=== PATIENT | female | born 1935 | race Caucasian/White ===

== ENCOUNTER 2018-06-23 16:14 | Emergency (ER) | payer OTHER ==
[~2018-06-23] VITALS: Ht 170.2 cm; Wt 74.6 kg
[~2018-06-23 16:14] MED LIST: ACET300T3 PO; ASCA500 PO; CALC500C3 PO; CHOL100010 PO; CLR10 PO; FELO10TA2 PO; FLVHFA220 INH; HYDR100T12 PO; KLN/5 PO; LOVA10TA3 PO; LSX20 PO; MULT-190 PO; SOTA80TA PO; WARF5TAB90 PO
[2018-06-23 16:27] VITALS: TEMP 36.3; Ht 170.2 cm; Wt 74.6 kg
--- NOTE | 2018-06-23 17:32 | EMERGENCY ROOM VISIT NOTE ---
History Report prepared by Frank: Chacorta Delgado Under the Supervision of: Dr. Terry Zurita D.O. First contact with patient: 17:11 Chief Complaint: NOSE BLEED (MINOR) Stated Complaint: BLOODY NOSE, CONSTANT History of Present Illness The patient is a 83 year old female who presents to the Emergency Room with complaints of constant nose bleeding beginning this morning. The patient states that she had eye surgery last week at [facility] for "crooked tear ducts" in an attempt to open them. She reports that she had very little bleeding until this morning. She notes that she thinks it started when she coughed hard to get rid of mucous in the throat. She states that some blood has been running into her throat. She notes that her eyes are watery. Source of History: patient Onset: this morning Position: nose Quality: other (nosebleed) Timing: constant Note: watery eyes Review of Systems See HPI for pertinent positives & negatives. A total of 10 systems reviewed and were otherwise negative. Past Medical & Surgical Medical Problems: (1) Benign hypertension (2) Chronic kidney disease stage 3 (3) Hyperlipidemia (4) Postoperative hypothyroidism Family History Cancer Heart disease Hypertension Social History Smoking Status: Never Smoker Drug Use: none Occupation Status: retired Current/Historical Medications Scheduled Ascorbic Acid (Vitamin C *), 500 MG PO DAILY Calcium Carbonate (Tums), 1,500 MG PO BID Cholecalciferol (Vitamin D), 2,000 INTER.UNIT PO DAILY Clonazepam (Klonopin), 0.5 MG PO HS Felodipine (Plendil), 10 MG PO QPM Fluticasone Propionate (Flovent Hfa 220MCG Inhaler *), 2 PUFF INH DAILY Furosemide (Lasix *), 20 MG PO QAM Hydralazine Hcl (Apresoline), 75 MG PO TID Loratadine (Claritin), 10 MG PO DAILY Lovastatin (Mevacor), 10 MG PO DAILY Ocuvite Preservision (Ocuvite Preservision), 1 TAB PO QAM Sotalol Hcl (Sotalol Hcl), 40 MG PO Q12 Warfarin Sodium (Coumadin), 5 MG PO DIRECTED Scheduled PRN Acetaminophen/Codeine (Tylenol W/Codeine #3), 1 TAB PO Q4H PRN Allergies Coded Allergies: Sulfamethoxazole w/Trimethoprim (Verified Adverse Reaction, Severe, RENAL PROBLEMS, 05/24/12) Vancomycin (Verified Adverse Reaction, Severe, RENAL PROBLEMS, 05/24/12) Physical Exam Vital Signs Date Time Temp Pulse Resp B/P (MAP) Pulse Ox O2 Delivery O2 Flow Rate FiO2 06/23/18 16:27 36.3 118 20 147/78 97 Room Air Physical Exam CONSTITUTIONAL/VITAL SIGNS: Reviewed / noted above. GENERAL: Non-toxic in appearance. INTEGUMENTARY: Warm, dry, and [place]. HEAD: Normocephalic. EYES: without scleral icterus or trauma. ENT/OROPHARYNX: clear and moist. LYMPHADENOPATHY/NECK: Is supple without lymphadenopathy or meningismus. RESPIRATORY: Lungs clear and equal. CARDIOVASCULAR: Regular rate and rhythm. GI/ABDOMEN: Soft and nontender. No organomegaly or pulsatile mass. No rebound or guarding. Normal bowel sounds. EXTREMITIES: Warm and well perfused. BACK: No CVA tenderness. NEUROLOGICAL: Intact without focal deficits. PSYCHIATRIC: normal affect. MUSCULOSKELETAL: Normally developed with good muscle tone. Medical Decision & Procedures ED Course 1714: Previous medical records were reviewed. The patient was evaluated in room D7. A complete history and physical examination was performed. I discussed the findings with the patient. She verbalized agreement of the treatment plan. The patient was discharged home. Medical Decision Differential diagnosis: Etiologies such as anterior epistaxis, coagulopathy, traumatic injury, fracture , septal hematoma, posterior epistaxis as well as other pathologies were entertained.. This is an 83-year-old female who presents to the ED with a chief complaint of a nosebleed. The patient states that she had her lacrimal ducts stented a few days ago. The patient states that this morning she was coughing hard and started having a left-sided nosebleed. She states that it is bleeding intermittently through the day today. She has not taken any of the Afrin that she was prescribed as she did not read her discharge instructions. The patient' s exam reveals no bleeding in the posterior oropharynx. She has minimal dried blood in the left anterior nares. There is no active bleeding. There is no bleeding or evidence of bleeding on the right. There is no evidence of bleeding from the anterior septum. After evaluating the patient, she was advised to use the Afrin that she was prescribed twice a day for the next 2-3 days as needed for bleeding. She is felt to be stable for discharge. She was advised to contact her wound specialist if she has any additional questions for Medication Reconcilliation Current Medication List: was personally reviewed by me Blood Pressure Screening Patient's blood pressure: Elevated blood pressure Blood pressure disposition: Elevated BP felt to be situational Impression Primary Impression: Epistaxis Scribe Attestation The scribe's documentation has been prepared under my direction and personally reviewed by me in its entirety. I confirm that the note above accurately reflects all work, treatment, procedures, and medical decision making performed by me. Departure Information Dispostion Home / Self-Care Referrals Gurpreet Horn MD (PCP) Forms HOME CARE DOCUMENTATION FORM, IMPORTANT VISIT INFORMATION, WORK / SCHOOL INSTRUCTIONS Patient Instructions My [facility]
[2018-06-23 18:02] VITALS: BP 149/93; PULSE 98; O2SAT 97
== END 2018-06-23 18:02 | disposition home or self-care (01) ==
LOC: C.EDB 16:15 → C.EDD 18:02
DX: R04.0 Epistaxis (principal); I12.9 Hypertensive chronic kidney disease with stage 1 through stage 4 chronic kidney disease, or unspecified chronic kidney disease; N18.3 Chronic kidney disease, stage 3 (moderate); E78.5 Hyperlipidemia, unspecified; Z98.890 Other specified postprocedural states; Z79.01 Long term (current) use of anticoagulants; Z79.899 Other long term (current) drug therapy; Z88.2 Allergy status to sulfonamides; Z88.1 Allergy status to other antibiotic agents

== ENCOUNTER 2019-02-04 18:50 | Inpatient (IN) ==
[2019-02-04] MEDS ORDERED: PIPERACILL/TAZOBAC CONSULT ACTIVE PRN (19:19)
[2019-02-04] MEDS ORDERED: PIPERACILLIN/TAZOBACTAM 4.5 GM/120 ML BAG IV ONE (19:19)
[2019-02-04] MEDS ORDERED: SODIUM CHLORIDE 0.9% 500 ML IV SCH (19:30)
[2019-02-04 19:40] LABS: Eosinophils # (auto) 0.03 K/uL (0-0.5); Eosinophils % (auto) 0.6 %; Hemoglobin 8.9 g/dL (12.0-16.0); Immature Granulocytes # (auto) 0.01 K/uL (0.00-0.02); Immature Granulocytes % (auto) 0.2 %; Lymphocytes # (auto) 0.52 K/uL (1.2-3.4); Lymphocytes % (auto) 10.7 %; Mean Corpuscular Hgb Conc 31.8 g/dL (32-36); Mean Platelet Volume 11.6 fL (7.4-10.4); Monocytes # (auto) 0.22 K/uL (0.11-0.59); Monocytes % (auto) 4.5 %; Neutrophils # (auto) 4.09 K/uL (1.4-6.5); Platelet Count 153 K/uL (130-400); RDW Coefficient of Variation 17.4 % (11.5-14.5); RDW Standard Deviation 62.7 fL (36.4-46.3); White Blood Count 4.87 K/uL (4.8-10.8)
[2019-02-04 19:56] LABS: Albumin Level 2.7 gm/dl (3.4-5.0); BUN Creatinine Ratio 27.6 (10-20); Blood Urea Nitrogen 41 mg/dl (7-18); Calcium 9.5 mg/dl (8.5-10.1); Carbon Dioxide 28 mmol/L (21-32); Chloride 113 mmol/L (98-107); Est GFR (African American) 36.8; Est GFR (Non-African American) 31.7; Glucose 110 mg/dl (70-99); Potassium 4.6 mmol/L (3.5-5.1); Sodium 144 mmol/L (136-145)
[2019-02-04 20:01] LABS: Alanine Aminotransferase 22 U/L (12-78); Albumin Globulin Ratio 0.7 (0.9-2); Alkaline Phosphatase 106 U/L (45-117); Aspartate Aminotransferase 25 U/L (15-37); Bilirubin,Total 0.4 mg/dl (0.2-1); Globulin 3.8 gm/dl (2.5-4.0); Total Protein 6.5 gm/dl (6.4-8.2); Troponin I < 0.015 ng/ml (0-0.045)
[2019-02-04 20:03] LABS: Hypochromasia Present; Ovalocytes 1+; Tear Drop Cells 1+
--- NOTE | 2019-02-04 20:05 | XRay Report ---
XR chest 1V portable HISTORY: 84 years-old Female sepsis acute sepsis COMPARISON: Chest radiograph 01/17/2019, chest CT 01/19/2019 (both studies are without accompanying rep ort) TECHNIQUE: Portable AP view of the chest FINDINGS: Cardiac silhouette is enlarged, unchanged. Calcification of the thoracic aortic arch. There is pulmon lalo vascular congestion. Patchy bilateral alveolar opacities, most pronounced within the left lung ba se are redemonstrated which have mildly progressed from 01/19/2019. Degenerative changes of the should ers and spine. IMPRESSION: Patchy bilateral alveolar opacities, most pronounced in the left lung base have progressively worsene d from 01/19/2019 suggestive of multifocal pneumonia. Follow-up recommended. The above report was generated using voice recognition software. It may contain grammatical, syntax o r spelling errors. Electronically signed by: Eleazar Christensen M.D. 02/04/2019 8:04 PM
[2019-02-04] MEDS ORDERED: SODIUM CHLORIDE 0.9% 1000ML 500 ML IV ONE ×2 (20:13→21:08)
[2019-02-04] MEDS ORDERED: LEVOFLOXACIN/D5W 750 MG/150 ML BAG IV SCH (20:15)
[2019-02-04] MEDS ORDERED: VANCOMYCIN HCL 1,500 MG in SODIUM CHLORIDE 0.9% 500 ML IV STA (20:16)
--- NOTE | 2019-02-04 21:49 | History & Physical Report ---
Date of Service February 04, 2019 Assessment & Plan (1) Sepsis: (2) Pneumonia: (3) Hypotension: (4) Hypothermia: Pt presented with c/o weakness and reported hypotension at home in 80's/50's. Hx dysphagia and cough and poor oral intake and suspected recurrent aspiration pneumonia. Pt finished Augmentin 5 days ago for aspiration pneumonia. In ER T: 33.1C rectal, P: 46-54, R: 16, BP: 99/57, 76/45, 87/48, 92% on RA. WBC: 4.8, Hgb: 8.9, negative troponin, negative flu, POC lactic acid: 0.5. CXR: Patchy bilateral alveolar opacities, most pronounced in the left lung base have progressively worsened from 01/19/2019 suggestive of multifocal pneumonia. Follow-up recommended. In ER was given total 1500ml NSS, Levaquin, Zosyn, vancomycin IV -ER placing central line -ICU for further observation and treatment -pending procalcitonin -pending blood culture -pending UA and urine culture -NSS -close monitoring, may need to initiate pressors -zosyn, vancomycin -speech eval -bear hugger -monitor CBC, BMP -Principal Accounts Clerk consult (5) Atrial fibrillation: Chronic a-fib. On coumadin -hold metoprolol with pulse in 40s-50's -pending INR -continue coumadin with holding parameters (6) Chronic diastolic (congestive) heart failure: 2013 echo: EF: 55%, grade II diastolic dysfunction Currently dehydrated -hold lasix (7) HTN (hypertension): Currently hypotensive -hold hydralazine (8) Anemia: Chronic anemia. Hgb: 8.9. baseline ~10 (9) Dysphagia: Chronic. Poor oral intake. reported 40lb weight loss over past several months -speech consult (10) Hypothyroidism: TSH in am -continue levothyroxine (11) CKD (chronic kidney disease), stage III: Cr: 1.48. baseline ~1.7 -monitor renal functions -avoid nephrotoxic agents when possible DVT Prophylaxis -SCDs, coumadin Full Code as per discussion with pt Follows with Dr Horn for routine care Pt was seen with Dr Manzanares. See addendum History of Present Illness Chief Complaint: weakness Primary Care Provider: Gurpreet Horn MD Pt is 84 y/o F with PMHAtrial fibrillation on Coumadin, HTN, chronic anemia, CKD 3, chronic diastolic heart failure presented to ER with complaint of weakness. History obtained from patient and patient's niece. Patient's niece reports patient was drowsy yesterday. Increased weakness and lethargy today. Patient normally able to perform ADLs however today was unable to stand. Niece reports was taking her blood pressure with wrist BP monitor and BPs were 80s/50s and heart rate in the 50s. Niece reports all day patient refused to go to ER until this evening. He states patient had one episode of loose stool today. She reports patient with history of suspected aspiration pneumonia and finished Augmentin 5 days ago. Reports had hydralazine decreased to 25mg TID couple of days ago and was held today. Pt states hasn't been feeling well "for a long time". States chronic cough. Patient with history of dysphasia and a cough and has had a reported 40 pound weight loss over the past several months. Reported chronic poor oral intake. Reports had morning meds today. Patient niece has been staying with pt for the past 2 months. Reported that patient was to have bronchoscopy on 02/22/19. She was to have Coumadin held starting on 02/16/19 with no bridge. Denies known fever/chills, diaphoresis, N/V, CROSS, syncope, vision changes, neck pain, CP, SOB, orthopnea, palpitations, sore throat, choking, otalgia, rhinorrhea, abdominal pain, extremity edema, rashes, urinary symptoms. Allergies Allergy/AdvReac Type Severity Reaction Status Date / Time Bactrim AdvReac Severe RENAL Verified 05/24/12 09:38 PROBLEMS sulfamethoxazole AdvReac Severe RENAL Verified 11/14/18 06:19 PROBLEMS trimethoprim AdvReac Severe RENAL Verified 11/14/18 06:19 PROBLEMS vancomycin AdvReac Severe RENAL Verified 11/14/18 06:19 PROBLEMS Home Medications Home Medications Medication Instructions Recorded Confirmed Type PreserVision AREDS-2 1 tab PO BID 11/08/18 02/04/19 History cholecalciferol (vitamin D3) 2,000 units PO DAILY 11/08/18 02/04/19 History [Vitamin D3] clonazepam 0.25 mg PO HS PRN 11/08/18 02/04/19 History ferrous gluconate 240 mg PO BID 11/08/18 02/04/19 History furosemide [Lasix] 20 mg PO DAILY 11/08/18 02/04/19 History hydralazine 25 mg PO .HOLD 11/08/18 02/04/19 History levothyroxine [Synthroid] 75 mg PO QAM 11/08/18 02/04/19 History metoprolol succinate [Toprol XL] 12.5 mg PO QPM 11/08/18 02/04/19 History metoprolol succinate [Toprol XL] 25 mg PO QAM 11/08/18 02/04/19 History potassium chloride [Klor-Con M20] 20 meq PO BIDM 11/08/18 02/04/19 History sennosides-docusate sodium [Senna 1 tab PO DAILY PRN 02/04/19 02/04/19 History with Docusate Sodium] warfarin 1 mg PO DAILY 02/04/19 02/04/19 History Past Med/Surg History Medical History CKD (chronic kidney disease), stage III (Chronic) Dysphagia (Chronic) HTN (hypertension) (Chronic) History of cataract (Chronic) Chronic diastolic (congestive) heart failure (Chronic) Recurrent epistaxis (Resolved) Anemia (Chronic) Hypothyroidism (Chronic) Atrial fibrillation (Chronic 08/01/14) 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) Surgical History History of cataract surgery (Chronic) Status post tonsillectomy (Chronic) Social History Preferred Language: Congolese Visual Impairment: No Limitations Beliefs That Will Affect Care: None marital status: / Current Living Situation: Alone Feels Safe at Home: Yes Smoking Status: Former smoker Hx Alcohol Use: No Hx Substance Use: No Review of Systems All systems reviewed & are unremarkable except as noted in HPI & below Physical Exam Vital Signs (Past 24 Hours): Last Vital Signs Temp 32.5 C L 02/04/19 20:57 Pulse 53 L 02/04/19 21:32 Resp 16 02/04/19 21:32 BP 88/50 L 02/04/19 21:32 Pulse Ox 100 02/04/19 21:32 Physical Exam: General: thin elderly female Head: normocephalic, atraumatic Eyes: PERRL, EOM's intact, conjunctiva non-injected, anicteric ENT: normal inspection external ears, nose, mucous membranes dry Neck: supple, trachea midline Lungs: clear, no respiratory distress CV: irregular rhythm, rate 50, no pretibial edema Abd: normal BS, soft, non-tender Ext: no cyanosis, no calf tenderness Neuro: A&O to person, place, no focal deficits noted, normal affect Skin: warm, dry Results & Data Laboratory Results Short CBC 02/04/19 Range/Units 19:10 WBC 4.87 (4.8-10.8) K/uL Hgb 8.9 L (12.0-16.0) g/dL Hct 28.0 L (37-47) % Plt Count 153 (130-400) K/uL BMP 02/04/19 19:10 Sodium 144 Potassium 4.6 Chloride 113 H Carbon Dioxide 28 BUN 41 H Creatinine 1.48 H Glucose 110 H Calcium 9.5 Cardiac Enzymes 02/04/19 Range/Units 19:10 Troponin I < 0.015 (0-0.045) ng/ml Liver Function 02/04/19 Range/Units 19:10 Total Bilirubin 0.4 (0.2-1) mg/dl AST 25 (15-37) U/L ALT 22 (12-78) U/L Alkaline Phosphatase 106 (45-117) U/L Albumin 2.7 L (3.4-5.0) gm/dl Diagnostic Findings CXR: IMPRESSION: Patchy bilateral alveolar opacities, most pronounced in the left lung base have progressively worsened from 01/19/2019 suggestive of multifocal pneumonia. Follow-up recommended. ECG Rate (beats per minute): 54 Rhythm: atrial fibrillation Additional Comments: poor tracing Critical Care Time 90 minutes of critical care time Critical Care Time: Yes Total Critical Care Time: 90 (Minutes) Supervising Physician Co-Signing Physician Notes I saw this patient with the physician payroll and benefits assistant, I participated in the history, physical, review of systems, and physical exam. I reviewed the medications with the patient and the physician payroll and benefits assistant and helped reconcile the medications. I helped take a detailed family and social history as well. I formulated the assessment and plan personally with the physician payroll and benefits assistant and went over it with the patient. ROS-positive headache, No Visual Changes, No Nausea, No Vomiting, No Fever, positive chills, No Neck Pain or Stiffness, No Chest Pain, No Palpitations, positive SOB, positive SANZ, positive cough, No Sputum, positive wheezing, No Abdominal Pain, No Diarrhea, No Hematemesis, No Hemoptysis, positive unexpected Weight Loss, No Flank pain, No Melena, No Hematochezia, No Frequency, No Urgency, No Burning, No Hematuria, No Rashes, No Diaphoresis. Appetite is very poor l Physical Exam Gen-somnolent, moderate distress, weak, hypothermic Head-NCAT, EOMI, PERRLA, Anicteric Sclera, No Posterior Pharyngeal Erythema, mucous membranes dry Neck-Supple, No JVD, No Thyromegaly, No Masses, No LAD, No Bruits Lungs-rhonchi bilaterally, bilateral Rales, scattered wheezing, No Crepitus Chest-No S4, +S1, +S2, No S3, No Murmurs, No Rubs, No Gallops, No Ectopy Abdomen-Soft, Bowel Sounds Present, Non Tender, Non Distended, No Hepatomegaly, No Splenomegaly, No Palpable Masses, No Rebound, No Rigidity, No Guarding Musculoskeletal-Full Range of Motion Bilaterally, No CVAT Extremities-No Cyanosis, No Clubbing, No Edema Nuero-Cranial Nerves II-XII grossly intact, Motor WNL, DTRs WNL, Strength WNL, Non Focal Psych-week (1) Anemia Anemia type: unspecified type Qualified Code(s): D64.9 - Anemia, unspecified (2) Atrial fibrillation Atrial fibrillation type: chronic Qualified Code(s): I48.2 - Chronic atrial fibrillation
[2019-02-04 22:15] LABS: INR 3.5 (0.9-1.1); Partial Thromboplastin Ratio 1.6; Partial Thromboplastin Time 43.6 Seconds (21.0-31.0); Prothrombin Time 33.1 Seconds (9.0-12.0)
[2019-02-04 22:41] LABS: Appearance Urine Clear (Clear); Bilirubin Urine Negative (Negative); Blood Urine Negative (Negative); Color Urine Yellow; Glucose Urine UA Negative (Negative); Ketones Urine Negative (Negative); Leukocyte Esterase Urine Negative (Negative); Nitrite Urine Negative (Negative); Protein Urine Negative (Negative); Specific Gravity Urine 1.018 (1.000-1.030); Urobilinogen Urine Negative (Negative)
[2019-02-04] MEDS ORDERED: ICU PROTOCOL FOR HYPERGLYCEMIA PRN (22:53)
[2019-02-04] MEDS ORDERED: NOREPINEPHRINE BIT INJ 8 MG in DEXTROSE 5% 500 ML IV SCH (23:45)
[2019-02-04] MEDS: SODIUM CHLORIDE 0.9% 1000ML 1,000 ML IV SCH (23:50)
[2019-02-05] MEDS ORDERED: PIPERACILL/TAZOBAC CONSULT ACTIVE PRN (00:01)
[2019-02-05] MEDS ORDERED: VANCOMYCIN CONSULT ACTIVE PRN (00:01)
--- NOTE | 2019-02-05 02:41 | Emergency Department Note ---
Entered by Julio Whipple acting as a scribe for History of Present Illness General Chief complaint: Weakness Stated complaint: WEAKNESS, HYPOTENSION Time Seen by Provider: 02/04/19 19:05 Source: patient and family (niece) History of Present Illness Provider complaint: Weakness Onset (ago): hour(s) Location: left and right Associated symptoms: + denies other symptoms (abd pain), + weakness and + other (of difficulty swallowing, pain in her legs, and feeling really cold); no shortness of breath Treatments prior to arrival: other (IV) The patient is a 84 year old female who presents to the Emergency Room with complaints of weakness beginning prior to arrival. For this reason, the HPI was limited from the patient, but the niece provided some information. Per the patient's niece, who was bedside, the patient has been lethargic with low BP. Her HR was in the 50s while at home and dropped down to the 30-40s while with EMS en route to the ED. The niece adds that the patient recently been taken off of antibiotics for aspiration PNA and she was last at her doctor 4 days ago. At that time, her BP was 90/60. The doctor instructed the niece to cut the patient's hydralazine in half. The niece notes that the patient was wake enough to taker her pills this morning. The patient also complains of difficulty swallowing, pain in her legs, and feeling really cold. Per nursing staff, the patient's most recent temperature was 33.1. The patient denies SOB, and abd pain. Home Medications Home Medications Medication Instructions Recorded Confirmed Type PreserVision AREDS-2 1 tab PO BID 11/08/18 02/04/19 History cholecalciferol (vitamin D3) 2,000 units PO DAILY 11/08/18 02/04/19 History [Vitamin D3] clonazepam 0.25 mg PO HS PRN 11/08/18 02/04/19 History ferrous gluconate 240 mg PO BID 11/08/18 02/04/19 History furosemide [Lasix] 20 mg PO DAILY 11/08/18 02/04/19 History hydralazine 25 mg PO .HOLD 11/08/18 02/04/19 History levothyroxine [Synthroid] 75 mg PO QAM 11/08/18 02/04/19 History metoprolol succinate [Toprol XL] 12.5 mg PO QPM 11/08/18 02/04/19 History metoprolol succinate [Toprol XL] 25 mg PO QAM 11/08/18 02/04/19 History potassium chloride [Klor-Con M20] 20 meq PO BIDM 11/08/18 02/04/19 History sennosides-docusate sodium [Senna 1 tab PO DAILY PRN 02/04/19 02/04/19 History with Docusate Sodium] warfarin 1 mg PO DAILY 02/04/19 02/04/19 History Allergies Allergy/AdvReac Type Severity Reaction Status Date / Time Bactrim AdvReac Severe RENAL Verified 05/24/12 09:38 PROBLEMS sulfamethoxazole AdvReac Severe RENAL Verified 11/14/18 06:19 PROBLEMS trimethoprim AdvReac Severe RENAL Verified 11/14/18 06:19 PROBLEMS vancomycin AdvReac Severe RENAL Verified 11/14/18 06:19 PROBLEMS Past Med/Surg History Medical History CKD (chronic kidney disease), stage III (Chronic) Dysphagia (Chronic) HTN (hypertension) (Chronic) History of cataract (Chronic) Chronic diastolic (congestive) heart failure (Chronic) Recurrent epistaxis (Resolved) Anemia (Chronic) Hypothyroidism (Chronic) Atrial fibrillation (Chronic 08/01/14) 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) Surgical History History of cataract surgery (Chronic) Status post tonsillectomy (Chronic) Family History Other Cancer Diabetes Family history non-contributory Stroke Social History Communication Ability: Effective Beliefs That Will Affect Care: None marital status: / Current Living Situation: Alone Current Living Situation Comment: Niece has been staying with patient the last few weeks Other Information That Helps Us Care for You: No Feels Safe at Home: Yes Safety Concerns: Feels Safe At This Time Smoking Status: Former smoker Hx Alcohol Use: No Hx Substance Use: No Review of Systems See HPI for pertinent positives & negatives. and A total of 10 systems reviewed and were otherwise negative Physical Exam Vital Signs Vital Signs - 24 hr 02/06/19 23:15 02/07/19 03:10 02/07/19 08:00 Temperature 36.4 C L Temperature Source Oral Pulse Rate 92 H Pulse Rate [Left Apical] 88 81 99 H Pulse Rate [Right Finger] Pulse Rhythm [Left Apical] Irregular Pulse Rhythm [Right Finger] Pulse Strength [Left Apical] Normal Pulse Strength [Right Finger] Respiratory Rate 17 17 Respiratory Effort / Characteristics Non-Labored SOB on Exertion Respiratory Depth Normal Respiratory Pattern Regular Blood Pressure [Left Arm] 109/63 143/85 H Blood Pressure [Right Arm] Blood Pressure Mean [Left Arm] 78 104 Blood Pressure Mean [Right Arm] Blood Pressure Position [Left Arm] Lying Lying Blood Pressure Position [Right Arm] Pulse Oximetry 95 97 Oxygen Delivery Method Room Air Room Air Room Air 02/07/19 15:19 Temperature 36.3 C L Temperature Source Oral Pulse Rate Pulse Rate [Left Apical] Pulse Rate [Right Finger] 77 Pulse Rhythm [Left Apical] Pulse Rhythm [Right Finger] Regular Pulse Strength [Left Apical] Pulse Strength [Right Finger] Normal Respiratory Rate 17 Respiratory Effort / Characteristics Non-Labored Respiratory Depth Normal Respiratory Pattern Blood Pressure [Left Arm] Blood Pressure [Right Arm] 103/60 Blood Pressure Mean [Left Arm] Blood Pressure Mean [Right Arm] 74 Blood Pressure Position [Left Arm] Blood Pressure Position [Right Arm] Lying Pulse Oximetry 92 Oxygen Delivery Method Room Air Vital signs reviewed.: hypotensive and hypothermic General: Chronically ill-appearing, elderly female in no significant distress. Noted to be bradycardic and hypotensive HEENT: No scleral icterus, PERRLA, neck supple. Atraumatic. Cardiovascular: Regular rate and rhythm, no extra sounds. Pulmonary: Clear to auscultation bilaterally, normal work of breathing. Abdomen: Soft, nontender, nondistended, positive bowel sounds. Musculoskeletal: Atraumatic, no peripheral edema. Neurologic: Patient somnolent and lethargic, arouses to verbal stimuli with slurred speech. Falls asleep quickly Skin: Cold, dry, no rash Procedures Central Line Placement Right Femoral: Time Out Performed: Yes Patient Placed on Monitor/Pulse Ox: Yes MD Prep: mask, gown and gloves Central Line Prep: Chlorhexidine scrub Local Anesthetic: lidocaine 1% Ultrasound Used for Placement: Yes Central Line Lumen Inserted: triple Post Procedure: sutured in place, good blood return and all ports a spirated, flushed, capped Patient Tolerated Procedure: well Complications: none Additional Comments: Attempt at right IJ was performed in similar fashion but arterial blood was attained, pressure dressing was applied and right femoral was placed successfully as above. Course 1910: Past medical records reviewed. The patient was evaluated in room A09B, and a complete history and physical examination were performed. 2034: [facility] the [facility] He requested a central line placement. He will evaluate the patient for further managment. Administered Medications Dextrose (Dextrose 50%) 50 ml IV ONCE PRN PRN Reason: Hypoglycemia Treatment Stop: 03/07/19 07:20 Last Admin: 02/05/19 07:21 Dose: 25 ml Documented by: [id number] Pantoprazole Sodium 40 mg/ (Syringe) 10 mls @ 5 mls/min IV DAILY@1100 [facility] Stop: 03/07/19 10:59 Last Admin: 02/07/19 10:55 Dose: Not Given Documented by: [id number] Admin: 02/06/19 11:42 Dose: 5 mls/min Documented by: [id number] Admin: 02/05/19 11:47 Dose: 5 mls/min Documented by: [id number] Potassium Chloride/Dextrose/Sod Cl (D5w And 1/2nss + 20meq Kcl) 20 meq in 1,000 mls @ 50 mls/hr IV .Q20H [facility] Stop: 03/07/19 15:44 Last Admin: 02/07/19 10:54 Dose: Not Given Documented by: [id number] Infusion: 02/07/19 09:02 Dose: 0 mls/hr Documented by: [id number] Infusion: 02/06/19 19:00 Dose: 0 mls/hr Documented by: [id number] Admin: 02/06/19 11:43 Dose: 50 mls/hr Documented by: [id number] Infusion: 02/06/19 11:43 Dose: 50 mls/hr Documented by: [id number] Admin: 02/05/19 17:01 Dose: 50 mls/hr Documented by: [id number] Levothyroxine Sodium 37.5 mcg/ (Syringe) 1.875 mls @ 0.938 mls/min IV DAILY@0900 [facility] Stop: 03/08/19 08:59 Last Admin: 02/07/19 10:54 Dose: Not Given Documented by: [id number] Admin: 02/06/19 08:55 Dose: 0.938 mls/min Documented by: [id number] Thiamine HCl 100 mg/ Syringe 10 mls @ 2 mls/min IV DAILY@0900 [facility] Stop: 03/09/19 08:59 Last Admin: 02/07/19 10:54 Dose: Not Given Documented by: [id number] Hydrocortisone Sodium (Succinate 100 mg/ Syringe) 2 mls @ 4 mls/min IV Q8H [facility] Stop: 03/08/19 12:59 Last Admin: 02/07/19 13:50 Dose: Not Given Documented by: [id number] Admin: 02/07/19 05:23 Dose: 4 mls/min Documented by: [id number] Admin: 02/07/19 01:37 Dose: 4 mls/min Documented by: [id number] Admin: 02/06/19 13:51 Dose: 4 mls/min Documented by: [id number] Discontinued Medications Dextrose (Dextrose 50%) Confirm Administered Dose 50 ml IV .STK-MED ONE Stop: 02/05/19 07:20 Last Admin: 02/05/19 08:07 Dose: Not Given Documented by: [id number] Ferrous Gluconate (Ferrous Gluconate) 324 mg PO BID [facility] Stop: 03/07/19 08:59 Last Admin: 02/05/19 10:08 Dose: Not Given Documented by: [id number] Sodium Chloride (Nss) 500 mls @ 999 mls/hr IV .Q31M [facility] Stop: 02/04/19 20:00 Last Infusion: 02/04/19 20:59 Dose: 0 mls/hr Documented by: [id number] Admin: 02/04/19 19:58 Dose: 999 mls/hr Documented by: [id number] Piperacillin Sod/Tazobactam Sod (Zosyn) 4.5 gm in 120 mls @ 240 mls/hr IV NOW ONE Stop: 02/04/19 19:48 Last Infusion: 02/04/19 20:58 Dose: 0 mls/hr Documented by: [id number] Admin: 02/04/19 19:57 Dose: 240 mls/hr Documented by: [id number] Sodium Chloride (Nss 1000ml) 500 mls @ 999 mls/hr IV .Q31M [facility] Stop: 02/04/19 20:43 Last Infusion: 02/04/19 21:30 Dose: 0 mls/hr Documented by: [id number] Admin: 02/04/19 20:59 Dose: 999 mls/hr Documented by: [id number] Levofloxacin/Dextrose (Levaquin/D5w) 750 mg in 150 mls @ 100 mls/hr IV Q24H [facility] Stop: 02/06/19 20:14 Last Infusion: 02/04/19 22:55 Dose: 0 mls/hr Documented by: [id number] Admin: 02/04/19 20:56 Dose: 100 mls/hr Documented by: [id number] Vancomycin HCl 1,500 mg/ (Sodium Chloride) 530 mls @ 200 mls/hr IV NOW STA Stop: 02/04/19 22:54 Last Infusion: 02/04/19 22:55 Dose: 0 mls/hr Documented by: [id number] Admin: 02/04/19 20:56 Dose: 200 mls/hr Documented by: [id number] Sodium Chloride (Nss 1000ml) 500 mls @ 999 mls/hr IV .Q31M [facility] Stop: 02/04/19 21:38 Last Infusion: 02/04/19 22:55 Dose: 0 mls/hr Documented by: [id number] Admin: 02/04/19 21:42 Dose: 999 mls/hr Documented by: [id number] Sodium Chloride (Nss 1000ml) 1,000 mls @ 100 mls/hr IV .Q10H [facility] Stop: 03/06/19 22:52 Last Infusion: 02/05/19 18:49 Dose: 0 mls/hr Documented by: [id number] Admin: 02/05/19 10:07 Dose: 100 mls/hr Documented by: [id number] Infusion: 02/05/19 10:07 Dose: 100 mls/hr Documented by: [id number] Admin: 02/04/19 23:50 Dose: 100 mls/hr Documented by: [id number] Norepinephrine Bitartrate 8 mg (/ Dextrose) 508 mls @ 2.6 mls/hr IV .Q24H [facility]; Protocol Stop: 03/06/19 23:44 Last Titration: 02/05/19 14:15 Dose: 0 mcg/kg/min, 0 mls/hr Documented by: [id number] Admin: 02/05/19 00:36 Dose: 0.01 mcg/kg/min, 2.6 mls/hr Documented by: [id number] Cosigned by: [id number] Piperacillin Sod/Tazobactam (Sod 3.375 gm/ Dextrose) 115 mls @ 28.75 mls/hr IV Q8H [facility]; Protocol Stop: 02/07/19 05:59 Last Infusion: 02/05/19 18:49 Dose: 0 mls/hr Documented by: [id number] Admin: 02/05/19 14:07 Dose: 28.8 mls/hr Documented by: [id number] Infusion: 02/05/19 10:45 Dose: 0 mls/hr Documented by: [id number] Admin: 02/05/19 06:42 Dose: 28.8 mls/hr Documented by: [id number] Thiamine HCl 100 mg/ Syringe 10 mls @ 2 mls/min IV 1145 [facility] Stop: 02/06/19 11:49 Last Admin: 02/06/19 12:39 Dose: 2 mls/min Documented by: [id number] Lorazepam (Ativan) 0.5 mg in 1 mls @ 2 mls/min IV NOW STA Stop: 02/06/19 13:39 Last Admin: 02/06/19 13:51 Dose: 2 mls/min Documented by: [id number] Levothyroxine Sodium (Synthroid) 75 mcg PO DAILYBB [facility] Stop: 03/07/19 06:29 Last Admin: 02/05/19 05:44 Dose: Not Given Documented by: [id number] Phytonadione (Mephyton) 2.5 mg PO TODAY@1700 [facility] Stop: 02/07/19 17:01 Last Admin: 02/07/19 17:22 Dose: 2.5 mg Documented by: [id number] Medical Decision Making Differential Diagnosis Differential diagnosis: Etiologies such as metabolic, infection, hypo/hyperglycemia, electrolyte abnormalities, cardiac sources, intracerebral event, toxicologic, neurologic, as well as others were entertained. Medical Records Attestation: I reviewed the patient's medical records. Home Medications Current Medication List: was personally reviewed by me Laboratory Data Attestation: I reviewed the patient's lab results. Result diagrams: 02/07/19 15:22 02/07/19 15:22 Lab Results 02/04/19 02/04/19 02/04/19 Range/Units 19:10 19:10 19:10 WBC 4.87 (4.8-10.8) K/uL RBC 2.80 L (4.2-5.4) M/uL Hgb 8.9 L (12.0-16.0) g/dL Hct 28.0 L (37-47) % MCV 100.0 (80-100) fL MCH 31.8 (25-34) pg MCHC 31.8 L (32-36) g/dL RDW Std Deviation 62.7 H (36.4-46.3) fL RDW Coeff of Patrick 17.4 H (11.5-14.5) % Plt Count 153 (130-400) K/uL MPV 11.6 H (7.4-10.4) fL Immature Gran % (Auto) 0.2 % Neut % (Auto) 84.0 % Lymph % (Auto) 10.7 % [place] % (Auto) 4.5 % Eos % (Auto) 0.6 % Baso % (Auto) 0.0 % Immature Gran # (Auto) 0.01 (0.00-0.02) K/uL Neut # (Auto) 4.09 (1.4-6.5) K/uL Lymph # (Auto) 0.52 L (1.2-3.4) K/uL [place] # (Auto) 0.22 (0.11-0.59) K/uL Eos # (Auto) 0.03 (0-0.5) K/uL Baso # (Auto) 0.00 (0-0.2) K/uL Platelet Estimate (Normal) Giant Platelets Hypochromasia Present Anisocytosis Tear Drop Cells 1+ Ovalocytes 1+ Echinocytes ESR (0-21) mm/hr PT 33.1 H (9.0-12.0) Seconds INR 3.5 H (0.9-1.1) APTT 43.6 H (21.0-31.0) Seconds PTT Ratio 1.6 Sodium 144 (136-145) mmol/L Potassium 4.6 (3.5-5.1) mmol/L Chloride 113 H (98-107) mmol/L Carbon Dioxide 28 (21-32) mmol/L Anion Gap 3.0 (3-11) BUN 41 H (7-18) mg/dl Creatinine 1.48 H (0.6-1.2) mg/dl Est Cr Clr Drug Dosing Not Reportable Est GFR ( Amer) 36.8 Est GFR (Non-Af Amer) 31.7 BUN/Creatinine Ratio 27.6 H (10-20) Glucose 110 H (70-99) mg/dl POC Glucose (70-99) POC Lactic Acid Michael (0.90-1.70) mmol/L Calcium 9.5 (8.5-10.1) mg/dl Phosphorus (2.5-4.9) mg/dl Magnesium (1.8-2.4) mg/dl Total Bilirubin 0.4 (0.2-1) mg/dl AST 25 (15-37) U/L ALT 22 (12-78) U/L Alkaline Phosphatase 106 (45-117) U/L Total Creatine Kinase (26-192) U/L Troponin I < 0.015 (0-0.045) ng/ml Total Protein 6.5 (6.4-8.2) gm/dl Albumin 2.7 L (3.4-5.0) gm/dl Globulin 3.8 (2.5-4.0) gm/dl Albumin/Globulin Ratio 0.7 L (0.9-2) Procalcitonin (0-0.5) ng/ml TSH (0.300-4.500) uIu/ml Random Cortisol mcg/dl Urine Color Urine Appearance (Clear) Urine pH (4.5-7.5) Ur Specific [place] (1.000-1.030) Urine Protein (Negative) Urine Glucose (UA) (Negative) Urine Ketones (Negative) Urine Blood (Negative) Urine Nitrite (Negative) Urine Bilirubin (Negative) Urine Urobilinogen (Negative) Ur Leukocyte Esterase (Negative) Nasal Screen MRSA (PCR) (Negative) Influenza Type A Ag (Neg) Influenza Type B Ag (Neg) 02/04/19 02/04/19 02/04/19 Range/Units 19:11 19:30 19:30 WBC (4.8-10.8) K/uL RBC (4.2-5.4) M/uL Hgb (12.0-16.0) g/dL Hct (37-47) % MCV (80-100) fL MCH (25-34) pg MCHC (32-36) g/dL RDW Std Deviation (36.4-46.3) fL RDW Coeff of Patrick (11.5-14.5) % Plt Count (130-400) K/uL MPV (7.4-10.4) fL Immature Gran % (Auto) % Neut % (Auto) % Lymph % (Auto) % [place] % (Auto) % Eos % (Auto) % Baso % (Auto) % Immature Gran # (Auto) (0.00-0.02) K/uL Neut # (Auto) (1.4-6.5) K/uL Lymph # (Auto) (1.2-3.4) K/uL [place] # (Auto) (0.11-0.59) K/uL Eos # (Auto) (0-0.5) K/uL Baso # (Auto) (0-0.2) K/uL Platelet Estimate (Normal) Giant Platelets Hypochromasia Anisocytosis Tear Drop Cells Ovalocytes Echinocytes ESR (0-21) mm/hr PT (9.0-12.0) Seconds INR (0.9-1.1) APTT (21.0-31.0) Seconds PTT Ratio Sodium (136-145) mmol/L Potassium (3.5-5.1) mmol/L Chloride (98-107) mmol/L Carbon Dioxide (21-32) mmol/L Anion Gap (3-11) BUN (7-18) mg/dl Creatinine (0.6-1.2) mg/dl Est Cr Clr Drug Dosing Est GFR ( Amer) Est GFR (Non-Af Amer) BUN/Creatinine Ratio (10-20) Glucose (70-99) mg/dl POC Glucose 107 H (70-99) POC Lactic Acid Michael 0.55 L (0.90-1.70) mmol/L Calcium (8.5-10.1) mg/dl Phosphorus (2.5-4.9) mg/dl Magnesium (1.8-2.4) mg/dl Total Bilirubin (0.2-1) mg/dl AST (15-37) U/L ALT (12-78) U/L Alkaline Phosphatase (45-117) U/L Total Creatine Kinase (26-192) U/L Troponin I (0-0.045) ng/ml Total Protein (6.4-8.2) gm/dl Albumin (3.4-5.0) gm/dl Globulin (2.5-4.0) gm/dl Albumin/Globulin Ratio (0.9-2) Procalcitonin (0-0.5) ng/ml TSH (0.300-4.500) uIu/ml Random Cortisol mcg/dl Urine Color Urine Appearance (Clear) Urine pH (4.5-7.5) Ur Specific [place] (1.000-1.030) Urine Protein (Negative) Urine Glucose (UA) (Negative) Urine Ketones (Negative) Urine Blood (Negative) Urine Nitrite (Negative) Urine Bilirubin (Negative) Urine Urobilinogen (Negative) Ur Leukocyte Esterase (Negative) Nasal Screen MRSA (PCR) (Negative) Influenza Type A Ag Neg for Influ A (Neg) Influenza Type B Ag Neg for Influ B (Neg) 02/04/19 02/04/19 02/05/19 Range/Units 21:00 22:10 04:37 WBC 4.09 L (4.8-10.8) K/uL RBC 2.43 L (4.2-5.4) M/uL Hgb 7.7 L (12.0-16.0) g/dL Hct 24.1 L (37-47) % MCV 99.2 (80-100) fL MCH 31.7 (25-34) pg MCHC 32.0 (32-36) g/dL RDW Std Deviation 63.3 H (36.4-46.3) fL RDW Coeff of Patrick 17.6 H (11.5-14.5) % Plt Count 137 (130-400) K/uL MPV 11.7 H (7.4-10.4) fL Immature Gran % (Auto) 0.2 % Neut % (Auto) 86.1 % Lymph % (Auto) 6.8 % [place] % (Auto) 5.9 % Eos % (Auto) 1.0 % Baso % (Auto) 0.0 % Immature Gran # (Auto) 0.01 (0.00-0.02) K/uL Neut # (Auto) 3.52 (1.4-6.5) K/uL Lymph # (Auto) 0.28 L (1.2-3.4) K/uL [place] # (Auto) 0.24 (0.11-0.59) K/uL Eos # (Auto) 0.04 (0-0.5) K/uL Baso # (Auto) 0.00 (0-0.2) K/uL Platelet Estimate (Normal) Giant Platelets 1+ Hypochromasia Anisocytosis Tear Drop Cells Ovalocytes Echinocytes ESR (0-21) mm/hr PT (9.0-12.0) Seconds INR (0.9-1.1) APTT (21.0-31.0) Seconds PTT Ratio Sodium (136-145) mmol/L Potassium (3.5-5.1) mmol/L Chloride (98-107) mmol/L Carbon Dioxide (21-32) mmol/L Anion Gap (3-11) BUN (7-18) mg/dl Creatinine (0.6-1.2) mg/dl Est Cr Clr Drug Dosing Est GFR ( Amer) Est GFR (Non-Af Amer) BUN/Creatinine Ratio (10-20) Glucose (70-99) mg/dl POC Glucose (70-99) POC Lactic Acid Michael (0.90-1.70) mmol/L Calcium (8.5-10.1) mg/dl Phosphorus (2.5-4.9) mg/dl Magnesium (1.8-2.4) mg/dl Total Bilirubin (0.2-1) mg/dl AST (15-37) U/L ALT (12-78) U/L Alkaline Phosphatase (45-117) U/L Total Creatine Kinase (26-192) U/L Troponin I (0-0.045) ng/ml Total Protein (6.4-8.2) gm/dl Albumin (3.4-5.0) gm/dl Globulin (2.5-4.0) gm/dl Albumin/Globulin Ratio (0.9-2) Procalcitonin (0-0.5) ng/ml TSH (0.300-4.500) uIu/ml Random Cortisol mcg/dl Urine Color Yellow Urine Appearance Clear (Clear) Urine pH 5.0 (4.5-7.5) Ur Specific [place] 1.018 (1.000-1.030) Urine Protein Negative (Negative) Urine Glucose (UA) Negative (Negative) Urine Ketones Negative (Negative) Urine Blood Negative (Negative) Urine Nitrite Negative (Negative) Urine Bilirubin Negative (Negative) Urine Urobilinogen Negative (Negative) Ur Leukocyte Esterase Negative (Negative) Nasal Screen MRSA (PCR) Negative (Negative) Influenza Type A Ag (Neg) Influenza Type B Ag (Neg) 02/05/19 02/05/19 02/05/19 Range/Units 04:37 04:37 07:14 WBC (4.8-10.8) K/uL RBC (4.2-5.4) M/uL Hgb (12.0-16.0) g/dL Hct (37-47) % MCV (80-100) fL MCH (25-34) pg MCHC (32-36) g/dL RDW Std Deviation (36.4-46.3) fL RDW Coeff of Patrick (11.5-14.5) % Plt Count (130-400) K/uL MPV (7.4-10.4) fL Immature Gran % (Auto) % Neut % (Auto) % Lymph % (Auto) % [place] % (Auto) % Eos % (Auto) % Baso % (Auto) % Immature Gran # (Auto) (0.00-0.02) K/uL Neut # (Auto) (1.4-6.5) K/uL Lymph # (Auto) (1.2-3.4) K/uL [place] # (Auto) (0.11-0.59) K/uL Eos # (Auto) (0-0.5) K/uL Baso # (Auto) (0-0.2) K/uL Platelet Estimate (Normal) Giant Platelets Hypochromasia Anisocytosis Tear Drop Cells Ovalocytes Echinocytes ESR (0-21) mm/hr PT 38.0 H (9.0-12.0) Seconds INR 4.1 H (0.9-1.1) APTT (21.0-31.0) Seconds PTT Ratio Sodium 146 H (136-145) mmol/L Potassium 4.5 (3.5-5.1) mmol/L Chloride 118 H (98-107) mmol/L Carbon Dioxide 24 (21-32) mmol/L Anion Gap 4.0 (3-11) BUN 34 H (7-18) mg/dl Creatinine 1.39 H (0.6-1.2) mg/dl Est Cr Clr Drug Dosing 28.3 Est GFR ( Amer) 39.7 Est GFR (Non-Af Amer) 34.2 BUN/Creatinine Ratio 24.5 H (10-20) Glucose 56 L (70-99) mg/dl POC Glucose 64 L* (70-99) POC Lactic Acid Michael (0.90-1.70) mmol/L Calcium 8.4 L (8.5-10.1) mg/dl Phosphorus 2.5 (2.5-4.9) mg/dl Magnesium 1.7 L (1.8-2.4) mg/dl Total Bilirubin (0.2-1) mg/dl AST (15-37) U/L ALT (12-78) U/L Alkaline Phosphatase (45-117) U/L Total Creatine Kinase (26-192) U/L Troponin I (0-0.045) ng/ml Total Protein (6.4-8.2) gm/dl Albumin (3.4-5.0) gm/dl Globulin (2.5-4.0) gm/dl Albumin/Globulin Ratio (0.9-2) Procalcitonin (0-0.5) ng/ml TSH 1.050 (0.300-4.500) uIu/ml Random Cortisol mcg/dl Urine Color Urine Appearance (Clear) Urine pH (4.5-7.5) Ur Specific [place] (1.000-1.030) Urine Protein (Negative) Urine Glucose (UA) (Negative) Urine Ketones (Negative) Urine Blood (Negative) Urine Nitrite (Negative) Urine Bilirubin (Negative) Urine Urobilinogen (Negative) Ur Leukocyte Esterase (Negative) Nasal Screen MRSA (PCR) (Negative) Influenza Type A Ag (Neg) Influenza Type B Ag (Neg) 02/05/19 02/05/19 02/05/19 Range/Units 08:02 08:36 11:31 WBC (4.8-10.8) K/uL RBC (4.2-5.4) M/uL Hgb (12.0-16.0) g/dL Hct (37-47) % MCV (80-100) fL MCH (25-34) pg MCHC (32-36) g/dL RDW Std Deviation (36.4-46.3) fL RDW Coeff of Patrick (11.5-14.5) % Plt Count (130-400) K/uL MPV (7.4-10.4) fL Immature Gran % (Auto) % Neut % (Auto) % Lymph % (Auto) % [place] % (Auto) % Eos % (Auto) % Baso % (Auto) % Immature Gran # (Auto) (0.00-0.02) K/uL Neut # (Auto) (1.4-6.5) K/uL Lymph # (Auto) (1.2-3.4) K/uL [place] # (Auto) (0.11-0.59) K/uL Eos # (Auto) (0-0.5) K/uL Baso # (Auto) (0-0.2) K/uL Platelet Estimate (Normal) Giant Platelets Hypochromasia Anisocytosis Tear Drop Cells Ovalocytes Echinocytes ESR (0-21) mm/hr PT (9.0-12.0) Seconds INR (0.9-1.1) APTT (21.0-31.0) Seconds PTT Ratio Sodium (136-145) mmol/L Potassium (3.5-5.1) mmol/L Chloride (98-107) mmol/L Carbon Dioxide (21-32) mmol/L Anion Gap (3-11) BUN (7-18) mg/dl Creatinine (0.6-1.2) mg/dl Est Cr Clr Drug Dosing Est GFR ( Amer) Est GFR (Non-Af Amer) BUN/Creatinine Ratio (10-20) Glucose (70-99) mg/dl POC Glucose 122 H 85 (70-99) POC Lactic Acid Michael (0.90-1.70) mmol/L Calcium (8.5-10.1) mg/dl Phosphorus (2.5-4.9) mg/dl Magnesium (1.8-2.4) mg/dl Total Bilirubin (0.2-1) mg/dl AST (15-37) U/L ALT (12-78) U/L Alkaline Phosphatase (45-117) U/L Total Creatine Kinase (26-192) U/L Troponin I (0-0.045) ng/ml Total Protein (6.4-8.2) gm/dl Albumin (3.4-5.0) gm/dl Globulin (2.5-4.0) gm/dl Albumin/Globulin Ratio (0.9-2) Procalcitonin < 0.05 (0-0.5) ng/ml TSH (0.300-4.500) uIu/ml Random Cortisol mcg/dl Urine Color Urine Appearance (Clear) Urine pH (4.5-7.5) Ur Specific [place] (1.000-1.030) Urine Protein (Negative) Urine Glucose (UA) (Negative) Urine Ketones (Negative) Urine Blood (Negative) Urine Nitrite (Negative) Urine Bilirubin (Negative) Urine Urobilinogen (Negative) Ur Leukocyte Esterase (Negative) Nasal Screen MRSA (PCR) (Negative) Influenza Type A Ag (Neg) Influenza Type B Ag (Neg) 02/05/19 02/05/19 02/06/19 Range/Units 15:45 18:36 06:18 WBC 5.14 (4.8-10.8) K/uL RBC 2.59 L (4.2-5.4) M/uL Hgb 8.2 L (12.0-16.0) g/dL Hct 25.8 L (37-47) % MCV 99.6 (80-100) fL MCH 31.7 (25-34) pg MCHC 31.8 L (32-36) g/dL RDW Std Deviation 64.6 H (36.4-46.3) fL RDW Coeff of Patrick 18.3 H (11.5-14.5) % Plt Count 127 L (130-400) K/uL MPV 12.2 H (7.4-10.4) fL Immature Gran % (Auto) 0.2 % Neut % (Auto) 81.7 % Lymph % (Auto) 10.5 % [place] % (Auto) 6.6 % Eos % (Auto) 0.8 % Baso % (Auto) 0.2 % Immature Gran # (Auto) 0.01 (0.00-0.02) K/uL Neut # (Auto) 4.20 (1.4-6.5) K/uL Lymph # (Auto) 0.54 L (1.2-3.4) K/uL M[place] # (Auto) 0.34 (0.11-0.59) K/uL Eos # (Auto) 0.04 (0-0.5) K/uL Baso # (Auto) 0.01 (0-0.2) K/uL Platelet Estimate Decreased (Normal) Giant Platelets Hypochromasia Anisocytosis Tear Drop Cells Ovalocytes Echinocytes 1+ ESR (0-21) mm/hr PT (9.0-12.0) Seconds INR (0.9-1.1) APTT (21.0-31.0) Seconds PTT Ratio Sodium (136-145) mmol/L Potassium (3.5-5.1) mmol/L Chloride (98-107) mmol/L Carbon Dioxide (21-32) mmol/L Anion Gap (3-11) BUN (7-18) mg/dl Creatinine (0.6-1.2) mg/dl Est Cr Clr Drug Dosing Est GFR ( Amer) Est GFR (Non-Af Amer) BUN/Creatinine Ratio (10-20) Glucose (70-99) mg/dl POC Glucose 96 (70-99) POC Lactic Acid Michael (0.90-1.70) mmol/L Calcium (8.5-10.1) mg/dl Phosphorus (2.5-4.9) mg/dl Magnesium (1.8-2.4) mg/dl Total Bilirubin (0.2-1) mg/dl AST (15-37) U/L ALT (12-78) U/L Alkaline Phosphatase (45-117) U/L Total Creatine Kinase (26-192) U/L Troponin I (0-0.045) ng/ml Total Protein (6.4-8.2) gm/dl Albumin (3.4-5.0) gm/dl Globulin (2.5-4.0) gm/dl Albumin/Globulin Ratio (0.9-2) Procalcitonin (0-0.5) ng/ml TSH (0.300-4.500) uIu/ml Random Cortisol 15.67 mcg/dl Urine Color Urine Appearance (Clear) Urine pH (4.5-7.5) Ur Specific [place] (1.000-1.030) Urine Protein (Negative) Urine Glucose (UA) (Negative) Urine Ketones (Negative) Urine Blood (Negative) Urine Nitrite (Negative) Urine Bilirubin (Negative) Urine Urobilinogen (Negative) Ur Leukocyte Esterase (Negative) Nasal Screen MRSA (PCR) (Negative) Influenza Type A Ag (Neg) Influenza Type B Ag (Neg) 02/06/19 02/06/19 02/06/19 Range/Units 06:18 06:18 06:18 WBC (4.8-10.8) K/uL RBC (4.2-5.4) M/uL Hgb (12.0-16.0) g/dL Hct (37-47) % MCV (80-100) fL MCH (25-34) pg MCHC (32-36) g/dL RDW Std Deviation (36.4-46.3) fL RDW Coeff of Patrick (11.5-14.5) % Plt Count (130-400) K/uL MPV (7.4-10.4) fL Immature Gran % (Auto) % Neut % (Auto) % Lymph % (Auto) % [place] % (Auto) % Eos % (Auto) % Baso % (Auto) % Immature Gran # (Auto) (0.00-0.02) K/uL Neut # (Auto) (1.4-6.5) K/uL Lymph # (Auto) (1.2-3.4) K/uL M[place] # (Auto) (0.11-0.59) K/uL Eos # (Auto) (0-0.5) K/uL Baso # (Auto) (0-0.2) K/uL Platelet Estimate (Normal) Giant Platelets Hypochromasia Anisocytosis Tear Drop Cells Ovalocytes Echinocytes ESR (0-21) mm/hr PT 44.0 H (9.0-12.0) Seconds INR 4.8 H (0.9-1.1) APTT (21.0-31.0) Seconds PTT Ratio Sodium 147 H (136-145) mmol/L Potassium 3.7 D (3.5-5.1) mmol/L Chloride 118 H (98-107) mmol/L Carbon Dioxide 24 (21-32) mmol/L Anion Gap 5.0 (3-11) BUN 24 H (7-18) mg/dl Creatinine 1.48 H (0.6-1.2) mg/dl Est Cr Clr Drug Dosing 26.5 Est GFR ( Amer) 36.8 Est GFR (Non-Af Amer) 31.7 BUN/Creatinine Ratio 16.0 (10-20) Glucose 99 (70-99) mg/dl POC Glucose (70-99) POC Lactic Acid Michael (0.90-1.70) mmol/L Calcium 9.2 (8.5-10.1) mg/dl Phosphorus 2.5 (2.5-4.9) mg/dl Magnesium 1.9 (1.8-2.4) mg/dl Total Bilirubin (0.2-1) mg/dl AST (15-37) U/L ALT (12-78) U/L Alkaline Phosphatase (45-117) U/L Total Creatine Kinase 34 (26-192) U/L Troponin I (0-0.045) ng/ml Total Protein (6.4-8.2) gm/dl Albumin (3.4-5.0) gm/dl Globulin (2.5-4.0) gm/dl Albumin/Globulin Ratio (0.9-2) Procalcitonin (0-0.5) ng/ml TSH (0.300-4.500) uIu/ml Random Cortisol mcg/dl Urine Color Urine Appearance (Clear) Urine pH (4.5-7.5) Ur Specific [place] (1.000-1.030) Urine Protein (Negative) Urine Glucose (UA) (Negative) Urine Ketones (Negative) Urine Blood (Negative) Urine Nitrite (Negative) Urine Bilirubin (Negative) Urine Urobilinogen (Negative) Ur Leukocyte Esterase (Negative) Nasal Screen MRSA (PCR) (Negative) Influenza Type A Ag (Neg) Influenza Type B Ag (Neg) 02/06/19 02/07/19 02/07/19 Range/Units 11:51 15:22 15:22 WBC 4.09 L (4.8-10.8) K/uL RBC 2.67 L (4.2-5.4) M/uL Hgb 8.4 L (12.0-16.0) g/dL Hct 26.3 L (37-47) % MCV 98.5 (80-100) fL MCH 31.5 (25-34) pg MCHC 31.9 L (32-36) g/dL RDW Std Deviation 63.2 H (36.4-46.3) fL RDW Coeff of Patrick 18.3 H (11.5-14.5) % Plt Count 146 (130-400) K/uL MPV 12.2 H (7.4-10.4) fL Immature Gran % (Auto) 0.2 % Neut % (Auto) 84.9 % Lymph % (Auto) 10.0 % [place] % (Auto) 4.9 % Eos % (Auto) 0.0 % Baso % (Auto) 0.0 % Immature Gran # (Auto) 0.01 (0.00-0.02) K/uL Neut # (Auto) 3.47 (1.4-6.5) K/uL Lymph # (Auto) 0.41 L (1.2-3.4) K/uL [place] # (Auto) 0.20 (0.11-0.59) K/uL Eos # (Auto) 0.00 (0-0.5) K/uL Baso # (Auto) 0.00 (0-0.2) K/uL Platelet Estimate (Normal) Giant Platelets Hypochromasia Present Anisocytosis Present Tear Drop Cells Ovalocytes Echinocytes ESR 71 H (0-21) mm/hr PT (9.0-12.0) Seconds INR (0.9-1.1) APTT (21.0-31.0) Seconds PTT Ratio Sodium (136-145) mmol/L Potassium (3.5-5.1) mmol/L Chloride (98-107) mmol/L Carbon Dioxide (21-32) mmol/L Anion Gap (3-11) BUN (7-18) mg/dl Creatinine (0.6-1.2) mg/dl Est Cr Clr Drug Dosing Est GFR ( Amer) Est GFR (Non-Af Amer) BUN/Creatinine Ratio (10-20) Glucose (70-99) mg/dl POC Glucose (70-99) POC Lactic Acid Michael (0.90-1.70) mmol/L Calcium (8.5-10.1) mg/dl Phosphorus (2.5-4.9) mg/dl Magnesium (1.8-2.4) mg/dl Total Bilirubin (0.2-1) mg/dl AST (15-37) U/L ALT (12-78) U/L Alkaline Phosphatase (45-117) U/L Total Creatine Kinase 36 (26-192) U/L Troponin I (0-0.045) ng/ml Total Protein (6.4-8.2) gm/dl Albumin (3.4-5.0) gm/dl Globulin (2.5-4.0) gm/dl Albumin/Globulin Ratio (0.9-2) Procalcitonin (0-0.5) ng/ml TSH (0.300-4.500) uIu/ml Random Cortisol mcg/dl Urine Color Urine Appearance (Clear) Urine pH (4.5-7.5) Ur Specific [place] (1.000-1.030) Urine Protein (Negative) Urine Glucose (UA) (Negative) Urine Ketones (Negative) Urine Blood (Negative) Urine Nitrite (Negative) Urine Bilirubin (Negative) Urine Urobilinogen (Negative) Ur Leukocyte Esterase (Negative) Nasal Screen MRSA (PCR) (Negative) Influenza Type A Ag (Neg) Influenza Type B Ag (Neg) 02/07/19 02/07/19 Range/Units 15:22 15:22 WBC (4.8-10.8) K/uL RBC (4.2-5.4) M/uL Hgb (12.0-16.0) g/dL Hct (37-47) % MCV (80-100) fL MCH (25-34) pg MCHC (32-36) g/dL RDW Std Deviation (36.4-46.3) fL RDW Coeff of Patrick (11.5-14.5) % Plt Count (130-400) K/uL MPV (7.4-10.4) fL Immature Gran % (Auto) % Neut % (Auto) % Lymph % (Auto) % [place] % (Auto) % Eos % (Auto) % Baso % (Auto) % Immature Gran # (Auto) (0.00-0.02) K/uL Neut # (Auto) (1.4-6.5) K/uL Lymph # (Auto) (1.2-3.4) K/uL [place] # (Auto) (0.11-0.59) K/uL Eos # (Auto) (0-0.5) K/uL Baso # (Auto) (0-0.2) K/uL Platelet Estimate (Normal) Giant Platelets Hypochromasia Anisocytosis Tear Drop Cells Ovalocytes Echinocytes ESR (0-21) mm/hr PT 43.3 H (9.0-12.0) Seconds INR 4.7 H (0.9-1.1) APTT (21.0-31.0) Seconds PTT Ratio Sodium 150 H (136-145) mmol/L Potassium 3.9 (3.5-5.1) mmol/L Chloride 119 H (98-107) mmol/L Carbon Dioxide 22 (21-32) mmol/L Anion Gap 9.0 (3-11) BUN 25 H (7-18) mg/dl Creatinine 1.44 H (0.6-1.2) mg/dl Est Cr Clr Drug Dosing 27.3 Est GFR ( Amer) 38.0 Est GFR (Non-Af Amer) 32.8 BUN/Creatinine Ratio 17.4 (10-20) Glucose 122 H (70-99) mg/dl POC Glucose (70-99) POC Lactic Acid Michael (0.90-1.70) mmol/L Calcium 9.7 (8.5-10.1) mg/dl Phosphorus 3.1 (2.5-4.9) mg/dl Magnesium 1.9 (1.8-2.4) mg/dl Total Bilirubin 0.5 (0.2-1) mg/dl AST 16 (15-37) U/L ALT 17 (12-78) U/L Alkaline Phosphatase 101 (45-117) U/L Total Creatine Kinase (26-192) U/L Troponin I (0-0.045) ng/ml Total Protein 5.9 L (6.4-8.2) gm/dl Albumin 2.2 L (3.4-5.0) gm/dl Globulin 3.7 (2.5-4.0) gm/dl Albumin/Globulin Ratio 0.6 L (0.9-2) Procalcitonin (0-0.5) ng/ml TSH (0.300-4.500) uIu/ml Random Cortisol mcg/dl Urine Color Urine Appearance (Clear) Urine pH (4.5-7.5) Ur Specific [place] (1.000-1.030) Urine Protein (Negative) Urine Glucose (UA) (Negative) Urine Ketones (Negative) Urine Blood (Negative) Urine Nitrite (Negative) Urine Bilirubin (Negative) Urine Urobilinogen (Negative) Ur Leukocyte Esterase (Negative) Nasal Screen MRSA (PCR) (Negative) Influenza Type A Ag (Neg) Influenza Type B Ag (Neg) Imaging Data Radiologist's Impression: Radiology results as stated below per my review and the radiologist's interpretation: XR chest 1V portable HISTORY: 84 years-old Female sepsis acute sepsis COMPARISON: Chest radiograph 01/17/2019, chest CT 01/19/2019 (both studies are without accompanying report) TECHNIQUE: Portable AP view of the chest FINDINGS: Cardiac silhouette is enlarged, unchanged. Calcification of the thoracic aortic arch. There is pulmonary vascular congestion. Patchy bilateral alveolar opacities, most pronounced within the left lung base are redemonstrated which have mildly progressed from 01/19/2019. Degenerative changes of the shoulders and spine. IMPRESSION: Patchy bilateral alveolar opacities, most pronounced in the left lung base have progressively worsened from 01/19/2019 suggestive of multifocal pneumonia. Follow-up recommended. The above report was generated using voice recognition software. It may contain grammatical, syntax or spelling errors. Electronically signed by: Eleazar Christensen M.D. 02/04/2019 8:04 PM Blood Pressure Blood Pressure Findings: Low blood pressure Blood Pressure Disposition: further management by hospitalist MDM Narrative This pt was evaluated and appeared to be in no distress. IV access was obtained and lab work was drawn. PT is noted to be hypotensive and hypothermic, warmed IVF were initiated. Pt was started on IV zosyn and vancomycin was added to the regimen. Lab work reveals a mild leukopenia. UA is negative. CXR reveals a multifocal process. Pt has h/o aspiration. Central line was placed in the right groin after a failed attempt at the right IJ. Pt was d/w the hospitalist service for further management. Pt niece is aware of the findings. Impression & Plan Sepsis, Pneumonia, Hypothermia Critical Care Time I have personally spent greater than 60 minutes of critical care time in the direct management of this patient. This includes bedside care, interpretation of diagnostic studies, and testing, discussion with consultants, patient, and family members, and other required patient management activities. This 60 minutes is in excess of all separately billable procedures. Critical Care Time: Yes Total Critical Care Time: 60 Discharge Plan Visit Data *Final* Discharge Date/Time: 02/04/19 22:23 Chief Complaint: Weakness Stated Complaint: WEAKNESS, HYPOTENSION ED Provider: Marialuisa Ba Discharge Problem: Sepsis, Pneumonia, Hypothermia Patient Disposition: Admitted As Inpatient Discharge Instructions Interventions: ED Discharge Assessment Last Done: 02/04/19 22:23 The scribe's documentation has been prepared under my direction and personally reviewed by me in its entirety. I confirm that the note above accurately reflects all work, treatment, procedures, and medical decision making performed by me.
[2019-02-05 05:00] LABS: Eosinophils # (auto) 0.04 K/uL (0-0.5); Hematocrit (blood only) 24.1 % (37-47); Hemoglobin 7.7 g/dL (12.0-16.0); Immature Granulocytes # (auto) 0.01 K/uL (0.00-0.02); Immature Granulocytes % (auto) 0.2 %; Lymphocytes # (auto) 0.28 K/uL (1.2-3.4); Lymphocytes % (auto) 6.8 %; Mean Corpuscular Volume 99.2 fL (80-100); Mean Platelet Volume 11.7 fL (7.4-10.4); Monocytes # (auto) 0.24 K/uL (0.11-0.59); Monocytes % (auto) 5.9 %; Neutrophils # (auto) 3.52 K/uL (1.4-6.5); Neutrophils % (auto) 86.1 %; Platelet Count 137 K/uL (130-400); RDW Coefficient of Variation 17.6 % (11.5-14.5); RDW Standard Deviation 63.3 fL (36.4-46.3); Red Blood Count 2.43 M/uL (4.2-5.4); White Blood Count 4.09 K/uL (4.8-10.8)
[2019-02-05 05:21] LABS: BUN Creatinine Ratio 24.5 (10-20); Calcium 8.4 mg/dl (8.5-10.1); Creatinine Clr Calc Pharmacy 28.3 ml/min; Est GFR (African American) 39.7; Est GFR (Non-African American) 34.2; Magnesium 1.7 mg/dl (1.8-2.4); Potassium 4.5 mmol/L (3.5-5.1)
[2019-02-05 05:31] LABS: Giant Platelets 1+
[2019-02-05 05:32] LABS: Phosphorus 2.5 mg/dl (2.5-4.9)
[2019-02-05 05:33] LABS: INR 4.1 (0.9-1.1)
[2019-02-05] MEDS ORDERED: LEVOTHYROXINE SODIUM 75 MCG TABLET PO SCH (06:30)
[2019-02-05] MEDS: PIPERACILLIN/TAZOBACTAM 3.375 GM in DEXTROSE 5% 100 ML IV SCH ×2 (06:42→14:07)
[2019-02-05] MEDS ORDERED: DEXTROSE 50% 50 ML SYRINGE IV ONE (07:19)
[2019-02-05] MEDS ORDERED: DEXTROSE 50% 50 ML SYRINGE IV PRN (07:21)
--- NOTE | 2019-02-05 07:25 | Critical Care Consultation ---
Date of Consultation February 05, 2019 Assessment & Plan (1) Admitted to intensive care unit: Reason Critically Ill: Hypotension upon presentation PLAN: Neuro: Failure to thrive -Meets general criteria since October 2018 patient has lost 10 kg which is greater than 5% body weight -Report of significant inactivity and poor appetite Patient appears to have poor insight into disease process. Reports that she lives alone and is able to make her own meals she does have a niece that lives with her several days of the week. This niece is also making meals. I question the patient's ability to live independently, will place physical therapy and occupational therapy consults as well as speech therapy. Weakness -Ordered CT head -May benefit from MRI rule out CVA -No focal deficits, alert and oriented x3 however he just exhibits poor insight into disease process Resp: Dyspnea -Saturating well on nasal cannula CV: Atrial fibrillation Long-term use of anticoagulants -Adequate mean arterial blood pressure, adequate rate control Fluids/Renal: Chronic kidney disease stage III: Improved [id number] lactate unremarkable -Mild hyperchloremia likely secondary to normal saline boluses Decrease IV fluids to 50 mL's per hour -Convert to D5 half NS with 20 meq K -Avoid volume overload ID: Pro-calcitonin negative -This does not appear to be infectious in origin, urinalysis unremarkable chest x-ray largely unremarkable, blood cultures pending, influenza negative -With negative pro calcitonin and unremarkable labs I am discontinuing all anti-infectives at this time GI/Nutrition: Sarcopena -13% weight loss since October 2018 (3 months ago) Hypoalbuminemia Heme: Mild leukopenia -No left shift Anemia of chronic disease Supratherapeutic INR DVT prophylaxis: SCDs: Chemical prophylaxis contraindicated in the setting of supratherapeutic INR Endocrine: ICU hyperglycemia protocol Mild hypoglycemia: Resolved Vascular access: Central venous access Code Status: Full code per patient's report. She reports she has completed a medical power of document review attorney she is unsure who that person is exactly designated. She previously reports that she was a DO NOT RESUSCITATE in event cardiac arrest however upon the recent parole of her grandson she feels that she wants to live for his benefit. Patient stable for downgrade out of ICU History of Present Illness Attending Physician: Nguyen Knowles DO Patient is a 84-year-old female who was transferred to the ICU for sepsis (severe sepsis hypotension secondary to pneumonia) Allergies Allergy/AdvReac Type Severity Reaction Status Date / Time Bactrim AdvReac Severe RENAL Verified 05/24/12 09:38 PROBLEMS sulfamethoxazole AdvReac Severe RENAL Verified 11/14/18 06:19 PROBLEMS trimethoprim AdvReac Severe RENAL Verified 11/14/18 06:19 PROBLEMS vancomycin AdvReac Severe RENAL Verified 11/14/18 06:19 PROBLEMS Home Medications Home Medications Medication Instructions Recorded Confirmed Type PreserVision AREDS-2 1 tab PO BID 11/08/18 02/04/19 History cholecalciferol (vitamin D3) 2,000 units PO DAILY 11/08/18 02/04/19 History [Vitamin D3] clonazepam 0.25 mg PO HS PRN 11/08/18 02/04/19 History ferrous gluconate 240 mg PO BID 11/08/18 02/04/19 History furosemide [Lasix] 20 mg PO DAILY 11/08/18 02/04/19 History hydralazine 25 mg PO .HOLD 11/08/18 02/04/19 History levothyroxine [Synthroid] 75 mg PO QAM 11/08/18 02/04/19 History metoprolol succinate [Toprol XL] 12.5 mg PO QPM 11/08/18 02/04/19 History metoprolol succinate [Toprol XL] 25 mg PO QAM 11/08/18 02/04/19 History potassium chloride [Klor-Con M20] 20 meq PO BIDM 11/08/18 02/04/19 History sennosides-docusate sodium [Senna 1 tab PO DAILY PRN 02/04/19 02/04/19 History with Docusate Sodium] warfarin 1 mg PO DAILY 02/04/19 02/04/19 History Patient History Medical History CKD (chronic kidney disease), stage III (Chronic) Dysphagia (Chronic) HTN (hypertension) (Chronic) History of cataract (Chronic) Chronic diastolic (congestive) heart failure (Chronic) Recurrent epistaxis (Resolved) Anemia (Chronic) Hypothyroidism (Chronic) Atrial fibrillation (Chronic 08/01/14) 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) Surgical History History of cataract surgery (Chronic) Status post tonsillectomy (Chronic) Family History Other Cancer Diabetes Family history non-contributory Stroke Social History Communication Ability: Effective Beliefs That Will Affect Care: None marital status: / Current Living Situation: Alone Current Living Situation Comment: Niece has been staying with patient the last few weeks Other Information That Helps Us Care for You: No Feels Safe at Home: Yes Safety Concerns: Feels Safe At This Time Smoking Status: Former smoker Hx Alcohol Use: No Hx Substance Use: No Physical Exam Vital Signs (Past 24 Hours): Last Vital Signs Temp 33.9 C L 02/04/19 22:53 Pulse 99 H 02/05/19 06:30 Resp 29 H 02/05/19 06:30 BP 109/58 L 02/05/19 06:30 Pulse Ox 96 02/05/19 06:30 Results & Data Laboratory Results 02/05/19 02/05/19 02/05/19 Range/Units 11:31 08:36 08:02 WBC (4.8-10.8) K/uL RBC (4.2-5.4) M/uL Hgb (12.0-16.0) g/dL Hct (37-47) % MCV (80-100) fL MCH (25-34) pg MCHC (32-36) g/dL RDW Std Deviation (36.4-46.3) fL RDW Coeff of Patrick (11.5-14.5) % Plt Count (130-400) K/uL MPV (7.4-10.4) fL Immature Gran % (Auto) % Neut % (Auto) % Lymph % (Auto) % [place] % (Auto) % Eos % (Auto) % Baso % (Auto) % Immature Gran # (Auto) (0.00-0.02) K/uL Neut # (Auto) (1.4-6.5) K/uL Lymph # (Auto) (1.2-3.4) K/uL [place] # (Auto) (0.11-0.59) K/uL Eos # (Auto) (0-0.5) K/uL Baso # (Auto) (0-0.2) K/uL Giant Platelets Hypochromasia Tear Drop Cells Ovalocytes PT (9.0-12.0) Seconds INR (0.9-1.1) APTT (21.0-31.0) Seconds PTT Ratio Sodium (136-145) mmol/L Potassium (3.5-5.1) mmol/L Chloride (98-107) mmol/L Carbon Dioxide (21-32) mmol/L Anion Gap (3-11) BUN (7-18) mg/dl Creatinine (0.6-1.2) mg/dl Est Cr Clr Drug Dosing Est GFR ( Amer) Est GFR (Non-Af Amer) BUN/Creatinine Ratio (10-20) Glucose (70-99) mg/dl POC Glucose 85 122 H (70-99) POC Lactic Acid [place] (0.90-1.70) mmol/L Calcium (8.5-10.1) mg/dl Phosphorus (2.5-4.9) mg/dl Magnesium (1.8-2.4) mg/dl Total Bilirubin (0.2-1) mg/dl AST (15-37) U/L ALT (12-78) U/L Alkaline Phosphatase (45-117) U/L Troponin I (0-0.045) ng/ml Total Protein (6.4-8.2) gm/dl Albumin (3.4-5.0) gm/dl Globulin (2.5-4.0) gm/dl Albumin/Globulin Ratio (0.9-2) Procalcitonin < 0.05 (0-0.5) ng/ml TSH (0.300-4.500) uIu/ml Urine Color Urine Appearance (Clear) Urine pH (4.5-7.5) Ur Specific [place] (1.000-1.030) Urine Protein (Negative) Urine Glucose (UA) (Negative) Urine Ketones (Negative) Urine Blood (Negative) Urine Nitrite (Negative) Urine Bilirubin (Negative) Urine Urobilinogen (Negative) Ur Leukocyte Esterase (Negative) Nasal Screen MRSA (PCR) (Negative) Influenza Type A Ag (Neg) Influenza Type B Ag (Neg) 02/05/19 02/05/19 02/05/19 Range/Units 07:14 04:37 04:37 WBC (4.8-10.8) K/uL RBC (4.2-5.4) M/uL Hgb (12.0-16.0) g/dL Hct (37-47) % MCV (80-100) fL MCH (25-34) pg MCHC (32-36) g/dL RDW Std Deviation (36.4-46.3) fL RDW Coeff of Patrick (11.5-14.5) % Plt Count (130-400) K/uL MPV (7.4-10.4) fL Immature Gran % (Auto) % Neut % (Auto) % Lymph % (Auto) % [place] % (Auto) % Eos % (Auto) % Baso % (Auto) % Immature Gran # (Auto) (0.00-0.02) K/uL Neut # (Auto) (1.4-6.5) K/uL Lymph # (Auto) (1.2-3.4) K/uL [place] # (Auto) (0.11-0.59) K/uL Eos # (Auto) (0-0.5) K/uL Baso # (Auto) (0-0.2) K/uL Giant Platelets Hypochromasia Tear Drop Cells Ovalocytes PT 38.0 H (9.0-12.0) Seconds INR 4.1 H (0.9-1.1) APTT (21.0-31.0) Seconds PTT Ratio Sodium 146 H (136-145) mmol/L Potassium 4.5 (3.5-5.1) mmol/L Chloride 118 H (98-107) mmol/L Carbon Dioxide 24 (21-32) mmol/L Anion Gap 4.0 (3-11) BUN 34 H (7-18) mg/dl Creatinine 1.39 H (0.6-1.2) mg/dl Est Cr Clr Drug Dosing 28.3 Est GFR ( Amer) 39.7 Est GFR (Non-Af Amer) 34.2 BUN/Creatinine Ratio 24.5 H (10-20) Glucose 56 L (70-99) mg/dl POC Glucose 64 L* (70-99) POC Lactic Acid Michael (0.90-1.70) mmol/L Calcium 8.4 L (8.5-10.1) mg/dl Phosphorus 2.5 (2.5-4.9) mg/dl Magnesium 1.7 L (1.8-2.4) mg/dl Total Bilirubin (0.2-1) mg/dl AST (15-37) U/L ALT (12-78) U/L Alkaline Phosphatase (45-117) U/L Troponin I (0-0.045) ng/ml Total Protein (6.4-8.2) gm/dl Albumin (3.4-5.0) gm/dl Globulin (2.5-4.0) gm/dl Albumin/Globulin Ratio (0.9-2) Procalcitonin (0-0.5) ng/ml TSH 1.050 (0.300-4.500) uIu/ml Urine Color Urine Appearance (Clear) Urine pH (4.5-7.5) Ur Specific [place] (1.000-1.030) Urine Protein (Negative) Urine Glucose (UA) (Negative) Urine Ketones (Negative) Urine Blood (Negative) Urine Nitrite (Negative) Urine Bilirubin (Negative) Urine Urobilinogen (Negative) Ur Leukocyte Esterase (Negative) Nasal Screen MRSA (PCR) (Negative) Influenza Type A Ag (Neg) Influenza Type B Ag (Neg) 02/05/19 02/04/19 02/04/19 Range/Units 04:37 22:10 21:00 WBC 4.09 L (4.8-10.8) K/uL RBC 2.43 L (4.2-5.4) M/uL Hgb 7.7 L (12.0-16.0) g/dL Hct 24.1 L (37-47) % MCV 99.2 (80-100) fL MCH 31.7 (25-34) pg MCHC 32.0 (32-36) g/dL RDW Std Deviation 63.3 H (36.4-46.3) fL RDW Coeff of Patrick 17.6 H (11.5-14.5) % Plt Count 137 (130-400) K/uL MPV 11.7 H (7.4-10.4) fL Immature Gran % (Auto) 0.2 % Neut % (Auto) 86.1 % Lymph % (Auto) 6.8 % [place] % (Auto) 5.9 % Eos % (Auto) 1.0 % Baso % (Auto) 0.0 % Immature Gran # (Auto) 0.01 (0.00-0.02) K/uL Neut # (Auto) 3.52 (1.4-6.5) K/uL Lymph # (Auto) 0.28 L (1.2-3.4) K/uL [place] # (Auto) 0.24 (0.11-0.59) K/uL Eos # (Auto) 0.04 (0-0.5) K/uL Baso # (Auto) 0.00 (0-0.2) K/uL Giant Platelets 1+ Hypochromasia Tear Drop Cells Ovalocytes PT (9.0-12.0) Seconds INR (0.9-1.1) APTT (21.0-31.0) Seconds PTT Ratio Sodium (136-145) mmol/L Potassium (3.5-5.1) mmol/L Chloride (98-107) mmol/L Carbon Dioxide (21-32) mmol/L Anion Gap (3-11) BUN (7-18) mg/dl Creatinine (0.6-1.2) mg/dl Est Cr Clr Drug Dosing Est GFR ( Amer) Est GFR (Non-Af Amer) BUN/Creatinine Ratio (10-20) Glucose (70-99) mg/dl POC Glucose (70-99) POC Lactic Acid Michael (0.90-1.70) mmol/L Calcium (8.5-10.1) mg/dl Phosphorus (2.5-4.9) mg/dl Magnesium (1.8-2.4) mg/dl Total Bilirubin (0.2-1) mg/dl AST (15-37) U/L ALT (12-78) U/L Alkaline Phosphatase (45-117) U/L Troponin I (0-0.045) ng/ml Total Protein (6.4-8.2) gm/dl Albumin (3.4-5.0) gm/dl Globulin (2.5-4.0) gm/dl Albumin/Globulin Ratio (0.9-2) Procalcitonin (0-0.5) ng/ml TSH (0.300-4.500) uIu/ml Urine Color Yellow Urine Appearance Clear (Clear) Urine pH 5.0 (4.5-7.5) Ur Specific [place] 1.018 (1.000-1.030) Urine Protein Negative (Negative) Urine Glucose (UA) Negative (Negative) Urine Ketones Negative (Negative) Urine Blood Negative (Negative) Urine Nitrite Negative (Negative) Urine Bilirubin Negative (Negative) Urine Urobilinogen Negative (Negative) Ur Leukocyte Esterase Negative (Negative) Nasal Screen MRSA (PCR) Negative (Negative) Influenza Type A Ag (Neg) Influenza Type B Ag (Neg) 02/04/19 02/04/19 02/04/19 Range/Units 19:30 19:30 19:11 WBC (4.8-10.8) K/uL RBC (4.2-5.4) M/uL Hgb (12.0-16.0) g/dL Hct (37-47) % MCV (80-100) fL MCH (25-34) pg MCHC (32-36) g/dL RDW Std Deviation (36.4-46.3) fL RDW Coeff of Patrick (11.5-14.5) % Plt Count (130-400) K/uL MPV (7.4-10.4) fL Immature Gran % (Auto) % Neut % (Auto) % Lymph % (Auto) % [place] % (Auto) % Eos % (Auto) % Baso % (Auto) % Immature Gran # (Auto) (0.00-0.02) K/uL Neut # (Auto) (1.4-6.5) K/uL Lymph # (Auto) (1.2-3.4) K/uL [place] # (Auto) (0.11-0.59) K/uL Eos # (Auto) (0-0.5) K/uL Baso # (Auto) (0-0.2) K/uL Giant Platelets Hypochromasia Tear Drop Cells Ovalocytes PT (9.0-12.0) Seconds INR (0.9-1.1) APTT (21.0-31.0) Seconds PTT Ratio Sodium (136-145) mmol/L Potassium (3.5-5.1) mmol/L Chloride (98-107) mmol/L Carbon Dioxide (21-32) mmol/L Anion Gap (3-11) BUN (7-18) mg/dl Creatinine (0.6-1.2) mg/dl Est Cr Clr Drug Dosing Est GFR ( Amer) Est GFR (Non-Af Amer) BUN/Creatinine Ratio (10-20) Glucose (70-99) mg/dl POC Glucose 107 H (70-99) POC Lactic Acid Michael 0.55 L (0.90-1.70) mmol/L Calcium (8.5-10.1) mg/dl Phosphorus (2.5-4.9) mg/dl Magnesium (1.8-2.4) mg/dl Total Bilirubin (0.2-1) mg/dl AST (15-37) U/L ALT (12-78) U/L Alkaline Phosphatase (45-117) U/L Troponin I (0-0.045) ng/ml Total Protein (6.4-8.2) gm/dl Albumin (3.4-5.0) gm/dl Globulin (2.5-4.0) gm/dl Albumin/Globulin Ratio (0.9-2) Procalcitonin (0-0.5) ng/ml TSH (0.300-4.500) uIu/ml Urine Color Urine Appearance (Clear) Urine pH (4.5-7.5) Ur Specific [place] (1.000-1.030) Urine Protein (Negative) Urine Glucose (UA) (Negative) Urine Ketones (Negative) Urine Blood (Negative) Urine Nitrite (Negative) Urine Bilirubin (Negative) Urine Urobilinogen (Negative) Ur Leukocyte Esterase (Negative) Nasal Screen MRSA (PCR) (Negative) Influenza Type A Ag Neg for Influ A (Neg) Influenza Type B Ag Neg for Influ B (Neg) 02/04/19 02/04/19 02/04/19 Range/Units 19:10 19:10 19:10 WBC 4.87 (4.8-10.8) K/uL RBC 2.80 L (4.2-5.4) M/uL Hgb 8.9 L (12.0-16.0) g/dL Hct 28.0 L (37-47) % MCV 100.0 (80-100) fL MCH 31.8 (25-34) pg MCHC 31.8 L (32-36) g/dL RDW Std Deviation 62.7 H (36.4-46.3) fL RDW Coeff of Patrick 17.4 H (11.5-14.5) % Plt Count 153 (130-400) K/uL MPV 11.6 H (7.4-10.4) fL Immature Gran % (Auto) 0.2 % Neut % (Auto) 84.0 % Lymph % (Auto) 10.7 % [place] % (Auto) 4.5 % Eos % (Auto) 0.6 % Baso % (Auto) 0.0 % Immature Gran # (Auto) 0.01 (0.00-0.02) K/uL Neut # (Auto) 4.09 (1.4-6.5) K/uL Lymph # (Auto) 0.52 L (1.2-3.4) K/uL [place] # (Auto) 0.22 (0.11-0.59) K/uL Eos # (Auto) 0.03 (0-0.5) K/uL Baso # (Auto) 0.00 (0-0.2) K/uL Giant Platelets Hypochromasia Present Tear Drop Cells 1+ Ovalocytes 1+ PT 33.1 H (9.0-12.0) Seconds INR 3.5 H (0.9-1.1) APTT 43.6 H (21.0-31.0) Seconds PTT Ratio 1.6 Sodium 144 (136-145) mmol/L Potassium 4.6 (3.5-5.1) mmol/L Chloride 113 H (98-107) mmol/L Carbon Dioxide 28 (21-32) mmol/L Anion Gap 3.0 (3-11) BUN 41 H (7-18) mg/dl Creatinine 1.48 H (0.6-1.2) mg/dl Est Cr Clr Drug Dosing Not Reportable Est GFR ( Amer) 36.8 Est GFR (Non-Af Amer) 31.7 BUN/Creatinine Ratio 27.6 H (10-20) Glucose 110 H (70-99) mg/dl POC Glucose (70-99) POC Lactic Acid Michael (0.90-1.70) mmol/L Calcium 9.5 (8.5-10.1) mg/dl Phosphorus (2.5-4.9) mg/dl Magnesium (1.8-2.4) mg/dl Total Bilirubin 0.4 (0.2-1) mg/dl AST 25 (15-37) U/L ALT 22 (12-78) U/L Alkaline Phosphatase 106 (45-117) U/L Troponin I < 0.015 (0-0.045) ng/ml Total Protein 6.5 (6.4-8.2) gm/dl Albumin 2.7 L (3.4-5.0) gm/dl Globulin 3.8 (2.5-4.0) gm/dl Albumin/Globulin Ratio 0.7 L (0.9-2) Procalcitonin (0-0.5) ng/ml TSH (0.300-4.500) uIu/ml Urine Color Urine Appearance (Clear) Urine pH (4.5-7.5) Ur Specific [place] (1.000-1.030) Urine Protein (Negative) Urine Glucose (UA) (Negative) Urine Ketones (Negative) Urine Blood (Negative) Urine Nitrite (Negative) Urine Bilirubin (Negative) Urine Urobilinogen (Negative) Ur Leukocyte Esterase (Negative) Nasal Screen MRSA (PCR) (Negative) Influenza Type A Ag (Neg) Influenza Type B Ag (Neg)
--- NOTE | 2019-02-05 08:37 | Pharmacy Report ---
Pharmacy Abx Dose Short Note - Date of Service February 05, 2019 - Assessment & Plan Assessment 84 year old F receiving vancomycin/zosyn empirically for treatment of sepsis. MRSA nasal swab negative, pct pending. Antibiotics to after 48 hours. If order to continue, will order trough level tomorrow. Plan Vancomycin * Loading dose 1500mg X 1 given last evening ~2100 * Dose of 1000 mg IV every 24 hours initiated by overnight pharmacist. Will continue this dosing for now * Goal trough level will be ordered tomorrow if dose to continue Zosyn: * 4.5 g x 1 in ED last evening * 3.375 g q 8 * Pharmacy will continue to follow and will adjust dose/frequency as necessary. Thank you.
[2019-02-05] MEDS ORDERED: FERROUS GLUCONATE 324 MG TAB PO SCH (09:00)
[2019-02-05] MEDS: SODIUM CHLORIDE 0.9% 1000ML 1,000 ML IV SCH (10:07)
[2019-02-05] MEDS: PANTOprazole 40 MG in SYRINGE 0 ML IV SCH (11:47)
--- NOTE | 2019-02-05 15:36 | CT Scan Report ---
CT head/brain wo con CLINICAL HISTORY: 84 years-old Female with ALOC. Acutely altered mental status with loss of consciou sness TECHNIQUE: Multiple axial CT images of the head were obtained without contrast. A dose lowering tech nique was utilized adhering to the principles of ALARA. CT DOSE: 537.48 mGy.cm COMPARISON: None. FINDINGS: No acute intracranial hemorrhage, midline shift, intracranial mass, hydrocephalus, territorial ischem ia or abnormal extra-axial collection. Age-related involutional changes. Mild degree of ill-defined h ypodensities about the white matter suggest chronic microvascular ischemic changes. Coarse prominent calcifications about the falx cerebri. Cerebral vascular calcifications also noted. The calvarium is intact. The paranasal sinuses, mastoid air cells, and middle ear cavities are clear . IMPRESSION: No acute intracranial abnormality. The above report was generated using voice recognition software. It may contain grammatical, syntax o r spelling errors. Electronically signed by: Eleazar Christensen M.D. 02/05/2019 3:35 PM
[2019-02-05] MEDS: D5W AND 1/2NSS + 20MEQ KCL 20 MEQ/1,000 ML BAG IV SCH (17:01)
--- NOTE | 2019-02-05 18:07 | Hospitalist Progress Note ---
Date of Service February 05, 2019 Assessment & Plan (1) Weakness: Significant weakness on exam. Patient ambulates with walker at baseline. PT/OT as tolerated. Of note prior outpatient notes from nephrology reported some weakness when going from sitting to standing. This appears to be an ongo ing issue for a couple of months at least. (2) Pulmonary infiltrate: Pulmonary infiltrates seen on imaging, however, this may be residual from recent aspiration pneumonia. Patient recently finished a course of Augmentin as outpatient. Procalcitonin is negative and patient is not considered to be infected. Considering failure to thrive as a cause for current weakness.. Antibiotics were stopped and patient was transferred out of the ICU. (3) Hypotension: Recent reduction of hydralazine as outpatient. This was discontinued on admission. She was temporarily on norepinephrine, but is the opinion of the administrative support assoc that she is not infected or septic at this time. Cont to monitor off antihypertensives. (4) Hypothermia: Improved after warming with bear hugger. (5) Atrial fibrillation: chronic atrial fibrillation on Coumadin 1 mg p.o. daily. She is typically on metoprolol XL 25 mg daily for rate control, however this was held in the setting of initial bradycardia, which occurred when she was hypothermic. Brannon nue to monitor heart rate on telemetry. (6) Supratherapeutic INR: Likely related to recent Augmentin use. Hold Coumadin. Will consider vitamin K if INR increases beyond 4.5, however oral preparation is recommended in this setting and she is n.p.o. Continue to trend INR. (7) Dysphagia: 40 pound weight loss over the past several months. Poor oral intake with significant dysphasia and evidence of silent aspiration on video swallow study in December 2018. Currently n.p.o. pending speech pathology evaluation and recommendations. (8) Chronic diastolic (congestive) heart failure: Compensated, Lasix on hold in setting of possible dehydration. Also patient is n.p.o. and on maintenance fluids for this. (9) Anemia: chronic, stable, no active bleeding. Likely multifactorial in setting of chronic renal disease and other comorbidities. (10) Hypothyroidism: Continue levothyroxine at home dosing. Notably converted to half dose with IV while patient is n.p.o. (11) CKD (chronic kidney disease), stage IV: Currently at baseline. Avoid nephrotoxic substances when able and renally dose meds when appropriate. (12) DVT prophylaxis: INR currently supratherapeutic. Continue to hold Coumadin Full code Disposition-pending PT/OT evaluations and improvement clinically. Will likely be here for few more days. Nguyen Knowles DO [facility] Hospitalist Subjective 84-year-old female presented to the ER with weakness beginning prior to arrival. The patient had been lethargic with low blood pressure readings at home and heart rate that had dropped into the 30s or 40s with EMS en route to the ED. She recently saw [facility] and her hydralazine was decreased. This was stopped on arrival to the hospital and she was placed in the ICU requiring norepinephrine for pressure support. She had recently been treated for aspiration pneumonia after a persistent cough with weight loss prompted a CT chest revealing multilobar abnormalities. She is scheduled for a bronchoscopy in mid-February. She also had c-diff two months ago, and recently completed a course of Augmentin (renally-dosed) for her aspiration pneumonia. She took probiotics with this. Denies diarrhea at this time. INR is currently supratherapeutic likely as a result of the interaction between the Augmentin and coumadin. She is on coumadin for atrial fibrillation and her baseline dose is 1mg PO daily. No current bleeding. She is very down with a flat affect and states that she would rather be home. Friends/family convinced her to come to the hospital but she feels that she might . She is significantly weak on exam and was notably weak at home over the last several days. She walks with a walker at baseline. 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 She regularly sees Nephrology and has CKD, Stage IV with a creatinine ranging 1.5-2 without prooteinuria. Her CKD is attributed to HTN, advanced age and h/o acute renal failure from vancomycin remotely. REgarding her dysphagia, she had a video swallow study on 12/14/2018 that revealed moderate oropharyngeal dysphasia with silent aspiration of thin liquids. Aspiration precautions were recommended moving forward and she was using a thickening agent for water at home. She was reevaluated by speech therapy today who recommended persistent n.p.o. status for now. Physical Exam Vital Signs (Past 24 Hours): Last Vital Signs Temp 33.9 C L 02/04/19 22:53 Pulse 86 02/05/19 12:30 Resp 17 02/05/19 12:30 BP 104/53 L 02/05/19 12:30 Pulse Ox 95 02/05/19 12:30 CONSTITUTIONAL: WNWD, vitals as above, generally weak EYES:, normal conjuctivae, no scleral icterus ENT: MMM RESPIRATORY: clear to auscultation bilaterally, no crackles, rales or wheezes, normal respiratory effort CARDIOVASCULAR: regular rate and rhythm, S1 and 2 heard without murmurs, gallops or rubs, no JVD, no peripheral edema GASTROINTESTINAL: normal bowel sounds, soft, nontender, nondistended MUSCULOSKELETAL: generalized weakness, cannot sit up independently SKIN: warm and dry NEUROLOGIC: No gross focal deficits. PSYCHIATRIC: alert cooperative and oriented to person, place and time. Results & Data Laboratory Results Short CBC 02/04/19 02/05/19 Range/Units 19:10 04:37 WBC 4.87 4.09 L (4.8-10.8) K/uL Hgb 8.9 L 7.7 L (12.0-16.0) g/dL Hct 28.0 L 24.1 L (37-47) % Plt Count 153 137 (130-400) K/uL BMP 02/04/19 02/05/19 19:10 04:37 Sodium 144 146 H Potassium 4.6 4.5 Chloride 113 H 118 H Carbon Dioxide 28 24 BUN 41 H 34 H Creatinine 1.48 H 1.39 H Glucose 110 H 56 L Calcium 9.5 8.4 L Cardiac Enzymes 02/04/19 Range/Units 19:10 Troponin I < 0.015 (0-0.045) ng/ml Liver Function 02/04/19 Range/Units 19:10 Total Bilirubin 0.4 (0.2-1) mg/dl AST 25 (15-37) U/L ALT 22 (12-78) U/L Alkaline Phosphatase 106 (45-117) U/L Albumin 2.7 L (3.4-5.0) gm/dl Urine 02/04/19 Range/Units 22:10 Urine Color Yellow Urine Appearance Clear (Clear) Urine pH 5.0 (4.5-7.5) Ur Specific Magnolia 1.018 (1.000-1.030) Urine Protein Negative (Negative) Urine Glucose (UA) Negative (Negative) Medications Administered Current Inpatient Medications Dextrose (Dextrose 50%) 50 ml IV ONCE PRN PRN Reason: Hypoglycemia Treatment Stop: 03/07/19 07:20 Last Admin: 02/05/19 07:21 Dose: 25 ml Documented by: Ferrous Gluconate (Ferrous Gluconate) 324 mg PO BID [facility] Stop: 03/07/19 08:59 Last Admin: 02/05/19 10:08 Dose: Not Given Documented by: Pantoprazole Sodium 40 mg/ (Syringe) 10 mls @ 5 mls/min IV DAILY@1100 [facility] Stop: 03/07/19 10:59 Last Admin: 02/05/19 11:47 Dose: 5 mls/min Documented by: Norepinephrine Bitartrate 8 mg (/ Dextrose) 508 mls @ 2.6 mls/hr IV .Q24H [facility]; Protocol Stop: 03/06/19 23:44 Last Admin: 02/05/19 00:36 Dose: 0.01 mcg/kg/min, 2.6 mls/hr Documented by: Potassium Chloride/Dextrose/Sod Cl (D5w And 1/2nss + 20meq Kcl) 20 meq in 1,000 mls @ 50 mls/hr IV .Q20H [facility] Stop: 03/07/19 15:44 Last Admin: 02/05/19 17:01 Dose: 50 mls/hr Documented by: Levothyroxine Sodium (Synthroid) 75 mcg PO DAILYBB [facility] Stop: 03/07/19 06:29 Last Admin: 02/05/19 05:44 Dose: Not Given Documented by: Miscellaneous (Icu Protocol For Hyperglycemia) 1 ea N/A PRN PRN; Protocol PRN Reason: Hyperglycemia Protocol Stop: 02/06/19 22:52 (1) Anemia Anemia type: unspecified type Qualified Code(s): D64.9 - Anemia, unspecified (2) Atrial fibrillation Atrial fibrillation type: chronic Qualified Code(s): I48.2 - Chronic atrial fibrillation
[2019-02-05] MEDS ORDERED: VANCOMYCIN HCL 1,000 MG in SODIUM CHLORIDE 0.9% 250 ML IV SCH (20:00)
[2019-02-06 07:40] LABS: Calcium 9.2 mg/dl (8.5-10.1); Creatinine Clr Calc Pharmacy 26.5 ml/min; Est GFR (African American) 36.8; Est GFR (Non-African American) 31.7; Magnesium 1.9 mg/dl (1.8-2.4); Phosphorus 2.5 mg/dl (2.5-4.9); Potassium 3.7 mmol/L (3.5-5.1)
[2019-02-06 07:42] LABS: INR 4.8 (0.9-1.1)
[2019-02-06 07:44] LABS: Hematocrit (blood only) 25.8 % (37-47); Hemoglobin 8.2 g/dL (12.0-16.0); Mean Corpuscular Hgb Conc 31.8 g/dL (32-36); Mean Corpuscular Volume 99.6 fL (80-100); Mean Platelet Volume 12.2 fL (7.4-10.4); Platelet Count 127 K/uL (130-400); RDW Coefficient of Variation 18.3 % (11.5-14.5); RDW Standard Deviation 64.6 fL (36.4-46.3); Red Blood Count 2.59 M/uL (4.2-5.4); White Blood Count 5.14 K/uL (4.8-10.8)
[2019-02-06 07:45] LABS: Basophils # (auto) 0.01 K/uL (0-0.2); Basophils % (auto) 0.2 %; Echinocytes 1+; Eosinophils # (auto) 0.04 K/uL (0-0.5); Eosinophils % (auto) 0.8 %; Immature Granulocytes # (auto) 0.01 K/uL (0.00-0.02); Immature Granulocytes % (auto) 0.2 %; Lymphocytes # (auto) 0.54 K/uL (1.2-3.4); Lymphocytes % (auto) 10.5 %; Monocytes # (auto) 0.34 K/uL (0.11-0.59); Monocytes % (auto) 6.6 %; Neutrophils % (auto) 81.7 %; Platelet Estimate Decreased (Normal)
[2019-02-06] MEDS: LEVOTHYROXINE SODIUM 37.5 MCG in SYRINGE 0 ML IV SCH (08:55)
--- NOTE | 2019-02-06 10:04 | Hospitalist Progress Note ---
Date of Service February 06, 2019 Assessment & Plan (1) Weakness: Etiologies include but not limited to failure to thrive 2/2 depression, new onset neuromuscular disease, natural progression of aging, somatic manifestations of stress, weakness 2/2 chronic aspiration, occult malignancy that has not yet been identified. 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 Will discuss with Oncology regardng recs for further workup. (2) Chronic pulmonary aspiration: resulting in pulmonary infiltrates. consult Pulm, Speech Path for VFSS on Thursday. (3) Hypothermia: Occurred twice this hospitalization and responded to rewarming with the tsephen hugger. Stress dose steroids now. MRI brain to rule out stroke or other acute intracranial pathology. (4) Atrial fibrillation: coumadin and Toprol XL held. (5) Anemia: chronic, stable, no active bleeding. Likely multifactorial in setting of chronic renal disease and other comorbidities. (6) Dysphagia: 40 pound weight loss over the past several months. Poor oral intake with significant dysphasia and evidence of silent aspiration on video swallow study in December 2018. Currently on modified diet after VFSS on Thursday. (7) Hypothyroidism: Continue levothyroxine at home dosing. Notably converted to half dose with IV while patient is n.p.o. (8) Supratherapeutic INR: Likely related to recent Augmentin use. Hold Coumadin. Will consider vitamin K if INR increases beyond 4.5, however oral preparation is recommended in this setting and she is n.p.o. Continue to trend INR. (9) CKD (chronic kidney disease), stage IV: Currently at baseline. Avoid nephrotoxic substances when able and renally dose meds when appropriate. (10) DVT prophylaxis: INR currently supratherapeutic. Continue to hold Coumadin Full code Disposition-pending PT/OT evaluations and improvement clinically. Will likely be here for few more days. Nguyen Knowles DO [facility] Hospitalist Subjective weakness and dysphagia persists. Asymptomatic Physical Exam Vital Signs (Past 24 Hours): Last Vital Signs Temp 34.0 C L 02/06/19 03:01 Pulse 59 L 02/06/19 08:00 Resp 18 02/06/19 07:10 BP 141/80 H 02/06/19 07:10 Pulse Ox 95 02/06/19 07:10 CONSTITUTIONAL: WNWD, vitals as above, generally well-appearing, flat affect EYES: normal conjuctivae, no scleral icterus ENT: MMM RESPIRATORY: clear to auscultation bilaterally, no crackles, rales or wheezes, normal respiratory effort CARDIOVASCULAR: regular rate and rhythm, S1 and 2 heard without murmurs, gallops or rubs, no JVD, no peripheral edema GASTROINTESTINAL: normal bowel sounds, soft, nontender, nondistended MUSCULOSKELETAL: generally weak, head is normocephalic and atraumatic SKIN: warm and dry NEUROLOGIC: no facial palsy, no dysarthria. CN 2-12 grossly intact, no sensory deficit, normal cognition, normal speech, no tremor, generally weak, 2+ BR and patellar reflexes PSYCHIATRIC: alert cooperative and oriented to person, place and time. Flat affect. Responds appropriately to questions. Results & Data Laboratory Results Short CBC 02/06/19 Range/Units 06:18 WBC 5.14 (4.8-10.8) K/uL Hgb 8.2 L (12.0-16.0) g/dL Hct 25.8 L (37-47) % Plt Count 127 L (130-400) K/uL BMP 02/06/19 06:18 Sodium 147 H Potassium 3.7 D Chloride 118 H Carbon Dioxide 24 BUN 24 H Creatinine 1.48 H Glucose 99 Calcium 9.2 Medications Administered Current Inpatient Medications Dextrose (Dextrose 50%) 50 ml IV ONCE PRN PRN Reason: Hypoglycemia Treatment Stop: 03/07/19 07:20 Last Admin: 02/05/19 07:21 Dose: 25 ml Documented by: Heparin Sodium (Beef Lung) (Heparin Sod 10 Unit/Ml Flush) 5 ml FLUSH PRN PRN PRN Reason: Flush Stop: 03/08/19 00:21 Pantoprazole Sodium 40 mg/ (Syringe) 10 mls @ 5 mls/min IV DAILY@1100 [facility] Stop: 03/07/19 10:59 Last Admin: 02/05/19 11:47 Dose: 5 mls/min Documented by: Potassium Chloride/Dextrose/Sod Cl (D5w And 1/2nss + 20meq Kcl) 20 meq in 1,000 mls @ 50 mls/hr IV .Q20H [facility] Stop: 03/07/19 15:44 Last Admin: 02/05/19 17:01 Dose: 50 mls/hr Documented by: Levothyroxine Sodium 37.5 mcg/ (Syringe) 1.875 mls @ 0.938 mls/min IV DAILY@0900 [facility] Stop: 03/08/19 08:59 Last Admin: 02/06/19 08:55 Dose: 0.938 mls/min Documented by: Miscellaneous (Icu Protocol For Hyperglycemia) 1 ea N/A PRN PRN; Protocol PRN Reason: Hyperglycemia Protocol Stop: 02/06/19 22:52 (1) Anemia Anemia type: unspecified type Qualified Code(s): D64.9 - Anemia, unspecified (2) Atrial fibrillation Atrial fibrillation type: chronic Qualified Code(s): I48.2 - Chronic atrial fibrillation
[2019-02-06] MEDS: PANTOprazole 40 MG in SYRINGE 0 ML IV SCH (11:42)
[2019-02-06] MEDS: D5W AND 1/2NSS + 20MEQ KCL 20 MEQ/1,000 ML BAG IV SCH (11:43)
[2019-02-06] MEDS ORDERED: THIAMINE HCL 100 MG in SYRINGE 9 ML IV ONE (11:45)
[2019-02-06] MEDS ORDERED: LORazepam 0.5 MG/1 ML VIAL IV STA (13:38)
[2019-02-06] MEDS: HYDROCORTISONE SOD 100 MG in SYRINGE 0 ML IV SCH (13:51)
[2019-02-06] MEDS ORDERED: HEPARIN SOD 5,000 UNIT/0.5 ML VIAL SQ SCH (14:00)
--- NOTE | 2019-02-06 15:13 | Magnetic Resonance Report ---
ADDENDUM Addendum: The first sentence within the findings should read: No foci of restricted diffusion to sugg est acute infarct. Electronically signed by: Mike Louise M.D. 02/06/2019 6:09 PM ORIGINAL REPORT MRI OF THE BRAIN WITHOUT CONTRAST CLINICAL HISTORY: hypothermia, profound weakness COMPARISON STUDY: Head CT February 05, 2019. TECHNIQUE: Utilizing a 1.5 Saundra magnet and dedicated coil, multiplanar, multiecho imaging of the bra in was performed without IV contrast. FINDINGS: The foci of restricted diffusion to suggest acute infarct. No acute intracranial hemorrhage , midline shift or mass effect is present. Ventricular system is normal. The basilar cisterns are pat ent. There are no extra-axial collections. No intracranial masses identified on this unenhanced exami nation. Flow-voids for the major intracranial vessels are present. White matter T2 hyperintense foci suggest small vessel disease. Ossification of the falx is noted. Note is made of a 3.4 cm T1 hypointe nse focus within the right frontal bone on axial image 16 of 22. No additional calvarial lesions are identified. IMPRESSION: 1. No acute intracranial findings. 2. 3.4 cm focus of marrow replacement within the right frontal bone. Differential considerations incl ude benign and malignant etiologies and correlation with history of known malignancy is recommended. Whole-body bone scan may be of benefit in further evaluation. Electronically signed by: Mike Louise M.D. 02/06/2019 3:12 PM
--- NOTE | 2019-02-06 22:27 | Consultation Report ---
DATE OF CONSULTATION: 02/06/2019 TIME: 12:25 p.m. REPORT OF CONSULTATION: The patient was seen in room 238. She is an 84-year-old female who is being seen because of bilateral pulmonary infiltrates. She is a very poor historian. She has been seeing her primary physician regarding lung infiltrates. She had had a video swallow done back on 12/14/2018 that reported a trace silent aspiration. The history we have is that recently she was given Augmentin for a few days for aspiration. Another history reported is that she had C. diff in the relatively recent past. I do not have access to those outpatient records through her primary provider. She was seen by Hero Sheppard PA-C in the pulmonary office in the past week or so. He was trying to make arrangements for a bronchoscopy to be done. Apparently, this was scheduled for some time in February as an outpatient. However, the patient was brought to the ER on 02/04/2019 with severe hypotension at home. Reportedly, systolics were in the 80s and diastolics were in the 50s. She has had some degree of dysphagia. She has had some cough. Her appetite has been poor. Reportedly, she has lost as much as 40 pounds, although I cannot confirm that. The patient just relates that her appetite is decreased. Then she told me that she changed to the way she eats after some problem as walking pneumonia 5 years ago. Thus, the history did not really make sense. The patient is very slow of speech and reportedly this is somewhat of a change from prior. It is believed that she has had some degree of confusion. The patient did not recall being in the pulmonary offices. She has a niece who helps take care of her. There was an outpatient CAT scan of the chest on 01/19/2019. This showed diffuse alveolar opacities in essentially every lobe. It was most prominent in the right middle lobe and left lower lobe. Some of these areas looked somewhat more nodular. There were reported as large as 2.3 cm. To the best of her knowledge, the patient has not had chills, fevers or sweats. She does not have a prior history of lung problems except for the above-mentioned walking pneumonia. She does not have a history of malignancy as far as we know. In the ER, the patient was given fluid resuscitation. She was given Levaquin, Zosyn and vancomycin. She was somewhat hypothermic. The Nadia Hugger was used. She has remained hypothermic. A speech therapist who knows the patient indicated that yesterday, she had brought up some brown sputum. I do not believe anything has been cultured; however. The speech therapist indicated she literally had to pull the mucus out of the patient's mouth because she was unable to expectorate. The patient lives alone. Amazingly, she has been taking care of herself. She has a niece who comes to see her periodically, but she comes from quite a distance. The patient tells me she has a 4-bedroom home that is too big for her. There was a report of 1 loose stool since she came in. PAST MEDICAL HISTORY: 1. Atrial fibrillation. 2. Diastolic CHF. 3. Hypertension. 4. Anemia. 5. Hypothyroidism. 6. Chronic kidney disease. 7. Epistaxis for which she had a surgical procedure in November. 8. C. diff infection. PAST SURGICAL HISTORY: 1. Cataract surgeries. 2. Tonsillectomy. 3. Nasal surgery as noted. SOCIAL HISTORY: Tobacco: The patient was likely not reliable. She said she smoked for quite a while, but then she stated that she quit smoking in 1954. She would only be 20 years old at that time. Thus the amount of smoking is not known, but she has not smoked for 60 years or more. Alcohol use is described as occasional. FAMILY HISTORY: Unknown. 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 She subsequently worked in the [facility] [facility] [employer] [facility] [employer] area. 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 ALLERGIES: BACTRIM AND VANCOMYCIN. REVIEW OF SYSTEMS: Very difficult to obtain, but otherwise negative except as is noted in the history of present illness. Ten systems reviewed with the patient, but with less than significant answers at times. PHYSICAL EXAMINATION: GENERAL: The patient is an 84-year-old female who was cooperative. Her speech was very slow. She was seemingly oriented. She was overall extremely weak. VITAL SIGNS: Most recent temperature is 33.4. HEENT: Pupils were reactive. Nares clear. Mouth exam negative. No lymph nodes palpable. HEART: Cardiac rhythm was irregular. Rate was 57. Blood pressure 145/76. LUNGS: Auscultation of the lung alvarez revealed decreased breath sounds. It was hard to get the patient to take deep breaths. Mild rales were heard at the left base posteriorly. Saturation on room air was 94%. ABDOMEN: Soft. The skin appears like someone who may have lost weight. Bowel sounds were present. There was no tenderness to palpation or definite mass. EXTREMITIES: Showed skin color changes in the lower extremities. No edema was noted. No cyanosis or clubbing noted. EKG showed atrial fibrillation. There was a lot of somatic tremor. T waves were inverted in the anterior leads. LABORATORY DATA: White count today is 5.14. Yesterday it was 4.09. Hemoglobin today 8.2 and yesterday was 7.7. Platelets 127,000. INR today is 4.8. Yesterday was 4.1. Two days ago, it was 3.5. PTT was 43.6 on 02/04/2019. Electrolytes show sodium 147, potassium 3.7, chloride 118, bicarbonate 24. BUN 24 with a creatinine of 1.48. Yesterday, the creatinine was 1.39. Admission creatinine was 1.48. TSH was normal at 1.050. Procalcitonin was normal at less than 0.05. Random cortisol was normal at 15.67. Liver function tests were normal. Flu test was negative. CAT scan of the head was done yesterday and showed no acute abnormality. Chest x-ray on admission suggested patchy bilateral airspace opacities, most pronounced at the left lung base with some increase compared with 01/19/2019. Candidly the infiltrates are very difficult to assess on chest x-rays. They were much better seen with the CAT scan. Blood cultures are negative thus far. IMPRESSIONS: 1. Bilateral lung infiltrates of uncertain origin. 2. Hypothermia. 3. Atrial fibrillation. 4. Chronic kidney disease. 5. Anemia. COMMENTS AND RECOMMENDATIONS: The etiology of the infiltrates is not known. Aspiration would be a strong possibility. She has some degree of dysphagia. She has not been overall terribly sick. Aspiration pneumonia would not, however explain the hypothermia. It seems less likely that this is a routine community acquired pneumonia in light of her lack of fevers, chills, sweats and apparent on response to outpatient antibiotics. Procalcitonin was negative but that certainly does not exclude still a bacterial pneumonia. She seems to be overall not doing great. I am seeing her for just the first time. It would seem reasonable at some point to do a bronchoscopy with lavage if things have not improved. As noted, it is difficult to compare the findings from the plain x-rays. Consideration could be given to repeating a CAT scan without contrast. She is excessively anticoagulated. Thus, the scope could not be done in the next day or two either way. Dr. Tate will be seeing the patient as of tomorrow. He will make further suggestions. I am going to order a sed rate. We will also consider legionella antigen in the urine.
[2019-02-07] MEDS: HYDROCORTISONE SOD 100 MG in SYRINGE 0 ML IV SCH ×4 (01:37→21:17)
[2019-02-07] MEDS: D5W AND 1/2NSS + 20MEQ KCL 20 MEQ/1,000 ML BAG IV SCH (10:54)
[2019-02-07] MEDS: LEVOTHYROXINE SODIUM 37.5 MCG in SYRINGE 0 ML IV SCH (10:54)
[2019-02-07] MEDS: THIAMINE HCL 100 MG in SYRINGE 9 ML IV SCH (10:54)
[2019-02-07] MEDS: PANTOprazole 40 MG in SYRINGE 0 ML IV SCH (10:55)
--- NOTE | 2019-02-07 13:52 | Neurology Consultation ---
Date of Consultation February 07, 2019 Assessment & Plan (1) Weakness: 1. MRI no acute findings 2. patient no cooperative with exam 3. hypotension- needs evaluated at presentation 4. weight loss - may be failure to thrive 5. pulmonary issues- addressed by Dr Workman 6. once issue have resolved can evaluate for any weakness that may persist but patient is not will to have evaluation at this time. 7. will follow in peripherally and evaluate once patient is more cooperative. Supervising Physician Co-Signing Physician Notes I have seen and discussed above patient with Dr Evens Canada, neurology I saw Mrs. Young again briefly today in accompaniment of her daughter, reviewed the above note, reviewed her issues with ulnar infiltrates and generalized decline in overall status with generalized weakness increased dependency on a walker and frequent aspiration. Unfortunately she is less than ideally cooperative with examination today. I did a little better than [place] and she was slightly more cooperative but all I note is the presence of a bradykinetic appearing facies, normal supranuclear gaze, minimal dysarthria, no clear upper motor or lower motor neuron facial paresis, normal protrusion of the tongue without fasciculations or atrophy and global weakness worse in the legs than the arms and unfortunately colored by lack of maximum effort. She has no reflexes at the ankles or knees left Homans sign appears to be extensor in the right is neutral and she has significant loss of appreciation of vibratory sense and light touch below the knees in the upper extremities and there may be some proximal weakness but again she does not exert really any significant effort but distal strength at least to senior systems architect on the right seems to be intact Imaging studies have shown no significant intraparenchymal lesions other than those expected on the basis of age but does show a suspicious area in the skull that might indicate a secondary deposit. CK is normal and anti-acetylcholine receptor antibody titer is pending. At this point we have a woman with increasing generalized debility, aspiration pneumonia, polyneuropathy, and some changes on MRI that showed nothing acute or inappropriate for age. While this woman may have an underlying neuromuscular disorder is because it is really not evident at this point we are simply going to come by again tomorrow to see if we can get a little more exam or history and wait for the results of the acetylcholine receptor antibody titer though frankly I really doubt that this is myasthenia gravis and frankly doubt that this is motor neuron disease but only an outpatient EMG would be adequate to eliminate that possibility Of more importance is that pulmonary is going to evaluate her and try to establish a diagnosis of the pulmonary infiltrates. We will be back tomorrow, try to examine the patient and obtain more history for now neurology has no more suggestions Evens Canada MD History of Present Illness Requesting Physician: Nguyen Knowles DO Attending Physician: Nguyen Knowles DO History of Present Illness Charley is a 84 year old female with PMH AF on Coumadin, HTN, chronic anemia, CKD 3, chronic diastolic heart failure presented to ER with complaint of weakness. She was drowsy and then had increased weakness and lethargy. At baseline she is able to perform ADLs but was unable to stand. Her blood pressure with wrist BP monitor and BPs were 80s/50s and heart rate in the 50s. She was refusing to come to the ED and then did have one episode of loose stool. She was suspected to have aspiration pneumonia and finished Augmentin course. Her hydralazine decr eased to 25mg TID. Pt states hasn't been feeling well "for a long time". States chronic cough. She also had a 40 pound weight loss over the past several months due to poor intake. She is scheduled to have a bronch on 02/22/19. She currently is refusing to have an exam. Allergies Allergy/AdvReac Type Severity Reaction Status Date / Time Bactrim AdvReac Severe RENAL Verified 05/24/12 09:38 PROBLEMS sulfamethoxazole AdvReac Severe RENAL Verified 11/14/18 06:19 PROBLEMS trimethoprim AdvReac Severe RENAL Verified 11/14/18 06:19 PROBLEMS vancomycin AdvReac Severe RENAL Verified 11/14/18 06:19 PROBLEMS Home Medications Home Medications Medication Instructions Recorded Confirmed Type PreserVision AREDS-2 1 tab PO BID 11/08/18 02/04/19 History cholecalciferol (vitamin D3) 2,000 units PO DAILY 11/08/18 02/04/19 History [Vitamin D3] clonazepam 0.25 mg PO HS PRN 11/08/18 02/04/19 History ferrous gluconate 240 mg PO BID 11/08/18 02/04/19 History furosemide [Lasix] 20 mg PO DAILY 11/08/18 02/04/19 History hydralazine 25 mg PO .HOLD 11/08/18 02/04/19 History levothyroxine [Synthroid] 75 mg PO QAM 11/08/18 02/04/19 History metoprolol succinate [Toprol XL] 12.5 mg PO QPM 11/08/18 02/04/19 History metoprolol succinate [Toprol XL] 25 mg PO QAM 11/08/18 02/04/19 History potassium chloride [Klor-Con M20] 20 meq PO BIDM 11/08/18 02/04/19 History sennosides-docusate sodium [Senna 1 tab PO DAILY PRN 02/04/19 02/04/19 History with Docusate Sodium] warfarin 1 mg PO DAILY 02/04/19 02/04/19 History Patient History Medical History CKD (chronic kidney disease), stage III (Chronic) Dysphagia (Chronic) HTN (hypertension) (Chronic) History of cataract (Chronic) Chronic diastolic (congestive) heart failure (Chronic) Recurrent epistaxis (Resolved) Anemia (Chronic) Hypothyroidism (Chronic) Atrial fibrillation (Chronic 08/01/14) 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) Surgical History History of cataract surgery (Chronic) Status post tonsillectomy (Chronic) Family History Other Cancer Diabetes Family history non-contributory Stroke Social History Communication Ability: Effective Beliefs That Will Affect Care: None marital status: / Current Living Situation: Alone Current Living Situation Comment: Niece has been staying with patient the last few weeks Other Information That Helps Us Care for You: No Feels Safe at Home: Yes Safety Concerns: Feels Safe At This Time Smoking Status: Former smoker Hx Alcohol Use: No Hx Substance Use: No Physical Exam Vital Signs (Past 24 Hours): Last Vital Signs Temp 36.4 C L 02/07/19 03:10 Pulse 99 H 02/07/19 08:00 Resp 17 02/07/19 03:10 BP 143/85 H 02/07/19 03:10 Pulse Ox 97 02/07/19 03:10 no exam during this visit Results & Data Laboratory Results Lab Results 02/04/19 02/04/19 02/04/19 Range/Units 19:10 19:10 19:10 WBC 4.87 (4.8-10.8) K/uL RBC 2.80 L (4.2-5.4) M/uL Hgb 8.9 L (12.0-16.0) g/dL Hct 28.0 L (37-47) % MCV 100.0 (80-100) fL MCH 31.8 (25-34) pg MCHC 31.8 L (32-36) g/dL RDW Std Deviation 62.7 H (36.4-46.3) fL RDW Coeff of Patrick 17.4 H (11.5-14.5) % Plt Count 153 (130-400) K/uL MPV 11.6 H (7.4-10.4) fL Immature Gran % (Auto) 0.2 % Neut % (Auto) 84.0 % Lymph % (Auto) 10.7 % Reynolds % (Auto) 4.5 % Eos % (Auto) 0.6 % Baso % (Auto) 0.0 % Immature Gran # (Auto) 0.01 (0.00-0.02) K/uL Neut # (Auto) 4.09 (1.4-6.5) K/uL Lymph # (Auto) 0.52 L (1.2-3.4) K/uL Reynolds # (Auto) 0.22 (0.11-0.59) K/uL Eos # (Auto) 0.03 (0-0.5) K/uL Baso # (Auto) 0.00 (0-0.2) K/uL Platelet Estimate (Normal) Giant Platelets Hypochromasia Present Tear Drop Cells 1+ Ovalocytes 1+ Echinocytes PT 33.1 H (9.0-12.0) Seconds INR 3.5 H (0.9-1.1) APTT 43.6 H (21.0-31.0) Seconds PTT Ratio 1.6 Sodium 144 (136-145) mmol/L Potassium 4.6 (3.5-5.1) mmol/L Chloride 113 H (98-107) mmol/L Carbon Dioxide 28 (21-32) mmol/L Anion Gap 3.0 (3-11) BUN 41 H (7-18) mg/dl Creatinine 1.48 H (0.6-1.2) mg/dl Est Cr Clr Drug Dosing Not Reportable Est GFR ( Amer) 36.8 Est GFR (Non-Af Amer) 31.7 BUN/Creatinine Ratio 27.6 H (10-20) Glucose 110 H (70-99) mg/dl POC Glucose (70-99) POC Lactic Acid Michael (0.90-1.70) mmol/L Calcium 9.5 (8.5-10.1) mg/dl Phosphorus (2.5-4.9) mg/dl Magnesium (1.8-2.4) mg/dl Total Bilirubin 0.4 (0.2-1) mg/dl AST 25 (15-37) U/L ALT 22 (12-78) U/L Alkaline Phosphatase 106 (45-117) U/L Total Creatine Kinase (26-192) U/L Troponin I < 0.015 (0-0.045) ng/ml Total Protein 6.5 (6.4-8.2) gm/dl Albumin 2.7 L (3.4-5.0) gm/dl Globulin 3.8 (2.5-4.0) gm/dl Albumin/Globulin Ratio 0.7 L (0.9-2) Procalcitonin (0-0.5) ng/ml TSH (0.300-4.500) uIu/ml Random Cortisol mcg/dl Urine Color Urine Appearance (Clear) Urine pH (4.5-7.5) Ur Specific [place] (1.000-1.030) Urine Protein (Negative) Urine Glucose (UA) (Negative) Urine Ketones (Negative) Urine Blood (Negative) Urine Nitrite (Negative) Urine Bilirubin (Negative) Urine Urobilinogen (Negative) Ur Leukocyte Esterase (Negative) Nasal Screen MRSA (PCR) (Negative) Influenza Type A Ag (Neg) Influenza Type B Ag (Neg) 02/04/19 02/04/19 02/04/19 Range/Units 19:11 19:30 19:30 WBC (4.8-10.8) K/uL RBC (4.2-5.4) M/uL Hgb (12.0-16.0) g/dL Hct (37-47) % MCV (80-100) fL MCH (25-34) pg MCHC (32-36) g/dL RDW Std Deviation (36.4-46.3) fL RDW Coeff of Patrick (11.5-14.5) % Plt Count (130-400) K/uL MPV (7.4-10.4) fL Immature Gran % (Auto) % Neut % (Auto) % Lymph % (Auto) % Reynolds % (Auto) % Eos % (Auto) % Baso % (Auto) % Immature Gran # (Auto) (0.00-0.02) K/uL Neut # (Auto) (1.4-6.5) K/uL Lymph # (Auto) (1.2-3.4) K/uL Reynolds # (Auto) (0.11-0.59) K/uL Eos # (Auto) (0-0.5) K/uL Baso # (Auto) (0-0.2) K/uL Platelet Estimate (Normal) Giant Platelets Hypochromasia Tear Drop Cells Ovalocytes Echinocytes PT (9.0-12.0) Seconds INR (0.9-1.1) APTT (21.0-31.0) Seconds PTT Ratio Sodium (136-145) mmol/L Potassium (3.5-5.1) mmol/L Chloride (98-107) mmol/L Carbon Dioxide (21-32) mmol/L Anion Gap (3-11) BUN (7-18) mg/dl Creatinine (0.6-1.2) mg/dl Est Cr Clr Drug Dosing Est GFR ( Amer) Est GFR (Non-Af Amer) BUN/Creatinine Ratio (10-20) Glucose (70-99) mg/dl POC Glucose 107 H (70-99) POC Lactic Acid Michael 0.55 L (0.90-1.70) mmol/L Calcium (8.5-10.1) mg/dl Phosphorus (2.5-4.9) mg/dl Magnesium (1.8-2.4) mg/dl Total Bilirubin (0.2-1) mg/dl AST (15-37) U/L ALT (12-78) U/L Alkaline Phosphatase (45-117) U/L Total Creatine Kinase (26-192) U/L Troponin I (0-0.045) ng/ml Total Protein (6.4-8.2) gm/dl Albumin (3.4-5.0) gm/dl Globulin (2.5-4.0) gm/dl Albumin/Globulin Ratio (0.9-2) Procalcitonin (0-0.5) ng/ml TSH (0.300-4.500) uIu/ml Random Cortisol mcg/dl Urine Color Urine Appearance (Clear) Urine pH (4.5-7.5) Ur Specific [place] (1.000-1.030) Urine Protein (Negative) Urine Glucose (UA) (Negative) Urine Ketones (Negative) Urine Blood (Negative) Urine Nitrite (Negative) Urine Bilirubin (Negative) Urine Urobilinogen (Negative) Ur Leukocyte Esterase (Negative) Nasal Screen MRSA (PCR) (Negative) Influenza Type A Ag Neg for Influ A (Neg) Influenza Type B Ag Neg for Influ B (Neg) 02/04/19 02/04/19 02/05/19 Range/Units 21:00 22:10 04:37 WBC 4.09 L (4.8-10.8) K/uL RBC 2.43 L (4.2-5.4) M/uL Hgb 7.7 L (12.0-16.0) g/dL Hct 24.1 L (37-47) % MCV 99.2 (80-100) fL MCH 31.7 (25-34) pg MCHC 32.0 (32-36) g/dL RDW Std Deviation 63.3 H (36.4-46.3) fL RDW Coeff of Patrick 17.6 H (11.5-14.5) % Plt Count 137 (130-400) K/uL MPV 11.7 H (7.4-10.4) fL Immature Gran % (Auto) 0.2 % Neut % (Auto) 86.1 % Lymph % (Auto) 6.8 % Reynolds % (Auto) 5.9 % Eos % (Auto) 1.0 % Baso % (Auto) 0.0 % Immature Gran # (Auto) 0.01 (0.00-0.02) K/uL Neut # (Auto) 3.52 (1.4-6.5) K/uL Lymph # (Auto) 0.28 L (1.2-3.4) K/uL Reynolds # (Auto) 0.24 (0.11-0.59) K/uL Eos # (Auto) 0.04 (0-0.5) K/uL Baso # (Auto) 0.00 (0-0.2) K/uL Platelet Estimate (Normal) Giant Platelets 1+ Hypochromasia Tear Drop Cells Ovalocytes Echinocytes PT (9.0-12.0) Seconds INR (0.9-1.1) APTT (21.0-31.0) Seconds PTT Ratio Sodium (136-145) mmol/L Potassium (3.5-5.1) mmol/L Chloride (98-107) mmol/L Carbon Dioxide (21-32) mmol/L Anion Gap (3-11) BUN (7-18) mg/dl Creatinine (0.6-1.2) mg/dl Est Cr Clr Drug Dosing Est GFR ( Amer) Est GFR (Non-Af Amer) BUN/Creatinine Ratio (10-20) Glucose (70-99) mg/dl POC Glucose (70-99) POC Lactic Acid Michael (0.90-1.70) mmol/L Calcium (8.5-10.1) mg/dl Phosphorus (2.5-4.9) mg/dl Magnesium (1.8-2.4) mg/dl Total Bilirubin (0.2-1) mg/dl AST (15-37) U/L ALT (12-78) U/L Alkaline Phosphatase (45-117) U/L Total Creatine Kinase (26-192) U/L Troponin I (0-0.045) ng/ml Total Protein (6.4-8.2) gm/dl Albumin (3.4-5.0) gm/dl Globulin (2.5-4.0) gm/dl Albumin/Globulin Ratio (0.9-2) Procalcitonin (0-0.5) ng/ml TSH (0.300-4.500) uIu/ml Random Cortisol mcg/dl Urine Color Yellow Urine Appearance Clear (Clear) Urine pH 5.0 (4.5-7.5) Ur Specific [place] 1.018 (1.000-1.030) Urine Protein Negative (Negative) Urine Glucose (UA) Negative (Negative) Urine Ketones Negative (Negative) Urine Blood Negative (Negative) Urine Nitrite Negative (Negative) Urine Bilirubin Negative (Negative) Urine Urobilinogen Negative (Negative) Ur Leukocyte Esterase Negative (Negative) Nasal Screen MRSA (PCR) Negative (Negative) Influenza Type A Ag (Neg) Influenza Type B Ag (Neg) 02/05/19 02/05/19 02/05/19 Range/Units 04:37 04:37 07:14 WBC (4.8-10.8) K/uL RBC (4.2-5.4) M/uL Hgb (12.0-16.0) g/dL Hct (37-47) % MCV (80-100) fL MCH (25-34) pg MCHC (32-36) g/dL RDW Std Deviation (36.4-46.3) fL RDW Coeff of Patrick (11.5-14.5) % Plt Count (130-400) K/uL MPV (7.4-10.4) fL Immature Gran % (Auto) % Neut % (Auto) % Lymph % (Auto) % Reynolds % (Auto) % Eos % (Auto) % Baso % (Auto) % Immature Gran # (Auto) (0.00-0.02) K/uL Neut # (Auto) (1.4-6.5) K/uL Lymph # (Auto) (1.2-3.4) K/uL Reynolds # (Auto) (0.11-0.59) K/uL Eos # (Auto) (0-0.5) K/uL Baso # (Auto) (0-0.2) K/uL Platelet Estimate (Normal) Giant Platelets Hypochromasia Tear Drop Cells Ovalocytes Echinocytes PT 38.0 H (9.0-12.0) Seconds INR 4.1 H (0.9-1.1) APTT (21.0-31.0) Seconds PTT Ratio Sodium 146 H (136-145) mmol/L Potassium 4.5 (3.5-5.1) mmol/L Chloride 118 H (98-107) mmol/L Carbon Dioxide 24 (21-32) mmol/L Anion Gap 4.0 (3-11) BUN 34 H (7-18) mg/dl Creatinine 1.39 H (0.6-1.2) mg/dl Est Cr Clr Drug Dosing 28.3 Est GFR ( Amer) 39.7 Est GFR (Non-Af Amer) 34.2 BUN/Creatinine Ratio 24.5 H (10-20) Glucose 56 L (70-99) mg/dl POC Glucose 64 L* (70-99) POC Lactic Acid Michael (0.90-1.70) mmol/L Calcium 8.4 L (8.5-10.1) mg/dl Phosphorus 2.5 (2.5-4.9) mg/dl Magnesium 1.7 L (1.8-2.4) mg/dl Total Bilirubin (0.2-1) mg/dl AST (15-37) U/L ALT (12-78) U/L Alkaline Phosphatase (45-117) U/L Total Creatine Kinase (26-192) U/L Troponin I (0-0.045) ng/ml Total Protein (6.4-8.2) gm/dl Albumin (3.4-5.0) gm/dl Globulin (2.5-4.0) gm/dl Albumin/Globulin Ratio (0.9-2) Procalcitonin (0-0.5) ng/ml TSH 1.050 (0.300-4.500) uIu/ml Random Cortisol mcg/dl Urine Color Urine Appearance (Clear) Urine pH (4.5-7.5) Ur Specific [place] (1.000-1.030) Urine Protein (Negative) Urine Glucose (UA) (Negative) Urine Ketones (Negative) Urine Blood (Negative) Urine Nitrite (Negative) Urine Bilirubin (Negative) Urine Urobilinogen (Negative) Ur Leukocyte Esterase (Negative) Nasal Screen MRSA (PCR) (Negative) Influenza Type A Ag (Neg) Influenza Type B Ag (Neg) 02/05/19 02/05/19 02/05/19 Range/Units 08:02 08:36 11:31 WBC (4.8-10.8) K/uL RBC (4.2-5.4) M/uL Hgb (12.0-16.0) g/dL Hct (37-47) % MCV (80-100) fL MCH (25-34) pg MCHC (32-36) g/dL RDW Std Deviation (36.4-46.3) fL RDW Coeff of Patrick (11.5-14.5) % Plt Count (130-400) K/uL MPV (7.4-10.4) fL Immature Gran % (Auto) % Neut % (Auto) % Lymph % (Auto) % Reynolds % (Auto) % Eos % (Auto) % Baso % (Auto) % Immature Gran # (Auto) (0.00-0.02) K/uL Neut # (Auto) (1.4-6.5) K/uL Lymph # (Auto) (1.2-3.4) K/uL Reynolds # (Auto) (0.11-0.59) K/uL Eos # (Auto) (0-0.5) K/uL Baso # (Auto) (0-0.2) K/uL Platelet Estimate (Normal) Giant Platelets Hypochromasia Tear Drop Cells Ovalocytes Echinocytes PT (9.0-12.0) Seconds INR (0.9-1.1) APTT (21.0-31.0) Seconds PTT Ratio Sodium (136-145) mmol/L Potassium (3.5-5.1) mmol/L Chloride (98-107) mmol/L Carbon Dioxide (21-32) mmol/L Anion Gap (3-11) BUN (7-18) mg/dl Creatinine (0.6-1.2) mg/dl Est Cr Clr Drug Dosing Est GFR ( Amer) Est GFR (Non-Af Amer) BUN/Creatinine Ratio (10-20) Glucose (70-99) mg/dl POC Glucose 122 H 85 (70-99) POC Lactic Acid Michael (0.90-1.70) mmol/L Calcium (8.5-10.1) mg/dl Phosphorus (2.5-4.9) mg/dl Magnesium (1.8-2.4) mg/dl Total Bilirubin (0.2-1) mg/dl AST (15-37) U/L ALT (12-78) U/L Alkaline Phosphatase (45-117) U/L Total Creatine Kinase (26-192) U/L Troponin I (0-0.045) ng/ml Total Protein (6.4-8.2) gm/dl Albumin (3.4-5.0) gm/dl Globulin (2.5-4.0) gm/dl Albumin/Globulin Ratio (0.9-2) Procalcitonin < 0.05 (0-0.5) ng/ml TSH (0.300-4.500) uIu/ml Random Cortisol mcg/dl Urine Color Urine Appearance (Clear) Urine pH (4.5-7.5) Ur Specific [place] (1.000-1.030) Urine Protein (Negative) Urine Glucose (UA) (Negative) Urine Ketones (Negative) Urine Blood (Negative) Urine Nitrite (Negative) Urine Bilirubin (Negative) Urine Urobilinogen (Negative) Ur Leukocyte Esterase (Negative) Nasal Screen MRSA (PCR) (Negative) Influenza Type A Ag (Neg) Influenza Type B Ag (Neg) 02/05/19 02/05/19 02/06/19 Range/Units 15:45 18:36 06:18 WBC 5.14 (4.8-10.8) K/uL RBC 2.59 L (4.2-5.4) M/uL Hgb 8.2 L (12.0-16.0) g/dL Hct 25.8 L (37-47) % MCV 99.6 (80-100) fL MCH 31.7 (25-34) pg MCHC 31.8 L (32-36) g/dL RDW Std Deviation 64.6 H (36.4-46.3) fL RDW Coeff of Patrick 18.3 H (11.5-14.5) % Plt Count 127 L (130-400) K/uL MPV 12.2 H (7.4-10.4) fL Immature Gran % (Auto) 0.2 % Neut % (Auto) 81.7 % Lymph % (Auto) 10.5 % Reynolds % (Auto) 6.6 % Eos % (Auto) 0.8 % Baso % (Auto) 0.2 % Immature Gran # (Auto) 0.01 (0.00-0.02) K/uL Neut # (Auto) 4.20 (1.4-6.5) K/uL Lymph # (Auto) 0.54 L (1.2-3.4) K/uL Reynolds # (Auto) 0.34 (0.11-0.59) K/uL Eos # (Auto) 0.04 (0-0.5) K/uL Baso # (Auto) 0.01 (0-0.2) K/uL Platelet Estimate Decreased (Normal) Giant Platelets Hypochromasia Tear Drop Cells Ovalocytes Echinocytes 1+ PT (9.0-12.0) Seconds INR (0.9-1.1) APTT (21.0-31.0) Seconds PTT Ratio Sodium (136-145) mmol/L Potassium (3.5-5.1) mmol/L Chloride (98-107) mmol/L Carbon Dioxide (21-32) mmol/L Anion Gap (3-11) BUN (7-18) mg/dl Creatinine (0.6-1.2) mg/dl Est Cr Clr Drug Dosing Est GFR ( Amer) Est GFR (Non-Af Amer) BUN/Creatinine Ratio (10-20) Glucose (70-99) mg/dl POC Glucose 96 (70-99) POC Lactic Acid Michael (0.90-1.70) mmol/L Calcium (8.5-10.1) mg/dl Phosphorus (2.5-4.9) mg/dl Magnesium (1.8-2.4) mg/dl Total Bilirubin (0.2-1) mg/dl AST (15-37) U/L ALT (12-78) U/L Alkaline Phosphatase (45-117) U/L Total Creatine Kinase (26-192) U/L Troponin I (0-0.045) ng/ml Total Protein (6.4-8.2) gm/dl Albumin (3.4-5.0) gm/dl Globulin (2.5-4.0) gm/dl Albumin/Globulin Ratio (0.9-2) Procalcitonin (0-0.5) ng/ml TSH (0.300-4.500) uIu/ml Random Cortisol 15.67 mcg/dl Urine Color Urine Appearance (Clear) Urine pH (4.5-7.5) Ur Specific [place] (1.000-1.030) Urine Protein (Negative) Urine Glucose (UA) (Negative) Urine Ketones (Negative) Urine Blood (Negative) Urine Nitrite (Negative) Urine Bilirubin (Negative) Urine Urobilinogen (Negative) Ur Leukocyte Esterase (Negative) Nasal Screen MRSA (PCR) (Negative) Influenza Type A Ag (Neg) Influenza Type B Ag (Neg) 03/31/19 03/31/19 03/31/19 Range/Units 06:18 06:18 06:18 WBC (4.8-10.8) K/uL RBC (4.2-5.4) M/uL Hgb (12.0-16.0) g/dL Hct (37-47) % MCV (80-100) fL MCH (25-34) pg MCHC (32-36) g/dL RDW Std Deviation (36.4-46.3) fL RDW Coeff of Patrick (11.5-14.5) % Plt Count (130-400) K/uL MPV (7.4-10.4) fL Immature Gran % (Auto) % Neut % (Auto) % Lymph % (Auto) % Reynolds % (Auto) % Eos % (Auto) % Baso % (Auto) % Immature Gran # (Auto) (0.00-0.02) K/uL Neut # (Auto) (1.4-6.5) K/uL Lymph # (Auto) (1.2-3.4) K/uL Reynolds # (Auto) (0.11-0.59) K/uL Eos # (Auto) (0-0.5) K/uL Baso # (Auto) (0-0.2) K/uL Platelet Estimate (Normal) Giant Platelets Hypochromasia Tear Drop Cells Ovalocytes Echinocytes PT 44.0 H (9.0-12.0) Seconds INR 4.8 H (0.9-1.1) APTT (21.0-31.0) Seconds PTT Ratio Sodium 147 H (136-145) mmol/L Potassium 3.7 D (3.5-5.1) mmol/L Chloride 118 H (98-107) mmol/L Carbon Dioxide 24 (21-32) mmol/L Anion Gap 5.0 (3-11) BUN 24 H (7-18) mg/dl Creatinine 1.48 H (0.6-1.2) mg/dl Est Cr Clr Drug Dosing 26.5 Est GFR ( Amer) 36.8 Est GFR (Non-Af Amer) 31.7 BUN/Creatinine Ratio 16.0 (10-20) Glucose 99 (70-99) mg/dl POC Glucose (70-99) POC Lactic Acid Michael (0.90-1.70) mmol/L Calcium 9.2 (8.5-10.1) mg/dl Phosphorus 2.5 (2.5-4.9) mg/dl Magnesium 1.9 (1.8-2.4) mg/dl Total Bilirubin (0.2-1) mg/dl AST (15-37) U/L ALT (12-78) U/L Alkaline Phosphatase (45-117) U/L Total Creatine Kinase 34 (26-192) U/L Troponin I (0-0.045) ng/ml Total Protein (6.4-8.2) gm/dl Albumin (3.4-5.0) gm/dl Globulin (2.5-4.0) gm/dl Albumin/Globulin Ratio (0.9-2) Procalcitonin (0-0.5) ng/ml TSH (0.300-4.500) uIu/ml Random Cortisol mcg/dl Urine Color Urine Appearance (Clear) Urine pH (4.5-7.5) Ur Specific [place] (1.000-1.030) Urine Protein (Negative) Urine Glucose (UA) (Negative) Urine Ketones (Negative) Urine Blood (Negative) Urine Nitrite (Negative) Urine Bilirubin (Negative) Urine Urobilinogen (Negative) Ur Leukocyte Esterase (Negative) Nasal Screen MRSA (PCR) (Negative) Influenza Type A Ag (Neg) Influenza Type B Ag (Neg) 02/06/19 Range/Units 11:51 WBC (4.8-10.8) K/uL RBC (4.2-5.4) M/uL Hgb (12.0-16.0) g/dL Hct (37-47) % MCV (80-100) fL MCH (25-34) pg MCHC (32-36) g/dL RDW Std Deviation (36.4-46.3) fL RDW Coeff of Patrick (11.5-14.5) % Plt Count (130-400) K/uL MPV (7.4-10.4) fL Immature Gran % (Auto) % Neut % (Auto) % Lymph % (Auto) % Reynolds % (Auto) % Eos % (Auto) % Baso % (Auto) % Immature Gran # (Auto) (0.00-0.02) K/uL Neut # (Auto) (1.4-6.5) K/uL Lymph # (Auto) (1.2-3.4) K/uL Reynolds # (Auto) (0.11-0.59) K/uL Eos # (Auto) (0-0.5) K/uL Baso # (Auto) (0-0.2) K/uL Platelet Estimate (Normal) Giant Platelets Hypochromasia Tear Drop Cells Ovalocytes Echinocytes PT (9.0-12.0) Seconds INR (0.9-1.1) APTT (21.0-31.0) Seconds PTT Ratio Sodium (136-145) mmol/L Potassium (3.5-5.1) mmol/L Chloride (98-107) mmol/L Carbon Dioxide (21-32) mmol/L Anion Gap (3-11) BUN (7-18) mg/dl Creatinine (0.6-1.2) mg/dl Est Cr Clr Drug Dosing Est GFR ( Amer) Est GFR (Non-Af Amer) BUN/Creatinine Ratio (10-20) Glucose (70-99) mg/dl POC Glucose (70-99) POC Lactic Acid Michael (0.90-1.70) mmol/L Calcium (8.5-10.1) mg/dl Phosphorus (2.5-4.9) mg/dl Magnesium (1.8-2.4) mg/dl Total Bilirubin (0.2-1) mg/dl AST (15-37) U/L ALT (12-78) U/L Alkaline Phosphatase (45-117) U/L Total Creatine Kinase 36 (26-192) U/L Troponin I (0-0.045) ng/ml Total Protein (6.4-8.2) gm/dl Albumin (3.4-5.0) gm/dl Globulin (2.5-4.0) gm/dl Albumin/Globulin Ratio (0.9-2) Procalcitonin (0-0.5) ng/ml TSH (0.300-4.500) uIu/ml Random Cortisol mcg/dl Urine Color Urine Appearance (Clear) Urine pH (4.5-7.5) Ur Specific [place] (1.000-1.030) Urine Protein (Negative) Urine Glucose (UA) (Negative) Urine Ketones (Negative) Urine Blood (Negative) Urine Nitrite (Negative) Urine Bilirubin (Negative) Urine Urobilinogen (Negative) Ur Leukocyte Esterase (Negative) Nasal Screen MRSA (PCR) (Negative) Influenza Type A Ag (Neg) Influenza Type B Ag (Neg) Diagnostic Findings CT head- No acute intracranial abnormality. MRI brain-No acute intracranial findings. 3.4 cm focus of marrow replacement within the right frontal bone. Differential considerations include benign and malignant etiologies and correlation with history of known malignancy is recommended. Whole-body bone scan may be of benefit in further evaluation.
--- NOTE | 2019-02-07 15:19 | Fluoroscopy Report ---
FL video swallow HISTORY: r/o aspiration, determine safest diet TECHNIQUE: Video fluoroscopic evaluation of swallowing was performed in the AP and lateral projection s by the speech pathology staff. The patient is fed nectar-thick and thin liquid barium, a barium coa dimple wafer, and barium pudding. FLUOROSCOPY TIME: 2.3 minutes. A cine loop submitted. COMPARISON STUDY: None. FINDINGS: There is normal hyoid excursion and epiglottic deflection. Aspiration with delayed cough wi th the thin liquid barium. Mild hypopharyngeal residue with the thicker barium consistencies. No ganesh tional episodes of aspiration identified. IMPRESSION: 1. Aspiration with the thin liquid barium. 2. Please see the speech pathologist report for detailed findings and recommendations. Electronically signed by: Juan C Tubbs M.D. 02/07/2019 3:17 PM
[2019-02-07 15:38] LABS: Hematocrit (blood only) 26.3 % (37-47); Hemoglobin 8.4 g/dL (12.0-16.0); Immature Granulocytes # (auto) 0.01 K/uL (0.00-0.02); Immature Granulocytes % (auto) 0.2 %; Lymphocytes # (auto) 0.41 K/uL (1.2-3.4); Mean Corpuscular Volume 98.5 fL (80-100); Mean Platelet Volume 12.2 fL (7.4-10.4); Monocytes % (auto) 4.9 %; Neutrophils # (auto) 3.47 K/uL (1.4-6.5); Neutrophils % (auto) 84.9 %; Platelet Count 146 K/uL (130-400); RDW Coefficient of Variation 18.3 % (11.5-14.5); RDW Standard Deviation 63.2 fL (36.4-46.3); Red Blood Count 2.67 M/uL (4.2-5.4); White Blood Count 4.09 K/uL (4.8-10.8)
[2019-02-07 15:44] LABS: Mean Corpuscular Hgb Conc 31.9 g/dL (32-36)
[2019-02-07 15:54] LABS: Albumin Level 2.2 gm/dl (3.4-5.0); BUN Creatinine Ratio 17.4 (10-20); Calcium 9.7 mg/dl (8.5-10.1); Creatinine Clr Calc Pharmacy 27.3 ml/min; Est GFR (Non-African American) 32.8; Magnesium 1.9 mg/dl (1.8-2.4); Potassium 3.9 mmol/L (3.5-5.1)
[2019-02-07 15:59] LABS: Albumin Globulin Ratio 0.6 (0.9-2); Bilirubin,Total 0.5 mg/dl (0.2-1); Globulin 3.7 gm/dl (2.5-4.0); Prothrombin Time 43.3 Seconds (9.0-12.0); Total Protein 5.9 gm/dl (6.4-8.2)
[2019-02-07 16:10] LABS: INR 4.7 (0.9-1.1)
[2019-02-07 16:11] LABS: Anisocytosis Present; Hypochromasia Present
[2019-02-07 16:12] LABS: Phosphorus 3.1 mg/dl (2.5-4.9)
[2019-02-07] MEDS ORDERED: PHYTONADIONE 5 MG TAB PO SCH (17:00)
--- NOTE | 2019-02-07 17:10 | Pulmonology Progress Note ---
Date of Service February 07, 2019 Assessment & Plan (1) Pulmonary infiltrate: bilateral infiltrates seen on prior CT scan not as apparent on more recent cxr suspect aspiration currently asymptomatic and sat well on RA. would repeat Ct chest without contrast this admission to reevaluate infiltrates from CT chest a few weeks ago Subjective denies sob or pain Physical Exam Vital Signs (Past 24 Hours): Last Vital Signs Temp 36.3 C L 02/07/19 15:19 Pulse 77 02/07/19 15:19 Resp 17 02/07/19 15:19 BP 103/60 02/07/19 15:19 Pulse Ox 92 02/07/19 15:19 Physical Exam: Constitutional: Comfortable NAD HEENT: normocephalic atraumatic. MMM. CV: RRR nl s1,s2 no murmurs rubs or gallops Lungs: decreased bilaterally. no accessory muscle use Abd: soft nontender nondistended. Ext: no edema. no cyanosis, no edema Skin: warm dry Neuro: alert . moving all extremities Psych: flat affect
--- NOTE | 2019-02-07 18:59 | Hospitalist Progress Note ---
Date of Service February 07, 2019 Assessment & Plan (1) Weakness: Etiologies include but not limited to failure to thrive 2/2 depression, new onset neuromuscular disease, natural progression of aging, somatic manifestations of stress, weakness 2/2 chronic aspiration, occult malignancy that has not yet been identified. Cont steroids and empiric thiamine. 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 (2) Chronic pulmonary aspiration: resulting in pulmonary infiltrates. per Pulm, no bronch or antibiotics indicated at this time. VFSS today. Modified diet per Speech Path started. (3) Hypothermia: Occurred twice this hospitalization and responded to rewarming with the stephen hugger. She is currently on stress dose hydrocortisone which should be weaned off over the next few days. With her history, would monitor her closely after coming off the steroids to ensure no persistent hypothermia. Of note, she became bradycardic 2/2 the hypothermia. Heart rate improved with rewarming. (4) Atrial fibrillation: chronic atrial fibrillation, coumadin and Toprol held. (5) Supratherapeutic INR: Likely related to recent Augmentin use. Hold Coumadin. Will consider vitamin K if INR increases beyond 4.5, however oral preparation is recommended in this setting and she is n.p.o. Continue to trend INR. (6) Anemia: chronic, stable, no active bleeding. Likely multifactorial in setting of chronic renal disease and other comorbidities. (7) Dysphagia: 40 pound weight loss over the past several months. Poor oral intake with significant dysphasia and evidence of silent aspiration on video swallow study in December 2018. VFSS revealed persistent silent aspiration. Placed on nectar thick liquids. (8) Hypernatremia: Labs were drawn late in the day and she has been strict NPO since admission with poor PO intake prior to admission. Start diet and recheck Na. (9) Hypothyroidism: Continue levothyroxine at home dosing. IV dosing while NPO (10) CKD (chronic kidney disease), stage IV: Currently at baseline. Avoid nephrotoxic substances when able and renally dose meds when appropriate. (11) DVT prophylaxis: INR currently supratherapeutic. Continue to hold Coumadin Full code Disposition-pending PT/OT evaluations and improvement clinically. Will likely be here for few more days. Nguyen Knowles DO [facility] Subjective Pt refusing treatment today including labs and medications. VFSS scheduled for today. Physical Exam Vital Signs (Past 24 Hours): Last Vital Signs Temp 36.3 C L 02/07/19 15:19 Pulse 77 02/07/19 15:19 Resp 17 02/07/19 15:19 BP 103/60 02/07/19 15:19 Pulse Ox 92 02/07/19 15:19 CONSTITUTIONAL: WNWD, vitals as above, generally well-appearing, flat affect, appears depressed EYES: normal conjuctivae, no scleral icterus, EOMI ENT: MMM RESPIRATORY: clear to auscultation bilaterally, no crackles, rales or wheezes, normal respiratory effort CARDIOVASCULAR: regular rate and rhythm, S1 and 2 heard without murmurs, gallops or rubs, no JVD, no peripheral edema GASTROINTESTINAL: normal bowel sounds, soft, nontender, nondistended MUSCULOSKELETAL: strength 4/5 throughout, pt cannot ambulate, requires significant assistance to sit up in bed, head is normocephalic and atraumatic SKIN: warm and dry NEUROLOGIC: no facial palsy, no dysarthria. CN 2-12 grossly intact, EOMI, PERRL, no sensory deficit, normal cognition, normal to slow speech, no tremor, generally weak, 2+ knee reflexes bilaterally, 2+brachioradialis reflexes bilaterally PSYCHIATRIC: alert cooperative and oriented to person, place and time. Flat affect. Responds appropriately to questions. Results & Data Laboratory Results Short CBC 02/07/19 Range/Units 15:22 WBC 4.09 L (4.8-10.8) K/uL Hgb 8.4 L (12.0-16.0) g/dL Hct 26.3 L (37-47) % Plt Count 146 (130-400) K/uL BMP 02/07/19 15:22 Sodium 150 H Potassium 3.9 Chloride 119 H Carbon Dioxide 22 BUN 25 H Creatinine 1.44 H Glucose 122 H Calcium 9.7 Liver Function 02/07/19 Range/Units 15:22 Total Bilirubin 0.5 (0.2-1) mg/dl AST 16 (15-37) U/L ALT 17 (12-78) U/L Alkaline Phosphatase 101 (45-117) U/L Albumin 2.2 L (3.4-5.0) gm/dl Diagnostic Findings FL video swallow HISTORY: r/o aspiration, determine safest diet TECHNIQUE: Video fluoroscopic evaluation of swallowing was performed in the AP and lateral projections by the speech pathology staff. The patient is fed nectar-thick and thin liquid barium, a barium coated wafer, and barium pudding. FLUOROSCOPY TIME: 2.3 minutes. A cine loop submitted. COMPARISON STUDY: None. FINDINGS: There is normal hyoid excursion and epiglottic deflection. Aspiration with delayed cough with the thin liquid barium. Mild hypopharyngeal residue with the thicker barium consistencies. No additional episodes of aspiration identified. IMPRESSION: 1. Aspiration with the thin liquid barium. 2. Please see the speech pathologist report for detailed findings and recommendations. Medications Administered Current Inpatient Medications Dextrose (Dextrose 50%) 50 ml IV ONCE PRN PRN Reason: Hypoglycemia Treatment Stop: 03/07/19 07:20 Last Admin: 02/05/19 07:21 Dose: 25 ml Documented by: Heparin Sodium (Beef Lung) (Heparin Sod 10 Unit/Ml Flush) 5 ml FLUSH PRN PRN PRN Reason: Flush Stop: 03/08/19 00:21 Pantoprazole Sodium 40 mg/ (Syringe) 10 mls @ 5 mls/min IV DAILY@1100 [facility] Stop: 03/07/19 10:59 Last Admin: 02/07/19 10:55 Dose: Not Given Documented by: Potassium Chloride/Dextrose/Sod Cl (D5w And 1/2nss + 20meq Kcl) 20 meq in 1,000 mls @ 50 mls/hr IV .Q20H [place] Stop: 03/07/19 15:44 Last Admin: 02/07/19 10:54 Dose: Not Given Documented by: Levothyroxine Sodium 37.5 mcg/ (Syringe) 1.875 mls @ 0.938 mls/min IV DAILY@0900 [facility] Stop: 03/08/19 08:59 Last Admin: 02/07/19 10:54 Dose: Not Given Documented by: Thiamine HCl 100 mg/ Syringe 10 mls @ 2 mls/min IV DAILY@0900 [place] Stop: 03/09/19 08:59 Last Admin: 02/07/19 10:54 Dose: Not Given Documented by: Hydrocortisone Sodium (Succinate 100 mg/ Syringe) 2 mls @ 4 mls/min IV Q8H [place] Stop: 03/08/19 12:59 Last Admin: 02/07/19 13:50 Dose: Not Given Documented by: (1) Anemia Anemia type: unspecified type Qualified Code(s): D64.9 - Anemia, unspecified (2) Atrial fibrillation Atrial fibrillation type: chronic Qualified Code(s): I48.2 - Chronic atrial fibrillation
[2019-02-08] MEDS: D5W AND 1/2NSS + 20MEQ KCL 20 MEQ/1,000 ML BAG IV SCH (05:46)
[2019-02-08] MEDS: HYDROCORTISONE SOD 100 MG in SYRINGE 0 ML IV SCH (05:49)
[2019-02-08 07:21] LABS: INR 2.5 (0.9-1.1); Prothrombin Time 24.1 Seconds (9.0-12.0)
[2019-02-08] MEDS: THIAMINE HCL 100 MG in SYRINGE 9 ML IV SCH (08:33)
--- NOTE | 2019-02-08 08:33 | CT Scan Report ---
CT OF THE CHEST WITHOUT IV CONTRAST CLINICAL HISTORY: Skull lesion. COMPARISON STUDY: Chest CT January 19, 2019. Chest radiograph February 04, 2019. CT DOSE: 915.94 mGy.cm TECHNIQUE: Axial images of the chest were obtained without IV contrast. Images were reviewed in the axial, sagittal, and coronal planes. IV contrast was not administered for this examination. Automat ed exposure control was utilized for the study. A dose lowering technique was utilized adhering to t he principles of ALARA. FINDINGS: The heart is moderately enlarged. There is extensive coronary artery calcification. There is no pericardial effusion. Attenuation of the blood pool is diminished. Small bilateral pleural effu sions, left larger than right, are noted. Extensive barium from recent modified barium swallow is not ed which fills the left mainstem bronchus and extends into the left upper and lower lobe bronchi. Ext ensive left lung airspace opacity has progressed since CT of January 19, 2019. Mild multifocal airspace opacities within the right lung have improved since prior CT. Interlobular septal thickening is note d. There is no pneumothorax. No central obstructing mass is identified. Lungs are suboptimally assess ed on this exam but there is no convincing evidence for malignancy. No suspicious osseous lesion with in the bony thorax is noted. Mildly enlarged mediastinal lymph nodes are noted. Abdomen and pelvis wi ll be reported separately. A 2 cm peripherally calcified splenic artery aneurysm is noted. Low-attenu ation left adrenal nodule is likely benign. This favors an adenoma. IMPRESSION: 1. Findings consistent with extensive aspiration with barium filling the left mainstem bronchus and e xtending into the segmental bronchi for the upper and lower lobes of the left lung. Progression of ex tensive left lung airspace opacities which suggest pneumonia/aspiration pneumonitis. Interval improve ment in right lung pneumonia since CT of January 19, 2019. 2. No evidence for malignancy within the chest although lungs suboptimally assessed on this exam give n extensive consolidation. 3. Moderate cardiomegaly. Extensive coronary artery calcification. 4. Small bilateral pleural effusions, left larger than right. 5. Mild interstitial pulmonary edema. Electronically signed by: Mike Louise M.D. 02/08/2019 8:32 AM
--- NOTE | 2019-02-08 08:43 | CT Scan Report ---
ABDOMEN AND PELVIS CT WITHOUT CONTRAST HISTORY: Acute weakness with weight loss. skull lesion TECHNIQUE: Multiaxial CT images of the abdomen and pelvis were performed without contrast. A dose lo wering technique was utilized adhering to the principles of ALARA. COMPARISON STUDY: Chest CT of same day. FINDINGS: Enlargement of the imaged inferior cardiac chambers. Decreased attenuation of the cardiac blood pool suggests anemia. Coronary arterial calcifications noted. Small bilateral pleural effusions with left greater than right dependent bibasilar consolidation. Bibasilar bronchial wall thickening with mild i ntralobular septal thickening. There is no pneumatosis or pneumoperitoneum. The study is mildly motio n degraded. Contracted gallbladder with mild wall thickening. Evaluation of the solid abdominal organs is limited without the use of IV contrast. Indeterminate 10 x 8 mm hypodense lesion of the inferior right hepat ic lobe, not completely characterized on this noncontrast enhanced study. There is no intrahepatic bi liary ductal dilation. Spleen and right adrenal gland are unremarkable. Indeterminate 2.1 x 1.4 cm so ft tissue attenuating left adrenal gland lesion. Peripherally calcified splenic artery aneurysm, 1.7 x 1.5 cm. Moderate atrophy with multifocal scarring about the left kidney. Right kidney is unremarkable. No ure teral calculi or obstructive uropathy identified. Pelvic structures are suboptimally visualized secon cristiane to streak artifact from retained enteric contrast in the bowel. Circumferential wall thickening of the bladder with partial distention. Watkins catheter is noted with considerable amount of air withi n the urinary bladder lumen. No adnexal mass lesions. Mild nonspecific free pelvic fluid. Extensive c alcification of the abdominal aorta. No aneurysm or adenopathy. Mild free fluid about the right pericolic gutter, freddy hepatis and periduodenal distribution. There is no small bowel obstruction. Colonic diverticulosis without acute diverticulitis. The appendix appe ars normal. There is moderate circumferential wall thickening noted about the terminal ileum, image 1 65 series 7. There is mild generalized body wall edema. Degenerative changes of the spine, pelvis and hips. No suspicious bone lesions. Probable bone islands of the proximal left femur. Appendix appears normal. IMPRESSION: 1. Limited exam secondary to motion and lack of contrast. 2. Mild amount of free fluid noted about the freddy hepatis, periduodenal distribution and right peric olic gutter. 3. No bowel obstruction. Normal appendix. 4. Moderate wall thickening about the terminal ileum suggests of a nonspecific enteritis. Underlying mucosal neoplasm is considered less likely. This could be correlated with colonoscopy if of further c linical concern. 5. Bilateral pleural effusions with left greater than right bibasilar consolidation. 6. Cardiomegaly. 7. Suggested anemia. 8. Partially calcified chronic splenic artery aneurysm, 1.5 x 1.7 cm. 9. Additional findings as above. Electronically signed by: Eleazar Christensen M.D. 02/08/2019 8:42 AM
[2019-02-08] MEDS: LEVOTHYROXINE SODIUM 37.5 MCG in SYRINGE 0 ML IV SCH (09:08)
[2019-02-08] MEDS: PANTOprazole 40 MG in SYRINGE 0 ML IV SCH (11:13)
--- NOTE | 2019-02-08 12:24 | Nuclear Medicine Report ---
NM bone scan whole body CLINICAL HISTORY: 3.4 bony lesion in skull COMPARISON STUDY: MRI of the brain February 06, 2019. TECHNIQUE: 26.9 mCi of technetium 99m MDP was injected IV at 8:30 AM on February 08, 2019. 3 hours follow ing injection, whole-body imaging in the anterior and posterior projections was performed. FINDINGS: Uptake within the sternoclavicular joints, shoulders and along the symphysis pubis is degen erative. Expected soft tissue and renal uptake is noted. There is mild S-shaped curvature of the thor acolumbar spine. Linear uptake projecting over the mid calvarium is due to ossification of the falx a s shown on CT of February 05, 2019. No abnormal radiotracer uptake is noted within the right frontal bon e to correspond to the focus shown on MRI of February 06, 2019. IMPRESSION: 1. No increased radiotracer uptake within the right frontal bone to correspond to the focus of marrow signal abnormality on MRI of February 06, 2019. This finding remains indeterminate however lack of upta ke significantly decreases the likelihood for skeletal metastatic disease. 2. No suspicious radiotracer uptake identified. Electronically signed by: Mike Louise M.D. 02/08/2019 12:23 PM
[2019-02-08] MEDS: HYDROCORTISONE SOD 50 MG in SYRINGE 0 ML IV SCH ×2 (13:58→20:50)
--- NOTE | 2019-02-08 14:05 | Hospitalist Progress Note ---
Date of Service February 08, 2019 Assessment & Plan (1) Weakness: (see subjective for hospital course and progress). Etiologies include but not limited to failure to thrive 2/2 depression, new onset neuromuscular disease, natural progression of aging, somatic manifestations of stress, weakness 2/2 chronic aspiration, occult malignancy that has not yet been identified. Starting Zoloft 25mg in am and would continue this for a minimun of 6 months with titration as needed as outpatient. (2) Chronic pulmonary aspiration: resulting in pulmonary infiltrates. per Pulm, no bronch or antibiotics indicated at this time. Cont modified diet per Speech Path. (3) Hypothermia: Occurred twice this hospitalization and responded to rewarming with the stephen hugger. She is currently on stress dose hydrocortisone which should be weaned off over the next few days. With her history, would monitor her closely after coming off the steroids to ensure no persistent hypothermia. Of note, she became bradycardic 2/2 the hypothermia. Heart rate improved with rewarming. (4) Atrial fibrillation: chronic atrial fibrillation on Coumadin 1 mg p.o. daily. She is typically on metoprolol XL 25 mg daily for rate control, however this was held in the setting of initial bradycardia, which occurred when she was hypothermic. INR was supratherapeutic likely as a results of drug interaction with recent outpatient antibiotics and poor nutritional state. Vit K 2.5mg PO was given and INR improved to goal range. Warfarin was restarted, but long-term warfarin use will need to be re-evaluated if severe weakness persists. (5) Supratherapeutic INR: resolved with vit K. (6) Anemia: chronic, stable, no active bleeding. Likely multifactorial in setting of chronic renal disease and other comorbidities. (7) Dysphagia: 40 pound weight loss over the past several months. Poor oral intake with significant dysphasia and evidence of silent aspiration on video swallow study in December 2018. Currently on modified diet after VFSS on Thursday. (8) Hypothyroidism: Continue levothyroxine at home dosing. (9) CKD (chronic kidney disease), stage IV: At baseline, avoid nephrotoxic substances when able and renally dose meds when approrpiate. (10) DVT prophylaxis: Coumadin Full code Disposition-pending PT/OT evaluations and improvement clinically. Will likely be here for few more days. Nguyen Knowles DO [facility] Hospitalist Subjective 84 yo F presented initially appearing like septic shock 2/2 pneumonia with pulmonary infiltrates seen on chest imaging. The following day she was hypothermic and temperature improved with a stephen hugger, however, procalcitonin was negative so sepsis was considered less likely. Antibiotics were stopped and she was transferred to the telemetry floor where she remains. Her weakness is extreme and drastically different from her independent state 2 weeks ago. She lives with her niece Shruthi who moved from [place] to be with her and keep her company. She states that Charley, who lives alone typically, could take care of herself. She has had dysphagia and this has progressed somewhat but she had a VFSS and is now on a modified diet. Notably, there was some barium contrast from the VFSS in the left mainstem bronchus on CT chest yesterday. After arriving to the floor, she again became hypothermic and her INR continued to rise on its own. She was previously treated as outpatient with Augmentin and has been eating significantly less, so a combination of drug interaction between antibiotic and coumadin plus nutritional deficiency was considered the cause for this, as her coumadin had been held. Rectal temp was 33C, and improved again with a stephen hugger. Although a random cortisol was negative, she was placed on hydrocortisone in the event of adrenal insuffiency. Other etiologies were considered including stroke so she underwent an MRI brain wo contrast in the setting of severe renal disease. MRI revealed no acute intracranial events, however, did show a 3.4cm bony lesion in the skull. She did not complain of headaches. 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 A bone scan also was performed and negative, indicating this lesion was less likely a skeletal metastasis. Quantitative Ig panel revealed a small IgM spike, which was expected. All results were shared with her Oncologist, Dr. Valencia. Pulmonary was consulted in the setting of persistent pulmonary infiltrates in a woman who was known to aspirate. He did not recommend a bronchoscopy or antibiotics as she was not symptomatic and was continuing to oxygenate well on room air. As she had progressed weakness a neuromuscular etiology was considered and Neurology was consulted. I was able to obtain reflexes and her weakness seemed to proressively improve, so I was less concerned about a GBS following recent infection. No clear etiology of weakness was identified. It is less likely this is a paraneoplastic syndrome in the absence of known malignancy. Acetyl choline R antibody is pending but MG is also less likely. In the setting of weight loss, and known family dynamics such as her grandson recently being released from assisted and her niece moving into her home, it is possible she is suffering from failure to thrive 2/2 depression. I discussed this with her and she agreed that she feels depressed. Per Shruthi (and it is rather obvious) she is used to being in control of her life and her body, and at this time, she is not in control. On HD3 she was refusing treatment completely, likely as a way to regain some control over what was happening with her. We discussed the risks and benefits of starting an antidepressant such as Effexor or Zoloft and decided on an intro dose of Zoloft. During my screening she expressed no suicidal ideations. Palliative care was also consulted as she is a full code and earlier in the hospitalization expressed wishes for a PEG tube, however, was not wanting to come into the hospital initially for treatment of her severe weakness. PC to help define goals of care and give reasonable expectations. She will need to transfer to SNF until her weakness improves as a transition to home. Niece Shruthi is aware of all of the above after we spoke by phone. She is in agreement with this plan, however, is not the mPOA. Defer to PC to help us identify that person and discuss things. Appreciate their involvement in her case. Physical Exam Vital Signs (Past 24 Hours): Last Vital Signs Temp 36.8 C 02/08/19 12:23 Pulse 81 02/08/19 12:23 Resp 20 02/08/19 12:23 BP 136/81 02/08/19 12:23 Pulse Ox 90 02/08/19 12:23 CONSTITUTIONAL: WNWD, vitals as above, generally well-appearing, flat affect, engaged EYES: normal conjuctivae, no scleral icterus ENT: MMM RESPIRATORY: clear to auscultation bilaterally, no crackles, rales or wheezes, normal respiratory effort CARDIOVASCULAR: regular rate and rhythm, S1 and 2 heard without murmurs, gallops or rubs, no JVD, no peripheral edema GASTROINTESTINAL: normal bowel sounds, soft, nontender, nondistended MUSCULOSKELETAL: strength 4/5 throughout, pt cannot ambulate, weak in her core--requires significant assistance to sit up in bed, head is normocephalic and atraumatic SKIN: warm and dry NEUROLOGIC: no facial palsy, no dysarthria. CN 2-12 grossly intact, no sensory deficit, normal cognition, normal speech, no tremor, generally weak PSYCHIATRIC: alert cooperative and oriented to person, place and time. Flat affect. Responds appropriately to questions. Results & Data Laboratory Results Short CBC 02/07/19 Range/Units 15:22 WBC 4.09 L (4.8-10.8) K/uL Hgb 8.4 L (12.0-16.0) g/dL Hct 26.3 L (37-47) % Plt Count 146 (130-400) K/uL BMP 02/07/19 15:22 Sodium 150 H Potassium 3.9 Chloride 119 H Carbon Dioxide 22 BUN 25 H Creatinine 1.44 H Glucose 122 H Calcium 9.7 Liver Function 02/07/19 Range/Units 15:22 Total Bilirubin 0.5 (0.2-1) mg/dl AST 16 (15-37) U/L ALT 17 (12-78) U/L Alkaline Phosphatase 101 (45-117) U/L Albumin 2.2 L (3.4-5.0) gm/dl Diagnostic Findings NM bone scan whole body CLINICAL HISTORY: 3.4 bony lesion in skull COMPARISON STUDY: MRI of the brain February 06, 2019. TECHNIQUE: 26.9 mCi of technetium 99m MDP was injected IV at 8:30 AM on February 08, 2019. 3 hours following injection, whole-body imaging in the anterior and posterior projections was performed. FINDINGS: Uptake within the sternoclavicular joints, shoulders and along the symphysis pubis is degenerative. Expected soft tissue and renal uptake is noted. There is mild S-shaped curvature of the thoracolumbar spine. Linear uptake projecting over the mid calvarium is due to ossification of the falx as shown on CT of February 05, 2019. No abnormal radiotracer uptake is noted within the right frontal bone to correspond to the focus shown on MRI of February 06, 2019. IMPRESSION: 1. No increased radiotracer uptake within the right frontal bone to correspond to the focus of marrow signal abnormality on MRI of February 06, 2019. This finding remains indeterminate however lack of uptake significantly decreases the likelihood for skeletal metastatic disease. 2. No suspicious radiotracer uptake identified. CT OF THE CHEST WITHOUT IV CONTRAST CLINICAL HISTORY: Skull lesion. COMPARISON STUDY: Chest CT January 19, 2019. Chest radiograph February 04, 2019. CT DOSE: 915.94 mGy.cm TECHNIQUE: Axial images of the chest were obtained without IV contrast. Images were reviewed in the axial, sagittal, and coronal planes. IV contrast was not administered for this examination. Automated exposure control was utilized for the study. A dose lowering technique was utilized adhering to the principles of ALARA. FINDINGS: The heart is moderately enlarged. There is extensive coronary artery calcification. There is no pericardial effusion. Attenuation of the blood pool is diminished. Small bilateral pleural effusions, left larger than right, are noted. Extensive barium from recent modified barium swallow is noted which fills the left mainstem bronchus and extends into the left upper and lower lobe bronchi. Extensive left lung airspace opacity has progressed since CT of January 19, 2019. Mild multifocal airspace opacities within the right lung have improved since prior CT. Interlobular septal thickening is noted. There is no pneumothorax. No central obstructing mass is identified. Lungs are suboptimally assessed on this exam but there is no convincing evidence for malignancy. No suspicious osseous lesion within the bony thorax is noted. Mildly enlarged mediastinal lymph nodes are noted. Abdomen and pelvis will be reported separately. A 2 cm peripherally calcified splenic artery aneurysm is noted. Low- attenuation left adrenal nodule is likely benign. This favors an adenoma. IMPRESSION: 1. Findings consistent with extensive aspiration with barium filling the left mainstem bronchus and extending into the segmental bronchi for the upper and lower lobes of the left lung. Progression of extensive left lung airspace opacities which suggest pneumonia/aspiration pneumonitis. Interval improvement in right lung pneumonia since CT of January 19, 2019. 2. No evidence for malignancy within the chest although lungs suboptimally assessed on this exam given extensive consolidation. 3. Moderate cardiomegaly. Extensive coronary artery calcification. 4. Small bilateral pleural effusions, left larger than right. 5. Mild interstitial pulmonary edema. ABDOMEN AND PELVIS CT WITHOUT CONTRAST HISTORY: Acute weakness with weight loss. skull lesion TECHNIQUE: Multiaxial CT images of the abdomen and pelvis were performed without contrast. A dose lowering technique was utilized adhering to the principles of ALARA. COMPARISON STUDY: Chest CT of same day. FINDINGS: Enlargement of the imaged inferior cardiac chambers. Decreased attenuation of the cardiac blood pool suggests anemia. Coronary arterial calcifications noted. Small bilateral pleural effusions with left greater than right dependent bibasilar consolidation. Bibasilar bronchial wall thickening with mild intralobular septal thickening. There is no pneumatosis or pneumoperitoneum. The study is mildly motion degraded. Contracted gallbladder with mild wall thickening. Evaluation of the solid abdominal organs is limited without the use of IV contrast. Indeterminate 10 x 8 mm hypodense lesion of the inferior right hepatic lobe, not completely radha racterized on this noncontrast enhanced study. There is no intrahepatic biliary ductal dilation. Spleen and right adrenal gland are unremarkable. Indeterminate 2.1 x 1.4 cm soft tissue attenuating left adrenal gland lesion. Peripherally calcified splenic artery aneurysm, 1.7 x 1.5 cm. Moderate atrophy with multifocal scarring about the left kidney. Right kidney is unremarkable. No ureteral calculi or obstructive uropathy identified. Pelvic structures are suboptimally visualized secondary to streak artifact from retained enteric contrast in the bowel. Circumferential wall thickening of the bladder with partial distention. Watkins catheter is noted with considerable amount of air within the urinary bladder lumen. No adnexal mass lesions. Mild nonspecific free pelvic fluid. Extensive calcification of the abdominal aorta. No aneurysm or adenopathy. Mild free fluid about the right pericolic gutter, freddy hepatis and periduodenal distribution. There is no small bowel obstruction. Colonic diverticulosis without acute diverticulitis. The appendix appears normal. There is moderate circumferential wall thickening noted about the terminal ileum, image 165 series 7. There is mild generalized body wall edema. Degenerative changes of the spine, pelvis and hips. No suspicious bone lesions. Probable bone islands of the proximal left femur. Appendix appears normal. IMPRESSION: 1. Limited exam secondary to motion and lack of contrast. 2. Mild amount of free fluid noted about the freddy hepatis, periduodenal distribution and right pericolic gutter. 3. No bowel obstruction. Normal appendix. 4. Moderate wall thickening about the terminal ileum suggests of a nonspecific enteritis. Underlying mucosal neoplasm is considered less likely. This could be correlated with colonoscopy if of further clinical concern. 5. Bilateral pleural effusions with left greater than right bibasilar consolidation. 6. Cardiomegaly. 7. Suggested anemia. 8. Partially calcified chronic splenic artery aneurysm, 1.5 x 1.7 cm. 9. Additional findings as above. Medications Administered Current Inpatient Medications Dextrose (Dextrose 50%) 50 ml IV ONCE PRN PRN Reason: Hypoglycemia Treatment Stop: 03/07/19 07:20 Last Admin: 02/05/19 07:21 Dose: 25 ml Documented by: Heparin Sodium (Beef Lung) (Heparin Sod 10 Unit/Ml Flush) 5 ml FLUSH PRN PRN PRN Reason: Flush Stop: 03/08/19 00:21 Pantoprazole Sodium 40 mg/ (Syringe) 10 mls @ 5 mls/min IV DAILY@1100 [facility] Stop: 03/07/19 10:59 Last Admin: 02/08/19 11:13 Dose: 5 mls/min Documented by: Levothyroxine Sodium 37.5 mcg/ (Syringe) 1.875 mls @ 0.938 mls/min IV DAILY@0900 [facility] Stop: 03/08/19 08:59 Last Admin: 02/08/19 09:08 Dose: 0.938 mls/min Documented by: Thiamine HCl 100 mg/ Syringe 10 mls @ 2 mls/min IV DAILY@0900 [facility] Stop: 03/09/19 08:59 Last Admin: 02/08/19 08:33 Dose: 2 mls/min Documented by: Hydrocortisone Sodium (Succinate 50 mg/ Syringe) 1 mls @ 4 mls/min IV Q8H [facility] Stop: 03/10/19 12:59 Last Admin: 02/08/19 13:58 Dose: 4 mls/min Documented by: (1) Anemia Anemia type: unspecified type Qualified Code(s): D64.9 - Anemia, unspecified (2) Atrial fibrillation Atrial fibrillation type: chronic Qualified Code(s): I48.2 - Chronic atrial fibrillation
--- NOTE | 2019-02-08 14:12 | Pulmonology Progress Note ---
Date of Service February 08, 2019 Assessment & Plan (1) Pulmonary infiltrate: bilateral infiltrates seen on prior CT scan repeat CT with clearing of prior infiltrates and evidence of aspiration to LLL currently asymptomatic and sat well on RA. pt remains at high risk for recurrent aspiration discussed with daughter Subjective denies sob or pain Physical Exam Vital Signs (Past 24 Hours): Last Vital Signs Temp 36.8 C 02/08/19 12:23 Pulse 81 02/08/19 12:23 Resp 20 02/08/19 12:23 BP 136/81 02/08/19 12:23 Pulse Ox 90 02/08/19 12:23 Physical Exam: Constitutional: Comfortable NAD stting in chair HEENT: normocephalic atraumatic. MMM. CV: RRR nl s1,s2 no murmurs rubs or gallops Lungs: decreased bilaterally. no accessory muscle use Abd: soft nontender nondistended. Ext: no edema. no cyanosis, no clubbing Neuro: alert awake Psych: normal mood and affect
--- NOTE | 2019-02-08 15:16 | Neurology Progress Note ---
Date of Service February 08, 2019 Assessment & Plan (1) Weakness: 1. MRI no acute findings 2. metastatic work up with bone scan and C/A/P no evidence of metastatic lesions 3. hypotension- needs evaluated at presentation 4. weight loss - may be failure to thrive 5. pulmonary issues- addressed by Dr Workman 6. acetylcholine Rb ab- pending 7. PT/OT for discharge needs 8. once discharged from hospital and recovered from present issues will see back in office for further evaluation if needed. sign off for now will be available for any further questions concerns. follow up in 4-6 weeks with Belle Hewitt PAC, schedule Supervising Physician Co-Signing Physician Notes I have seen and discussed above patient with Dr Evens [place], neurology I have seen Mrs. Hannah Braxton today in the company of her daughter and have d iscussed her case with Belle Hewitt PA-C she is much more cooperative today but still has a mildly bradykinetic facial expression, diminished eye blink, perhaps a subtle supra nuclear gaze disturbance with limited upward excursion her eyelids and some slow lateral saccades and has the polyneuropathy that we noted yesterday on exam with some mild proximal weakness of the upper extremities that is difficult to describe to any pathology other than perhaps normal aging and disuse While this woman may have an early neurologic disorder such as supranuclear palsy or a neuromuscular disorder such as myasthenia gravis evidence for both of these is pretty slim and will require review at least in terms of myasthenia, of the anti-acetylcholine receptor antibody and performance of an EMG/NCS study on an outpatient basis after discharge. We will make another visit or 2 to see if she is getting stronger which she appears to be on a day-to-day basis we will arrange for follow-up in our clinic pending on how things go over the next few days. Evens Whitehead is a 84 year old female with PMH AF on Coumadin, HTN, chronic anemia, CKD 3, chronic diastolic heart failure presented to ER with complaint of weakness. She was drowsy and then had increased weakness and lethargy. At baseline she is able to perform ADLs but was unable to stand. Her blood pressure with wrist BP monitor and BPs were 80s/50s and heart rate in the 50s. She was refusing to come to the ED and then did have one episode of loose stool. She was suspected to have aspiration pneumonia and finished Augmentin course. Her hydralazine decreased to 25mg TID. Pt states hasn't been feeling well "for a long time". States chronic cough. She also had a 40 pound weight loss over the past several months due to poor intake. She is scheduled to have a bronch on 02/22/19. Today she is much improved. She is sitting bedside and states she does not think she is weak. denies CP, SOB, abdominal pain, one sided weakness, numbness tingling, N, V. recent falls. 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 hip flex 4+/5 bilaterally some swelling in left UE stressing eye lids no fatigue oriented to self, hospital no pronator drift Results & Data Laboratory Results Abnormal lab results 02/07/19 02/07/19 02/07/19 Range/Units 15:22 15:22 15:22 WBC 4.09 L (4.8-10.8) K/uL RBC 2.67 L (4.2-5.4) M/uL Hgb 8.4 L (12.0-16.0) g/dL Hct 26.3 L (37-47) % MCHC 31.9 L (32-36) g/dL RDW Std Deviation 63.2 H (36.4-46.3) fL RDW Coeff of Patrick 18.3 H (11.5-14.5) % MPV 12.2 H (7.4-10.4) fL Lymph # (Auto) 0.41 L (1.2-3.4) K/uL ESR 71 H (0-21) mm/hr PT 43.3 H (9.0-12.0) Seconds INR 4.7 H (0.9-1.1) Sodium (136-145) mmol/L Chloride (98-107) mmol/L BUN (7-18) mg/dl Creatinine (0.6-1.2) mg/dl Glucose (70-99) mg/dl Total Protein (6.4-8.2) gm/dl Albumin (3.4-5.0) gm/dl Albumin/Globulin Ratio (0.9-2) IgM (40-230) mg/dl 02/07/19 02/08/19 02/08/19 Range/Units 15:22 06:45 06:45 WBC (4.8-10.8) K/uL RBC (4.2-5.4) M/uL Hgb (12.0-16.0) g/dL Hct (37-47) % MCHC (32-36) g/dL RDW Std Deviation (36.4-46.3) fL RDW Coeff of Patrick (11.5-14.5) % MPV (7.4-10.4) fL Lymph # (Auto) (1.2-3.4) K/uL ESR (0-21) mm/hr PT 24.1 H (9.0-12.0) Seconds INR 2.5 H (0.9-1.1) Sodium 150 H (136-145) mmol/L Chloride 119 H (98-107) mmol/L BUN 25 H (7-18) mg/dl Creatinine 1.44 H (0.6-1.2) mg/dl Glucose 122 H (70-99) mg/dl Total Protein 5.9 L (6.4-8.2) gm/dl Albumin 2.2 L (3.4-5.0) gm/dl Albumin/Globulin Ratio 0.6 L (0.9-2) IgM 247.0 H (40-230) mg/dl Diagnostic Findings bone scan- No increased radiotracer uptake within the right frontal bone to correspond to the focus of marrow signal abnormality on MRI of February 06, 2019. This finding remains indeterminate however lack of uptake significantly decreases the likelihood for skeletal metastatic disease. No suspicious radiotracer uptake identified. CT chest- Findings consistent with extensive aspiration with barium filling the left mainstem bronchus and extending into the segmental bronchi for the upper and lower lobes of the left lung. Progression of extensive left lung airspace opacities which suggest pneumonia/aspiration pneumonitis. Interval improvement in right lung pneumonia since CT of January 19, 2019. No evidence for malignancy within the chest although lungs suboptimally assessed on this exam given extensive consolidation. Moderate cardiomegaly. Extensive coronary artery calcification. Small bilateral pleural effusions, left larger than right. Mild interstitial pulmonary edema. CT abd/pelvis-1. Limited exam secondary to motion and lack of contrast. Mild amount of free fluid noted about the freddy hepatis, periduodenal distribution and right pericolic gutter. No bowel obstruction. Normal appendix. Moderate wall thickening about the terminal ileum suggests of a nonspecific enteritis. Underlying mucosal neoplasm is considered less likely. This could be correlated with colonoscopy if of further clinical concern. Bilateral pleural effusions with left greater than right bibasilar consolidation. Cardiomegaly. Suggested anemia. Partially calcified chronic splenic artery aneurysm, 1.5 x 1.7 cm.
--- NOTE | 2019-02-08 15:25 | Palliative Care Progress Note ---
Date of Service February 08, 2019 Subjective Spoke with attending physician, aware of consult. Patient will be seen tomorrow 02/09/19.
[2019-02-08] MEDS ORDERED: clonazePAM 0.5 MG TAB PO PRN (17:39)
[2019-02-08] MEDS: WARFARIN SOD 1 MG TAB PO SCH (19:12)
[2019-02-08] MEDS: METOPROLOL SUCC 25MG EXT REL TAB PO SCH (19:13)
[2019-02-08] MEDS ORDERED: METOPROLOL SUCC 25MG EXT REL TAB PO SCH (21:00)
[2019-02-08] MEDS ORDERED: LACTATED RINGER'S 1,000 ML IV SCH (22:45)
[2019-02-09] MEDS: HYDROCORTISONE SOD 50 MG in SYRINGE 0 ML IV SCH ×3 (05:11→21:05)
[2019-02-09] MEDS: LEVOTHYROXINE SODIUM 75 MCG TABLET PO SCH (05:12)
[2019-02-09] MEDS: DEXTROSE 5% 1,000 ML IV SCH ×3 (05:30→21:05)
[2019-02-09] MEDS ORDERED: CARBOHYDRATES FOR HYPOGLYCEMIA PO PRN (05:32)
[2019-02-09] MEDS ORDERED: GLUCOSE 10 TABS/TUBE PO PRN (05:32)
[2019-02-09] MEDS ORDERED: DEXTROSE 50% 50 ML SYRINGE IV PRN (05:32)
[2019-02-09] MEDS ORDERED: GLUCOSE 40% GEL 15 GM TUBE PO PRN (05:32)
[2019-02-09] MEDS ORDERED: GLUCAGON FOR INJ 1 MG VIAL SQ PRN (05:32)
[2019-02-09 06:53] LABS: Hematocrit (blood only) 25.4 % (37-47); Hemoglobin 8.2 g/dL (12.0-16.0); Mean Corpuscular Hgb Conc 32.3 g/dL (32-36); Mean Corpuscular Volume 97.7 fL (80-100); Mean Platelet Volume 11.9 fL (7.4-10.4); Platelet Count 168 K/uL (130-400); RDW Coefficient of Variation 18.5 % (11.5-14.5); White Blood Count 5.46 K/uL (4.8-10.8)
[2019-02-09 07:00] LABS: INR 1.3 (0.9-1.1); Prothrombin Time 12.9 Seconds (9.0-12.0)
[2019-02-09 07:21] LABS: BUN Creatinine Ratio 24.1 (10-20); Calcium 9.5 mg/dl (8.5-10.1); Creatinine Clr Calc Pharmacy 23.7 ml/min; Est GFR (Non-African American) 27.6; Potassium 3.7 mmol/L (3.5-5.1)
[2019-02-09] MEDS: INSULIN ASPART 100 UNITS/ML 3 ML PEN SC SCH ×4 (08:16→21:07)
[2019-02-09] MEDS ORDERED: FUROSEMIDE 20 MG TAB PO SCH (09:00)
[2019-02-09] MEDS: METOPROLOL SUCC 25MG EXT REL TAB PO SCH ×2 (09:01→18:18)
[2019-02-09] MEDS: CEROVITE ADV FORMULA TAB PO SCH ×2 (09:01→18:17)
[2019-02-09] MEDS: POTASSIUM CHLORIDE 20 MEQ TABCR PO SCH ×2 (09:02→18:14)
[2019-02-09] MEDS: SERTRALINE HCL 50 MG TABLET PO SCH (09:02)
[2019-02-09] MEDS: FERROUS GLUCONATE 324 MG TAB PO SCH ×2 (09:02→18:16)
[2019-02-09] MEDS: PANTOprazole 40 MG in SYRINGE 0 ML IV SCH (10:06)
--- NOTE | 2019-02-09 11:58 | Hospitalist Progress Note ---
Date of Service February 09, 2019 Assessment & Plan (1) Weakness: Etiologies include but not limited to failure to thrive 2/2 depression, new onset neuromuscular disease, natural progression of aging, somatic manifestations of stress, weakness 2/2 chronic aspiration, occult malignancy that has not yet been identified. 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 (2) Chronic pulmonary aspiration: resulting in pulmonary infiltrates. consult Pulm, Speech Path for VFSS on Thursday. CTC IMPRESSION: 1. Findings consistent with extensive aspiration with barium filling the left mainstem bronchus and extending into the segmental bronchi for the upper and lower lobes of the left lung. Progression of extensive left lung airspace opacities which suggest pneumonia/aspiration pneumonitis. Interval improvement in right lung pneumonia since CT of January 19, 2019. 2. No evidence for malignancy within the chest although lungs suboptimally assessed on this exam given extensive consolidation. 3. Moderate cardiomegaly. Extensive coronary artery calcification. 4. Small bilateral pleural effusions, left larger than right. 5. Mild interstitial pulmonary edema. (3) Hypothermia: Occurred twice this hospitalization and responded to rewarming with the bear hugger. Stress dose steroids now. MRI brain negative. (4) Atrial fibrillation: Coumadin and Toprol XL held. (5) Anemia: chronic, stable, no active bleeding. Likely multifactorial in setting of chronic renal disease and other comorbidities. (6) Dysphagia: 40 pound weight loss over the past several months. Poor oral intake with significant dysphasia and evidence of silent aspiration on video swallow study in December 2018. Currently on modified diet after VFSS on Thursday. (7) Hypothyroidism: Continue levothyroxine at home dosing. IV dosing while NPO (8) Supratherapeutic INR: resolved with vit K. (9) CKD (chronic kidney disease), stage IV: At baseline, avoid nephrotoxic substances when able and renally dose meds when approrpiate. (10) DVT prophylaxis: Daily Coumadin Full code Disposition-pending PT/OT evaluations and improvement clinically. Pall to see today. Subjective Doesn't offer much history, Niece says she was walkie/Talkie and used her computer before she got sick. Confused and owning ROS-No Headache, No Visual Changes, No Nausea, No Vomiting, No Fever, No Chills, No Neck Pain or Stiffness, No Chest Pain, No Palpitations, No SOB, No SANZ, No Cough, No Sputum, No Wheezing, No Abdominal Pain, No Diarrhea, No Hematemesis, No Hemoptysis, No Unexpected Weight Loss, No Flank pain, No Melena, No Hematochezia, No Frequency, No Urgency, No Burning, No Hematuria, No Rashes, No Diaphoresis. Appetite is Normal Physical Exam Gen-AAO x 2, NAD, Afebrile Head-NCAT, EOMI, PERRLA, Anicteric Sclera, No Posterior Pharyngeal Erythema Neck-Supple, No JVD, No Thyromegaly, No Masses, No LAD, No Bruits Lungs-+ Rales L, + Rhonchi L, No Wheezing, No Crepitus Chest-No S4, +S1, +S2, No S3, No Murmurs, No Rubs, No Gallops, No Ectopy Abdomen-Soft, Bowel Sounds Present, Non Tender, Non Distended, No Hepatomegaly, No Splenomegaly, No Palpable Masses, No Rebound, No Rigidity, No Guarding Musculoskeletal-Full Range of Motion Bilaterally, No CVAT Extremities-No Cyanosis, No Clubbing, No Edema Nuero-Cranial Nerves II-XII grossly intact, Motor WNL, DTRs WNL, Strength WNL, Non Focal Psych-Normal Mood Physical Exam Vital Signs (Past 24 Hours): Last Vital Signs Temp 36.4 C L 02/09/19 10:59 Pulse 76 02/09/19 10:59 Resp 18 02/09/19 10:59 BP 145/84 H 02/09/19 10:59 Pulse Ox 94 02/09/19 10:59 Results & Data Laboratory Results Current Diagnoses Sepsis, unspecified organism (02/04/19) Anemia, unspecified (02/04/19) Hypothyroidism, unspecified (02/04/19) Hyperosmolality and hypernatremia (02/04/19) Essential (primary) hypertension (02/04/19) Chronic atrial fibrillation (02/04/19) Chronic diastolic (congestive) heart failure (02/04/19) Hypotension, unspecified (02/04/19) Pneumonia, unspecified organism (02/04/19) Chronic kidney disease, stage 3 (moderate) (02/04/19) Chronic kidney disease, stage 4 (severe) (02/04/19) Dysphagia, unspecified (02/04/19) Weakness (02/04/19) Abnormal coagulation profile (02/04/19) Other nonspecific abnormal finding of lung field (02/04/19) Unspecified foreign body in respiratory tract, part unspecified causing other injury, initial encounter (02/04/19) Hypothermia, initial encounter (02/04/19) Other specified health status (02/04/19) Allergies Bactrim Adverse Reaction (Severe, Verified 05/24/12 09:38) RENAL PROBLEMS sulfamethoxazole Adverse Reaction (Severe, Verified 11/14/18 06:19) RENAL PROBLEMS trimethoprim Adverse Reaction (Severe, Verified 11/14/18 06:19) RENAL PROBLEMS vancomycin Adverse Reaction (Severe, Verified 11/14/18 06:19) RENAL PROBLEMS Height/Weight/Isolation Height 5 ft 7 in Weight 67.3 kg Chemistry 02/07/19 02/09/19 15:22 06:21 Sodium 150 H 150 H Potassium 3.9 3.7 Chloride 119 H 119 H Carbon Dioxide 22 23 Anion Gap 9.0 8.0 BUN 25 H 40 H D Creatinine 1.44 H 1.66 H Glucose 122 H 116 H (1) Atrial fibrillation Atrial fibrillation type: chronic Qualified Code(s): I48.2 - Chronic atrial fibrillation (2) Anemia Anemia type: unspecified type Qualified Code(s): D64.9 - Anemia, unspecified
--- NOTE | 2019-02-09 11:59 | Palliative Care Consultation ---
Date of Consultation February 09, 2019 Assessment & Plan (1) Goals of care, counseling/discussion: -84 year old female with PMH CKD stage III, dysphagia, htn, chronic diastolic dysfunction, anemia, hypothyroidism, afib, and others, presented to the hospital five days ago with hypotension, bradycardia and profound hypothermia. Patient is normally independent, but has been on a steady but slow decline over the last year. Her niece, Shruthi Trujillo, has been staying with her since November after a hospitalization. Her niece states that patient was not feeling or looking well on the day of admission, but she was refusing to go to hospital. Eventually, patient was looking cason, felt cold, and was less responsive, so her niece called the ambulance. Patient was initially admitted to the ICU with picture of septic shock, however her procalcitonin was negative and infection was thought to be less likely. She was transferred to the PCU and has had a complicated and extensive workup. Dr. Knowles's notes very nicely lay out the happenings during hospitalization, but essentially patient was found to have pulmonary infiltrates and has known chronic aspiration. Barium swallow was done which showed no obvious aspiration, so diet was ordered. Then CT abd/pelvis showed barium in left bronchus. There was some discussion of whether or not patient would want feeding tube, and patient is undecided but states she wanted to continue eating for comfort. Given patient's new and seemingly sudden onset weakness and altered mental status without obvious cause, she has been thoroughly imaged with brain MRI and whole body bone scan which has shown no obvious malignancy. 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 Pulmonary is following, but really has nothing further to add at this time. Same goes for neurology. Patient unfortunately is just not improving. She now looks like she is having failure to thrive vs. natural aging process vs. FTT 2/2 depression. She was started on Zoloft for depression. There has also been questions of who patient's decision maker/ medical POA is. Palliative care is consulted to establish goals of care and assist with establishing medical POA. -Met with patient this morning in room 238-2. Patient is awake, oriented to person and place. She was able to tell me today's date, but was reading it off the marker board in her room. Patient was able to articulate well, knew that she was in the hospital "for my lungs and other medical problems; they're looking for cancer." However, then she would turn to the IV pole and start talking to it as she thought it was a person. At this point, patient seems to continue to experience delirium that will hopefully clear, but it's uncertain. -We discussed goals of care. Patient stated, "When I first came in, I didn't want resuscitated, but now I do. I need to talk to Shruthi some more about this." We discussed what resuscitation entails. -Patient states she does not think she would want a feeding tube and is okay with continuing to eat despite risk of aspiration. -Asked patient who her medical decision maker would be in the case she is unable, she stated her niece Shruthi Trujillo. She gave me permission to call Shruthi. -Spoke with Shruthi (412over the phone. Shruthi states that she does NOT want to be the medical decision maker. Patient's civil rights attorney is Jose Loyola, in [place], who has a copy of patient's living will and POA. -I contacted Attsamson Loyola's office and obtained a copy of patient's living will and POA. POA is Jose Nunez, who is actually patient's stock manager. When I spoke to Shruthi, she said that Jose does not want to be patient's POA and he was totally unaware that she named him as such. The alternate POA is Jono and Emili Ross, who are local friends of the patient. I'm waiting to hear back from the civil rights attorney, as Jose was going to call and revoke his power and pass it on to the Masoodis. -At this time, patient is still suffering from altered mental status/delirium. While I do believe she is able to tell us her wishes, she should not make medical decisions by herself at this time. -Will continue to follow. Hopefully mental status will continue to clear and patient can have further discussion about code status, goals of care, etc. Medical treatment continues. Patient to remain full code at this time. (2) Altered mental status, unspecified: -Multifactorial. -? hospital delirium vs. metabolic process -Hospitalist managing care. (3) Chronic pulmonary aspiration: (4) Pulmonary infiltrate: (5) Chronic diastolic (congestive) heart failure: History of Present Illness Attending Physician: Ryder Manzanares DO History of Present Illness This 84 year old female with PMH CKD stage III, dysphagia, htn, chronic diastolic dysfunction, anemia, hypothyroidism, afib, and others, presented to the hospital five days ago with hypotension, bradycardia and profound hypothermia. Patient is normally independent, but has been on a steady but slow decline over the last year. Her niece, Shruthi Trujillo, has been staying with her since November after a hospitalization. Her niece states that patient was not feeling or looking well on the day of admission, but she was refusing to go to hospital. Eventually, patient was looking cason, felt cold, and was less responsive, so her niece called the ambulance. Patient was initially admitted to the ICU with picture of septic shock, however her procalcitonin was negative and infection was thought to be less likely. She was transferred to the PCU and has had a complicated and extensive workup. Dr. Knowles's notes very nicely lay out the happenings during hospitalization, but essentially patient was found to have pulmonary infiltrates and has known chronic aspiration. Barium swallow was done which showed no obvious aspiration, so diet was ordered. Then CT abd/pelvis showed barium in left bronchus. There was some discussion of whether or not sam cuevas would want feeding tube, and patient is undecided but states she wanted to continue eating for comfort. Given patient's new and seemingly sudden onset weakness and altered mental status without obvious cause, she has been thoroughly imaged with brain MRI and whole body bone scan which has shown no obvious malignancy. 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 Pulmonary is following, but really has nothing further to add at this time. Same goes for neurology. Patient unfortunately is just not improving. She now looks like she is having failure to thrive vs. natural aging process vs. FTT 2/2 depression. She was started on Zoloft for depression. There has also been questions of who patient's decision maker/medical POA is. Palliative care is consulted to establish goals of care and assist with establishing medical POA. Thank you kindly for this consult. I will follow. Allergies Allergy/AdvReac Type Severity Reaction Status Date / Time Bactrim AdvReac Severe RENAL Verified 05/24/12 09:38 PROBLEMS sulfamethoxazole AdvReac Severe RENAL Verified 11/14/18 06:19 PROBLEMS trimethoprim AdvReac Severe RENAL Verified 11/14/18 06:19 PROBLEMS vancomycin AdvReac Severe RENAL Verified 11/14/18 06:19 PROBLEMS Home Medications Home Medications Medication Instructions Recorded Confirmed Type PreserVision AREDS-2 1 tab PO BID 11/08/18 02/04/19 History cholecalciferol (vitamin D3) 2,000 units PO DAILY 11/08/18 02/04/19 History [Vitamin D3] clonazepam 0.25 mg PO HS PRN 11/08/18 02/04/19 History ferrous gluconate 240 mg PO BID 11/08/18 02/04/19 History furosemide [Lasix] 20 mg PO DAILY 11/08/18 02/04/19 History hydralazine 25 mg PO .HOLD 11/08/18 02/04/19 History levothyroxine [Synthroid] 75 mg PO QAM 11/08/18 02/04/19 History metoprolol succinate [Toprol XL] 12.5 mg PO QPM 11/08/18 02/04/19 History metoprolol succinate [Toprol XL] 25 mg PO QAM 11/08/18 02/04/19 History potassium chloride [Klor-Con M20] 20 meq PO BIDM 11/08/18 02/04/19 History sennosides-docusate sodium [Senna 1 tab PO DAILY PRN 02/04/19 02/04/19 History with Docusate Sodium] warfarin 1 mg PO DAILY 02/04/19 02/04/19 History Patient History Medical History CKD (chronic kidney disease), stage III (Chronic) Dysphagia (Chronic) HTN (hypertension) (Chronic) History of cataract (Chronic) Chronic diastolic (congestive) heart failure (Chronic) Recurrent epistaxis (Resolved) Anemia (Chronic) Hypothyroidism (Chronic) Atrial fibrillation (Chronic 08/01/14) 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) Surgical History History of cataract surgery (Chronic) Status post tonsillectomy (Chronic) Family History Other Cancer Diabetes Family history non-contributory Stroke Social History Communication Ability: Effective Beliefs That Will Affect Care: None marital status: / Current Living Situation: Alone Current Living Situation Comment: Niece has been staying with patient the last few weeks Other Information That Helps Us Care for You: No Feels Safe at Home: Yes Safety Concerns: Feels Safe At This Time Smoking Status: Former smoker Hx Alcohol Use: No Hx Substance Use: No Review of Systems Constitutional: + weakness; no fever and no chills Respiratory: no cough and no dyspnea Cardiovascular: no chest pain Gastrointestinal: no abdominal pain and no nausea Neurologic: + generalized weakness Psychiatric: no anxiety Physical Exam Vital Signs (Past 24 Hours): Last Vital Signs Temp 36.4 C L 02/09/19 10:59 Pulse 76 02/09/19 10:59 Resp 18 02/09/19 10:59 BP 145/84 H 02/09/19 10:59 Pulse Ox 94 02/09/19 10:59 Constitutional: + ill appearing (acutely and chronically), + cachectic and + frail appearing; no acute distress Eyes: PERRL ENMT: external ear and nose normal, oropharynx normal Ears: no hearing impairment Neck: normal visual inspection Respiratory: + abnormal respiratory effort (poor respiratory effort) and no labored breathing Auscultation: + diminished lung sounds Cardiovascular: Rate/Rhythm: regular rate and regular rhythm Extremities: + edema (generalized) Gastrointestinal (Abdomen): Inspection/Auscultation: abdomen normal to inspection and normal bowel sounds; abdomen not distended Percussion/Palpation: abdomen soft; abdomen nontender Skin: + abnormal turgor fragile, loose skin Neurologic: awake and + confused Psychiatric: Orientation: alert, oriented to person, oriented to place and cooperative; + not oriented to time Time Spent Midlevel 100 minutes with >50% of time spent at bedside with patient discussing condition and GOC, on phone with family and civil rights attorney, and collaborating with IDT to coordinate care.
--- NOTE | 2019-02-09 12:04 | Pulmonology Progress Note ---
Date of Service February 09, 2019 Assessment & Plan (1) Pulmonary infiltrate: bilateral infiltrates seen on prior CT scan repeat CT with clearing of prior infiltrates and evidence of aspiration to LLL currently asymptomatic and sat well on RA. no need for antibiotics at this time pt remains at high risk for recurrent aspiration will sign off please call with questions Subjective denies sob or pain Physical Exam Vital Signs (Past 24 Hours): Last Vital Signs Temp 36.4 C L 02/09/19 10:59 Pulse 76 02/09/19 10:59 Resp 18 02/09/19 10:59 BP 145/84 H 02/09/19 10:59 Pulse Ox 94 02/09/19 10:59 Physical Exam: Constitutional: Comfortable NAD stting in chair HEENT: normocephalic atraumatic. MMM. CV: RRR nl s1,s2 no murmurs rubs or gallops Lungs: decreased bilaterally. no accessory muscle use Abd: soft nontender nondistended. Ext: no edema. no cyanosis, no clubbing Neuro: alert awake
--- NOTE | 2019-02-09 15:07 | Neurology Progress Note ---
Date of Service February 09, 2019 Assessment & Plan (1) Weakness: 1. MRI no acute findings 2. metastatic work up with bone scan and C/A/P no evidence of metastatic lesions 3. hypotension- needs evaluated at presentation 4. weight loss - may be failure to thrive 5. pulmonary issues- addressed by Dr Workman 6. acetylcholine Rb ab- pending 7. PT/OT for discharge needs 8. once discharged from hospital and recovered from present issues will see back in office for further evaluation with EMG as an outpatient sign off for now will be available for any further questions concerns. follow up in 4-6 weeks with Belle Hewitt PAC, schedule Supervising Physician Co-Signing Physician Notes I have seen and discussed above patient with Dr Evens [place], neurology I have seen Mrs. Klein in today with Belle Hewitt PAHenry have discussed her case and note that today she is confused disoriented but her daughter is not in the room and I wonder in retrospect of her daughter has not been a oriented [facility] all along. She was a little tearful but otherwise examination is unchanged save for the confusion and again reveals some mild mask like facies some very equivocal reduction in volitional upward gaze, slightly reduced blink rate, the evidence for neuropathy in lower extremities and some proximal weakness of both the arms and legs which is difficult to assess in light of her age and lack of maximum volitional effort. She has a low-grade cough her speech has a hoarse quality to it and 1 of the issues of course is her chronic aspiration. His acetylcholine receptor antibody titer is still pending Clinically I really doubt this is myasthenia and suspect we are not going to find a clear single cause for this woman's global weakness other than perhaps a very early primary degenerative process of the nervous system is nature will probably be revealed in time and with further observation We will arrange to see her in follow-up after discharge and outpatient basis and will possibly end up doing an EMG just to try to settle the issue of her lying motor neuron etc. although with a normal CPK the latter is very hard to postulate Neurology is therefore signing off at this point. Happy to reassess Mrs. Givens and if things change significantly over the course of the next few days of her hospitalization Evens Guerrace is a 84 year old female with PMH AF on Coumadin, HTN, chronic anemia, CKD 3, chronic diastolic heart failure presented to ER with complaint of weakness. She was drowsy and then had increased weakness and lethargy. At baseline she is able to perform ADLs but was unable to stand. Her blood pressure with wrist BP monitor and BPs were 80s/50s and heart rate in the 50s. She was refusing to come to the ED and then did have one episode of loose stool. She was suspected to have aspiration pneumonia and finished Augmentin course. Her hydralazine decreased to 25mg TID. Pt states hasn't been feeling well "for a long time". States chronic cough. She also had a 40 pound weight loss over the past several months due to poor intake. She is scheduled to have a bronch on 02/22/19. Today she is notably confused crying and saying her mom is mad at her and if she is bad the dog will stay home over vacation trip. denies CP, SOB, abdominal pain, one sided weakness, numbness tingling, N, V. recent falls. Physical Exam Vital Signs (Past 24 Hours): Last Vital Signs Temp 36.4 C L 02/09/19 10:59 Pulse 76 02/09/19 10:59 Resp 18 02/09/19 10:59 BP 145/84 H 02/09/19 10:59 Pulse Ox 94 02/09/19 10:59 Physical Exam: Gen: alert to person but is very weepy lungs course breath sounds CV RRR does not want to be touched Results & Data Laboratory Results Abnormal lab results 02/08/19 02/09/19 02/09/19 Range/Units 20:38 06:21 06:21 RBC 2.60 L (4.2-5.4) M/uL Hgb 8.2 L (12.0-16.0) g/dL Hct 25.4 L (37-47) % RDW Std Deviation 64.0 H (36.4-46.3) fL RDW Coeff of Patrick 18.5 H (11.5-14.5) % MPV 11.9 H (7.4-10.4) fL PT 12.9 H (9.0-12.0) Seconds INR 1.3 H (0.9-1.1) Sodium (136-145) mmol/L Chloride (98-107) mmol/L BUN (7-18) mg/dl Creatinine (0.6-1.2) mg/dl BUN/Creatinine Ratio (10-20) Glucose (70-99) mg/dl POC Glucose 175 H (70-99) 02/09/19 02/09/19 02/09/19 Range/Units 06:21 07:08 11:01 RBC (4.2-5.4) M/uL Hgb (12.0-16.0) g/dL Hct (37-47) % RDW Std Deviation (36.4-46.3) fL RDW Coeff of Patrick (11.5-14.5) % MPV (7.4-10.4) fL PT (9.0-12.0) Seconds INR (0.9-1.1) Sodium 150 H (136-145) mmol/L Chloride 119 H (98-107) mmol/L BUN 40 H D (7-18) mg/dl Creatinine 1.66 H (0.6-1.2) mg/dl BUN/Creatinine Ratio 24.1 H (10-20) Glucose 116 H (70-99) mg/dl POC Glucose 138 H 212 H (70-99) Diagnostic Findings no new imaging
[2019-02-09] MEDS: WARFARIN SOD 1 MG TAB PO SCH (16:30)
[2019-02-09] MEDS ORDERED: METOPROLOL SUCC 25MG EXT REL TAB PO SCH (17:30)
[2019-02-10] MEDS: DEXTROSE 5% 1,000 ML IV SCH ×3 (04:26→20:32)
[2019-02-10] MEDS: LEVOTHYROXINE SODIUM 75 MCG TABLET PO SCH (05:47)
[2019-02-10] MEDS: HYDROCORTISONE SOD 50 MG in SYRINGE 0 ML IV SCH ×3 (05:47→20:07)
[2019-02-10 05:56] LABS: Hematocrit (blood only) 23.4 % (37-47); Hemoglobin 7.9 g/dL (12.0-16.0); Mean Corpuscular Hgb Conc 33.8 g/dL (32-36); Mean Corpuscular Volume 97.5 fL (80-100); Mean Platelet Volume 11.8 fL (7.4-10.4); Platelet Count 148 K/uL (130-400); RDW Coefficient of Variation 18.4 % (11.5-14.5); RDW Standard Deviation 64.8 fL (36.4-46.3); White Blood Count 6.33 K/uL (4.8-10.8)
[2019-02-10 06:18] LABS: Creatinine Clr Calc Pharmacy 24.7 ml/min; Est GFR (African American) 33.7; Est GFR (Non-African American) 29.1; Potassium 3.7 mmol/L (3.5-5.1)
[2019-02-10] MEDS: FERROUS GLUCONATE 324 MG TAB PO SCH ×2 (09:10→17:31)
[2019-02-10] MEDS: INSULIN ASPART 100 UNITS/ML 3 ML PEN SC SCH ×4 (09:10→20:32)
[2019-02-10] MEDS: CEROVITE ADV FORMULA TAB PO SCH ×2 (09:10→17:32)
[2019-02-10] MEDS: SERTRALINE HCL 50 MG TABLET PO SCH (09:11)
[2019-02-10] MEDS: POTASSIUM CHLORIDE 20 MEQ TABCR PO SCH ×2 (09:11→17:29)
[2019-02-10] MEDS: METOPROLOL SUCC 25MG EXT REL TAB PO SCH ×2 (09:11→17:32)
--- NOTE | 2019-02-10 09:24 | Hospitalist Progress Note ---
Date of Service February 10, 2019 Assessment & Plan (1) Weakness: Etiologies include but not limited to failure to thrive 2/2 depression, new onset neuromuscular disease, natural progression of aging, somatic manifestations of stress, weakness 2/2 chronic aspiration, occult malignancy that has not yet been identified. 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 (2) Chronic pulmonary aspiration: resulting in pulmonary infiltrates. Pulm signed off, Neurology signed off, Speech Path CTC IMPRESSION: 1. Findings consistent with extensive aspiration with barium filling the left mainstem bronchus and extending into the segmental bronchi for the upper and lower lobes of the left lung. Progression of extensive left lung airspace opacities which suggest pneumonia/aspiration pneumonitis. Interval improvement in right lung pneumonia since CT of January 19, 2019. 2. No evidence for malignancy within the chest although lungs suboptimally assessed on this exam given extensive consolidation. 3. Moderate cardiomegaly. Extensive coronary artery calcification. 4. Small bilateral pleural effusions, left larger than right. 5. Mild interstitial pulmonary edema. (3) Hypothermia: Occurred twice this hospitalization and responded to rewarming with the bear hugger. Stress dose steroids now. MRI brain negative. (4) Atrial fibrillation: Coumadin and Toprol XL held. (5) Anemia: chronic, stable, no active bleeding. Likely multifactorial in setting of chronic renal disease and other comorbidities. (6) Dysphagia: 40 pound weight loss over the past several months. Poor oral intake with significant dysphasia and evidence of silent aspiration on video swallow study in December 2018. Currently on modified diet after VFSS on Thursday. (7) Hypothyroidism: Continue levothyroxine at home dosing. IV dosing while NPO (8) Supratherapeutic INR: resolved with vit K. (9) CKD (chronic kidney disease), stage IV: At baseline, avoid nephrotoxic substances when able and renally dose meds when approrpiate. (10) DVT prophylaxis: Daily Coumadin Full code Disposition-SNF on DC, Pall on case. Subjective Niece says she was walkie/Talkie and used her computer before she got sick. Still Confused. ROS-No Headache, No Visual Changes, No Nausea, No Vomiting, No Fever, No Chills, No Neck Pain or Stiffness, No Chest Pain, No Palpitations, No SOB, No SANZ, No Cough, No Sputum, No Wheezing, No Abdominal Pain, No Diarrhea, No Hematemesis, No Hemoptysis, No Unexpected Weight Loss, No Flank pain, No Melena, No Hematochezia, No Frequency, No Urgency, No Burning, No Hematuria, No Rashes, No Diaphoresis. Appetite is Normal Physical Exam Gen-AAO x 2, NAD, Afebrile Head-NCAT, EOMI, PERRLA, Anicteric Sclera, No Posterior Pharyngeal Erythema Neck-Supple, No JVD, No Thyromegaly, No Masses, No LAD, No Bruits Lungs-+ Rales L, + Rhonchi L, No Wheezing, No Crepitus Chest-No S4, +S1, +S2, No S3, No Murmurs, No Rubs, No Gallops, No Ectopy Abdomen-Soft, Bowel Sounds Present, Non Tender, Non Distended, No Hepatomegaly, No Splenomegaly, No Palpable Masses, No Rebound, No Rigidity, No Guarding Musculoskeletal-Full Range of Motion Bilaterally, No CVAT Extremities-No Cyanosis, No Clubbing, No Edema Nuero-Cranial Nerves II-XII grossly intact, Motor WNL, DTRs WNL, Strength WNL, Non Focal Psych-Normal Mood Physical Exam Vital Signs (Past 24 Hours): Last Vital Signs Temp 36.2 C L 02/10/19 04:09 Pulse 67 02/10/19 07:29 Resp 20 02/10/19 07:29 BP 142/88 H 02/10/19 07:29 Pulse Ox 96 02/10/19 07:29 Results & Data Laboratory Results Current Diagnoses Sepsis, unspecified organism (02/04/19) Anemia, unspecified (02/04/19) Hypothyroidism, unspecified (02/04/19) Hyperosmolality and hypernatremia (02/04/19) Essential (primary) hypertension (02/04/19) Chronic atrial fibrillation (02/04/19) Chronic diastolic (congestive) heart failure (02/04/19) Hypotension, unspecified (02/04/19) Pneumonia, unspecified organism (02/04/19) Chronic kidney disease, stage 3 (moderate) (02/04/19) Chronic kidney disease, stage 4 (severe) (02/04/19) Dysphagia, unspecified (02/04/19) Altered mental status, unspecified (02/04/19) Weakness (02/04/19) Abnormal coagulation profile (02/04/19) Other nonspecific abnormal finding of lung field (02/04/19) Unspecified foreign body in respiratory tract, part unspecified causing other injury, initial encounter (02/04/19) Hypothermia, initial encounter (02/04/19) Other specified counseling (02/04/19) Other specified health status (02/04/19) Allergies Bactrim Adverse Reaction (Severe, Verified 05/24/12 09:38) RENAL PROBLEMS sulfamethoxazole Adverse Reaction (Severe, Verified 11/14/18 06:19) RENAL PROBLEMS trimethoprim Adverse Reaction (Severe, Verified 11/14/18 06:19) RENAL PROBLEMS vancomycin Adverse Reaction (Severe, Verified 11/14/18 06:19) RENAL PROBLEMS Height/Weight/Isolation Height 5 ft 7 in Weight 69.8 kg Chemistry 02/09/19 02/10/19 06:21 05:28 Sodium 150 H 141 D Potassium 3.7 3.7 Chloride 119 H 113 H Carbon Dioxide 23 22 Anion Gap 8.0 6.0 BUN 40 H D 38 H Creatinine 1.66 H 1.59 H Glucose 116 H 171 H Microbiology 02/04/19 19:20 Blood Blood Culture - Final No growth 02/04/19 19:10 Blood Blood Culture - Final No growth (1) Atrial fibrillation Atrial fibrillation type: chronic Qualified Code(s): I48.2 - Chronic atrial fibrillation (2) Anemia Anemia type: unspecified type Qualified Code(s): D64.9 - Anemia, unspecified
[2019-02-10] MEDS ORDERED: ALBUTEROL 0.083% NEBU SOLN 3 ML VIAL NEB STA ×2 (11:30)
[2019-02-10 11:31] LABS: Albumin 2.4 G/DL (3.8-4.8); Alpha 1 Globulin 0.5 G/DL (0.2-0.3); Alpha 2 Globulin 0.7 G/DL (0.5-0.9); Beta-1-Globulin 0.3 G/DL (0.4-0.6); Beta-2-Globulin 0.3 G/DL (0.2-0.5); Gamma Globulin 0.8 G/DL (0.8-1.7); Monoclonal Protein Band 1 DNR G/DL (NOT DETECTED); Monoclonal Protein Band 2 DNR G/DL (NOT DETECTED); Monoclonal Protein Band 3 DNR G/DL (NOT DETECTED)
[2019-02-10] MEDS: PANTOprazole 40 MG TAB PO SCH (12:16)
--- NOTE | 2019-02-10 13:39 | Palliative Care Progress Note ---
Date of Service February 10, 2019 Assessment & Plan (1) Goals of care, counseling/discussion: -Patient remains confused today. Thought she was "in an extension of the hospital that is also her house." -Again, patient was still able to voice some of her wishes. Patient states she does NOT want to be resuscitated if her heart stops and she stops breathing. She would not want a PEG tube. -We reviewed her living will which patient states is okay to follow. She is okay with Jono and Emili Ross being her decision makers, but she wants her niece Shruthi kept in the loop. -I called Emili Ross and left her a message to call me back. I will not change patient's code status until I talk to her POAs. Will also discuss plan and goals. -Further discussion to come. (2) Altered mental status, unspecified: -Multifactorial. -? hospital delirium vs. metabolic process -Hospitalist managing care. (3) Chronic pulmonary aspiration: (4) Pulmonary infiltrate: (5) Chronic diastolic (congestive) heart failure: Subjective Patient is awake but drowsy. Oriented to person only. No family at bedside. See A&P. Review of Systems Denies pain, SOB, N/V. Full ROS not obtained due to drowsiness. Physical Exam Vital Signs (Past 24 Hours): Last Vital Signs Temp 36.2 C L 02/10/19 04:09 Pulse 60 02/10/19 11:50 Resp 19 02/10/19 11:50 BP 139/88 02/10/19 11:50 Pulse Ox 100 02/10/19 11:50 Constitutional: + ill appearing (acutely and chronically), + cachectic and + frail appearing; no acute distress Eyes: PERRL ENMT: external ear and nose normal, oropharynx normal Ears: no hearing impairment Neck: normal visual inspection Respiratory: + abnormal respiratory effort (poor respiratory effort) and no labored breathing Auscultation: + diminished lung sounds Cardiovascular: Rate/Rhythm: regular rate and regular rhythm Extremities: + edema (generalized) Gastrointestinal (Abdomen): Inspection/Auscultation: abdomen normal to inspection and normal bowel sounds; abdomen not distended Percussion/Palpation: abdomen soft; abdomen nontender Skin: + abnormal turgor Neurologic: awake and + confused Psychiatric: Orientation: alert, oriented to person and cooperative; + not oriented to time Time Spent Midlevel 25 minutes with >50% of time spent at bedside with patient discussing condition and GOC.
[2019-02-10] MEDS: WARFARIN SOD 1 MG TAB PO SCH (17:31)
[2019-02-11] MEDS: DEXTROSE 5% 1,000 ML IV SCH ×3 (04:34→19:57)
[2019-02-11] MEDS: HYDROCORTISONE SOD 50 MG in SYRINGE 0 ML IV SCH ×3 (04:35→19:57)
[2019-02-11] MEDS: LEVOTHYROXINE SODIUM 75 MCG TABLET PO SCH (06:10)
[2019-02-11 06:42] LABS: INR 1.3 (0.9-1.1); Prothrombin Time 12.8 Seconds (9.0-12.0)
[2019-02-11 07:00] LABS: BUN Creatinine Ratio 27.6 (10-20); Calcium 9.2 mg/dl (8.5-10.1); Creatinine Clr Calc Pharmacy 28.9 ml/min; Est GFR (African American) 40.7; Est GFR (Non-African American) 35.1; Potassium 4.3 mmol/L (3.5-5.1)
[2019-02-11] MEDS: INSULIN ASPART 100 UNITS/ML 3 ML PEN SC SCH ×4 (08:00→21:57)
[2019-02-11] MEDS: FERROUS GLUCONATE 324 MG TAB PO SCH ×2 (08:01→17:39)
[2019-02-11] MEDS: METOPROLOL SUCC 25MG EXT REL TAB PO SCH ×2 (08:01→17:40)
[2019-02-11] MEDS: SERTRALINE HCL 50 MG TABLET PO SCH (08:01)
[2019-02-11] MEDS: CEROVITE ADV FORMULA TAB PO SCH ×2 (08:02→17:40)
[2019-02-11] MEDS: POTASSIUM CHLORIDE 20 MEQ TABCR PO SCH ×2 (08:03→17:41)
[2019-02-11] MEDS: PANTOprazole 40 MG TAB PO SCH (11:35)
--- NOTE | 2019-02-11 12:12 | Hospitalist Progress Note ---
Date of Service February 11, 2019 Assessment & Plan (1) Weakness: Etiologies include but not limited to failure to thrive 2/2 depression, new onset neuromuscular disease, natural progression of aging, somatic manifestations of stress, weakness 2/2 chronic aspiration, occult malignancy that has not yet been identified. 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 (2) Chronic pulmonary aspiration: resulting in pulmonary infiltrates. Pulm signed off, Neurology signed off, Speech Path CTC IMPRESSION: 1. Findings consistent with extensive aspiration with barium filling the left mainstem bronchus and extending into the segmental bronchi for the upper and lower lobes of the left lung. Progression of extensive left lung airspace opacities which suggest pneumonia/aspiration pneumonitis. Interval improvement in right lung pneumonia since CT of January 19, 2019. 2. No evidence for malignancy within the chest although lungs suboptimally assessed on this exam given extensive consolidation. 3. Moderate cardiomegaly. Extensive coronary artery calcification. 4. Small bilateral pleural effusions, left larger than right. 5. Mild interstitial pulmonary edema. (3) Hypothermia: Occurred twice this hospitalization and responded to rewarming with the bear hugger. Stress dose steroids now. MRI brain negative. (4) Atrial fibrillation: Coumadin and Toprol XL held. (5) Anemia: chronic, stable, no active bleeding. Likely multifactorial in setting of chronic renal disease and other comorbidities. (6) Dysphagia: 40 pound weight loss over the past several months. Poor oral intake with significant dysphasia and evidence of silent aspiration on video swallow study in December 2018. Currently on modified diet after VFSS on Thursday. (7) Hypothyroidism: Continue levothyroxine at home dosing. IV dosing while NPO (8) Supratherapeutic INR: resolved with vit K. (9) CKD (chronic kidney disease), stage IV: At baseline, avoid nephrotoxic substances when able and renally dose meds when approrpiate. (10) DVT prophylaxis: Daily Coumadin Now DNR, will see how she progresses through the weekend, Hospice Thursday or SNF depending on progress Disposition-Pall care on case. Subjective Niece says she was walkie/Talkie and used her computer before she got sick. Still Confused. ROS-No Headache, No Visual Changes, No Nausea, No Vomiting, No Fever, No Chills, No Neck Pain or Stiffness, No Chest Pain, No Palpitations, No SOB, No SANZ, No Cough, No Sputum, No Wheezing, No Abdominal Pain, No Diarrhea, No Hematemesis, No Hemoptysis, No Unexpected Weight Loss, No Flank pain, No Melena, No Hematochezia, No Frequency, No Urgency, No Burning, No Hematuria, No Rashes, No Diaphoresis. Appetite is Normal Physical Exam Gen-AAO x 2, NAD, Afebrile Head-NCAT, EOMI, PERRLA, Anicteric Sclera, No Posterior Pharyngeal Erythema Neck-Supple, No JVD, No Thyromegaly, No Masses, No LAD, No Bruits Lungs-+ Rales L, + Rhonchi L, No Wheezing, No Crepitus Chest-No S4, +S1, +S2, No S3, No Murmurs, No Rubs, No Gallops, No Ectopy Abdomen-Soft, Bowel Sounds Present, Non Tender, Non Distended, No Hepatomegaly, No Splenomegaly, No Palpable Masses, No Rebound, No Rigidity, No Guarding Musculoskeletal-Full Range of Motion Bilaterally, No CVAT Extremities-No Cyanosis, No Clubbing, No Edema Nuero-Cranial Nerves II-XII grossly intact, Motor WNL, DTRs WNL, Strength WNL, Non Focal Psych-Normal Mood Physical Exam Vital Signs (Past 24 Hours): Last Vital Signs Temp 36.5 C 02/11/19 10:36 Pulse 69 02/11/19 10:36 Resp 18 02/11/19 10:36 BP 132/71 02/11/19 10:36 Pulse Ox 96 02/11/19 10:36 Results & Data Laboratory Results Current Diagnoses Sepsis, unspecified organism (02/04/19) Anemia, unspecified (02/04/19) Hypothyroidism, unspecified (02/04/19) Hyperosmolality and hypernatremia (02/04/19) Essential (primary) hypertension (02/04/19) Chronic atrial fibrillation (02/04/19) Chronic diastolic (congestive) heart failure (02/04/19) Hypotension, unspecified (02/04/19) Pneumonia, unspecified organism (02/04/19) Chronic kidney disease, stage 3 (moderate) (02/04/19) Chronic kidney disease, stage 4 (severe) (02/04/19) Dysphagia, unspecified (02/04/19) Altered mental status, unspecified (02/04/19) Weakness (02/04/19) Abnormal coagulation profile (02/04/19) Other nonspecific abnormal finding of lung field (02/04/19) Unspecified foreign body in respiratory tract, part unspecified causing other injury, initial encounter (02/04/19) Hypothermia, initial encounter (02/04/19) Other specified counseling (02/04/19) Other specified health status (02/04/19) Allergies Bactrim Adverse Reaction (Severe, Verified 05/24/12 09:38) RENAL PROBLEMS sulfamethoxazole Adverse Reaction (Severe, Verified 11/14/18 06:19) RENAL PROBLEMS trimethoprim Adverse Reaction (Severe, Verified 11/14/18 06:19) RENAL PROBLEMS vancomycin Adverse Reaction (Severe, Verified 11/14/18 06:19) RENAL PROBLEMS Height/Weight/Isolation Height 5 ft 7 in Weight 69.8 kg Chemistry 02/10/19 02/11/19 05:28 06:07 Sodium 141 D 141 Potassium 3.7 4.3 D Chloride 113 H 110 H Carbon Dioxide 22 24 Anion Gap 6.0 6.0 BUN 38 H 38 H Creatinine 1.59 H 1.36 H Glucose 171 H 172 H Microbiology 02/04/19 19:20 Blood Blood Culture - Final No growth 02/04/19 19:10 Blood Blood Culture - Final No growth (1) Atrial fibrillation Atrial fibrillation type: chronic Qualified Code(s): I48.2 - Chronic atrial fibrillation (2) Anemia Anemia type: unspecified type Qualified Code(s): D64.9 - Anemia, unspecified
--- NOTE | 2019-02-11 12:35 | Palliative Care Progress Note ---
Date of Service February 11, 2019 Assessment & Plan (1) Goals of care, counseling/discussion: -Patient remains confused today. Still thinks she is in her house that is also attached to the hospital. Sometimes thinks she is in [place]. -Scooby speak with Charley about her POA. While she is still experiencing delirium, she is able to understand some things. Charley is aware that Jono and Emili Ross are named as her POAs, she is okay with this. She does still want Shruthi to be involved in decision making. -Lengthy family meeting held today with patient's niece, Shruthi Trujillo, and POAs Jono and Emili Cody. Detailed discussion about patient's medication condition, workup while in hospital, and plan of care. All questions answered to the best of my ability. -Discussed goals of care and disposition. Depending on how patient does over the next few days, patient will likely go to SNF either for short-term "rehab" and transition to long-term vs. going to SNF for comfort/hospice. Also discussed hospice care at home with 24[address] The family is going to see if patient has long-term care policy. -Of course we also discussed that if patient does improve and get better, then hopefully she will have the capacity to make her own decisions about goals of care and discharge planning at that point. -Did express my concern that patient's body temp continues to be low requiring stephen hugger. Her kidney disease is stable, but creatinine is still elevated which prevents us from doing any contrast imaging. She has the chronic aspiration and now severe weakness which will likely exacerbate it. Her albumin is 2.4 indicating chronic nutritional deficiency. Jono Hawkins and Emili are aware and understand that prognosis is guarded. -If patient does decline, they will likely not want any escalation in care but her POAs need to be contacted. -Will continue to follow. (2) Altered mental status, unspecified: -Multifactorial. -? hospital delirium vs. metabolic process -Hospitalist managing care. (3) Chronic pulmonary aspiration: (4) Pulmonary infiltrate: (5) Chronic diastolic (congestive) heart failure: Subjective Patient remains confused today. Thinks she is in her home that is attached to the hospital. Sometimes states she is in [place]. Did speak with Charley about her POA. While she is still experiencing delirium, she is able to understand some things. Charley is aware that Jono and Emili Ross are named as her POAs, she is okay with this. She does still want Shruthi to be involved in decision making. Lengthy family meeting held with Shruthi, Jono and Emili. See A&P. Review of Systems Denies pain, SOB, chest pain, N/V/D, abdominal pain. Does c/o weakness and drowsiness. Physical Exam Vital Signs (Past 24 Hours): Last Vital Signs Temp 36.5 C 02/11/19 10:36 Pulse 69 02/11/19 10:36 Resp 18 02/11/19 10:36 BP 132/71 02/11/19 10:36 Pulse Ox 96 02/11/19 10:36 Constitutional: + ill appearing (acutely and chronically), + cachectic and + frail appearing; no acute distress ENMT: external ear and nose normal, oropharynx normal Ears: no hearing impairment Neck: normal visual inspection Respiratory: + abnormal respiratory effort (poor respiratory effort) and no labored breathing Auscultation: + diminished lung sounds Cardiovascular: Rate/Rhythm: regular rate Extremities: + edema (generalized) Gastrointestinal (Abdomen): Inspection/Auscultation: abdomen normal to inspection and normal bowel sounds; abdomen not distended Percussion/Palpation: abdomen soft; abdomen nontender Skin: + abnormal turgor Neurologic: awake and + confused Psychiatric: Orientation: alert, oriented to person and cooperative Supervising Physician Co-Signing Physician Notes Chart reviewed, patient seen and examined. No friends or family at bedside Patient oriented to person only, very confused-thinks the person in the next bed is her mother and is upset that the dividing drape is preventing her from seeing her PE: No acute distress, sitting up in a chair at bedside. HEENT: EOMI, hearing within normal limits Respirations: Unlabored CV: Regular rate, 1+ lower extremity edema Abdomen: Soft, nontender Neuro: Confused, unable to participate or make any medical decisions Agree with above note, assessment and plan as per YAYA Leon P-we will continue to follow and assist POA's with medical decision making Time Spent Midlevel 120 minutes with >50% of time spent at bedside with patient and also separately with patient's family on nursing unit discussing medical conditions and GOC.
[2019-02-11] MEDS: WARFARIN SOD 1 MG TAB PO SCH (18:06)
[2019-02-12] MEDS: DEXTROSE 5% 1,000 ML IV SCH ×3 (04:04→20:28)
[2019-02-12] MEDS: LEVOTHYROXINE SODIUM 75 MCG TABLET PO SCH (05:31)
[2019-02-12] MEDS: HYDROCORTISONE SOD 50 MG in SYRINGE 0 ML IV SCH ×3 (05:31→20:45)
[2019-02-12 06:53] LABS: Eosinophils # (auto) 0.02 K/uL (0-0.5); Eosinophils % (auto) 0.2 %; Hematocrit (blood only) 24.4 % (37-47); Hemoglobin 8.3 g/dL (12.0-16.0); Immature Granulocytes # (auto) 0.05 K/uL (0.00-0.02); Immature Granulocytes % (auto) 0.6 %; Lymphocytes # (auto) 0.53 K/uL (1.2-3.4); Lymphocytes % (auto) 5.9 %; Mean Corpuscular Volume 97.2 fL (80-100); Mean Platelet Volume 11.7 fL (7.4-10.4); Monocytes # (auto) 0.89 K/uL (0.11-0.59); Neutrophils # (auto) 7.44 K/uL (1.4-6.5); Neutrophils % (auto) 83.3 %; Platelet Count 177 K/uL (130-400); RDW Coefficient of Variation 18.3 % (11.5-14.5); RDW Standard Deviation 64.4 fL (36.4-46.3); Red Blood Count 2.51 M/uL (4.2-5.4); White Blood Count 8.93 K/uL (4.8-10.8)
[2019-02-12 07:00] LABS: INR 1.2 (0.9-1.1); Prothrombin Time 12.5 Seconds (9.0-12.0)
[2019-02-12 07:10] LABS: Albumin Level 2.1 gm/dl (3.4-5.0); BUN Creatinine Ratio 25.5 (10-20); Calcium 8.9 mg/dl (8.5-10.1); Creatinine Clr Calc Pharmacy 27.7 ml/min; Est GFR (African American) 38.7; Est GFR (Non-African American) 33.4; Potassium 3.9 mmol/L (3.5-5.1)
[2019-02-12 07:12] LABS: Albumin Globulin Ratio 0.6 (0.9-2); Bilirubin,Total 0.5 mg/dl (0.2-1); Globulin 3.3 gm/dl (2.5-4.0); Total Protein 5.4 gm/dl (6.4-8.2)
[2019-02-12 07:20] LABS: RBC Morphology Unremarkable
[2019-02-12] MEDS: INSULIN ASPART 100 UNITS/ML 3 ML PEN SC SCH ×4 (08:47→20:27)
[2019-02-12] MEDS: FERROUS GLUCONATE 324 MG TAB PO SCH ×2 (08:49→18:04)
--- NOTE | 2019-02-12 09:31 | Hospitalist Progress Note ---
Date of Service February 12, 2019 Assessment & Plan (1) Weakness: Etiologies include but not limited to failure to thrive 2/2 depression, new onset neuromuscular disease, natural progression of aging, somatic manifestations of stress, weakness 2/2 chronic aspiration, occult malignancy that has not yet been identified. 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 (2) Chronic pulmonary aspiration: resulting in pulmonary infiltrates. Pulm signed off, Neurology signed off, Speech Path CTC IMPRESSION: 1. Findings consistent with extensive aspiration with barium filling the left mainstem bronchus and extending into the segmental bronchi for the upper and lower lobes of the left lung. Progression of extensive left lung airspace opacities which suggest pneumonia/aspiration pneumonitis. Interval improvement in right lung pneumonia since CT of January 19, 2019. 2. No evidence for malignancy within the chest although lungs suboptimally assessed on this exam given extensive consolidation. 3. Moderate cardiomegaly. Extensive coronary artery calcification. 4. Small bilateral pleural effusions, left larger than right. 5. Mild interstitial pulmonary edema. (3) Hypothermia: Occurred twice this hospitalization and responded to rewarming with the bear hugger. Stress dose steroids now. MRI brain negative. (4) Atrial fibrillation: Coumadin and Toprol XL held. (5) Anemia: chronic, stable, no active bleeding. Likely multifactorial in setting of chronic renal disease and other comorbidities. (6) Dysphagia: 40 pound weight loss over the past several months. Poor oral intake with significant dysphasia and evidence of silent aspiration on video swallow study in December 2018. Currently on modified diet after VFSS on Thursday. (7) Hypothyroidism: Continue levothyroxine at home dosing. IV dosing while NPO (8) Supratherapeutic INR: resolved with vit K. (9) CKD (chronic kidney disease), stage IV: At baseline, avoid nephrotoxic substances when able and renally dose meds when approrpiate. (10) DVT prophylaxis: Daily Coumadin Now DNR, will see how she progresses through the weekend, Looks much better and more Lucid today. Hospice Thursday or SNF depending on progress Disposition-Pall care on case. Subjective Niece says she was walkie/Talkie and used her computer before she got sick. Less confused today ROS-No Headache, No Visual Changes, No Nausea, No Vomiting, No Fever, No Chills, No Neck Pain or Stiffness, No Chest Pain, No Palpitations, No SOB, No SANZ, No Cough, No Sputum, No Wheezing, No Abdominal Pain, No Diarrhea, No Hematemesis, No Hemoptysis, No Unexpected Weight Loss, No Flank pain, No Melena, No Hematochezia, No Frequency, No Urgency, No Burning, No Hematuria, No Rashes, No Diaphoresis. Appetite is Normal Physical Exam Gen-AAO x 3, NAD, Afebrile Head-NCAT, EOMI, PERRLA, Anicteric Sclera, No Posterior Pharyngeal Erythema Neck-Supple, No JVD, No Thyromegaly, No Masses, No LAD, No Bruits Lungs-+ Rales L, + Rhonchi L, No Wheezing, No Crepitus Chest-No S4, +S1, +S2, No S3, No Murmurs, No Rubs, No Gallops, No Ectopy Abdomen-Soft, Bowel Sounds Present, Non Tender, Non Distended, No Hepatomegaly, No Splenomegaly, No Palpable Masses, No Rebound, No Rigidity, No Guarding Musculoskeletal-Full Range of Motion Bilaterally, No CVAT Extremities-No Cyanosis, No Clubbing, No Edema Nuero-Cranial Nerves II-XII grossly intact, Motor WNL, DTRs WNL, Strength WNL, Non Focal Psych-Normal Mood Physical Exam Vital Signs (Past 24 Hours): Last Vital Signs Temp 36.3 C L 02/12/19 07:02 Pulse 67 02/12/19 07:02 Resp 19 02/12/19 07:02 BP 149/80 H 02/12/19 07:02 Pulse Ox 95 02/12/19 07:02 Results & Data Laboratory Results Current Diagnoses Sepsis, unspecified organism (02/04/19) Anemia, unspecified (02/04/19) Hypothyroidism, unspecified (02/04/19) Hyperosmolality and hypernatremia (02/04/19) Essential (primary) hypertension (02/04/19) Chronic atrial fibrillation (02/04/19) Chronic diastolic (congestive) heart failure (02/04/19) Hypotension, unspecified (02/04/19) Pneumonia, unspecified organism (02/04/19) Chronic kidney disease, stage 3 (moderate) (02/04/19) Chronic kidney disease, stage 4 (severe) (02/04/19) Dysphagia, unspecified (02/04/19) Altered mental status, unspecified (02/04/19) Weakness (02/04/19) Abnormal coagulation profile (02/04/19) Other nonspecific abnormal finding of lung field (02/04/19) Unspecified foreign body in respiratory tract, part unspecified causing other injury, initial encounter (02/04/19) Hypothermia, initial encounter (02/04/19) Other specified counseling (02/04/19) Other specified health status (02/04/19) Allergies Bactrim Adverse Reaction (Severe, Verified 05/24/12 09:38) RENAL PROBLEMS sulfamethoxazole Adverse Reaction (Severe, Verified 11/14/18 06:19) RENAL PROBLEMS trimethoprim Adverse Reaction (Severe, Verified 11/14/18 06:19) RENAL PROBLEMS vancomycin Adverse Reaction (Severe, Verified 11/14/18 06:19) RENAL PROBLEMS Height/Weight/Isolation Height 5 ft 7 in Weight 72.5 kg Chemistry 02/11/19 02/12/19 06:07 06:32 Sodium 141 141 Potassium 4.3 D 3.9 Chloride 110 H 110 H Carbon Dioxide 24 25 Anion Gap 6.0 5.0 BUN 38 H 36 H Creatinine 1.36 H 1.42 H Glucose 172 H 155 H Microbiology 02/04/19 19:20 Blood Blood Culture - Final No growth 02/04/19 19:10 Blood Blood Culture - Final No growth (1) Atrial fibrillation Atrial fibrillation type: chronic Qualified Code(s): I48.2 - Chronic atrial fibrillation (2) Anemia Anemia type: unspecified type Qualified Code(s): D64.9 - Anemia, unspecified
[2019-02-12] MEDS: METOPROLOL SUCC 25MG EXT REL TAB PO SCH ×2 (09:41→16:43)
[2019-02-12] MEDS: CEROVITE ADV FORMULA TAB PO SCH ×2 (09:41→18:04)
[2019-02-12] MEDS: POTASSIUM CHLORIDE 20 MEQ TABCR PO SCH ×2 (09:41→18:04)
[2019-02-12] MEDS: SERTRALINE HCL 50 MG TABLET PO SCH (09:42)
[2019-02-12] MEDS: PANTOprazole 40 MG TAB PO SCH (12:21)
[2019-02-12] MEDS: WARFARIN SOD 1 MG TAB PO SCH (18:04)
[2019-02-13] MEDS: DEXTROSE 5% 1,000 ML IV SCH (05:08)
[2019-02-13] MEDS: HYDROCORTISONE SOD 50 MG in SYRINGE 0 ML IV SCH (05:09)
[2019-02-13] MEDS: LEVOTHYROXINE SODIUM 75 MCG TABLET PO SCH (06:07)
[2019-02-13 06:14] LABS: Eosinophils # (auto) 0.06 K/uL (0-0.5); Eosinophils % (auto) 1.2 %; Immature Granulocytes # (auto) 0.04 K/uL (0.00-0.02); Immature Granulocytes % (auto) 0.8 %; Lymphocytes # (auto) 0.72 K/uL (1.2-3.4); Lymphocytes % (auto) 14.3 %; Mean Corpuscular Hgb Conc 33.3 g/dL (32-36); Mean Corpuscular Volume 97.6 fL (80-100); Mean Platelet Volume 11.2 fL (7.4-10.4); Monocytes # (auto) 0.43 K/uL (0.11-0.59); Monocytes % (auto) 8.6 %; Neutrophils # (auto) 3.77 K/uL (1.4-6.5); Neutrophils % (auto) 75.1 %; Platelet Count 189 K/uL (130-400); RDW Coefficient of Variation 18.3 % (11.5-14.5); RDW Standard Deviation 64.2 fL (36.4-46.3); Red Blood Count 2.46 M/uL (4.2-5.4); White Blood Count 5.02 K/uL (4.8-10.8)
[2019-02-13 06:40] LABS: BUN Creatinine Ratio 25.8 (10-20); Creatinine Clr Calc Pharmacy 33.3 ml/min; Est GFR (African American) 48.4; Est GFR (Non-African American) 41.7; Potassium 4.5 mmol/L (3.5-5.1)
[2019-02-13 06:47] LABS: RBC Morphology Unremarkable
[2019-02-13] MEDS: FERROUS GLUCONATE 324 MG TAB PO SCH ×2 (07:43→16:13)
[2019-02-13] MEDS: METOPROLOL SUCC 25MG EXT REL TAB PO SCH ×2 (07:43→16:14)
[2019-02-13] MEDS: CEROVITE ADV FORMULA TAB PO SCH ×2 (07:43→16:13)
[2019-02-13] MEDS: SERTRALINE HCL 50 MG TABLET PO SCH (07:44)
[2019-02-13] MEDS: INSULIN ASPART 100 UNITS/ML 3 ML PEN SC SCH ×4 (07:46→20:53)
--- NOTE | 2019-02-13 09:11 | Hospitalist Progress Note ---
Date of Service February 13, 2019 Assessment & Plan (1) Weakness: Etiologies include but not limited to failure to thrive 2/2 depression, new onset neuromuscular disease, natural progression of aging, somatic manifestations of stress, weakness 2/2 chronic aspiration, occult malignancy that has not yet been identified. 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 (2) Chronic pulmonary aspiration: resulting in pulmonary infiltrates. Pulm signed off, Neurology signed off, Speech Path CTC IMPRESSION: 1. Findings consistent with extensive aspiration with barium filling the left mainstem bronchus and extending into the segmental bronchi for the upper and lower lobes of the left lung. Progression of extensive left lung airspace opacities which suggest pneumonia/aspiration pneumonitis. Interval improvement in right lung pneumonia since CT of January 19, 2019. 2. No evidence for malignancy within the chest although lungs suboptimally assessed on this exam given extensive consolidation. 3. Moderate cardiomegaly. Extensive coronary artery calcification. 4. Small bilateral pleural effusions, left larger than right. 5. Mild interstitial pulmonary edema. (3) Hypothermia: Occurred twice this hospitalization and responded to rewarming with the bear hugger. Stress dose steroids now. MRI brain negative. Taper IV HCT (4) Atrial fibrillation: Coumadin and Toprol XL held. (5) Anemia: chronic, stable, no active bleeding. Likely multifactorial in setting of chronic renal disease and other comorbidities. (6) Dysphagia: 40 pound weight loss over the past several months. Poor oral intake with significant dysphasia and evidence of silent aspiration on video swallow study in December 2018. Currently on modified diet after VFSS on Thursday. (7) Hypothyroidism: Continue levothyroxine at home dosing. IV dosing while NPO (8) Supratherapeutic INR: resolved with vit K. Warfarin resumed (9) CKD (chronic kidney disease), stage IV: At baseline, avoid nephrotoxic substances when able and renally dose meds when approrpiate. (10) DVT prophylaxis: Daily Coumadin Now DNR, will see how she progresses through the weekend, Looks much better and more Lucid today. SNF tomorow depending on progress Disposition-Pall care on case. Subjective Niece says she was walkie/Talkie and used her computer before she got sick. Less confused today, still confused, but better ROS-No Headache, No Visual Changes, No Nausea, No Vomiting, No Fever, No Chills, No Neck Pain or Stiffness, No Chest Pain, No Palpitations, No SOB, No SANZ, No Cough, No Sputum, No Wheezing, No Abdominal Pain, No Diarrhea, No Hematemesis, No Hemoptysis, No Unexpected Weight Loss, No Flank pain, No Melena, No Hematochezia, No Frequency, No Urgency, No Burning, No Hematuria, No Rashes, No Diaphoresis. Appetite is Normal Physical Exam Gen-AAO x 3, NAD, Afebrile, Mild confusion Head-NCAT, EOMI, PERRLA, Anicteric Sclera, No Posterior Pharyngeal Erythema Neck-Supple, No JVD, No Thyromegaly, No Masses, No LAD, No Bruits Lungs-+ Rales L, + Rhonchi L, No Wheezing, No Crepitus Chest-No S4, +S1, +S2, No S3, No Murmurs, No Rubs, No Gallops, No Ectopy Abdomen-Soft, Bowel Sounds Present, Non Tender, Non Distended, No Hepatomegaly, No Splenomegaly, No Palpable Masses, No Rebound, No Rigidity, No Guarding Musculoskeletal-Full Range of Motion Bilaterally, No CVAT Extremities-No Cyanosis, No Clubbing, No Edema Nuero-Cranial Nerves II-XII grossly intact, Motor WNL, DTRs WNL, Strength WNL, Non Focal Psych-Normal Mood Physical Exam Vital Signs (Past 24 Hours): Last Vital Signs Temp 36.6 C 02/13/19 07:42 Pulse 67 02/13/19 07:42 Resp 19 02/13/19 07:42 BP 154/84 H 02/13/19 07:42 Pulse Ox 97 02/13/19 07:42 Results & Data Laboratory Results Current Diagnoses Sepsis, unspecified organism (02/04/19) Anemia, unspecified (02/04/19) Hypothyroidism, unspecified (02/04/19) Hyperosmolality and hypernatremia (02/04/19) Essential (primary) hypertension (02/04/19) Chronic atrial fibrillation (02/04/19) Chronic diastolic (congestive) heart failure (02/04/19) Hypotension, unspecified (02/04/19) Pneumonia, unspecified organism (02/04/19) Chronic kidney disease, stage 3 (moderate) (02/04/19) Chronic kidney disease, stage 4 (severe) (02/04/19) Dysphagia, unspecified (02/04/19) Altered mental status, unspecified (02/04/19) Weakness (02/04/19) Abnormal coagulation profile (02/04/19) Other nonspecific abnormal finding of lung field (02/04/19) Unspecified foreign body in respiratory tract, part unspecified causing other injury, initial encounter (02/04/19) Hypothermia, initial encounter (02/04/19) Other specified counseling (02/04/19) Other specified health status (02/04/19) Allergies Bactrim Adverse Reaction (Severe, Verified 05/24/12 09:38) RENAL PROBLEMS sulfamethoxazole Adverse Reaction (Severe, Verified 11/14/18 06:19) RENAL PROBLEMS trimethoprim Adverse Reaction (Severe, Verified 11/14/18 06:19) RENAL PROBLEMS vancomycin Adverse Reaction (Severe, Verified 11/14/18 06:19) RENAL PROBLEMS Height/Weight/Isolation Height 5 ft 7 in Weight 72.5 kg Chemistry 02/12/19 02/13/19 06:32 05:56 Sodium 141 143 Potassium 3.9 4.5 D Chloride 110 H 113 H Carbon Dioxide 25 27 Anion Gap 5.0 3.0 BUN 36 H 30 H Creatinine 1.42 H 1.18 Glucose 155 H 99 (1) Atrial fibrillation Atrial fibrillation type: chronic Qualified Code(s): I48.2 - Chronic atrial fibrillation (2) Anemia Anemia type: unspecified type Qualified Code(s): D64.9 - Anemia, unspecified
[2019-02-13] MEDS: POTASSIUM CHLORIDE 20 MEQ TABCR PO SCH ×2 (09:29→16:12)
[2019-02-13] MEDS: PANTOprazole 40 MG TAB PO SCH (11:44)
[2019-02-13] MEDS: WARFARIN SOD 1 MG TAB PO SCH (16:13)
[2019-02-13] MEDS: HYDROCORTISONE SOD 25 MG in SYRINGE 0 ML IV SCH (17:11)
[2019-02-14 06:01] LABS: Hemoglobin 7.8 g/dL (12.0-16.0); Mean Corpuscular Hgb Conc 32.5 g/dL (32-36); Mean Platelet Volume 11.4 fL (7.4-10.4); Platelet Count 241 K/uL (130-400); RDW Coefficient of Variation 18.7 % (11.5-14.5); RDW Standard Deviation 66.4 fL (36.4-46.3); Red Blood Count 2.45 M/uL (4.2-5.4); White Blood Count 5.53 K/uL (4.8-10.8)
[2019-02-14 06:25] LABS: BUN Creatinine Ratio 27.8 (10-20); Calcium 8.6 mg/dl (8.5-10.1); Creatinine Clr Calc Pharmacy 30.4 ml/min; Est GFR (African American) 43.4; Est GFR (Non-African American) 37.5; Potassium 4.1 mmol/L (3.5-5.1)
[2019-02-14] MEDS: HYDROCORTISONE SOD 25 MG in SYRINGE 0 ML IV SCH ×2 (06:29→18:40)
[2019-02-14] MEDS: LEVOTHYROXINE SODIUM 75 MCG TABLET PO SCH (06:29)
[2019-02-14 07:12] LABS: INR 1.1 (0.9-1.1); Prothrombin Time 11.4 Seconds (9.0-12.0)
[2019-02-14] MEDS: INSULIN ASPART 100 UNITS/ML 3 ML PEN SC SCH ×4 (08:33→21:34)
[2019-02-14] MEDS: METOPROLOL SUCC 25MG EXT REL TAB PO SCH ×2 (08:33→18:27)
[2019-02-14] MEDS: FERROUS GLUCONATE 324 MG TAB PO SCH ×2 (08:33→18:24)
[2019-02-14] MEDS: SERTRALINE HCL 50 MG TABLET PO SCH (08:34)
[2019-02-14] MEDS: CEROVITE ADV FORMULA TAB PO SCH ×2 (08:34→18:27)
[2019-02-14] MEDS: POTASSIUM CHLORIDE 20 MEQ TABCR PO SCH ×2 (08:40→18:27)
--- NOTE | 2019-02-14 09:50 | Discharge Summary ---
Date of Service February 14, 2019 Admission HPI Per Admitting Provider Pt is 84 y/o F with PMHAtrial fibrillation on Coumadin, HTN, chronic anemia, CKD 3, chronic diastolic heart failure presented to ER with complaint of weakness. History obtained from patient and patient's niece. Patient's niece reports patient was drowsy yesterday. Increased weakness and lethargy today. Patient normally able to perform ADLs however today was unable to stand. Niece reports was taking her blood pressure with wrist BP monitor and BPs were 80s/50s and heart rate in the 50s. Niece reports all day patient refused to go to ER until this evening. He states patient had one episode of loose stool today. She reports patient with history of suspected aspiration pneumonia and finished Augmentin 5 days ago. Reports had hydralazine decreased to 25mg TID couple of days ago and was held today. Pt states hasn't been feeling well "for a long time". States chronic cough. Patient with history of dysphasia and a cough and has had a reported 40 pound weight loss over the past several months. Reported chronic poor oral intake. Reports had morning meds today. Patient niece has been staying with pt for the past 2 months. Reported that patient was to have bronchoscopy on 02/22/19. She was to have Coumadin held starting on 02/16/19 with no bridge. Denies known fever/chills, diaphoresis, N/V, CROSS, syncope, vision changes, neck pain, CP, SOB, orthopnea, palpitations, sore throat, choking, otalgia, rhinorrhea, abdominal pain, extremity edema, rashes, urinary symptoms. Admission Exam Per Admitting Provider General: thin elderly female Head: normocephalic, atraumatic Eyes: PERRL, EOM's intact, conjunctiva non-injected, anicteric ENT: normal inspection external ears, nose, mucous membranes dry Neck: supple, trachea midline Lungs: clear, no respiratory distress CV: irregular rhythm, rate 50, no pretibial edema Abd: normal BS, soft, non-tender Ext: no cyanosis, no calf tenderness Neuro: A&O to person, place, no focal deficits noted, normal affect Skin: warm, dry Principal Diagnosis Sepsis Pneumonia Toxic Metabolic Encephalopathy Sundowning CKD HTN HLD AFIB Hypothyroidism Discharge Exam Still very SOB, especially c ambulation ROS-No Headache, No Visual Changes, No Nausea, No Vomiting, No Fever, No Chills, No Neck Pain or Stiffness, No Chest Pain, No Palpitations, No SOB, No SANZ, No Cough, No Sputum, No Wheezing, No Abdominal Pain, No Diarrhea, No Hematemesis, No Hemoptysis, No Unexpected Weight Loss, No Flank pain, No Melena, No Hematochezia, No Frequency, No Urgency, No Burning, No Hematuria, No Rashes, No Diaphoresis. Appetite is Normal Physical Exam Gen-AAO x 3, NAD, Afebrile, BIPAP, Obese and Pleasant Head-NCAT, EOMI, PERRLA, Anicteric Sclera, No Posterior Pharyngeal Erythema Neck-Supple, No JVD, No Thyromegaly, No Masses, No LAD, No Bruits Lungs-Clear to Auscultation Left, +Rales and Rhonchi Right, No Wheezing, No Crepitus Chest-No S4, +S1, +S2, No S3, No Murmurs, No Rubs, No Gallops, No Ectopy Abdomen-Soft, Obese, Bowel Sounds Present, Non Tender, Non Distended, No Hepatomegaly, No Splenomegaly, No Palpable Masses, No Rebound, No Rigidity, No Guarding Musculoskeletal-Full Range of Motion Bilaterally, No CVAT Extremities-No Cyanosis, No Clubbing, No Edema Nuero-Cranial Nerves II-XII grossly intact, Motor WNL, DTRs WNL, Strength WNL, Non Focal Psych-Normal Mood Discharge Data Allergies Allergy/AdvReac Type Severity Reaction Status Date / Time Bactrim AdvReac Severe RENAL Verified 05/24/12 09:38 PROBLEMS sulfamethoxazole AdvReac Severe RENAL Verified 11/14/18 06:19 PROBLEMS trimethoprim AdvReac Severe RENAL Verified 11/14/18 06:19 PROBLEMS vancomycin AdvReac Severe RENAL Verified 11/14/18 06:19 PROBLEMS Consultations 02/04/19 20:44 ED Decision to Admit Stat 02/04/19 22:53 Consult Case Management - Discharge Planning Routine Consult Program Arranger Routine 02/06/19 09:50 Consult Pulmonology Routine 02/06/19 11:47 Consult Neurology Routine 02/08/19 14:57 Consult Palliative Care Routine Ordered Studies 02/05/19 15:10 CT head/brain wo con Routine 02/06/19 11:39 MR brain wo con Urgent 02/07/19 14:45 FL video swallow Routine 02/08/19 07:00 CT abd pelvis wo con Routine CT chest wo con Routine Hospital Course (1) Weakness: Etiologies include but not limited to failure to thrive 2/2 depression, new onset neuromuscular disease, natural progression of aging, somatic manifestations of stress, weakness 2/2 chronic aspiration, occult malignancy that has not yet been identified. 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 (2) Chronic pulmonary aspiration: resulting in pulmonary infiltrates. Pulm signed off, Neurology signed off, Speech Path CTC IMPRESSION: 1. Findings consistent with extensive aspiration with barium filling the left mainstem bronchus and extending into the segmental bronchi for the upper and lower lobes of the left lung. Progression of extensive left lung airspace opacities which suggest pneumonia/aspiration pneumonitis. Interval improvement in right lung pneumonia since CT of January 19, 2019. 2. No evidence for malignancy within the chest although lungs suboptimally assessed on this exam given extensive consolidation. 3. Moderate cardiomegaly. Extensive coronary artery calcification. 4. Small bilateral pleural effusions, left larger than right. 5. Mild interstitial pulmonary edema. (3) Hypothermia: Occurred twice this hospitalization and responded to rewarming with the bear hugger. Stress dose steroids now. MRI brain negative. Taper IV HCT (4) Atrial fibrillation: Coumadin and Toprol XL held. (5) Anemia: chronic, stable, no active bleeding. Likely multifactorial in setting of chronic renal disease and other comorbidities. (6) Dysphagia: 40 pound weight loss over the past several months. Poor oral intake with significant dysphasia and evidence of silent aspiration on video swallow study in December 2018. Currently on modified diet after VFSS on Thursday. (7) Hypothyroidism: Continue levothyroxine at home dosing. IV dosing while NPO (8) Supratherapeutic INR: resolved with vit K. Warfarin resumed (9) CKD (chronic kidney disease), stage IV: At baseline, avoid nephrotoxic substances when able and renally dose meds when approrpiate. (10) DVT prophylaxis: Daily Coumadin Now DNR, will see how she progresses through the weekend, Looks much better and more Lucid today. SNF tomorow depending on progress Disposition-Pall care on case. Total Time Total Time Spent Total Time Spent (In Minutes): 45 mins Discharge Plan Discharge Items Patient Disposition: Transfer Detention Fac Reason For Visit: HYPOTENSION Discharge Diagnosis: Sepsis Pneumonia Toxic Metabolic Encephalopathy Sundowning CKD HTN HLD AFIB Hypothyroidism Condition: Fair Discharge Goals: Decrease discomfort, Improve function, Increase independence and Improve nutritional status Activity: Resume your previous activity Lifting: Gradually increase as tolerated Bathing: No limitations Exercise/Sports: None Weightbearing: Left weightbearing and Right weightbearing Non-emergency contact: Primary Care Provider Call non-emergency contact if: your symptoms worsen Follow-up/Referrals: Gurpreet Horn MD [Primary Care Provider] - Diet: Heart Healthy Addtl Provider Instructions: Supportive Care Prescriptions: New sertraline 50 mg Tablet 25 mg PO QAM Qty: 30 RF: 0 Continued furosemide [Lasix] 40 mg tablet 20 mg PO DAILY RF: 0 levothyroxine [Synthroid] 75 mcg tablet 75 mg PO QAM RF: 0 potassium chloride [Klor-Con M20] 20 mEq tablet,ER particles/crystals 20 meq PO BIDM RF: 0 ferrous gluconate 240 mg (27 mg iron) Tablet 240 mg PO BID RF: 0 metoprolol succinate [Toprol XL] 25 mg tablet extended release 24 hr 12.5 mg PO QPM RF: 0 metoprolol succinate [Toprol XL] 25 mg tablet extended release 24 hr 25 mg PO QAM RF: 0 cholecalciferol (vitamin D3) [Vitamin D3] 2,000 unit Capsule 2,000 units PO DAILY RF: 0 PreserVision AREDS-2 [id number] [id number] Capsule 1 tab PO BID RF: 0 warfarin 1 mg tablet 1 mg PO DAILY RF: 0 sennosides-docusate sodium [Senna with Docusate Sodium] 8.6-50 mg Tablet 1 tab PO DAILY PRN (Reason: Constipation) RF: 0 Discontinued clonazepam 0.5 mg Tablet 0.25 mg PO HS PRN (Reason: Leg Cramps) RF: 0 hydralazine 50 mg tablet 25 mg PO .HOLD RF: 0 Stand[facility]Alone [facility] Orders: Discharge Order (Routine); Ordered 02/14/19 Ordered By: Ryder Manzanares Skilled Items Patient informed of condition?: Yes DNR: Yes Discharge Level of Care: Skilled Communicable Disease: No Discharge Prognosis: Improving Admission Data Admit Date/Time: 02/04/19 21:39 Attending Provider: Ryder Manzanares Admit Provider: Nguyen Knowles Primary Care Provider: Gurpreet Horn Other Providers: Ryder Manzanares ; Gonzalo Santiago ; Forrest Workman ; [place] ; Maribel Davila Service: Telemetry
[2019-02-14] MEDS: PANTOprazole 40 MG TAB PO SCH (12:10)
--- NOTE | 2019-02-14 14:51 | Palliative Care Progress Note ---
Date of Service February 14, 2019 Assessment & Plan (1) Goals of care, counseling/discussion: -Patient awake and oriented today. Much improved over weekend. -Encouraged patient to continue conversation with her POAs Jono and Emili about her goals of care and wishes/living will. -Plan will be for rehab at SNF, patient agreeable. -Case management following for placement. -Palliative care will sign off for now, please contact me with any further palliative care needs. (2) Altered mental status, unspecified: -Multifactorial. -? hospital delirium vs. metabolic process -Hospitalist managing care. (3) Chronic pulmonary aspiration: (4) Pulmonary infiltrate: (5) Chronic diastolic (congestive) heart failure: Subjective Patient is doing very well. Much more lucid. Oriented. Met with patient's POA Jono Pereirawan and mag Hawkins today. See A&P. Constitutional: + weakness Ear, Nose, Mouth, Throat: + dysphagia (patient reports she does still have some trouble eating/swallowing) Respiratory: no cough and no dyspnea Cardiovascular: no chest pain and no edema Gastrointestinal: no abdominal pain and no nausea Neurologic: + confusion and + memory loss Psychiatric: no depression and no anxiety Physical Exam Vital Signs (Past 24 Hours): Last Vital Signs Temp 36.5 C 02/14/19 11:01 Pulse 70 02/14/19 11:01 Resp 20 02/14/19 11:01 BP 131/88 02/14/19 11:01 Pulse Ox 95 02/14/19 11:01 Constitutional: + cachectic and + frail appearing; no acute distress Eyes: PERRL ENMT: external ear and nose normal, oropharynx normal Ears: no hearing impairment Neck: normal visual inspection Respiratory: + abnormal respiratory effort (poor respiratory effort) and no labored breathing Auscultation: + diminished lung sounds Cardiovascular: Rate/Rhythm: regular rate and regular rhythm Extremities: + edema (generalized) Gastrointestinal (Abdomen): Inspection/Auscultation: abdomen normal to inspection and normal bowel sounds; abdomen not distended Percussion/Palpation: abdomen soft; abdomen nontender Neurologic: awake; not confused Psychiatric: Orientation: alert and oriented x 3 Time Spent Midlevel 35 minutes with >50% of time spent at bedside with patient and family discussing GOC.
--- NOTE | 2019-02-14 17:17 | XRay Report ---
SINGLE VIEW CHEST CLINICAL HISTORY: Aspiration. FINDINGS: An AP, portable, upright chest radiograph is compared to study dated 02/04/2019 and correlat ed with chest CT dated 02/08/2019. The examination is degraded by portable technique and patient rotati on. The heart is enlarged and there is atherosclerotic calcification of the thoracic aorta. There is mild pulmonary vascular congestion. There is dense airspace consolidation at the left lung base. Mil d patchy airspace consolidation is seen at the right lung base. Small pleural effusions are noted. No pneumothorax is seen. The skeletal structures are osteopenic. The bony thorax is grossly intact. 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 IMPRESSION: 1. Cardiomegaly with mild pulmonary vascular congestion. 2. There is dense left basilar consolidation and patchy right basilar consolidation. Consolidation at the left lung base appears increased from 02/04/2019. 3. Small pleural effusions. Electronically signed by: Julio Jiménez M.D. 02/14/2019 5:15 PM
[2019-02-14] MEDS: WARFARIN SOD 1 MG TAB PO SCH (18:26)
[2019-02-15] MEDS: HYDROCORTISONE SOD 25 MG in SYRINGE 0 ML IV SCH ×2 (06:45→17:21)
[2019-02-15] MEDS: METOPROLOL SUCC 25MG EXT REL TAB PO SCH ×2 (08:13→17:20)
[2019-02-15] MEDS: LEVOTHYROXINE SODIUM 75 MCG TABLET PO SCH (08:13)
[2019-02-15] MEDS: CEROVITE ADV FORMULA TAB PO SCH ×2 (08:13→17:20)
[2019-02-15] MEDS: FERROUS GLUCONATE 324 MG TAB PO SCH ×2 (08:13→17:19)
[2019-02-15] MEDS: SERTRALINE HCL 50 MG TABLET PO SCH (08:42)
[2019-02-15] MEDS: POTASSIUM CHLORIDE 20 MEQ TABCR PO SCH ×2 (08:43→17:19)
[2019-02-15] MEDS: INSULIN ASPART 100 UNITS/ML 3 ML PEN SC SCH ×4 (08:53→21:12)
[2019-02-15] MEDS: PANTOprazole 40 MG TAB PO SCH (11:38)
[2019-02-15] MEDS: WARFARIN SOD 1 MG TAB PO SCH (17:21)
--- NOTE | 2019-02-15 19:22 | Hospitalist Progress Note ---
Date of Service February 15, 2019 Assessment & Plan (1) Chronic pulmonary aspiration: Present on admission with weakness and weakness CT chest showed findings consistent with extensive aspiration with barium filling the left mainstem bronchus and extending into the segmental bronchi for the upper and lower lobes of the left lung. Progression of extensive left lung airspace opacities which suggest pneumonia/aspiration pneumonitis. Interval improvement in right lung pneumonia since CT of January 19, 2019. Repeat CXR yesterday showed dense left basilar consolidation and patchy right basilar consolidation. Video swallow showed aspiration with the thin liquid barium. Case discussed with speech and said that pt swallow with thin liquid diet. Pt and POA are choosing permissive aspiration Speech recommended slippery soft, bite size diet with aspiration precaution Will need a repeat CT scan in few weeks as per pulm (2) Weakness: Etiologies unknown, possible due to failure to thrive from depression, natural progression of aging, somatic manifestations of stress, chronic aspiration, occult malignancy that has not yet been identified. 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 Neuro on board plan to get EMG done as an outpatient Bone scan nuclear medicine showed no increased radiotracer uptake within the right frontal bone to correspond to the focus of marrow signal abnormality on MRI of February 06, 2019. This finding remains indeterminate however lack of uptake significantly decreases the likelihood for skeletal metastatic disease. Follow up with neuro in 4 to 6 weeks (3) Atrial fibrillation: Rate control on toprol On coumadin Check INR (4) Anemia: chronic, stable, no active bleeding. Likely multifactorial in setting of chronic renal disease and other comorbidities. (5) Dysphagia: 40 pound weight loss over the past several months. Poor oral intake with significant dysphasia and evidence of silent aspiration on video swallow study in December 2018. Currently on modified diet after VFSS on Thursday. (6) Hypothyroidism: Continue levothyroxine at home dosing. (7) Supratherapeutic INR: Coumadin restarted Resovled (8) CKD (chronic kidney disease), stage IV: At baseline, avoid nephrotoxic substances when able and renally dose meds when approrpiate. (9) DVT prophylaxis: Daily Coumadin Now DNR, will see how she progresses through the weekend, Looks much better and more Lucid today. SNF tomorow depending on progress Disposition-Pall care on case. Subjective Pt was seen and examined Lying in bed with no distress I met with patient POA Pt said she feels fine Denies any chest pain, palpitation, dizziness and SOB Physical Exam Vital Signs (Past 24 Hours): Last Vital Signs Temp 36.5 C 02/15/19 15:37 Pulse 71 02/15/19 15:37 Resp 18 02/15/19 15:37 BP 145/73 H 02/15/19 15:37 Pulse Ox 96 02/15/19 15:37 Physical Exam: General- No acute distress Head- atraumatic Eyes- PERRL, EOMI, ENT- oropharynx clear Neck- supple, no JVD Lungs- clear to auscultation Heart- regular rhythm; no murmur Abdomen- normal bowel sounds, soft, nontender Extremities- no calf tenderness Neuro- alert, oriented x 3; PERRL, EOMI; no facial palsy; no dysarthria Skin- warm & dry (1) Anemia Anemia type: unspecified type Qualified Code(s): D64.9 - Anemia, unspecified (2) Atrial fibrillation Atrial fibrillation type: chronic Qualified Code(s): I48.2 - Chronic atrial fibrillation
[2019-02-16] MEDS: HYDROCORTISONE SOD 25 MG in SYRINGE 0 ML IV SCH (06:17)
[2019-02-16] MEDS: LEVOTHYROXINE SODIUM 75 MCG TABLET PO SCH (06:18)
[2019-02-16] MEDS: POTASSIUM CHLORIDE 20 MEQ TABCR PO SCH (07:47)
[2019-02-16] MEDS: FERROUS GLUCONATE 324 MG TAB PO SCH (07:47)
[2019-02-16] MEDS: METOPROLOL SUCC 25MG EXT REL TAB PO SCH (07:47)
[2019-02-16] MEDS: SERTRALINE HCL 50 MG TABLET PO SCH (07:47)
[2019-02-16] MEDS: CEROVITE ADV FORMULA TAB PO SCH (07:47)
[2019-02-16 07:52] VITALS: BP 162/75; PULSE 65; TEMP 97.7; O2SAT 96
[2019-02-16] MEDS: INSULIN ASPART 100 UNITS/ML 3 ML PEN SC SCH ×2 (08:36→11:34)
[2019-02-16 09:37] LABS: Hematocrit (blood only) 27.8 % (37-47); Hemoglobin 8.9 g/dL (12.0-16.0); Mean Corpuscular Volume 100.4 fL (80-100); Mean Platelet Volume 10.2 fL (7.4-10.4); Platelet Count 288 K/uL (130-400); RDW Coefficient of Variation 18.2 % (11.5-14.5); RDW Standard Deviation 66.3 fL (36.4-46.3); Red Blood Count 2.77 M/uL (4.2-5.4)
[2019-02-16 09:44] LABS: INR 1.1 (0.9-1.1); Prothrombin Time 11.2 Seconds (9.0-12.0)
[2019-02-16] MEDS: PANTOprazole 40 MG TAB PO SCH (11:38)
--- NOTE | 2019-02-16 12:02 | Hospitalist Progress Note ---
Date of Service February 16, 2019 Assessment & Plan (1) Chronic pulmonary aspiration: Present on admission with weakness and weakness CT chest showed findings consistent with extensive aspiration with barium filling the left mainstem bronchus and extending into the segmental bronchi for the upper and lower lobes of the left lung. Progression of extensive left lung airspace opacities which suggest pneumonia/aspiration pneumonitis. Interval improvement in right lung pneumonia since CT of January 19, 2019. Repeat CXR yesterday showed dense left basilar consolidation and patchy right basilar consolidation. Video swallow showed aspiration with the thin liquid barium. Case discussed with speech and said that pt swallow with thin liquid diet. Pt and POA are choosing permissive aspiration Speech recommended slippery soft, bite size diet with aspiration precaution Will need a repeat CT scan in few weeks as per pulm Follow up with pulm as an outpatient (2) Weakness: Etiologies unknown, possible due to failure to thrive from depression, natural progression of aging, somatic manifestations of stress, chronic aspiration, occult malignancy that has not yet been identified. 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 Neuro on board plan to get EMG done as an outpatient Bone scan nuclear medicine showed no increased radiotracer uptake within the right frontal bone to correspond to the focus of marrow signal abnormality on MRI of February 06, 2019. This finding remains indeterminate however lack of uptake significantly decreases the likelihood for skeletal metastatic disease. Follow up with neuro in 4 to 6 weeks Fall precaution Continue physical and occupational therapy (3) Atrial fibrillation: Rate control on toprol will increase coumadin to 1.5 mg daily Continue monitor PT/INR (4) Anemia: Likely multifactorial in setting of chronic renal disease and other comorbidities. Chronic, stable, no active bleeding. (5) Dysphagia: 40 pound weight loss over the past several months. Video swallow showed aspiration with the thin liquid barium. Case discussed with speech and said that pt swallow with thin liquid diet. Pt and POA are choosing permissive aspiration Speech recommended slippery soft, bite size diet with aspiration precaution Follow up with speech therapy (6) Hypothyroidism: Continue levothyroxine at home dosing. (7) Supratherapeutic INR: Continue Coumadin INR is subtherapeutic currently Monitor PT/INR (8) CKD (chronic kidney disease), stage IV: creatinine stable avoid nephrotoxic agents Monitor BMP (9) DVT prophylaxis: Daily Coumadin and SCDs Disposition Discharge to [facility] today Subjective Pt was seen and examined Lying in bed with no distress watching parker is right Pt said that he feels fine Denies any chest pain, palpitation, dizziness and SOB Physical Exam Vital Signs (Past 24 Hours): Last Vital Signs Temp 36.5 C 02/16/19 07:51 Pulse 65 02/16/19 07:51 Resp 18 02/16/19 07:51 BP 162/75 H 02/16/19 07:51 Pulse Ox 96 02/16/19 07:51 Physical Exam: General- No acute distress Head- atraumatic Eyes- PERRL, EOMI, ENT- oropharynx clear Neck- supple, no JVD Lungs- No wheezing Heart- irregular rhythm Abdomen- normal bowel sounds, soft, nontender Extremities- no calf tenderness Neuro- alert, oriented x 3; PERRL, EOMI; no facial palsy; no dysarthria Skin- warm & dry (1) Anemia Anemia type: unspecified type Qualified Code(s): D64.9 - Anemia, unspecified (2) Atrial fibrillation Atrial fibrillation type: chronic Qualified Code(s): I48.2 - Chronic atrial fibrillation
--- NOTE | 2019-02-18 08:17 | Discharge Summary ---
Date of Service February 16, 2019 Admission HPI Per Admitting Provider Pt is 84 y/o F with PMHAtrial fibrillation on Coumadin, HTN, chronic anemia, CKD 3, chronic diastolic heart failure presented to ER with complaint of weakness. History obtained from patient and patient's niece. Patient's niece reports patient was drowsy yesterday. Increased weakness and lethargy today. Patient normally able to perform ADLs however today was unable to stand. Niece reports was taking her blood pressure with wrist BP monitor and BPs were 80s/50s and heart rate in the 50s. Niece reports all day patient refused to go to ER until this evening. He states patient had one episode of loose stool today. She reports patient with history of suspected aspiration pneumonia and finished Augmentin 5 days ago. Reports had hydralazine decreased to 25mg TID couple of days ago and was held today. Pt states hasn't been feeling well "for a long time". States chronic cough. Patient with history of dysphasia and a cough and has had a reported 40 pound weight loss over the past several months. Reported chronic poor oral intake. Reports had morning meds today. Patient niece has been staying with pt for the past 2 months. Reported that patient was to have bronchoscopy on 02/22/19. She was to have Coumadin held starting on 02/16/19 with no bridge. Denies known fever/chills, diaphoresis, N/V, CROSS, syncope, vision changes, neck pain, CP, SOB, orthopnea, palpitations, sore throat, choking, otalgia, rhinorrhea, abdominal pain, extremity edema, rashes, urinary symptoms. Admission Exam Per Admitting Provider General: thin elderly female Head: normocephalic, atraumatic Eyes: PERRL, EOM's intact, conjunctiva non-injected, anicteric ENT: normal inspection external ears, nose, mucous membranes dry Neck: supple, trachea midline Lungs: clear, no respiratory distress CV: irregular rhythm, rate 50, no pretibial edema Abd: normal BS, soft, non-tender Ext: no cyanosis, no calf tenderness Neuro: A&O to person, place, no focal deficits noted, normal affect Skin: warm, dry Principal Diagnosis Sepsis Pneumonia Toxic Metabolic Encephalopathy Sundowning CKD HTN HLD AFIB Hypothyroidism Discharge Exam General- No acute distress Head- atraumatic Eyes- PERRL, EOMI, ENT- oropharynx clear Neck- supple, no JVD Lungs- No wheezing Heart- irregular rhythm Abdomen- normal bowel sounds, soft, nontender Extremities- no calf tenderness Neuro- alert, oriented x 3; PERRL, EOMI; no facial palsy; no dysarthria Skin- warm & dry Discharge Data Allergies Allergy/AdvReac Type Severity Reaction Status Date / Time Bactrim AdvReac Severe RENAL Verified 05/24/12 09:38 PROBLEMS sulfamethoxazole AdvReac Severe RENAL Verified 11/14/18 06:19 PROBLEMS trimethoprim AdvReac Severe RENAL Verified 11/14/18 06:19 PROBLEMS vancomycin AdvReac Severe RENAL Verified 11/14/18 06:19 PROBLEMS Consultations 02/04/19 20:44 ED Decision to Admit Stat 02/04/19 22:53 Consult Case Management - Discharge Planning Routine Consult Office Electrician Routine 02/06/19 09:50 Consult Pulmonology Routine 02/06/19 11:47 Consult Neurology Routine 02/08/19 14:57 Consult Palliative Care Routine Ordered Studies 02/05/19 15:10 CT head/brain wo con Routine 02/06/19 11:39 MR brain wo con Urgent 02/07/19 14:45 FL video swallow Routine 02/08/19 07:00 CT abd pelvis wo con Routine CT chest wo con Routine XR chest 1V portable HISTORY: 84 years-old Female sepsis acute sepsis COMPARISON: Chest radiograph 01/17/2019, chest CT 01/19/2019 (both studies are without accompanying report) TECHNIQUE: Portable AP view of the chest FINDINGS: Cardiac silhouette is enlarged, unchanged. Calcification of the thoracic aortic arch. There is pulmonary vascular congestion. Patchy bilateral alveolar opacities, most pronounced within the left lung base are redemonstrated which have mildly progressed from 01/19/2019. Degenerative changes of the shoulders and spine. IMPRESSION: Patchy bilateral alveolar opacities, most pronounced in the left lung base have progressively worsened from 01/19/2019 suggestive of multifocal pneumonia. Fol low-up recommended. The above report was generated using voice recognition software. It may contain grammatical, syntax or spelling errors. Electronically signed by: Eleazar Christensen M.D. 02/04/2019 8:04 PM Dictated: 02/04/192001 Transcribed: 02/04/192001 CT head/brain wo con CLINICAL HISTORY: 84 years-old Female with ALOC. Acutely altered mental status with loss of consciousness TECHNIQUE: Multiple axial CT images of the head were obtained without contrast. A dose lowering technique was utilized adhering to the principles of ALARA. CT DOSE: 537.48 mGy.cm COMPARISON: None. FINDINGS: No acute intracranial hemorrhage, midline shift, intracranial mass, hydrocephalus, territorial ischemia or abnormal extra-axial collection. Age- related involutional changes. Mild degree of ill-defined hypodensities about the white matter suggest chronic microvascular ischemic changes. Coarse prominent calcifications about the falx cerebri. Cerebral vascular calcifications also not ed. The calvarium is intact. The paranasal sinuses, mastoid air cells, and middle ear cavities are clear. IMPRESSION: No acute intracranial abnormality. The above report was generated using voice recognition software. It may contain grammatical, syntax or spelling errors. Electronically signed by: Eleazar Christensen M.D. 02/05/2019 3:35 PM Dictated: 02/05/19 1533 Transcribed: 02/05/19 1533 Addendum: The first sentence within the findings should read: No foci of restricted diffusion to suggest acute infarct. Electronically signed by: Mike Louise M.D. 02/06/2019 6:09 PM ORIGINAL REPORT MRI OF THE BRAIN WITHOUT CONTRAST CLINICAL HISTORY: hypothermia, profound weakness COMPARISON STUDY: Head CT February 05, 2019. TECHNIQUE: Utilizing a 1.5 Saundra magnet and dedicated coil, multiplanar, multiecho imaging of the brain was performed without IV contrast. FINDINGS: The foci of restricted diffusion to suggest acute infarct. No acute intracranial hemorrhage, midline shift or mass effect is present. Ventricular system is normal. The basilar cisterns are patent. There are no extra-axial collections. No intracranial masses identified on this unenhanced examination. Flow-voids for the major intracranial vessels are present. White matter T2 hyperintense foci suggest small vessel disease. Ossification of the falx is noted. Note is made of a 3.4 cm T1 hypointense focus within the right frontal bone on axial image 16 of 22. No additional calvarial lesions are identified. IMPRESSION: 1. No acute intracranial findings. 2. 3.4 cm focus of marrow replacement within the right frontal bone. Differential considerations include benign and malignant etiologies and correlation with history of known malignancy is recommended. Whole-body bone scan may be of benefit in further evaluation. Electronically signed by: Mike Louise M.D. 02/06/2019 3:12 PM Dictated: 02/06/19 180 Transcribed: 02/06/191808 FL video swallow HISTORY: r/o aspiration, determine safest diet TECHNIQUE: Video fluoroscopic evaluation of swallowing was performed in the AP and lateral projections by the speech pathology staff. The patient is fed nectar-thick and thin liquid barium, a barium coated wafer, and barium pudding. FLUOROSCOPY TIME: 2.3 minutes. A cine loop submitted. COMPARISON STUDY: None. FINDINGS: There is normal hyoid excursion and epiglottic deflection. Aspiration with delayed cough with the thin liquid barium. Mild hypopharyngeal residue with the thicker barium consistencies. No additional episodes of aspiration identified. IMPRESSION: 1. Aspiration with the thin liquid barium. 2. Please see the speech pathologist report for detailed findings and recommendations. Electronically signed by: Juan C Tubbs M.D. 02/07/2019 3:17 PM Dictated: 02/07/19 1515 Transcribed: 02/07/[address] WITHOUT CONTRAST HISTORY: Acute weakness with weight loss. skull lesion TECHNIQUE: Multiaxial CT images of the abdomen and pelvis were performed without contrast. A dose lowering technique was utilized adhering to the principles of ALARA. COMPARISON STUDY: Chest CT of same day. FINDINGS: Enlargement of the imaged inferior cardiac chambers. Decreased attenuation of the cardiac blood pool suggests anemia. Coronary arterial calcifications noted. Small bilateral pleural effusions with left greater than right dependent bibasilar consolidation. Bibasilar bronchial wall thickening with mild intralobular septal thickening. There is no pneumatosis or pneumoperitoneum. The study is mildly motion degraded. Contracted gallbladder with mild wall thickening. Evaluation of the solid abdominal organs is limited without the use of IV contrast. Indeterminate 10 x 8 mm hypodense lesion of the inferior right hepatic lobe, not completely characterized on this noncontrast enhanced study. There is no intrahepatic biliary ductal dilation. Spleen and right adrenal gland are unremarkable. Indeterminate 2.1 x 1.4 cm soft tissue attenuating left adrenal gland lesion. Peripherally calcified splenic artery aneurysm, 1.7 x 1.5 cm. Moderate atrophy with multifocal scarring about the left kidney. Right kidney is unremarkable. No ureteral calculi or obstructive uropathy identified. Pelvic structures are suboptimally visualized secondary to streak artifact from retained enteric contrast in the bowel. Circumferential wall thickening of the bladder with partial distention. Watkins catheter is noted with considerable amount of air within the urinary bladder lumen. No adnexal mass lesions. Mild nonspecific free pelvic fluid. Extensive calcification of the abdominal aorta. No aneurysm or adenopathy. Mild free fluid about the right pericolic gutter, freddy hepatis and periduodenal distribution. There is no small bowel obstruction. Colonic diverticulosis without acute diverticulitis. The appendix appears normal. There is moderate circumferential wall thickening noted about the terminal ileum, image 165 series 7. There is mild generalized body wall edema. Degenerative changes of the spine, pelvis and hips. No suspicious bone lesions. Probable bone islands of the proximal left femur. Appendix appears normal. IMPRESSION: 1. Limited exam secondary to motion and lack of contrast. 2. Mild amount of free fluid noted about the freddy hepatis, periduodenal distribution and right pericolic gutter. 3. No bowel obstruction. Normal appendix. 4. Moderate wall thickening about the terminal ileum suggests of a nonspecific enteritis. Underlying mucosal neoplasm is considered less likely. This could be correlated with colonoscopy if of further clinical concern. 5. Bilateral pleural effusions with left greater than right bibasilar consolidation. 6. Cardiomegaly. 7. Suggested anemia. 8. Partially calcified chronic splenic artery aneurysm, 1.5 x 1.7 cm. 9. Additional findings as above. Electronically signed by: Eleazar Christensen M.D. 02/08/2019 8:42 AM Dictated: 02/08/1927 Transcribed: 02/08/1927 CT OF THE CHEST WITHOUT IV CONTRAST CLINICAL HISTORY: Skull lesion. COMPARISON STUDY: Chest CT January 19, 2019. Chest radiograph February 04, 2019. CT DOSE: 915.94 mGy.cm TECHNIQUE: Axial images of the chest were obtained without IV contrast. Images were reviewed in the axial, sagittal, and coronal planes. IV contrast was not administered for this examination. Automated exposure control was utilized for the study. A dose lowering technique was utilized adhering to the principles of ALARA. FINDINGS: The heart is moderately enlarged. There is extensive coronary artery calcification. There is no pericardial effusion. Attenuation of the blood pool is diminished. Small bilateral pleural effusions, left larger than right, are noted. Extensive barium from recent modified barium swallow is noted which fills the left mainstem bronchus and extends into the left upper and lower lobe bronchi. Extensive left lung airspace opacity has progressed since CT of January 19, 2019. Mild multifocal airspace opacities within the right lung have improved since prior CT. Interlobular septal thickening is noted. There is no pneumothorax. No central obstructing mass is identified. Lungs are suboptimally assessed on this exam but there is no convincing evidence for malignancy. No suspicious osseous lesion within the bony thorax is noted. Mildly enlarged mediastinal lymph nodes are noted. Abdomen and pelvis will be reported separately. A 2 cm peripherally calcified splenic artery aneurysm is noted. Low- attenuation left adrenal nodule is likely benign. This favors an adenoma. IMPRESSION: 1. Findings consistent with extensive aspiration with barium filling the left mainstem bronchus and extending into the segmental bronchi for the upper and lower lobes of the left lung. Progression of extensive left lung airspace opacities which suggest pneumonia/aspiration pneumonitis. Interval improvement in right lung pneumonia since CT of January 19, 2019. 2. No evidence for malignancy within the chest although lungs suboptimally assessed on this exam given extensive consolidation. 3. Moderate cardiomegaly. Extensive coronary artery calcification. 4. Small bilateral pleural effusions, left larger than right. 5. Mild interstitial pulmonary edema. Electronically signed by: Mike Louise M.D. 02/08/2019 8:32 AM Dictated: 02/08/19819 Transcribed: 02/08/19819 NM bone scan whole body CLINICAL HISTORY: 3.4 bony lesion in skull COMPARISON STUDY: MRI of the brain February 06, 2019. TECHNIQUE: 26.9 mCi of technetium 99m MDP was injected IV at 8:30 AM on February 08, 2019. 3 hours following injection, whole-body imaging in the anterior and posterior projections was performed. FINDINGS: Uptake within the sternoclavicular joints, shoulders and along the symphysis pubis is degenerative. Expected soft tissue and renal uptake is noted. There is mild S-shaped curvature of the thoracolumbar spine. Linear uptake projecting over the mid calvarium is due to ossification of the falx as shown on CT of February 05, 2019. No abnormal radiotracer uptake is noted within the right frontal bone to correspond to the focus shown on MRI of February 06, 2019. IMPRESSION: 1. No increased radiotracer uptake within the right frontal bone to correspond to the focus of marrow signal abnormality on MRI of February 06, 2019. This finding remains indeterminate however lack of uptake significantly decreases the likelihood for skeletal metastatic disease. 2. No suspicious radiotracer uptake identified. Electronically signed by: Mike Louise M.D. 02/08/2019 12:23 PM Dictated: 02/08/19 1219 Transcribed: 02/08/19 1219 SINGLE VIEW CHEST CLINICAL HISTORY: Aspiration. FINDINGS: An AP, portable, upright chest radiograph is compared to study dated 02/04/2019 and correlated with chest CT dated 02/08/2019. The examination is degraded by portable technique and patient rotation. The heart is enlarged and there is atherosclerotic calcification of the thoracic aorta. There is mild pulmonary vascular congestion. There is dense airspace consolidation at the left lung base. Mild patchy airspace consolidation is seen at the right lung base. Small pleural effusions are noted. No pneumothorax is seen. The skeletal structures are osteopenic. The bony thorax is grossly intact. A large calcified splenic artery aneurysm is seen in the left upper quadrant. IMPRESSION: 1. Cardiomegaly with mild pulmonary vascular congestion. 2. There is dense left basilar consolidation and patchy right basilar consolidation. Consolidation at the left lung base appears increased from 01/08. 3. Small pleural effusions. Electronically signed by: Julio Jiménez M.D. 02/14/2019 5:15 PM Dictated: 02/14/19 171 Transcribed: 02/14/191713 Hospital Course (1) Chronic pulmonary aspiration: Present on admission with weakness and weakness CT chest showed findings consistent with extensive aspiration with barium filling the left mainstem bronchus and extending into the segmental bronchi for the upper and lower lobes of the left lung. Progression of extensive left lung airspace opacities which suggest pneumonia/aspiration pneumonitis. Interval improvement in right lung pneumonia since CT of January 19, 2019. Repeat CXR yesterday showed dense left basilar consolidation and patchy right basilar consolidation. Video swallow showed aspiration with the thin liquid barium. Case discussed with speech and said that pt swallow with thin liquid diet. Pt and POA are choosing permissive aspiration Speech recommended slippery soft, bite size diet with aspiration precaution Will need a repeat CT scan in few weeks as per pulm Follow up with pulm as an outpatient (2) Weakness: Etiologies unknown, possible due to failure to thrive from depression, natural progression of aging, somatic manifestations of stress, chronic aspiration, occult malignancy that has not yet been identified. 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 Neuro on board plan to get EMG done as an outpatient Bone scan nuclear medicine showed no increased radiotracer uptake within the right frontal bone to correspond to the focus of marrow signal abnormality on MRI of February 06, 2019. This finding remains indeterminate however lack of uptake significantly decreases the likelihood for skeletal metastatic disease. Follow up with neuro in 4 to 6 weeks Fall precaution Continue physical and occupational therapy (3) Atrial fibrillation: Rate control on toprol will increase coumadin to 1.5 mg daily Continue monitor PT/INR (4) Anemia: Likely multifactorial in setting of chronic renal disease and other comorbidities. Chronic, stable, no active bleeding. (5) Dysphagia: 40 pound weight loss over the past several months. Video swallow showed aspiration with the thin liquid barium. Case discussed with speech and said that pt swallow with thin liquid diet. Pt and POA are choosing permissive aspiration Speech recommended slippery soft, bite size diet with aspiration precaution Follow up with speech therapy (6) Hypothyroidism: Continue levothyroxine at home dosing. (7) Supratherapeutic INR: Continue Coumadin INR is subtherapeutic currently Monitor PT/INR (8) CKD (chronic kidney disease), stage IV: creatinine stable avoid nephrotoxic agents Monitor BMP (9) DVT prophylaxis: Daily Coumadin and SCDs Disposition Discharge to [facility] today Total Time Total Time Spent Total Time Spent (In Minutes): 35 minutes Total Time Includes: Examination of the Patient, Discharge Planning, Medication Reconciliation, Communication With Other Providers and Other Discharge Plan Discharge Items Patient Disposition: Transfer [facility] Fac Reason For Visit: HYPOTENSION Discharge Diagnosis: Sepsis Pneumonia Toxic Metabolic Encephalopathy Sundowning CKD HTN HLD AFIB Hypothyroidism Condition: Fair Discharge Goals: Decrease discomfort, Improve function, Increase independence and Improve nutritional status Activity: Resume your previous activity Lifting: Gradually increase as tolerated Bathing: No limitations Exercise/Sports: None Weightbearing: Left weightbearing and Right weightbearing Non-emergency contact: Primary Care Provider Call non-emergency contact if: your symptoms worsen Follow-up/Referrals: Gurpreet Horn MD [Primary Care Provider] - Diet: Heart Healthy Add Provider Instructions: Follow up with your primary care provider once discharge from [facility] Follow up with neurology in 4-6 weeks to arrange for the EMG (Please call to schedule for the appointment) Follow up with pulmonology clinic (Please call to schedule for the appointment) Will need repeat CT scan in few weeks. Continue physical and occupational therapy Fall precaution Follow up with speech therapy Aspiration precaution Speech recommended slippery soft, bite size diet with aspiration precaution Follow up with the coag clinic (Check PT/INR) Monitor blood pressure Prescriptions: New sertraline 50 mg Tablet 25 mg PO QAM Qty: 30 RF: 0 Continued furosemide [Lasix] 40 mg tablet 20 mg PO DAILY RF: 0 levothyroxine [Synthroid] 75 mcg tablet 75 mg PO QAM RF: 0 potassium chloride [Klor-Con M20] 20 mEq tablet,ER particles/crystals 20 meq PO BIDM RF: 0 ferrous gluconate 240 mg (27 mg iron) Tablet 240 mg PO BID RF: 0 metoprolol succinate [Toprol XL] 25 mg tablet extended release 24 hr 12.5 mg PO QPM RF: 0 metoprolol succinate [Toprol XL] 25 mg tablet extended release 24 hr 25 mg PO QAM RF: 0 cholecalciferol (vitamin D3) [Vitamin D3] 2,000 unit Capsule 2,000 units PO DAILY RF: 0 PreserVision AREDS-2 [id number] Capsule 1 tab PO BID RF: 0 warfarin 1 mg tablet 1 mg PO DAILY RF: 0 sennosides-docusate sodium [Senna with Docusate Sodium] 8.6-50 mg Tablet 1 tab PO DAILY PRN (Reason: Constipation) RF: 0 Discontinued clonazepam 0.5 mg Tablet 0.25 mg PO HS PRN (Reason: Leg Cramps) RF: 0 hydralazine 50 mg tablet 25 mg PO .HOLD RF: 0 Stand-Alone Forms: [facility] Discharge Orders: Discharge Order (Routine); Ordered 02/14/19 Ordered By: Ryder Manzanares Skilled Items Patient informed of condition?: Yes DNR: Yes Discharge Level of Care: Skilled Communicable Disease: No Discharge Prognosis: Improving Admission Data Admit Date/Time: 02/04/19 21:39 Attending Provider: Kiesha Isaac Admit Provider: Nguyen Knowles Primary Care Provider: Gurpreet Horn Other Providers: Gonzalo Santiago ; Maribel Davila ; [place] ; Forrest Workman Service: Medical Other Interventions: Discharge Summary Assessment (RN) Last Done: 02/16/19 12:53 DC Date/Time DO NOT enter until pt leaves facility: 02/16/19 15:41
--- NOTE | 2019-03-11 11:13 | Coding Query ---
CODING QUERY To promote full compliance with coding requirements relating to patient care, provider participation is requested in all cases of grinder tender uncertainty. Please assist us with the question(s) below: Coding Question: Sepsis was documented in some of the progress notes but not in others. Please clarify if the patient was treated for sepsis. Thanks for your help! ( ) Sepsis, present on admission ( x) Sepsis, ruled-out ( ) Other, explain Thank you! Iris Martinez Principal Diagnosis: "that condition established after study, to be chiefly responsible for occasioning the admission of the patient to the hospital for care." Co-Existing Principal Diagnosis: "when two or more diagnoses equally meet the criteria for principal diagnosis as determined by the circumstances of admission, diagnostic work up, and/or therapy provided, and the Alphabetic Index, Tabular List, or another coding guideline does not provide sequencing direction, any one of the diagnoses may be sequenced first." "When the physician has documented what appears to be a current diagnosis in the body of the record, but has not included the diagnosis in the final diagnostic statement, the physician should be asked whether the diagnosis should be added." ([facility] 2 QTR90. p3-4) AMAN
== END 2019-02-16 15:41 | DRG 177 ==
LOC: ED 18:50 → 1E 21:39 → SUATTDRO 21:39 → 1E 22:23 → 2S 02-05 22:59 → 4E 02-14 13:27

== ENCOUNTER 2019-02-20 17:18 | Inpatient (IN) ==
--- NOTE | 2019-02-20 17:31 | CT Scan Report ---
CT head/brain wo con CT DOSE: 1612.45 mGy.cm HISTORY: Mental status change Stroke evaluation TECHNIQUE: Multiaxial CT images of the head were performed without the use of intravenous contrast. A dose lowering technique was utilized adhering to the principles of ALARA. Comparison: 02/05/2019 Findings: The paranasal sinuses and mastoid air cells are clear. The calvarium and skull base are int act. The ventricles and sulci are within normal limits. There is no mass, hematoma, midline shift, or acute infarct. Mild chronic small vessel change of aging Impression: No acute intracranial abnormality. Mild chronic small vessel change The above report was generated using voice recognition software. It may contain grammatical, syntax or spelling errors. Electronically signed by: Hayes Meza M.D. 02/20/2019 5:30 PM
[2019-02-20 17:47] LABS: Eosinophils % (auto) 4.3 %; Hematocrit (blood only) 26.1 % (37-47); Hemoglobin 8.4 g/dL (12.0-16.0); Immature Granulocytes # (auto) 0.05 K/uL (0.00-0.02); Immature Granulocytes % (auto) 1.1 %; Lymphocytes # (auto) 0.97 K/uL (1.2-3.4); Lymphocytes % (auto) 20.7 %; Mean Corpuscular Hgb Conc 32.2 g/dL (32-36); Mean Corpuscular Volume 101.6 fL (80-100); Mean Platelet Volume 9.7 fL (7.4-10.4); Monocytes # (auto) 0.45 K/uL (0.11-0.59); Monocytes % (auto) 9.6 %; Neutrophils # (auto) 3.02 K/uL (1.4-6.5); Neutrophils % (auto) 64.3 %; Platelet Count 269 K/uL (130-400); RDW Standard Deviation 65.8 fL (36.4-46.3); Red Blood Count 2.57 M/uL (4.2-5.4); White Blood Count 4.69 K/uL (4.8-10.8)
[2019-02-20 17:56] LABS: iSTAT Creatinine 1.3 mg/dl (0.6-1.3); iSTAT Hemoglobin 8.2 g/dl (12.0-16.0); iSTAT Ionized Calcium 1.23 mmol/l (1.12-1.32); iSTAT Potassium 4.8 mEq/L (3.3-5.0)
[2019-02-20 18:00] LABS: Appearance Urine Clear (Clear); Bilirubin Urine Negative (Negative); Blood Urine Negative (Negative); Color Urine Yellow; Glucose Urine UA Negative (Negative); Ketones Urine Negative (Negative); Leukocyte Esterase Urine Negative (Negative); Nitrite Urine Negative (Negative); Protein Urine Negative (Negative); Specific Gravity Urine 1.014 (1.000-1.030); Urobilinogen Urine Negative (Negative); pH Urine 6.5 (4.5-7.5)
[2019-02-20 18:03] LABS: INR 1.1 (0.9-1.1); Partial Thromboplastin Ratio 0.9; Prothrombin Time 11.5 Seconds (9.0-12.0)
--- NOTE | 2019-02-20 18:04 | XRay Report ---
XR chest 1V portable CLINICAL HISTORY: stroke dyspnea COMPARISON STUDY: 02/14/2019 FINDINGS: Mild stable cardiomegaly. Unchanging consolidative infiltrative process left base. Lungs ot herwise appear clear. IMPRESSION: Moderate cardiomegaly. This is stable from the prior exam. Consolidative infiltrate left base also unchanged. The above report was generated using voice recognition software. It may contain grammatical, syntax or spelling errors. Electronically signed by: Hayes Meza M.D. 02/20/2019 6:02 PM
[2019-02-20] MEDS ORDERED: ALTEPLASE For Stroke IV STA (18:05)
[2019-02-20 18:11] LABS: Alanine Aminotransferase 30 U/L (12-78); Albumin Level 2.4 gm/dl (3.4-5.0); Aspartate Aminotransferase 19 U/L (15-37); BUN Creatinine Ratio 16.1 (10-20); Blood Urea Nitrogen 20 mg/dl (7-18); Calcium 8.5 mg/dl (8.5-10.1); Carbon Dioxide 30 mmol/L (21-32); Chloride 111 mmol/L (98-107); Est GFR (African American) 44.7; Est GFR (Non-African American) 38.5; Glucose 123 mg/dl (70-99); Magnesium 1.8 mg/dl (1.8-2.4); Potassium 4.6 mmol/L (3.5-5.1); Sodium 143 mmol/L (136-145)
[2019-02-20] MEDS ORDERED: ALTEPLASE, RECOMBINANT 51 MG in EMPTY BAG 0 ML IV ONE (18:15)
[2019-02-20] MEDS ORDERED: RECOMBINANT IV ONE (18:15)
[2019-02-20] MEDS ORDERED: ALTEPLASE IV ONE (18:15)
[2019-02-20 18:16] LABS: Albumin Globulin Ratio 0.6 (0.9-2); Alkaline Phosphatase 126 U/L (45-117); Bilirubin,Total 0.4 mg/dl (0.2-1); Globulin 3.8 gm/dl (2.5-4.0); Total Protein 6.2 gm/dl (6.4-8.2); Troponin I < 0.015 ng/ml (0-0.045)
[2019-02-20] MEDS ORDERED: ICU PROTOCOL FOR HYPERGLYCEMIA PRN (19:14)
--- NOTE | 2019-02-20 19:32 | Critical Care Consultation ---
Date of Consultation February 20, 2019 Assessment & Plan (1) Received intravenous tissue plasminogen activator (tPA) in emergency department: Reason critically ill: Acute CVA status post TPA administration Neuro: CVA: -NIH stroke scale 15 -TPA received with an extended window -Extensive discussion with family and power of assistant district attorney at bedside, patient would not want transfer to the [facility] for neurosurgical intervention in the case of intracranial hemorrhage -I had extensive discussion with the family that if there was intracranial hemorrhage this would further complicate her prognosis, they are aware we do not have neurosurgical interventions Failure to thrive -Meets general criteria since October 2018 patient has lost 10 kg which is greater than 5% body weight -Report of significant inactivity and poor appetite Weakness -Was in personal long term receiving therapy Resp: Dyspnea -At risk for aspiration -In discussion with family, post 24 hours of TPA we will place NG tube for feedings patient has significant trouble swallowing prior to stroke CV: Atrial fibrillation Long-term use of anticoagulants -Subtherapeutic INR -No role of anticoagulation for at least 24 hours Fluids/Renal: Chronic kidney disease stage III: Mild hypernatremia ID: Monitor fever curve GI/Nutrition: Sarcopena -13% weight loss since October 2018 (3 months ago) Hypoalbuminemia Heme: Mild leukopenia Anemia of chronic disease Subtherapeutic INR DVT prophylaxis: SCDs: Chemical prophylaxis contraindicated in the setting of TPA administration Endocrine: ICU hyperglycemia protocol Lines: Peripheral IV Code Status: An extensive discussion with the family the patient is DO NOT RESUSCITATE in event of cardiac arrest. Initial thoughts were to remain full code, however, if the patient suffers a cardiac arrest after TPA administration in the extremely unlikely nature that we were able to successfully resuscitate the patient the condition she would be left in would likely require subspecialties and blood products we do not have available at this institution. Further family was in agreement that the likely iatrogenic injuries from the acute resuscitative process would place the patient in the condition she would not want to be in. Accordingly patient is DO NOT RESUSCITATE. This is also consistent with previous discussions with palliative care on her prior admission. Report was that the patient wanted to remain full code upon her arrival in the [facility] to facilitate 2 goals 1 being meeting with her grandson and to meeting with her inbound customer service agent and both goals have occurred per the family's report. I have personally spent 60 minutes of critical care time in the direct management of this patient. This is a life/limb threatening event. This includes time spent evaluating patient, direct bedside care, chart review, placing orders, interpretation of diagnostic studies, discussion with consultants, patient, and/or family members regarding treatment decisions, as well as other required patient management activities. This time is exclusive of all separately billable procedures, and teaching time and separate from and in addition to any other critical care service time. History of Present Illness Allergies Allergy/AdvReac Type Severity Reaction Status Date / Time Bactrim AdvReac Severe RENAL Verified 05/24/12 09:38 PROBLEMS sulfamethoxazole AdvReac Severe RENAL Verified 02/20/19 19:13 PROBLEMS trimethoprim AdvReac Severe RENAL Verified 02/20/19 19:13 PROBLEMS vancomycin AdvReac Severe RENAL Verified 02/20/19 19:13 PROBLEMS Home Medications Home Medications Medication Instructions Recorded Confirmed Type PreserVision AREDS-2 1 tab PO BID 11/08/18 02/20/19 History cholecalciferol (vitamin D3) 2,000 units PO DAILY 11/08/18 02/20/19 History [Vitamin D3] ferrous gluconate 240 mg PO BID 11/08/18 02/20/19 History levothyroxine [Synthroid] 75 mg PO QAM 11/08/18 02/20/19 History metoprolol succinate [Toprol XL] 12.5 mg PO QPM 11/08/18 02/20/19 History metoprolol succinate [Toprol XL] 25 mg PO QAM 11/08/18 02/20/19 History potassium chloride [Klor-Con M20] 20 meq PO BIDM 11/08/18 02/20/19 History sennosides-docusate sodium [Senna 1 tab PO DAILY PRN 02/04/19 02/20/19 History with Docusate Sodium] furosemide [Lasix] 20 mg PO DAILY 02/20/19 02/20/19 History sertraline 25 mg PO DAILY 02/20/19 02/20/19 History warfarin 2 mg PO HS 02/20/19 02/20/19 History Patient History Medical History CKD (chronic kidney disease), stage III (Chronic) Dysphagia (Chronic) HTN (hypertension) (Chronic) History of cataract (Chronic) Chronic diastolic (congestive) heart failure (Chronic) Recurrent epistaxis (Resolved) Anemia (Chronic) Hypothyroidism (Chronic) Atrial fibrillation (Chronic 08/01/14) 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
[2019-02-20] MEDS ORDERED: PHARMACIST DISCHARGE MED REC CONSULT PRN (19:36)
--- NOTE | 2019-02-20 20:35 | History & Physical Report ---
Date of Service February 20, 2019 Assessment & Plan (1) Stroke: (2) Received intravenous tissue plasminogen activator (tPA) in emergency department: This is a 84yo F with a PMH of atrial fibrillation (on coumadin), HTN, chronic anemia, CKD III, chronic diastolic HF and other medical problems listed below who presents from [facility] and was found to have a stroke with tpa administration. -Facial droop, dysarthria, left sided weakness. TPA received with an extended window in ED -Discussed possibility of conversion to hemorrhagic stroke and confirmed that family does not want transfer to tertiary care center. Will be monitored in ICU for 24-48 hours -CT head without acute abnormalities. Per bilingual sales representative for further stroke work-up with MRI brain, echo w/ bubble study -Has history of A Fib, with subtherapeutic INR of 1.1 today -Keep NPO for now. Dr. Santiago planning to place NG tube for feedings post 24 hours of TPA due to known swallowing difficulties prior to stroke -Neuro checks, PT, OT, speech therapy evaluations -Consult neurology (3) Chronic pulmonary aspiration: CXR with unchanged consolidative infiltrate left base -Chronic aspiration confirmed during previous admission in January-February 2019, with CT chest showed findings consistent with extensive aspiration with barium filling the left mainstem bronchus and extending into the segmental bronchi for the upper and lower lobes of the left lung. Video swallow showed aspiration with the thin liquid barium -Seen by pulmonology on previous admission. Antibiotics were not felt to be indicated. Was planning on follow up CT chest with pulm (4) HTN (hypertension): Allow for permissive HTN in the setting of ischemic stroke after tpa -Per guidelines, consider antihypertensives if BP >180/105 (5) CKD (chronic kidney disease), stage III: Kidney function at baseline with Cr of 1.26, GFR 38.5 -Continue to monitor (6) Anemia: Hgb of 8.4 today (baseline 8-9) -Chronic, in setting of CKD, no acute bleeding -Continue to monitor, transfuse if hgb <8 (7) DVT prophylaxis: SCDs. Chemical prophylaxis contraindicated in the setting of TPA administration Code status: DNR per discussion with Dr. Jack Lloyd PCP: Dr. Horn Dispo: Admitted to ICU Patient seen in collaboration with Dr. Knowles. Please see addendum. History of Present Illness Chief Complaint: stroke Primary Care Provider: Gurpreet Horn MD This is a 84yo F with a PMH of atrial fibrillation (on coumadin), HTN, chronic anemia, CKD III, chronic diastolic HF and other medical problems listed below who presents from [facility] with stroke symptoms. Was last seen in normal state of health at 2 PM this afternoon and when she awoke from nap at 430, patient had a facial droop and was unable to swallow pills or open eyes. Had difficulty following commands and seemed weak. Mag Hawkins was present then and alerted medical staff, who called EMS for transport to [facility] [place]. Upon arrival, patient had left facial droop, left arm and leg weakness and a right gaze preference. Stroke alert was called and the decision was made to administer TPA. Patient is able to speak but it is difficult to understand. Having a dull headache but no chest pain, SOB, nausea, or abdominal pain. Goals of care were discussed with POA's (Valentina) and mag Hawkins and eventually decision was made for DNR. Patient will be monitored in ICU for 24-48 hrs. Of note, patient was recently discharged to [facility] from our service 4 days ago after a complex work up for chronic aspiration, pulmonary infiltrates and generalized weakness. Initially presented with hypothermia and what looked like sepsis 2/2 pneumonia but was determined that patient was chronically aspirating with CT chest showed findings consistent with extensive aspiration with barium filling the left mainstem bronchus and extending into the segmental bronchi for the upper and lower lobes of the left lung. Video swallow showed aspiration with the thin liquid barium. Was planning to have repeat CT scan in a few weeks, per pulm, and eat a slippery soft diet with aspiration precautions, per speech. Weakness was extensively worked up and thought to be due to a combination of failure to thrive, depression and natural progression of aging. Also considered occult malignancy that has not yet been identified. Allergies Allergy/AdvReac Type Severity Reaction Status Date / Time Bactrim AdvReac Severe RENAL Verified 05/24/12 09:38 PROBLEMS sulfamethoxazole AdvReac Severe RENAL Verified 02/20/19 19:13 PROBLEMS trimethoprim AdvReac Severe RENAL Verified 02/20/19 19:13 PROBLEMS vancomycin AdvReac Severe RENAL Verified 02/20/19 19:13 PROBLEMS Home Medications Home Medications Medication Instructions Recorded Confirmed Type PreserVision AREDS-2 1 tab PO BID 11/08/18 02/20/19 History cholecalciferol (vitamin D3) 2,000 units PO DAILY 11/08/18 02/20/19 History [Vitamin D3] ferrous gluconate 240 mg PO BID 11/08/18 02/20/19 History levothyroxine [Synthroid] 75 mg PO QAM 11/08/18 02/20/19 History metoprolol succinate [Toprol XL] 12.5 mg PO QPM 11/08/18 02/20/19 History metoprolol succinate [Toprol XL] 25 mg PO QAM 11/08/18 02/20/19 History potassium chloride [Klor-Con M20] 20 meq PO BIDM 11/08/18 02/20/19 History sennosides-docusate sodium [Senna 1 tab PO DAILY PRN 02/04/19 02/20/19 History with Docusate Sodium] furosemide [Lasix] 20 mg PO DAILY 02/20/19 02/20/19 History sertraline 25 mg PO DAILY 02/20/19 02/20/19 History warfarin 2 mg PO HS 02/20/19 02/20/19 History Past Med/Surg History Medical History CKD (chronic kidney disease), stage III (Chronic) Dysphagia (Chronic) HTN (hypertension) (Chronic) History of cataract (Chronic) Chronic diastolic (congestive) heart failure (Chronic) Recurrent epistaxis (Resolved) Anemia (Chronic) Hypothyroidism (Chronic) Atrial fibrillation (Chronic 08/01/14) 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) Surgical History History of cataract surgery (Chronic) Status post tonsillectomy (Chronic) Family History Other Cancer Diabetes Stroke Social History Preferred Language: Spanish Communication Ability: Effective Telephone Station Installer Required: No Beliefs That Will Affect Care: None marital status: / Current Living Situation: Personal Care Facility Current Living Situation Comment: Niece has been staying with patient the last few weeks Other Information That Helps Us Care for You: No Feels Safe at Home: Yes Safety Concerns: Feels Safe At This Time Smoking Status: Former smoker Hx Alcohol Use: No Hx Substance Use: No Review of Systems All systems reviewed & are unremarkable except as noted in HPI & below Physical Exam Vital Signs (Past 24 Hours): Last Vital Signs Temp 36.7 C 02/20/19 20:21 Pulse 73 02/20/19 20:21 Resp 22 02/20/19 20:21 BP 134/83 02/20/19 20:21 Pulse Ox 99 02/20/19 20:21 Physical Exam: General Appearance: WD/WN, R sided facial droop, alert and able to answer questions and follow commands Head: normocephalic, atraumatic Eyes: normal inspection, PERRL, EOMI ENT: hearing grossly normal, pharynx normal (moist mucous membranes) Neck: supple, no JVD, no adenopathy Respiratory/Chest: Decreased air movement with rhonchi. No respiratory distress or accessory muscle use Cardiovascular: regular rate, rhythm, no murmur, normal peripheral pulses, 1+ pitting edema bilaterally Abdomen/GI: normal bowel sounds, soft, non-tender to palpation Extremities/Musculoskelatal: normal inspection, no calf tenderness, normal capillary refill, no pedal edema Neurologic/Psych: alert, oriented to self, place, situation. Poor insight. Dysarthric speech. Able to follow commands, no ROM and 0/5 RAMY on LUE and LLE. 5/5 RAMY on R side. Skin: normal color, warm/dry Results & Data Laboratory Results Short CBC 02/20/19 Range/Units 17:36 WBC 4.69 L (4.8-10.8) K/uL Hgb 8.4 L (12.0-16.0) g/dL Hct 26.1 L (37-47) % Plt Count 269 (130-400) K/uL BMP 02/20/19 17:36 Sodium 143 Potassium 4.6 Chloride 111 H Carbon Dioxide 30 BUN 20 H Creatinine 1.26 H Glucose 123 H Calcium 8.5 Cardiac Enzymes 02/20/19 Range/Units 17:36 Troponin I < 0.015 (0-0.045) ng/ml Liver Function 02/20/19 Range/Units 17:36 Total Bilirubin 0.4 (0.2-1) mg/dl AST 19 (15-37) U/L ALT 30 (12-78) U/L Alkaline Phosphatase 126 H (45-117) U/L Albumin 2.4 L (3.4-5.0) gm/dl Urine 02/20/19 Range/Units 17:50 Urine Color Yellow Urine Appearance Clear (Clear) Urine pH 6.5 (4.5-7.5) Ur Specific [place] 1.014 (1.000-1.030) Urine Protein Negative (Negative) Urine Glucose (UA) Negative (Negative) Diagnostic Findings CT head: Impression: No acute intracranial abnormality. Mild chronic small vessel change CXR: IMPRESSION: Moderate cardiomegaly. This is stable from the prior exam. Consolidative infiltrate left base also unchanged. Supervising Physician Co-Signing Physician Notes I have seen and examined the patient and have discussed the case with the provider above. I agree with the assessment and plan as stated. DO Benson (1) Anemia Anemia type: unspecified type Qualified Code(s): D64.9 - Anemia, unspecified (2) Stroke CVA mechanism: unspecified Qualified Code(s): I63.9 - Cerebral infarction, unspecified
--- NOTE | 2019-02-21 00:12 | Emergency Department Note ---
Entered by Michelle Lynn acting as a scribe for David Mclaughlin M.D. History of Present Illness General Chief complaint: Stroke Alert Stated complaint: STROKE ALERT Source: EMS History of Present Illness Onset (ago): unknown (1629) Location: left Pain Consistency: + constant Quality: + other (stroke symptoms) Associated symptoms: + other (left sided weakness, slurred speech, left facial droop) HPI limited secondary to patient's mental status. The patient is an 84 year old female who presents to the Emergency Room with complaints of constant stroke symptoms that started around 1630 today. The patient was sent over from [facility]. She went to bed around 1400 and was found with deficits at 1630. The patient is now confused, slurring speech, has a left facial droop, and left sided weakness. She has a history of A-fib and is on Coumadin. Home Medications Home Medications Medication Instructions Recorded Confirmed Type PreserVision AREDS-2 1 tab PO BID 11/08/18 02/20/19 History cholecalciferol (vitamin D3) 2,000 units PO DAILY 11/08/18 02/20/19 History [Vitamin D3] ferrous gluconate 240 mg PO BID 11/08/18 02/20/19 History levothyroxine [Synthroid] 75 mg PO QAM 11/08/18 02/20/19 History metoprolol succinate [Toprol XL] 12.5 mg PO QPM 11/08/18 02/20/19 History metoprolol succinate [Toprol XL] 25 mg PO QAM 11/08/18 02/20/19 History potassium chloride [Klor-Con M20] 20 meq PO BIDM 11/08/18 02/20/19 History sennosides-docusate sodium [Senna 1 tab PO DAILY PRN 02/04/19 02/20/19 History with Docusate Sodium] furosemide [Lasix] 20 mg PO DAILY 02/20/19 02/20/19 History sertraline 25 mg PO DAILY 02/20/19 02/20/19 History warfarin 2 mg PO HS 02/20/19 02/20/19 History Allergies Allergy/AdvReac Type Severity Reaction Status Date / Time Bactrim AdvReac Severe RENAL Verified 05/24/12 09:38 PROBLEMS sulfamethoxazole AdvReac Severe RENAL Verified 02/20/19 19:13 PROBLEMS trimethoprim AdvReac Severe RENAL Verified 02/20/19 19:13 PROBLEMS vancomycin AdvReac Severe RENAL Verified 02/20/19 19:13 PROBLEMS Past Med/Surg History Medical History CKD (chronic kidney disease), stage III (Chronic) Dysphagia (Chronic) HTN (hypertension) (Chronic) History of cataract (Chronic) Chronic diastolic (congestive) heart failure (Chronic) Recurrent epistaxis (Resolved) Anemia (Chronic) Hypothyroidism (Chronic) Atrial fibrillation (Chronic 08/01/14) 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) Surgical History History of cataract surgery (Chronic) Status post tonsillectomy (Chronic) Family History Other Cancer Diabetes Stroke Social History Preferred Language: Indonesian Communication Ability: Effective 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 Physical Exam Vital Signs Vital Signs - 24 hr 02/20/19 17:20 02/20/19 17:28 02/20/19 17:58 Temperature Temperature Source Sepsis Recent Fever Within 48 Hours No Sepsis Action Taken by Nursing No Action Required Pulse Rate 100 H 100 H 84 Pulse Rate [Apical] Pulse Rate [Left Finger] Pulse Rate from SpO2 Sensor 83 Pulse Rhythm [Apical] Pulse Rhythm [Left Finger] Pulse Strength [Apical] Respiratory Rate 14 20 19 Respiratory Effort / Characteristics Non-Labored Respiratory Depth Respiratory Pattern Blood Pressure 122/83 122/88 Blood Pressure [Right Arm] Blood Pressure Mean 96 99 Blood Pressure Mean [Right Arm] Blood Pressure Position [Right Arm] Pulse Oximetry 95 95 96 Pulse Oximetry [Right Hand] Oxygen Delivery Method Room Air Room Air Oxygen Delivery Method [Right Hand] 02/20/19 17:59 02/20/19 18:21 02/20/19 18:36 Temperature Temperature Source Sepsis Recent Fever Within 48 Hours Sepsis Action Taken by Nursing Pulse Rate Pulse Rate [Apical] Pulse Rate [Left Finger] 88 82 86 Pulse Rate from SpO2 Sensor Pulse Rhythm [Apical] Pulse Rhythm [Left Finger] Irregular Pulse Strength [Apical] Respiratory Rate 19 20 17 Respiratory Effort / Characteristics Non-Labored Non-Labored Non-Labored Respiratory Depth Normal Normal Normal Respiratory Pattern Blood Pressure Blood Pressure [Right Arm] 122/88 121/70 131/68 Blood Pressure Mean Blood Pressure Mean [Right Arm] 99 87 89 Blood Pressure Position [Right Arm] Pulse Oximetry 96 96 95 Pulse Oximetry [Right Hand] Oxygen Delivery Method Room Air Room Air Room Air Oxygen Delivery Method [Right Hand] 02/20/19 18:51 02/20/19 19:01 02/20/19 19:06 Temperature Temperature Source Sepsis Recent Fever Within 48 Hours Sepsis Action Taken by Nursing Pulse Rate 71 Pulse Rate [Apical] Pulse Rate [Left Finger] 78 70 Pulse Rate from SpO2 Sensor 74 Pulse Rhythm [Apical] Pulse Rhythm [Left Finger] Pulse Strength [Apical] Respiratory Rate 18 17 16 Respiratory Effort / Characteristics Non-Labored Non-Labored Respiratory Depth Normal Normal Respiratory Pattern Blood Pressure 135/66 Blood Pressure [Right Arm] 124/74 129/71 Blood Pressure Mean 89 Blood Pressure Mean [Right Arm] 90 90 Blood Pressure Position [Right Arm] Pulse Oximetry 96 97 96 Pulse Oximetry [Right Hand] Oxygen Delivery Method Room Air Room Air Oxygen Delivery Method [Right Hand] 02/20/19 19:07 02/20/19 19:16 02/20/19 19:31 Temperature Temperature Source Sepsis Recent Fever Within 48 Hours Sepsis Action Taken by Nursing Pulse Rate 77 72 76 Pulse Rate [Apical] Pulse Rate [Left Finger] Pulse Rate from SpO2 Sensor 83 77 70 Pulse Rhythm [Apical] Pulse Rhythm [Left Finger] Pulse Strength [Apical] Respiratory Rate 16 18 19 Respiratory Effort / Characteristics Respiratory Depth Respiratory Pattern Blood Pressure 129/71 133/62 133/66 Blood Pressure [Right Arm] Blood Pressure Mean 90 85 88 Blood Pressure Mean [Right Arm] Blood Pressure Position [Right Arm] Pulse Oximetry 95 91 96 Pulse Oximetry [Right Hand] Oxygen Delivery Method Room Air Oxygen Delivery Method [Right Hand] 02/20/19 19:46 02/20/19 20:00 02/20/19 20:06 Temperature Temperature Source Sepsis Recent Fever Within 48 Hours Sepsis Action Taken by Nursing Pulse Rate 77 Pulse Rate [Apical] 77 Pulse Rate [Left Finger] Pulse Rate from SpO2 Sensor 80 Pulse Rhythm [Apical] Irregular Pulse Rhythm [Left Finger] Pulse Strength [Apical] Normal Respiratory Rate 18 14 Respiratory Effort / Characteristics Non-Labored Spontaneous Respiratory Depth Normal Respiratory Pattern Regular Blood Pressure 123/75 Blood Pressure [Right Arm] 140/76 Blood Pressure Mean 91 Blood Pressure Mean [Right Arm] 97 Blood Pressure Position [Right Arm] Lying Pulse Oximetry 96 99 Pulse Oximetry [Right Hand] 99 Oxygen Delivery Method Room Air Room Air Oxygen Delivery Method [Right Hand] Room Air 02/20/19 20:21 02/20/19 20:51 02/20/19 21:00 Temperature 36.7 C Temperature Source Axillary Sepsis Recent Fever Within 48 Hours Sepsis Action Taken by Nursing Pulse Rate Pulse Rate [Apical] 73 65 Pulse Rate [Left Finger] Pulse Rate from SpO2 Sensor Pulse Rhythm [Apical] Irregular Irregular Pulse Rhythm [Left Finger] Pulse Strength [Apical] Normal Normal Respiratory Rate 22 18 Respiratory Effort / Characteristics Non-Labored Spontaneous Non-Labored Spontaneous Non-Labored Spontaneous Respiratory Depth Normal Normal Normal Respiratory Pattern Regular Regular Regular Blood Pressure Blood Pressure [Right Arm] 134/83 123/70 Blood Pressure Mean Blood Pressure Mean [Right Arm] 100 87 Blood Pressure Position [Right Arm] Lying Lying Pulse Oximetry 99 97 Pulse Oximetry [Right Hand] Oxygen Delivery Method Room Air Room Air Room Air Oxygen Delivery Method [Right Hand] 02/20/19 21:21 02/20/19 21:51 02/20/19 22:21 Temperature Temperature Source Sepsis Recent Fever Within 48 Hours Sepsis Action Taken by Nursing Pulse Rate Pulse Rate [Apical] 70 60 67 Pulse Rate [Left Finger] Pulse Rate from SpO2 Sensor Pulse Rhythm [Apical] Irregular Irregular Irregular Pulse Rhythm [Left Finger] Pulse Strength [Apical] Normal Normal Normal Respiratory Rate 15 18 20 Respiratory Effort / Characteristics Non-Labored Spontaneous Non-Labored Spontaneous Non-Labored Spontaneous Respiratory Depth Normal Normal Normal Respiratory Pattern Regular Regular Regular Blood Pressure Blood Pressure [Right Arm] 131/68 134/66 134/72 Blood Pressure Mean Blood Pressure Mean [Right Arm] 89 88 92 Blood Pressure Position [Right Arm] Lying Lying Lying Pulse Oximetry 98 97 98 Pulse Oximetry [Right Hand] Oxygen Delivery Method Room Air Room Air Room Air Oxygen Delivery Method [Right Hand] 02/20/19 22:51 02/20/19 23:21 02/20/19 23:51 Temperature 36.6 C Temperature Source Axillary Sepsis Recent Fever Within 48 Hours Sepsis Action Taken by Nursing Pulse Rate Pulse Rate [Apical] 64 69 66 Pulse Rate [Left Finger] Pulse Rate from SpO2 Sensor Pulse Rhythm [Apical] Irregular Irregular Irregular Pulse Rhythm [Left Finger] Pulse Strength [Apical] Normal Normal Normal Respiratory Rate 16 20 16 Respiratory Effort / Characteristics Non-Labored Spontaneous Non-Labored Spontaneous Non-Labored Spontaneous Respiratory Depth Normal Normal Normal Respiratory Pattern Regular Regular Regular Blood Pressure Blood Pressure [Right Arm] 132/63 138/56 L 126/50 L Blood Pressure Mean Blood Pressure Mean [Right Arm] 86 83 75 Blood Pressure Position [Right Arm] Lying Lying Lying Pulse Oximetry 98 96 96 Pulse Oximetry [Right Hand] Oxygen Delivery Method Room Air Room Air Room Air Oxygen Delivery Method [Right Hand] GENERAL: Awake, alert to verbal stimuli. HENT: Normocephalic, atraumatic. EYES: Normal conjunctiva. Sclera non-icteric. NECK: Supple. No nuchal rigidity. RESPIRATORY: Clear to auscultation. No wheezes. Normal respiratory effort. CARDIAC: Irregularly regular rate and rhythm. Extremities warm and well perfused. GI: Soft, non-distended. No tenderness to palpation. No rebound or guarding. No masses. RECTAL: Deferred. MUSCULOSKELETAL: Atraumatic. Chest examination reveals no tenderness. LOWER EXTREMITIES: Calves are equal size bilaterally and non-tender. 1+ bilateral lower extremity edema. NEURO: Slurred speech. Left sided facial droop. No movement of left arm or leg. Right gaze preference. Slow to answer SKIN: Warm and dry. No rash or jaundice noted. Course 1727: The patient was evaluated in room B1, and a complete history and physical examination were performed. 1746: I discussed the patient's case with Dr. Villa of [facility] at this time. She recommends TPA be given. 1830: I reviewed the patient's case with Zeynep Marquez PA-C, of [facility]. She will evaluate the patient for further management. Consultations Consultation #1: I discussed the patient's case with Dr. Villa of [facility] at this time. She recommends TPA be given. Time: 17:46 Consultation #2: I reviewed the patient's case with Zeynep Marquez PA-C, of [facility]. She will evaluate the patient for further management. Time: 18:30 Administered Medications Discontinued Medications Alteplase, Recombinant (Activase For Stroke) 1 ea IV NOW STA; Protocol Stop: 02/20/19 18:06 Last Admin: 02/20/19 19:33 Dose: Not Given Documented by: [id number] Alteplase, Recombinant 5.6 mg/ (Syringe) 5.6 mls @ 5.6 mls/min IV TODAY@1815 ONE Stop: 02/20/19 18:16 Last Admin: 02/20/19 18:20 Dose: 5.6 mls/min Documented by: [id number] Cosigned by: [id number] Alteplase, Recombinant 51 mg/ (EMPTY BAG) 51 mls @ 51 mls/hr IV TODAY@1815 ONE Stop: 02/20/19 19:14 Last Infusion: 02/20/19 19:27 Dose: 0 mls/hr Documented by: [id number] Cosigned by: [id number] Admin: 02/20/19 18:21 Dose: 51 mls/hr Documented by: [id number] Cosigned by: [id number] Medical Decision Making Differential Diagnosis Etiologies such as metabolic, infection, hypoglycemia, electrolyte abnormalities, cardiac sources, intracerebral event, toxicologic, neurologic, as well as others were entertained. Medical Records Attestation: I reviewed the patient's medical records. Home Medications Current Medication List: was personally reviewed by me Laboratory Data Attestation: I reviewed the patient's lab results. Result diagrams: 02/20/19 17:36 02/20/19 17:36 Lab Results 02/20/19 02/20/19 02/20/19 Range/Units 17:36 17:36 17:36 WBC 4.69 L (4.8-10.8) K/uL RBC 2.57 L (4.2-5.4) M/uL Hgb 8.4 L (12.0-16.0) g/dL POC Hgb (12.0-16.0) g/dl Hct 26.1 L (37-47) % POC Hct (37-47) % MCV 101.6 H (80-100) fL MCH 32.7 (25-34) pg MCHC 32.2 (32-36) g/dL RDW Std Deviation 65.8 H (36.4-46.3) fL RDW Coeff of Patrick 18.0 H (11.5-14.5) % Plt Count 269 (130-400) K/uL MPV 9.7 (7.4-10.4) fL Immature Gran % (Auto) 1.1 % Neut % (Auto) 64.3 % Lymph % (Auto) 20.7 % [place] % (Auto) 9.6 % Eos % (Auto) 4.3 % Baso % (Auto) 0.0 % Immature Gran # (Auto) 0.05 H (0.00-0.02) K/uL Neut # (Auto) 3.02 (1.4-6.5) K/uL Lymph # (Auto) 0.97 L (1.2-3.4) K/uL [place] # (Auto) 0.45 (0.11-0.59) K/uL Eos # (Auto) 0.20 (0-0.5) K/uL Baso # (Auto) 0.00 (0-0.2) K/uL PT 11.5 (9.0-12.0) Seconds INR 1.1 (0.9-1.1) APTT 24.0 (21.0-31.0) Seconds PTT Ratio 0.9 POC Sodium (135-144) mEq/L Sodium 143 (136-145) mmol/L POC Potassium (3.3-5.0) mEq/L Potassium 4.6 (3.5-5.1) mmol/L POC Chloride (101-112) mEq/L Chloride 111 H (98-107) mmol/L Carbon Dioxide 30 (21-32) mmol/L POC Total CO2 (24-31) mEq/l Anion Gap 2.0 L (3-11) POC Anion Gap (16-25) mmol/L POC BUN (7-18) mg/dl BUN 20 H (7-18) mg/dl Creatinine 1.26 H (0.6-1.2) mg/dl POC Creatinine (0.6-1.3) mg/dl Est Cr Clr Drug Dosing Not Reportable Est GFR ( Amer) 44.7 Est GFR (Non-Af Amer) 38.5 BUN/Creatinine Ratio 16.1 (10-20) Glucose 123 H (70-99) mg/dl POC Glucose (70-99) POC Glucose (other) (70-99) mg/dl Calcium 8.5 (8.5-10.1) mg/dl POC Ioniz Calcium [place] (1.12-1.32) mmol/l Magnesium 1.8 (1.8-2.4) mg/dl Total Bilirubin 0.4 (0.2-1) mg/dl AST 19 (15-37) U/L ALT 30 (12-78) U/L Alkaline Phosphatase 126 H (45-117) U/L Troponin I < 0.015 (0-0.045) ng/ml Total Protein 6.2 L (6.4-8.2) gm/dl Albumin 2.4 L (3.4-5.0) gm/dl Globulin 3.8 (2.5-4.0) gm/dl Albumin/Globulin Ratio 0.6 L (0.9-2) Urine Color Urine Appearance (Clear) Urine pH (4.5-7.5) Ur Specific [place] (1.000-1.030) Urine Protein (Negative) Urine Glucose (UA) (Negative) Urine Ketones (Negative) Urine Blood (Negative) Urine Nitrite (Negative) Urine Bilirubin (Negative) Urine Urobilinogen (Negative) Ur Leukocyte Esterase (Negative) Nasal Screen MRSA (PCR) (Negative) Blood Type Antibody Screen Antibody Identification 02/20/19 02/20/19 02/20/19 Range/Units 17:36 17:36 17:41 WBC (4.8-10.8) K/uL RBC (4.2-5.4) M/uL Hgb (12.0-16.0) g/dL POC Hgb 8.2 L (12.0-16.0) g/dl Hct (37-47) % POC Hct 24 L (37-47) % MCV (80-100) fL MCH (25-34) pg MCHC (32-36) g/dL RDW Std Deviation (36.4-46.3) fL RDW Coeff of Patrick (11.5-14.5) % Plt Count (130-400) K/uL MPV (7.4-10.4) fL Immature Gran % (Auto) % Neut % (Auto) % Lymph % (Auto) % [place] % (Auto) % Eos % (Auto) % Baso % (Auto) % Immature Gran # (Auto) (0.00-0.02) K/uL Neut # (Auto) (1.4-6.5) K/uL Lymph # (Auto) (1.2-3.4) K/uL [place] # (Auto) (0.11-0.59) K/uL Eos # (Auto) (0-0.5) K/uL Baso # (Auto) (0-0.2) K/uL PT (9.0-12.0) Seconds INR (0.9-1.1) APTT (21.0-31.0) Seconds PTT Ratio POC Sodium 145 H (135-144) mEq/L Sodium (136-145) mmol/L POC Potassium 4.8 (3.3-5.0) mEq/L Potassium (3.5-5.1) mmol/L POC Chloride 106 (101-112) mEq/L Chloride (98-107) mmol/L Carbon Dioxide (21-32) mmol/L POC Total CO2 26 (24-31) mEq/l Anion Gap (3-11) POC Anion Gap 18.0 (16-25) mmol/L POC BUN 19 H (7-18) mg/dl BUN (7-18) mg/dl Creatinine (0.6-1.2) mg/dl POC Creatinine 1.3 (0.6-1.3) mg/dl Est Cr Clr Drug Dosing Est GFR ( Amer) Est GFR (Non-Af Amer) BUN/Creatinine Ratio (10-20) Glucose (70-99) mg/dl POC Glucose 138 H (70-99) POC Glucose (other) 126 H (70-99) mg/dl Calcium (8.5-10.1) mg/dl POC Ioniz Calcium [place] 1.23 (1.12-1.32) mmol/l Magnesium (1.8-2.4) mg/dl Total Bilirubin (0.2-1) mg/dl AST (15-37) U/L ALT (12-78) U/L Alkaline Phosphatase (45-117) U/L Troponin I (0-0.045) ng/ml Total Protein (6.4-8.2) gm/dl Albumin (3.4-5.0) gm/dl Globulin (2.5-4.0) gm/dl Albumin/Globulin Ratio (0.9-2) Urine Color Urine Appearance (Clear) Urine pH (4.5-7.5) Ur Specific [place] (1.000-1.030) Urine Protein (Negative) Urine Glucose (UA) (Negative) Urine Ketones (Negative) Urine Blood (Negative) Urine Nitrite (Negative) Urine Bilirubin (Negative) Urine Urobilinogen (Negative) Ur Leukocyte Esterase (Negative) Nasal Screen MRSA (PCR) (Negative) Blood Type A Positive Antibody Screen POSITIVE A Antibody Identification Anti-K 02/20/19 02/20/19 Range/Units 17:50 20:04 WBC (4.8-10.8) K/uL RBC (4.2-5.4) M/uL Hgb (12.0-16.0) g/dL POC Hgb (12.0-16.0) g/dl Hct (37-47) % POC Hct (37-47) % MCV (80-100) fL MCH (25-34) pg MCHC (32-36) g/dL RDW Std Deviation (36.4-46.3) fL RDW Coeff of Patrick (11.5-14.5) % Plt Count (130-400) K/uL MPV (7.4-10.4) fL Immature Gran % (Auto) % Neut % (Auto) % Lymph % (Auto) % [place] % (Auto) % Eos % (Auto) % Baso % (Auto) % Immature Gran # (Auto) (0.00-0.02) K/uL Neut # (Auto) (1.4-6.5) K/uL Lymph # (Auto) (1.2-3.4) K/uL [place] # (Auto) (0.11-0.59) K/uL Eos # (Auto) (0-0.5) K/uL Baso # (Auto) (0-0.2) K/uL PT (9.0-12.0) Seconds INR (0.9-1.1) APTT (21.0-31.0) Seconds PTT Ratio POC Sodium (135-144) mEq/L Sodium (136-145) mmol/L POC Potassium (3.3-5.0) mEq/L Potassium (3.5-5.1) mmol/L POC Chloride (101-112) mEq/L Chloride (98-107) mmol/L Carbon Dioxide (21-32) mmol/L POC Total CO2 (24-31) mEq/l Anion Gap (3-11) POC Anion Gap (16-25) mmol/L POC BUN (7-18) mg/dl BUN (7-18) mg/dl Creatinine (0.6-1.2) mg/dl POC Creatinine (0.6-1.3) mg/dl Est Cr Clr Drug Dosing Est GFR ( Amer) Est GFR (Non-Af Amer) BUN/Creatinine Ratio (10-20) Glucose (70-99) mg/dl POC Glucose (70-99) POC Glucose (other) (70-99) mg/dl Calcium (8.5-10.1) mg/dl POC Ioniz Calcium [place] (1.12-1.32) mmol/l Magnesium (1.8-2.4) mg/dl Total Bilirubin (0.2-1) mg/dl AST (15-37) U/L ALT (12-78) U/L Alkaline Phosphatase (45-117) U/L Troponin I (0-0.045) ng/ml Total Protein (6.4-8.2) gm/dl Albumin (3.4-5.0) gm/dl Globulin (2.5-4.0) gm/dl Albumin/Globulin Ratio (0.9-2) Urine Color Yellow Urine Appearance Clear (Clear) Urine pH 6.5 (4.5-7.5) Ur Specific [place] 1.014 (1.000-1.030) Urine Protein Negative (Negative) Urine Glucose (UA) Negative (Negative) Urine Ketones Negative (Negative) Urine Blood Negative (Negative) Urine Nitrite Negative (Negative) Urine Bilirubin Negative (Negative) Urine Urobilinogen Negative (Negative) Ur Leukocyte Esterase Negative (Negative) Nasal Screen MRSA (PCR) Negative (Negative) Blood Type Antibody Screen Antibody Identification Imaging Data Radiologist's Impression: Radiology results as stated below per my review and the radiologist's interpretation: CT head/brain wo con CT DOSE: 1612.45 mGy.cm HISTORY: Mental status change Stroke evaluation TECHNIQUE: Multiaxial CT images of the head were performed without the use of intravenous contrast. A dose lowering technique was utilized adhering to the principles of ALARA. Comparison: 02/05/2019 Findings: The paranasal sinuses and mastoid air cells are clear. The calvarium and skull base are intact. The ventricles and sulci are within normal limits. There is no mass, hematoma, midline shift, or acute infarct. Mild chronic small vessel change of aging Impression: No acute intracranial abnormality. Mild chronic small vessel change The above report was generated using voice recognition software. It may contain grammatical, syntax or spelling errors. Electronically signed by: Hayes Meza M.D. 02/20/2019 5:30 PM. XR chest 1V portable CLINICAL HISTORY: stroke dyspnea COMPARISON STUDY: 02/14/2019 FINDINGS: Mild stable cardiomegaly. Unchanging consolidative infiltrative p rocess left base. Lungs otherwise appear clear. IMPRESSION: Moderate cardiomegaly. This is stable from the prior exam. Consolidative infiltrate left base also unchanged. The above report was generated using voice recognition software. It may contain grammatical, syntax or spelling errors. Electronically signed by: Hayes Meza M.D. 02/20/2019 6:02 PM ECG Data Attestation: I personally reviewed and interpreted this ECG as follows: Indication: altered mental status Rate (beats per minute): 97 Rhythm: atrial fibrillation Findings: + other (non-specific lateral T wave changes ); no ST elevation Blood Pressure Blood Pressure Findings: Elevated blood pressure Blood Pressure Disposition: further management by hospitalist SHAILESH Narrative 84-year-old female history of atrial fibrillation presenting from [facility] today noted at 4:30 PM to have significant left-sided deficits. Looking to the right. Left facial droop with no movement of left arm or leg. Patient came a stroke alert. No intracranial bleed noted. Patient with limited history and significant slurred speech. Concern for possible stroke. Patient POA/family present states she was normal this morning. Called to the facility states they saw her normal at 2 PM when she went for a nap. [id number] INR was completed showing subtherapeutic Coumadin INR. Tele-stroke completed. Extensive discussion with POA/family regarding risks and benefits of extended window TPA (upto 4.5hrs). Did highlight that severe bleeding and were a possibility. Did also state that she has severe deficits that are likely going to be disabling giving the severity of her exam findings at this time. [facility] [place] [facility] agrees with this assessment. Patient reportedly already has dysphagia issues. Maintaining her airway here. Noted be in atrial fibrillation. Laboratory studies most significant for subtherapeutic INR. After extensive discussion with family they are agreeable for TPA. Slight delay in TPA given the need for INR check, establishing last known well, and informed discussion with POAs given extended time window.TPA was given just before the 4-1/2-hour window. Did discuss with him her prognosis is concerning given what appears to be a large area stroke and TPA may or may not work or make things worse. Impression & Plan Stroke Critical Care Time I have personally spent greater than 60 minutes of critical care time in the direct management of this patient. This includes bedside care, interpretation of diagnostic studies, and testing, discussion with consultants, patient, and family members, and other required patient management activities. This 60 minutes is in excess of all separately billable procedures. Critical Care Time: Yes Total Critical Care Time: 60 Discharge Plan Visit Data *Final* Discharge Date/Time: 02/20/19 19:49 Chief Complaint: Stroke Alert Stated Complaint: STROKE ALERT ED Provider: David Mclaughlin Discharge Problem: Stroke Patient Disposition: Admitted As Inpatient Discharge Instructions Interventions: ED Discharge Assessment Last Done: 02/20/19 19:49 Discharge Problem: Stroke Qualifiers: CVA mechanism: unspecified Qualified Code(s): I63.9 - Cerebral infarction, unspecified The scribe's documentation has been prepared under my direction and personally reviewed by me in its entirety. I confirm that the note above accurately reflects all work, treatment, procedures, and medical decision making performed by me.
--- NOTE | 2019-02-21 08:58 | Critical Care Progress Note ---
Date of Service February 21, 2019 Assessment & Plan (1) Admitted to intensive care unit: Reason Critically Ill: 84 y/o female with declining physical health, recent hospitalizations, history of afib who had warfarin held for bronchoscopy procedure for chronic aspiration and non-therapeutic INR with acute CVA requiring TPA. Neuro-Left sided weakness and Broca's aphagsia consistent with right MCA infarct treating with TPA. Cardiac/Vascular-Atrial fibrillation with irregularly irregular on engine monitor - Not on any current therapy, but rate is stable in 60s-70s. - Had negative trop x1 - Review of old EMR, appears to have had Coumadin held on 02/16 for scheduled bronch on 02/22, and non-therapeutic INR on admission, likely etiology thrombus from left side of heart. Pulm-Aspiration risk with previous failed swallowing study - currently maintaining normal Sp)2 states on RA - requiring suctioning of thick clear sputum overnight but nursing notes better ability to handle secretions - swallowing study on 02/07/19 showed aspiration with thin liquids GI/Nutrition-NPO - Sarcopena 13% weight loss since 10/26 - hypoalbuminemia Renal/electrolytes- - CKD stage III I&O: net -874; urine output measured to be 0.57 mg/kg/hr -Watkins cath in place returning light yellow urine Endo-ICU hyperglycemic protocol Heme-Anemia of chronic disease - Hgb on 02/20 8.4 - no signs of bleeding ID-afebrile, maintaining O2 sats on RA Lines-peripheral IVs intact DVT prophylaxis: SCDs Resuscitation status: DNR (2) Received intravenous tissue plasminogen activator (tPA) in emergency department: Supervising Physician Co-Signing Physician Notes Dr. Caldwell was resident physician during care of patient. I separately evaluated patient for wilkes portions of the history and the exam. I was present during the critical portion of medical decision making, and I discussed the case with the resident. I generally agree with the findings and plan. Patient was discussed in multidisciplinary rounds. Mild improvement in weakness . No gag reflex. 24 hours post TPA will be approximately 1800. Anticipate CT scan at that time, neuro consult. Subjective Caveat: History limited by Acute CVA/dysphasia. Nursing notes that patient without gag reflex and required suctioning of thick clear sputum with improvement in ability to handle secretions. Physical Exam Vital Signs (Past 24 Hours): Last Vital Signs Temp 36.8 C 02/21/19 04:21 Pulse 69 02/21/19 06:21 Resp 14 02/21/19 06:21 BP 101/50 L 02/21/19 06:21 Pulse Ox 98 02/21/19 06:21 Constitutional: cooperative and comfortable Eyes: unable to follow commands to track EOM ENMT: Mouth: no drooling Neck: normal visual inspection and trachea midline Respiratory: coarse breath sounds diffusely, but appears consistent with noise from upper airway secretions Cardiovascular: Rate/Rhythm: regular rate diminished heart sounds, irregularly irregular Gastrointestinal (Abdomen): Inspection/Auscultation: normal bowel sounds Percussion/Palpation: abdomen soft; abdomen nontender Musculoskeletal: Left sided weakness; cannot hold left arm in air against gravity; do not appreciate ability for handgrip on left or strength with left foot on dorsi or plantar flexion. Neurologic: Follows commands; cannot follow EOM to assess for CN deficit of 3,4,6 but no appearing deficits; left sided facial weakness that spares the forehead. Left sided weakness; cannot hold left arm in air against gravity; do not appreciate ability for handgrip on left or strength with left foot on dorsi or plantar flexion. Sensory deficit to LLE. Appears sleepy but is easily arousable, opens eyes to voice. Psychiatric: Orientation: oriented to person, oriented to place, oriented to time and cooperative Genitourinary: Watkins cath in place and returning light yellow urine. Results & Data Laboratory Results Laboratory Results - last 24 hr 02/20/19 02/20/19 02/20/19 17:34 17:36 17:36 WBC 4.69 L RBC 2.57 L Hgb 8.4 L POC Hgb Hct 26.1 L POC Hct MCV 101.6 H MCH 32.7 MCHC 32.2 RDW Std Deviation 65.8 H RDW Coeff of Patrick 18.0 H Plt Count 269 MPV 9.7 Immature Gran % (Auto) 1.1 Neut % (Auto) 64.3 Lymph % (Auto) 20.7 Sawyer % (Auto) 9.6 Eos % (Auto) 4.3 Baso % (Auto) 0.0 Immature Gran # (Auto) 0.05 H Neut # (Auto) 3.02 Lymph # (Auto) 0.97 L Sawyer # (Auto) 0.45 Eos # (Auto) 0.20 Baso # (Auto) 0.00 PT 11.5 POC INR 1.3 H INR 1.1 APTT 24.0 PTT Ratio 0.9 POC Sodium Sodium POC Potassium Potassium POC Chloride Chloride Carbon Dioxide POC Total CO2 Anion Gap POC Anion Gap POC BUN BUN Creatinine POC Creatinine Est Cr Clr Drug Dosing Est GFR ( Amer) Est GFR (Non-Af Amer) BUN/Creatinine Ratio Glucose POC Glucose POC Glucose (other) Calcium POC Ioniz Calcium Roxanna Magnesium Total Bilirubin AST ALT Alkaline Phosphatase Troponin I Total Protein Albumin Globulin Albumin/Globulin Ratio Urine Color Urine Appearance Urine pH Ur Specific [place] Urine Protein Urine Glucose (UA) Urine Ketones Urine Blood Urine Nitrite Urine Bilirubin Urine Urobilinogen Ur Leukocyte Esterase Nasal Screen MRSA (PCR) Blood Type Antibody Screen Antibody Identification 02/20/19 02/20/19 02/20/19 17:36 17:36 17:36 WBC RBC Hgb POC Hgb Hct POC Hct MCV MCH MCHC RDW Std Deviation RDW Coeff of Patrick Plt Count MPV Immature Gran % (Auto) Neut % (Auto) Lymph % (Auto) Sawyer % (Auto) Eos % (Auto) Baso % (Auto) Immature Gran # (Auto) Neut # (Auto) Lymph # (Auto) Sawyer # (Auto) Eos # (Auto) Baso # (Auto) PT POC INR INR APTT PTT Ratio POC Sodium Sodium 143 POC Potassium Potassium 4.6 POC Chloride Chloride 111 H Carbon Dioxide 30 POC Total CO2 Anion Gap 2.0 L POC Anion Gap POC BUN BUN 20 H Creatinine 1.26 H POC Creatinine Est Cr Clr Drug Dosing Not Reportable Est GFR ( Amer) 44.7 Est GFR (Non-Af Amer) 38.5 BUN/Creatinine Ratio 16.1 Glucose 123 H POC Glucose 138 H POC Glucose (other) Calcium 8.5 POC Ioniz Calcium Roxanna Magnesium 1.8 Total Bilirubin 0.4 AST 19 ALT 30 Alkaline Phosphatase 126 H Troponin I < 0.015 Total Protein 6.2 L Albumin 2.4 L Globulin 3.8 Albumin/Globulin Ratio 0.6 L Urine Color Urine Appearance Urine pH Ur Specific [place] Urine Protein Urine Glucose (UA) Urine Ketones Urine Blood Urine Nitrite Urine Bilirubin Urine Urobilinogen Ur Leukocyte Esterase Nasal Screen MRSA (PCR) Blood Type A Positive Antibody Screen POSITIVE A Antibody Identification Anti-K 02/20/19 02/20/19 02/20/19 17:41 17:50 20:04 WBC RBC Hgb POC Hgb 8.2 L Hct POC Hct 24 L MCV MCH MCHC RDW Std Deviation RDW Coeff of Patrick Plt Count MPV Immature Gran % (Auto) Neut % (Auto) Lymph % (Auto) [place]yer % (Auto) Eos % (Auto) Baso % (Auto) Immature Gran # (Auto) Neut # (Auto) Lymph # (Auto) Sawyer # (Auto) Eos # (Auto) Baso # (Auto) PT POC INR INR APTT PTT Ratio POC Sodium 145 H Sodium POC Potassium 4.8 Potassium POC Chloride 106 Chloride Carbon Dioxide POC Total CO2 26 Anion Gap POC Anion Gap 18.0 POC BUN 19 H BUN Creatinine POC Creatinine 1.3 Est Cr Clr Drug Dosing Est GFR ( Amer) Est GFR (Non-Af Amer) BUN/Creatinine Ratio Glucose POC Glucose POC Glucose (other) 126 H Calcium POC Ioniz Calcium Roxanna 1.23 Magnesium Total Bilirubin AST ALT Alkaline Phosphatase Troponin I Total Protein Albumin Globulin Albumin/Globulin Ratio Urine Color Yellow Urine Appearance Clear Urine pH 6.5 Ur Specific [place] 1.014 Urine Protein Negative Urine Glucose (UA) Negative Urine Ketones Negative Urine Blood Negative Urine Nitrite Negative Urine Bilirubin Negative Urine Urobilinogen Negative Ur Leukocyte Esterase Negative Nasal Screen MRSA (PCR) Negative Blood Type Antibody Screen Antibody Identification Resident Activity Tracking Resident Involvement: Resident Care Provided Care Provided: Adult Hospital Medicine
--- NOTE | 2019-02-21 09:14 | Palliative Care Consultation ---
Date of Consultation February 21, 2019 History of Present Illness Attending Physician: Esperanza Mejia MD Allergies Allergy/AdvReac Type Severity Reaction Status Date / Time Bactrim AdvReac Severe RENAL Verified 05/24/12 09:38 PROBLEMS sulfamethoxazole AdvReac Severe RENAL Verified 02/20/19 19:13 PROBLEMS trimethoprim AdvReac Severe RENAL Verified 02/20/19 19:13 PROBLEMS vancomycin AdvReac Severe RENAL Verified 02/20/19 19:13 PROBLEMS Home Medications Home Medications Medication Instructions Recorded Confirmed Type PreserVision AREDS-2 1 tab PO BID 11/08/18 02/20/19 History cholecalciferol (vitamin D3) 2,000 units PO DAILY 11/08/18 02/20/19 History [Vitamin D3] ferrous gluconate 240 mg PO BID 11/08/18 02/20/19 History levothyroxine [Synthroid] 75 mg PO QAM 11/08/18 02/20/19 History metoprolol succinate [Toprol XL] 12.5 mg PO QPM 11/08/18 02/20/19 History metoprolol succinate [Toprol XL] 25 mg PO QAM 11/08/18 02/20/19 History potassium chloride [Klor-Con M20] 20 meq PO BIDM 11/08/18 02/20/19 History sennosides-docusate sodium [Senna 1 tab PO DAILY PRN 02/04/19 02/20/19 History with Docusate Sodium] furosemide [Lasix] 20 mg PO DAILY 02/20/19 02/20/19 History sertraline 25 mg PO DAILY 02/20/19 02/20/19 History warfarin 2 mg PO HS 02/20/19 02/20/19 History Patient History Medical History CKD (chronic kidney disease), stage III (Chronic) Dysphagia (Chronic) HTN (hypertension) (Chronic) History of cataract (Chronic) Chronic diastolic (congestive) heart failure (Chronic) Recurrent epistaxis (Resolved) Anemia (Chronic) Hypothyroidism (Chronic) Atrial fibrillation (Chronic 08/01/14) 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) Surgical History History of cataract surgery (Chronic) Status post tonsillectomy (Chronic) Family History Other Cancer Diabetes Stroke Social History Preferred Language: Frisian Communication Ability: Effective 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
--- NOTE | 2019-02-21 14:10 | Hospitalist Progress Note ---
Date of Service February 21, 2019 Assessment & Plan (1) Stroke: (2) Received intravenous tissue plasminogen activator (tPA) in emergency department: This is a 84yo F with a PMH of atrial fibrillation (on coumadin), HTN, chronic anemia, CKD III, chronic diastolic HF and other medical problems listed below who presents from [facility] and was found to have a stroke with tpa administration. -Facial droop, dysarthria, left sided weakness. TPA received with an extended window in ED -CT head without acute abnormalities. Per temper mill roller for further stroke work-up with MRI brain, echo w/ bubble study -Has history of A Fib, with subtherapeutic INR of 1.1 today -Keep NPO for now. Dr. Santiago planning to place NG tube for feedings post 24 hours of TPA due to known swallowing difficulties prior to stroke -Appreciate temper mill roller input and recommendation -Neuro checks, PT, OT, speech therapy evaluations -Consult neurology -Clinically little better -We will have CT of the head/MRI of the head post TPA tonight -Appreciate input from palliative care -Discussed with the family members (3) Chronic pulmonary aspiration: CXR with unchanged consolidative infiltrate left base -Chronic aspiration confirmed during previous admission in January-February 2019, with CT chest showed findings consistent with extensive aspiration with barium filling the left mainstem bronchus and extending into the segmental bronchi for the upper and lower lobes of the left lung. Video swallow showed aspiration with the thin liquid barium -Seen by pulmonology on previous admission. Antibiotics were not felt to be indicated. -Has follow-up appointment with pulmonary for CT and possible bronchoscopy (4) HTN (hypertension): Allow for permissive HTN in the setting of ischemic stroke after tpa -Per guidelines, consider antihypertensives if BP >180/105 -BP remains stable (5) CKD (chronic kidney disease), stage III: Kidney function at baseline with Cr of 1.26, GFR 38.5 -Continue to monitor -Renal function is normalized (6) Anemia: Hgb of 8.4 today (baseline 8-9) -Chronic, in setting of CKD, no acute bleeding -Continue to monitor, transfuse if hgb <8 -Hemoglobin remains stable at 1 4 (7) DVT prophylaxis: SCDs. Chemical prophylaxis contraindicated in the setting of TPA admi nistration Code status: DNR per discussion with Dr. Jack Lloyd PCP: Dr. Horn Dispo: Admitted to ICU Patient seen in collaboration with Dr. Knowles. Please see addendum. Subjective 02/21 The patient was seen and examined in the ICU This is a 84yo F with a PMH of atrial fibrillation (on coumadin), HTN, chronic anemia, CKD III, chronic diastolic HF and other medical problems listed below who presents from [facility] and was found to have a stroke and status post TPA administration. No apparent distress at rest Tries to communicate with limited dysphasia Has left-sided weakness and left facial droop Physical Exam Vital Signs (Past 24 Hours): Last Vital Signs Temp 36.6 C 02/21/19 12:21 Pulse 75 02/21/19 12:21 Resp 16 02/21/19 12:21 BP 117/62 02/21/19 12:21 Pulse Ox 95 02/21/19 12:21 Physical Exam: Lying in bed comfortably Constitutional: WD/WN, vitals as above + ill appearing Eyes: PERRL, conjunctivae normal, anicteric sclerae ENMT: external ear and nose normal, oropharynx normal Neck: trachea midline, no thyromegaly Respiratory: normal respiratory effort; no respiratory distress and no labored breathing Auscultation: + diminished lung sounds Cardiovascular: Rate/Rhythm: + irregularly irregular Heart Sounds: normal S1 and normal S2 Gastrointestinal (Abdomen): normal bowel sounds, soft, nontender, no hepatosplenomegaly Musculoskeletal: No acute arthritis in the joints Neurologic: Left facial droop, left-sided hemiparesis and dysphasia Results & Data Laboratory Results Short CBC 02/20/19 Range/Units 17:36 WBC 4.69 L (4.8-10.8) K/uL Hgb 8.4 L (12.0-16.0) g/dL Hct 26.1 L (37-47) % Plt Count 269 (130-400) K/uL BMP 02/20/19 17:36 Sodium 143 Potassium 4.6 Chloride 111 H Carbon Dioxide 30 BUN 20 H Creatinine 1.26 H Glucose 123 H Calcium 8.5 Cardiac Enzymes 02/20/19 Range/Units 17:36 Troponin I < 0.015 (0-0.045) ng/ml Liver Function 02/20/19 Range/Units 17:36 Total Bilirubin 0.4 (0.2-1) mg/dl AST 19 (15-37) U/L ALT 30 (12-78) U/L Alkaline Phosphatase 126 H (45-117) U/L Albumin 2.4 L (3.4-5.0) gm/dl Urine 02/20/19 Range/Units 17:50 Urine Color Yellow Urine Appearance Clear (Clear) Urine pH 6.5 (4.5-7.5) Ur Specific [place] 1.014 (1.000-1.030) Urine Protein Negative (Negative) Urine Glucose (UA) Negative (Negative) Medications Administered Current Inpatient Medications Miscellaneous (Icu Protocol For Hyperglycemia) 1 ea N/A PRN PRN; Protocol PRN Reason: Hyperglycemia Protocol Stop: 02/22/19 19:13 Miscellaneous Information (Pharmacist Discharge Med Rec Consult) 1 ea N/A UD PRN PRN Reason: Consult Stop: 03/22/19 19:35 (1) Stroke CVA mechanism: unspecified Qualified Code(s): I63.9 - Cerebral infarction, unspecified (2) Anemia Anemia type: unspecified type Qualified Code(s): D64.9 - Anemia, unspecified
--- NOTE | 2019-02-21 14:18 | Palliative Care Progress Note ---
Date of Service February 21, 2019 Subjective Consult received. Patient known to palliative care service from last admission. Here with acute CVA s/p TPA. NO family at bedside today. POAs are Valentina Ross. Carl Trujillo is also involved. Will complete formal consult tomorrow after meeting/talking with POAs. Waiting to see effectiveness of TPA.
--- NOTE | 2019-02-21 14:25 | Neurology Consultation ---
Date of Consultation February 21, 2019 Assessment & Plan (1) Stroke: 1. right MCA stroke likely 2. MRI brain when medically stable- evaluation of stroke 3. CT head- 24 hours after previous imaging 4. hold coumadin once M RI is done if large stroke concerns for hemorrhagic conversion 5. medical management for primary team 6. optimize HTN, HLD LDL <70 - consider patient age 7. PT/OT speech for discharge needs 8. secretions - speech therapy for recommendations 9. TTE- pending 10. will need carotid doppler for evaluation of vessels in neck 11. after CT in 24 hours ok to start aspirin 81 mg further recommendations once imaging is completed. Supervising Physician Co-Signing Physician Notes I have seen and discussed above patient with Dr Belle Lopez, neurology. Pt seen and examined. Hx of afib, on coumadin with subtherapeutic INR on this admission. REcent admission for generalized weakness and aspiration with no new abnl on MRI brain. Yesterday sudden facial droop and left hemiparesis. Initial CT no acute abnl or contrainidication to TPA, and pt given TPA. On exam R gaze pref, dyarthria, difficulty swallowing secretions. Dense left neglect, not following commands on left. Left arm and leg appear to have some strength, but trace. L toe upgoing. Impr Clinically large R MCA infarct. REc carotid US, fu CT head. Stroke likely large, if not hemorrhagic can start rectal asa. Would hold on coumadin for at least [address] head in 1 week and decide at that point. Suspect we will wait 2-3 weeks before considering anticoagulants. I do not think there is a need for an MRI and doubt pt will tolerate. TODD Lopez MD History of Present Illness Reason for Consultation: acute stroke with tPa Requesting Physician: Esperanza Mejia MD Attending Physician: Esperanza Mejia MD History of Present Illness daya is an 84 year old female PMH AF (on coumadin), HTN, chronic anemia, CKD III, chronic diastolic HF. She presented from [facility] with stroke symptoms. At 4:30 she woke from a nap and was noted to have facial droop and was unable to swallow her pills. She was unable to follow commands and was weak. When she arrived at [facility] she had left facial droop, left arm and leg weakness and a right gaze preference. A Stroke alert was called and the decision was made to administer tPa. Patient is able to speak but it is difficult to understand. She was made DNR and was taken to the ICU for further monitoring. She was seen on 02/08/2019 after a complex work up for chronic aspiration, pulmonary infiltrates and generalized weakness. At that time she presented with hypothermia and what looked like sepsis 2/2 pneumonia but was determined that patient was chronically aspirating with CT chest showed findings consistent with extensive aspiration with barium filling the left mainstem bronchus and extending into the segmental bronchi for the upper and lower lobes of the left lung. Video swallow showed aspiration with the thin liquid barium. Was planning to have repeat CT scan in a few weeks, per pulmonary. Weakness was extensively worked up and thought to be due to a combination of failure to thrive, depression and natural progression of aging possible MG which the AC receptor was negative. Her INR was sub therapeutic on admission. Currently she is in ICU for observation. denies CP, SOB, abdominal pain, N, V, +left sided weakness UE/LE. slurred speech. Allergies Allergy/AdvReac Type Severity Reaction Status Date / Time Bactrim AdvReac Severe RENAL Verified 05/24/12 09:38 PROBLEMS sulfamethoxazole AdvReac Severe RENAL Verified 02/20/19 19:13 PROBLEMS trimethoprim AdvReac Severe RENAL Verified 02/20/19 19:13 PROBLEMS vancomycin AdvReac Severe RENAL Verified 02/20/19 19:13 PROBLEMS Home Medications Home Medications Medication Instructions Recorded Confirmed Type PreserVision AREDS-2 1 tab PO BID 11/08/18 02/20/19 History cholecalciferol (vitamin D3) 2,000 units PO DAILY 11/08/18 02/20/19 History [Vitamin D3] ferrous gluconate 240 mg PO BID 11/08/18 02/20/19 History levothyroxine [Synthroid] 75 mg PO QAM 11/08/18 02/20/19 History metoprolol succinate [Toprol XL] 12.5 mg PO QPM 11/08/18 02/20/19 History metoprolol succinate [Toprol XL] 25 mg PO QAM 11/08/18 02/20/19 History potassium chloride [Klor-Con M20] 20 meq PO BIDM 11/08/18 02/20/19 History sennosides-docusate sodium [Senna 1 tab PO DAILY PRN 02/04/19 02/20/19 History with Docusate Sodium] furosemide [Lasix] 20 mg PO DAILY 02/20/19 02/20/19 History sertraline 25 mg PO DAILY 02/20/19 02/20/19 History warfarin 2 mg PO HS 02/20/19 02/20/19 History Patient History Medical History CKD (chronic kidney disease), stage III (Chronic) Dysphagia (Chronic) HTN (hypertension) (Chronic) History of cataract (Chronic) Chronic diastolic (congestive) heart failure (Chronic) Recurrent epistaxis (Resolved) Anemia (Chronic) Hypothyroidism (Chronic) Atrial fibrillation (Chronic 08/01/14) 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) Surgical History History of cataract surgery (Chronic) Status post tonsillectomy (Chronic) Family History Other Cancer Diabetes Stroke Social History Communication Ability: Unable Beliefs That Will Affect Care: None marital status: / Current Living Situation: Personal Care Facility Current Living Situation Comment: Niece has been staying with patient the last few weeks Other Information That Helps Us Care for You: No Feels Safe at Home: Yes Safety Concerns: Feels Safe At This Time Smoking Status: Former smoker Hx Alcohol Use: No Hx Substance Use: No Physical Exam Vital Signs (Past 24 Hours): Last Vital Signs Temp 36.6 C 02/21/19 12:21 Pulse 75 02/21/19 12:21 Resp 16 02/21/19 12:21 BP 117/62 02/21/19 12:21 Pulse Ox 95 02/21/19 12:21 Physical Exam: Constitutional: appearance ill appearing Ears, Nose, Mouth and Throat: mucous membranes moist, no injection and skin normal, eyes normal, no handling secretions Cardiovascular: loud systolic murmur irregular irregular Respiratory: course breath sounds Musculoskeletal: no peripheral edema and good distal pulses Skin: bruising bilaterally knees Eyes: PERRL/ right sided gaze preference NEUROLOGIC EXAMINATION: Mental status: Alert and interactive Oriented self and hospital, she is aware she had a stroke Oriented to person Speech aphasia Cranial Nerves flattening of left nasolabial fold, left sided mouth droop Reflexes: Deep tendon reflexes were symmetrical and graded 2/5. 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 or plantar flex Gait/Stance: Posture lying in bed Motor: left pronator drift of out stretched arms with eyes open Strength: Normal - 5/5 all extremities Results & Data Laboratory Results Abnormal lab results 02/20/19 02/20/19 02/20/19 Range/Units 17:34 17:36 17:36 WBC 4.69 L (4.8-10.8) K/uL RBC 2.57 L (4.2-5.4) M/uL Hgb 8.4 L (12.0-16.0) g/dL POC Hgb (12.0-16.0) g/dl Hct 26.1 L (37-47) % POC Hct (37-47) % MCV 101.6 H (80-100) fL RDW Std Deviation 65.8 H (36.4-46.3) fL RDW Coeff of Patrick 18.0 H (11.5-14.5) % Immature Gran # (Auto) 0.05 H (0.00-0.02) K/uL Lymph # (Auto) 0.97 L (1.2-3.4) K/uL POC INR 1.3 H (0.9-1.1) POC Sodium (135-144) mEq/L Chloride 111 H (98-107) mmol/L Anion Gap 2.0 L (3-11) POC BUN (7-18) mg/dl BUN 20 H (7-18) mg/dl Creatinine 1.26 H (0.6-1.2) mg/dl Glucose 123 H (70-99) mg/dl POC Glucose (70-99) POC Glucose (other) (70-99) mg/dl Alkaline Phosphatase 126 H (45-117) U/L Total Protein 6.2 L (6.4-8.2) gm/dl Albumin 2.4 L (3.4-5.0) gm/dl Albumin/Globulin Ratio 0.6 L (0.9-2) Antibody Screen 02/20/19 02/20/19 02/20/19 Range/Units 17:36 17:36 17:41 WBC (4.8-10.8) K/uL RBC (4.2-5.4) M/uL Hgb (12.0-16.0) g/dL POC Hgb 8.2 L (12.0-16.0) g/dl Hct (37-47) % POC Hct 24 L (37-47) % MCV (80-100) fL RDW Std Deviation (36.4-46.3) fL RDW Coeff of Patrick (11.5-14.5) % Immature Gran # (Auto) (0.00-0.02) K/uL Lymph # (Auto) (1.2-3.4) K/uL POC INR (0.9-1.1) POC Sodium 145 H (135-144) mEq/L Chloride (98-107) mmol/L Anion Gap (3-11) POC BUN 19 H (7-18) mg/dl BUN (7-18) mg/dl Creatinine (0.6-1.2) mg/dl Glucose (70-99) mg/dl POC Glucose 138 H (70-99) POC Glucose (other) 126 H (70-99) mg/dl Alkaline Phosphatase (45-117) U/L Total Protein (6.4-8.2) gm/dl Albumin (3.4-5.0) gm/dl Albumin/Globulin Ratio (0.9-2) Antibody Screen POSITIVE A Diagnostic Findings CT head- No acute intracranial abnormality. Mild chronic small vessel change CXR- Moderate cardiomegaly. This is stable from the prior exam. Consolidative infiltrate left base also unchanged. (1) Stroke CVA mechanism: unspecified Qualified Code(s): I63.9 - Cerebral infarction, unspecified
[2019-02-21 19:05] LABS: Hematocrit (blood only) 25.4 % (37-47); Hemoglobin 8.2 g/dL (12.0-16.0); Mean Corpuscular Hgb Conc 32.3 g/dL (32-36); Mean Corpuscular Volume 98.4 fL (80-100); Mean Platelet Volume 9.3 fL (7.4-10.4); Platelet Count 244 K/uL (130-400); RDW Coefficient of Variation 17.9 % (11.5-14.5); RDW Standard Deviation 63.3 fL (36.4-46.3); Red Blood Count 2.58 M/uL (4.2-5.4); White Blood Count 5.61 K/uL (4.8-10.8)
[2019-02-21 19:23] LABS: BUN Creatinine Ratio 14.1 (10-20); Calcium 8.9 mg/dl (8.5-10.1); Creatinine Clr Calc Pharmacy 38.5 ml/min; Est GFR (African American) 57.7; Est GFR (Non-African American) 49.8; Potassium 4.1 mmol/L (3.5-5.1)
--- NOTE | 2019-02-21 19:25 | CT Scan Report ---
CT OF THE HEAD WITHOUT CONTRAST CLINICAL HISTORY: follow-up after TPA administration COMPARISON STUDY: Head CT February 20, 2018. CT DOSE: 537.48 mGy.cm TECHNIQUE: Helical axial images of the head were obtained without IV contrast. Automated exposure con trol was utilized for the study. A dose lowering technique was utilized adhering to the principles o f ALARA. FINDINGS: There has been interval development of hypodensity within the right basal ganglia and right temporoparietal region consistent with acute infarct since head CT of February 20, 2018. There is mild mass effect with slight compression of the right lateral ventricle. The basilar cisterns are patent. There are no extra axial collections. A 1 cm slightly hyperdense focus within the right basal ganglia infarct is noted. No calvarial fracture is noted. A subtle sclerotic focus within the right frontal bone corresponds to the finding on MRI of February 06, 2019. IMPRESSION: Acute infarcts within the right MCA distribution, including the right basal ganglia and t emporoparietal region. Mild mass effect. 1 cm slightly hyperdense focus within the right basal gangli a infarct likely reflects relatively preserved brain parenchyma. A small focus of hemorrhage is consi dered less likely however a follow-up head CT in 24 hours is recommended. Electronically signed by: Mike Louise M.D. 02/21/2019 7:23 PM
[2019-02-21] MEDS: NORMOSOL-R 1,000 ML IV SCH (19:26)
--- NOTE | 2019-02-21 19:52 | XRay Report ---
KUB CLINICAL HISTORY: coresafe placement COMPARISON STUDY: CT of the abdomen and pelvis February 08, 2019. FINDINGS: Tip of the catheter projects over the gastric antrum. Visualized bowel gas pattern is chong l. The pelvis was not included. 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 IMPRESSION: Tip of feeding tube within the gastric antrum. Electronically signed by: Mike Louise M.D. 02/21/2019 7:51 PM
[2019-02-21] MEDS: PEPTAMEN INTENSE VHP 1.0 CAL 1,000 ML BAG NJ PRN (20:06)
[2019-02-22 05:29] LABS: Hematocrit (blood only) 25.8 % (37-47); Hemoglobin 8.1 g/dL (12.0-16.0); Mean Corpuscular Hgb Conc 31.4 g/dL (32-36); Mean Corpuscular Volume 100.4 fL (80-100); Mean Platelet Volume 9.7 fL (7.4-10.4); Platelet Count 244 K/uL (130-400); RDW Coefficient of Variation 17.7 % (11.5-14.5); RDW Standard Deviation 65.2 fL (36.4-46.3); Red Blood Count 2.57 M/uL (4.2-5.4)
[2019-02-22 05:47] LABS: BUN Creatinine Ratio 14.5 (10-20); Calcium 8.5 mg/dl (8.5-10.1); Creatinine Clr Calc Pharmacy 41.3 ml/min; Est GFR (African American) 62.9; Est GFR (Non-African American) 54.2; Potassium 3.7 mmol/L (3.5-5.1)
--- NOTE | 2019-02-22 06:37 | Critical Care Progress Note ---
Date of Service February 22, 2019 Assessment & Plan (1) Admitted to intensive care unit: Reason Critically Ill: 84 y/o female with declining physical health, recent hospitalizations, history of afib who had warfarin held for bronchoscopy procedure for chronic aspiration and non-therapeutic INR with acute CVA requiring TPA. Neuro-Left sided weakness and Broca's aphagsia consistent with right MCA infarct treating with TPA. Answers questions appropriately and is oriented. Head CT performed yesterday evening showed acute infarct within right MCA with mild mass effect with compression of the right ventricle. Also showing hypodensity of right basal ganglia consistent with acute infarct. * Neurology was consulted and is providing care/recs. 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 One outlier this morning at 94 at 6am. - Had negative trop x1 - Review of old EMR, appears to have had Coumadin held on 02/16 for scheduled bronch on 02/22, and non-therapeutic INR on admission, likely etiology thrombus from left side of heart. - Hemodynamically stable with pressures 110s-120s/53-74 Pulm-Aspiration risk with previous failed swallowing study - currently maintaining normal SpO2 states on RA - requiring suctioning sputum by nursing - swallowing study on 02/07/19 showed aspiration with thin liquids - aspiration precautions GI/Nutrition-NPO - Sarcopena 13% weight loss since 10/26 - hypoalbuminemia - Core safe feeding tube placed in right nare with confirmation of appropriate placement via KUB. Renal/electrolytes- - CKD stage III - adequate kidney perfusion as urine output measured to be 0.62 mg/kg/hr -Watkins cath in place returning light yellow urine Endo-ICU hyperglycemic protocol Heme-Anemia of chronic disease - Hgb on 02/20 8.4, 02/21 = 8.2, this morning 8.1 and stable with baseline - no signs of bleeding ID-afebrile, maintaining O2 sats on RA Lines-peripheral IVs intact DVT prophylaxis: SCDs Resuscitation status: DNR Patient stable for downgrade out of ICU. Supervising Physician Co-Signing Physician Notes Dr. Caldwell was resident physician during care of patient. I separately ev aluated patient for wilkes portions of the history and the exam. I was present during the critical portion of medical decision making, and I discussed the case with the resident. I generally agree with the findings and plan. Patient was discussed in multidisciplinary rounds, I discussed the patient previously with Dr. Louie of neurology. This is a large MCA territory stroke, there is high risk for bleeding in the setting of large CVA so therapeutic anticoagulation will be held until the patient is further out from this event. CT scan was reviewed. She has a core safe placed to allow for feedings as she has no gag and is at high risk for aspiration. Patient stable for downgrade out of ICU. I believe the patient will have a poor prognosis in the medium to long- term. Subjective Caveat: History limited by Acute CVA/dysphasia. Charley does not endorse any chest pains, shortness of breath, nausea, headache or subjective fever, chills. Physical Exam Vital Signs (Past 24 Hours): Last Vital Signs Temp 36.9 C 02/22/19 04:00 Pulse 94 H 02/22/19 06:01 Resp 18 02/22/19 06:01 BP 120/53 L 02/22/19 06:01 Pulse Ox 96 02/22/19 06:01 Constitutional: cooperative and comfortable ENMT: Mouth: no drooling Core safe tube in right nare in place Neck: normal visual inspection and trachea midline Cardiovascular: Rate/Rhythm: regular rate Gastrointestinal (Abdomen): Inspection/Auscultation: normal bowel sounds Percussion/Palpation: abdomen soft; abdomen nontender Neurologic: right gaze preference with signs of left hemineglect. Left sided motor extremity deficit appears improved today, Charley is able to left left arm and left leg to about 10 degrees. Left sided facial weakness still present that spares the forehead. Psychiatric: Orientation: oriented to person, oriented to place, oriented to time and cooperative Results & Data Laboratory Results Laboratory Results - last 24 hr 02/21/19 02/21/19 02/21/19 18:58 18:58 21:24 WBC 5.61 RBC 2.58 L Hgb 8.2 L Hct 25.4 L MCV 98.4 MCH 31.8 MCHC 32.3 RDW Std Deviation 63.3 H RDW Coeff of Patrick 17.9 H Plt Count 244 MPV 9.3 Sodium 145 Potassium 4.1 Chloride 114 H Carbon Dioxide 24 Anion Gap 7.0 BUN 14 Creatinine 1.02 Est Cr Clr Drug Dosing 38.5 Est GFR ( Amer) 57.7 Est GFR (Non-Af Amer) 49.8 BUN/Creatinine Ratio 14.1 Glucose 77 POC Glucose 72 Calcium 8.9 02/21/19 02/22/19 02/22/19 23:41 05:02 05:02 WBC 5.20 RBC 2.57 L Hgb 8.1 L Hct 25.8 L MCV 100.4 H MCH 31.5 MCHC 31.4 L RDW Std Deviation 65.2 H RDW Coeff of Patrick 17.7 H Plt Count 244 MPV 9.7 Sodium 142 Potassium 3.7 Chloride 112 H Carbon Dioxide 26 Anion Gap 4.0 BUN 14 Creatinine 0.95 Est Cr Clr Drug Dosing 41.3 Est GFR ( Amer) 62.9 Est GFR (Non-Af Amer) 54.2 BUN/Creatinine Ratio 14.5 Glucose 84 POC Glucose 76 Calcium 8.5 Medications Administered Aspirin ([facility]in Chew) [facility] [place]: 03/24/19 08:59 Last Admin: 02/22/19 09:38 Dose: 81 mg Documented by: [id number] Levothyroxine Sodium (Synthroid) 75 [facility] Stop: 03/24/19 08:59 Last Admin: 02/22/19 09:37 Dose: 75 mcg Documented by: [id number] Metoprolol Succinate (Toprol Xl) 25 [facility] [place] Stop: 03/24/19 08:59 Last Admin: 02/22/19 09:37 Dose: 25 mg Documented by: [id number] Nutritional Formula (Peptamen Intense Vhp) 0 ml NJ UD PRN; Protocol PRN Reason: NUTRITION Stop: 03/23/19 18:41 Last Admin: 02/21/19 20:06 Dose: 1,000 ml Documented by: [id number] Sertraline HCl (Zoloft) 25 mg PO DAILY [facility] Stop: 03/24/19 08:59 Last Admin: 02/22/19 09:37 Dose: 25 mg Documented by: [id number]
[2019-02-22] MEDS: NORMOSOL-R 1,000 ML IV SCH (07:50)
--- NOTE | 2019-02-22 08:53 | Palliative Care Consultation ---
Date of Consultation February 22, 2019 Assessment & Plan (1) Goals of care, counseling/discussion: -84 year old female with PMH CKD stage III, dysphagia, htn, chronic diastolic dysfunction, anemia, hypothyroidism, afib, and others, presented to the hospital two days ago with acute CVA. Patient was just hospitalized from 02/04-02/16 with a complicated stay due to profound weakness, dysphagia, aspiration, pneumonia, depression, failure to thrive, and metabolic encephalopathy. Patient improved enough to the point of being discharged to [facility] for rehab, but unfortunately returned to the hospital just a few days later with new onset left sided weakness and facial droop. CT head in itially showed no acute intracranial abnormality. She was administered TPA and has had some improvement in speech and left sided weakness. Follow up CT head showed, "Acute infarcts within the right MCA distribution, including the right basal ganglia and temporoparietal region. Mild mass effect. 1 cm slightly hyperdense focus within the right basal ganglia infarct likely reflects relatively preserved brain parenchyma. A small focus of hemorrhage is considered less likely." In reading discharge summary from previous admission, patient was to hold Coumadin starting 02/16 for a bronchoscopy on 02/22. Her INR was subtherapeutic on admission. Neurology is consulted. Palliative care was consulted on last admission due to patient's severe weakness and failure to thrive to discuss goals of care. Palliative care is reconsulted now to continue discussing goals of care in the setting of new CVA. -During last admission, patient wavered about decision on code status and whether or not she would want a feeding tube. There was also question of who patient's POA was, we now have the correct paperwork stating that Jono and Emili Ross are POAs. Patient did have improved cognition during last admi ssion and stated that Jono and Emili could make medical decisions for her if she was unable. Patient's niece Shruthi also involved in decision making. -Prior to last hospitalization, patient was independent and living in her home. Her niece was staying with her since November to help as patient was experiencing weight loss and increased weakness. -Today 02/22, patient is making some progress with improved mental status and improved strength. She does want to continue working with PT/OT. PT/OT were both able to get patient to side of bed today. -Patient known to have issues with aspiration even prior to the stroke. Currently has NGT for nutrition and medication administration. Will see if swallowing ability improves in the next day or two if her strength increases. If not, again need to continue conversation about goals of care. -Uncertain of rehab potential at this time. Spoke with Jono Pereirawan yesterday, we are continuing to see how patient progresses after the TPA and continuing to have conversation about goals of care. He and Emili will be supportive of patient and help make any decisions if needed. -Palliative care will continue to follow. (2) Stroke: CVA mechanism: unspecified Qualified Code(s): I63.9 - Cerebral infarction, unspecified (3) Received intravenous tissue plasminogen activator (tPA) in emergency department: (4) CKD (chronic kidney disease), stage III: (5) Weakness: (6) Dysphagia: Supervising Physician Co-Signing Physician Notes Chart reviewed, patient seen and examined, collaborated with YAYA Leon PE: Patient drowsy, arousable, sitting up in recliner, on NG feeds HEENT: Left facial droop Respirations: Diminished breath sounds, unlabored CV: Regular rate Abdomen: Nontender Musculoskeletal: Left-sided weakness Neuro: Dysarthria, dysphasia Agree with above note, assessment and plan as per YAYA Leon-will continue to follow and assist with medical decision making with patient and her POA History of Present Illness Attending Physician: Esperanza Mejia MD History of Present Illness This 84 year old female with PMH CKD stage III, dysphagia, htn, chronic diastolic dysfunction, anemia, hypothyroidism, afib, and others, presented to the hospital two days ago with acute CVA. Patient was just hospitalized from 02/04-02/16 with a complicated stay due to profound weakness, dysphagia, aspiration, pneumonia, depression, failure to thrive, and metabolic encephalopathy. Patient improved enough to the point of being discharged to [facility] for rehab, but unfortunately returned to the hospital just a few days later with new onset left sided weakness and facial droop. CT head initially showed no acute intracranial abnormality. She was administered TPA and has had some improvement in speech and left sided weakness. Follow up CT head showed, "Acute infarcts within the right MCA distribution, including the right basal ganglia and temporoparietal region. Mild mass effect. 1 cm slightly hyperdense focus within the right basal ganglia infarct likely reflects relatively preserved brain parenchyma. A small focus of hemorrhage is considered less likely." In reading discharge summary from previous admission, patient was to hold Coumadin starting 02/16 for a bronchoscopy on 02/22. Her INR was subtherapeutic on admission. Neurology is consulted. Palliative care was consulted on last admission due to patient's severe weakness and failure to thrive to discuss goals of care. Palliative care is reconsulted now to continue discussing goals of care in the setting of new CVA. Thank you kindly for this consult. We will follow. Allergies Allergy/AdvReac Type Severity Reaction Status Date / Time Bactrim AdvReac Severe RENAL Verified 05/24/12 09:38 PROBLEMS sulfamethoxazole AdvReac Severe RENAL Verified 02/20/19 19:13 PROBLEMS trimethoprim AdvReac Severe RENAL Verified 02/20/19 19:13 PROBLEMS vancomycin AdvReac Severe RENAL Verified 02/20/19 19:13 PROBLEMS Home Medications Home Medications Medication Instructions Recorded Confirmed Type PreserVision AREDS-2 1 tab PO BID 11/08/18 02/20/19 History cholecalciferol (vitamin D3) 2,000 units PO DAILY 11/08/18 02/20/19 History [Vitamin D3] ferrous gluconate 240 mg PO BID 11/08/18 02/20/19 History levothyroxine [Synthroid] 75 mg PO QAM 11/08/18 02/20/19 History metoprolol succinate [Toprol XL] 12.5 mg PO QPM 11/08/18 02/20/19 History metoprolol succinate [Toprol XL] 25 mg PO QAM 11/08/18 02/20/19 History potassium chloride [Klor-Con M20] 20 meq PO BIDM 11/08/18 02/20/19 History sennosides-docusate sodium [Senna 1 tab PO DAILY PRN 02/04/19 02/20/19 History with Docusate Sodium] furosemide [Lasix] 20 mg PO DAILY 02/20/19 02/20/19 History sertraline 25 mg PO DAILY 02/20/19 02/20/19 History warfarin 2 mg PO HS 02/20/19 02/20/19 History Patient History Medical History CKD (chronic kidney disease), stage III (Chronic) Dysphagia (Chronic) HTN (hypertension) (Chronic) History of cataract (Chronic) Chronic diastolic (congestive) heart failure (Chronic) Recurrent epistaxis (Resolved) Anemia (Chronic) Hypothyroidism (Chronic) Atrial fibrillation (Chronic 08/01/14) 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) Surgical History History of cataract surgery (Chronic) Status post tonsillectomy (Chronic) Family History Other Cancer Diabetes Stroke Social History Communication Ability: Unable Beliefs That Will Affect Care: None marital status: / Current Living Situation: Personal Care Facility Current Living Situation Comment: Niece has been staying with patient the last few weeks Other Information That Helps Us Care for You: No Feels Safe at Home: Yes Safety Concerns: Feels Safe At This Time Smoking Status: Former smoker Hx Alcohol Use: No Hx Substance Use: No Review of Systems Patient denies pain or SOB. Unable to obtain full ROS due to garbled speech and lethargy. Physical Exam Vital Signs (Past 24 Hours): Last Vital Signs Temp 36.8 C 02/22/19 07:41 Pulse 72 02/22/19 07:41 Resp 18 02/22/19 07:41 BP 114/55 L 02/22/19 07:41 Pulse Ox 97 02/22/19 07:41 Constitutional: + ill appearing and + frail appearing Eyes: + EOM movement deficit ENMT: left facial droop Neck: normal visual inspection Respiratory: normal respiratory effort, lungs clear to auscultation Auscultation: + diminished lung sounds Cardiovascular: Rate/Rhythm: regular rate and regular rhythm Vessels: no JVD Gastrointestinal (Abdomen): Inspection/Auscultation: abdomen normal to inspection and normal bowel sounds; abdomen not distended Percussion/Palpation: abdomen soft Musculoskeletal: generalized deconditioning and poor muscle mass Neurologic: awake Speech / Cognition: + abnormal speech Motor/Sensory: + abnormal movement (left sided weakness) Psychiatric: Orientation: alert, oriented to person and oriented to place Time Spent Midlevel 70 minutes with >50% of time spent at bedside with patient and speaking with POAs about condition and GOC.
[2019-02-22] MEDS ORDERED: ASPIRIN 300 MG SUPP PR SCH (09:00)
[2019-02-22] MEDS ORDERED: ASPIRIN 81 MG ECTAB PO SCH (09:00)
[2019-02-22] MEDS: SERTRALINE HCL 50 MG TABLET PO SCH (09:37)
[2019-02-22] MEDS: METOPROLOL SUCC 25MG EXT REL TAB PO SCH ×2 (09:37→21:37)
[2019-02-22] MEDS: LEVOTHYROXINE SODIUM 75 MCG TABLET PO SCH (09:37)
[2019-02-22] MEDS: ASPIRIN 81 MG CHEW NG SCH (09:38)
--- NOTE | 2019-02-22 14:40 | Neurology Progress Note ---
Date of Service February 22, 2019 Assessment & Plan (1) Stroke: 1. right MCA including right basal ganglia 2. MRI brain when medically stable- evaluation of stroke- will not change direction of care 3. CT head- recommend repeating in 24 hours due to possible hemorrhage vs brain parenchyma 4. hold Coumadin once M RI is done if large stroke concerns for hemorrhagic conversion- may not restart in future 5. medical management for primary team 6. optimize HTN, HLD LDL <70 - consider patient age 7. PT/OT speech for discharge needs 8. secretions - speech therapy for recommendations- currently has NGt 9. TTE- pending 10. carotid doppler for evaluation of vessels in neck- no hemodynamically sig nificant stenosis 11. after CT in 24 hours ok to start aspirin 81 mg 12. discussion regarding feeding tube and issues of poor prognosis Supervising Physician Co-Signing Physician Notes I have seen and discussed above patient with Dr Belle Lopez, neurology Subjective Charley is an 84 year old female PMH AF (on coumadin), HTN, chronic anemia, CKD III, chronic diastolic HF. She presented from [facility] with stroke symptoms. At 4:30 she woke from a nap and was noted to have facial droop and was unable to swallow her pills. She was unable to follow commands and was weak. When she arrived at [facility] she had left facial droop, left arm and leg weakness and a right gaze preference. A Stroke alert was called and the decision was made to administer tPa. Patient is able to speak but it is difficult to understand. She was made DNR and was taken to the ICU for further monitoring. She was seen on 02/08/2019 after a complex work up for chronic aspiration, pulmonary infiltrates and generalized weakness. At that time she presented with hypothermia and what looked like sepsis 2/2 pneumonia but was determined that patient was chronically aspirating with CT chest showed findings consistent with extensive aspiration with barium filling the left mainstem bronchus and extending into the segmental bronchi for the upper and lower lobes of the left lung. Video swallow showed aspiration with the thin liquid barium. Was planning to have repeat CT scan in a few weeks, per pulmonary. Weakness was extensively worked up and thought to be due to a combination of failure to thrive, depression and natural progression of aging possible MG which the AC receptor was negative. Her INR was sub therapeutic on admission. She is sitting up bedside and states she is doing fine. Currently she has an NG tube due to difficulties with swallowing. denies CP, SOB, abdominal pain, N, V, +left sided weakness UE/LE. slurred speech. Physical Exam Vital Signs (Past 24 Hours): Last Vital Signs Temp 36.5 C 02/22/19 12:13 Pulse 73 02/22/19 12:13 Resp 22 02/22/19 12:13 BP 99/71 L 02/22/19 12:13 Pulse Ox 96 02/22/19 12:13 Gen: alert to voice, slurred speech, able to idenify she is in a hopsital lungs Course breath sounds CV irregular irregular left hand squeezes 4+/5 biceps triceps 4/5 right sided gauze preference with not follow past mid line lifts right leg and plantar flex ext, left leg unable to lift Results & Data Laboratory Results Abnormal lab results 02/21/19 02/21/19 02/22/19 Range/Units 18:58 18:58 05:02 RBC 2.58 L 2.57 L (4.2-5.4) M/uL Hgb 8.2 L 8.1 L (12.0-16.0) g/dL Hct 25.4 L 25.8 L (37-47) % MCV 100.4 H (80-100) fL MCHC 31.4 L (32-36) g/dL RDW Std Deviation 63.3 H 65.2 H (36.4-46.3) fL RDW Coeff of Patrick 17.9 H 17.7 H (11.5-14.5) % Chloride 114 H (98-107) mmol/L 02/22/19 Range/Units 05:02 RBC (4.2-5.4) M/uL Hgb (12.0-16.0) g/dL Hct (37-47) % MCV (80-100) fL MCHC (32-36) g/dL RDW Std Deviation (36.4-46.3) fL RDW Coeff of Patrick (11.5-14.5) % Chloride 112 H (98-107) mmol/L Diagnostic Findings CT head- Acute infarcts within the right MCA distribution, including the right basal ganglia and temporoparietal region. Mild mass effect. 1 cm slightly hyperdense focus within the right basal ganglia infarct likely reflects relatively preserved brain parenchyma. A small focus of hemorrhage is considered less likely however a follow-up head CT in 24 hours is recommended. carotid doppler- Atherosclerotic plaque with no sonographic evidence of hemodynamically significant stenosis in the right or left carotid arterial system. Antegrade flow is shown in the vertebral arteries. Cardiac pulsations appear irregular on several of the tracings. Correlate with EKG for evidence of arrhythmia. (1) Stroke CVA mechanism: unspecified Qualified Code(s): I63.9 - Cerebral infarction, unspecified
--- NOTE | 2019-02-22 15:58 | Hospitalist Progress Note ---
Date of Service February 22, 2019 Assessment & Plan (1) Stroke: Appreciate palliative care input and recommendation (2) Received intravenous tissue plasminogen activator (tPA) in emergency department: This is a 84yo F with a PMH of atrial fibrillation (on coumadin), HTN, chronic anemia, CKD III, chronic diastolic HF and other medical problems listed below who presents from [facility] and was found to have a stroke with tpa administration. -Facial droop, dysarthria, left sided weakness. TPA received with an extended window in ED -CT head without acute abnormalities. Per toilet attendant for further stroke work-up with MRI brain, echo w/ bubble study -Has history of A Fib, with subtherapeutic INR of 1.1 today -Keep NPO for now. Dr. Santiago planning to place NG tube for feedings post 24 hours of TPA due to known swallowing difficulties prior to stroke -Appreciate toilet attendant input and recommendation -Neuro checks, PT, OT, speech therapy evaluations -Consult neurology-appreciate input and recommendation -Clinically a little better today -Repeat CT of the head was nonconclusive and will have repeat CT in 24 hours before starting any aspirin and/or anticoagulation -Speech evaluation tomorrow and for now continue NGT feeding - (3) Chronic pulmonary aspiration: CXR with unchanged consolidative infiltrate left base -Chronic aspiration confirmed during previous admission in January-February 2019, with CT chest showed findings consistent with extensive aspiration with barium filling the left mainstem bronchus and extending into the segmental bronchi for the upper and lower lobes of the left lung. Video swallow showed aspiration with the thin liquid barium -Seen by pulmonology on previous admission. Antibiotics were not felt to be indicated. -Has follow-up appointment with pulmonary for CT and possible bronchoscopy (4) HTN (hypertension): Allow for permissive HTN in the setting of ischemic stroke after tpa -Per guidelines, consider antihypertensives if BP >180/105 -BP remains stable (5) CKD (chronic kidney disease), stage III: Kidney function at baseline with Cr of 1.26, GFR 38.5 -Continue to monitor -Renal function is normalized (6) Anemia: Hgb of 8.4 today (baseline 8-9) -Chronic, in setting of CKD, no acute bleeding -Continue to monitor, transfuse if hgb <8 -Hemoglobin remains stable at 8.4 (7) DVT prophylaxis: SCDs. Chemical prophylaxis contraindicated in the setting of TPA administr ation Code status: DNR per discussion with Dr. Jack Lloyd PCP: Dr. Horn Dispo: Admitted to ICU Patient seen in collaboration with Dr. Knowles. Please see addendum. Subjective 02/21 The patient was seen and examined in the ICU This is a 84yo F with a PMH of atrial fibrillation (on coumadin), HTN, chronic anemia, CKD III, chronic diastolic HF and other medical problems listed below who presents from [facility] and was found to have a stroke and status post TPA administration. No apparent distress at rest Tries to communicate with limited dysphasia Has left-sided weakness and left facial droop 02/22 The patient was seen and examined in medical telemetry unit She has been feeling a little bit better Still has left-sided weakness and not been able to eat or drink Denies any other symptoms Physical Exam Vital Signs (Past 24 Hours): Last Vital Signs Temp 37.0 C 02/22/19 15:33 Pulse 84 02/22/19 15:33 Resp 16 02/22/19 15:33 BP 102/62 02/22/19 15:33 Pulse Ox 99 02/22/19 15:33 Physical Exam: Lying in bed comfortably Constitutional: WD/WN, vitals as above + ill appearing Eyes: PERRL, conjunctivae normal, anicteric sclerae ENMT: external ear and nose normal, oropharynx normal Neck: trachea midline, no thyromegaly Respiratory: normal respiratory effort; no respiratory distress and no labored breathing Auscultation: + diminished lung sounds Cardiovascular: Rate/Rhythm: + irregularly irregular Heart Sounds: normal S1 and normal S2 Gastrointestinal (Abdomen): normal bowel sounds, soft, nontender, no hepatosplenomegaly Neurologic: Alert, awake and oriented x3. Has left sided hemiparesis and seems to be slight improvement of the weakness Results & Data Laboratory Results Short CBC 02/21/19 02/22/19 Range/Units 18:58 05:02 WBC 5.61 5.20 (4.8-10.8) K/uL Hgb 8.2 L 8.1 L (12.0-16.0) g/dL Hct 25.4 L 25.8 L (37-47) % Plt Count 244 244 (130-400) K/uL BMP 02/21/19 02/22/19 18:58 05:02 Sodium 145 142 Potassium 4.1 3.7 Chloride 114 H 112 H Carbon Dioxide 24 26 BUN 14 14 Creatinine 1.02 0.95 Glucose 77 84 Calcium 8.9 8.5 Medications Administered Current Inpatient Medications Aspirin (Aspirin Chew) 81 mg NG QAM [facility] Stop: 03/24/19 08:59 Last Admin: 02/22/19 09:38 Dose: 81 mg Documented by: Levothyroxine Sodium (Synthroid) 75 mcg PO DAILYBB [facility] Stop: 03/24/19 08:59 Last Admin: 02/22/19 09:37 Dose: 75 mcg Documented by: Metoprolol Succinate (Toprol Xl) 12.5 mg PO QPM [facility] Stop: 03/24/19 20:59 Metoprolol Succinate (Toprol Xl) 25 mg PO QAM [facility] Stop: 03/24/19 08:59 Last Admin: 02/22/19 09:37 Dose: 25 mg Documented by: Miscellaneous Information (Pharmacist Discharge Med Rec Consult) 1 ea N/A UD PRN PRN Reason: Consult Stop: 03/22/19 19:35 Nutritional Formula (Peptamen Intense Vhp) 0 ml NJ UD PRN; Protocol PRN Reason: NUTRITION Stop: 03/23/19 18:41 Last Admin: 02/21/19 20:06 Dose: 1,000 ml Documented by: Sertraline HCl (Zoloft) 25 mg PO DAILY [facility] Stop: 03/24/19 08:59 Last Admin: 02/22/19 09:37 Dose: 25 mg Documented by: (1) Stroke CVA mechanism: unspecified Qualified Code(s): I63.9 - Cerebral infarction, unspecified (2) Anemia Anemia type: unspecified type Qualified Code(s): D64.9 - Anemia, unspecified
--- NOTE | 2019-02-22 21:04 | Ultrasound Report ---
ULTRASOUND OF THE CAROTID ARTERIES CLINICAL HISTORY: Stroke. COMPARISON STUDY: No priors. TECHNIQUE: Real-time, grayscale, and color Doppler sonography of the carotid arteries is performed. I mages are reviewed in the transverse and longitudinal planes. FINDINGS: Blood pressures could not be assessed. The carotid arteries are patent bilaterally and demonstrate antegrade flow. There is moderate atheros clerotic plaque seen in the carotid bulbs, right greater than left. Normal doppler arterial waveforms are seen throughout. The cardiac pulsations appear irregular. Velocity measurements are listed below . Common carotid peak systolic velocity (cm/sec): RIGHT: 74 LEFT: 75 ICA proximal peak systolic velocity (cm/sec): RIGHT: 63 LEFT: 51 ICA mid peak systolic velocity (cm/sec): RIGHT: 65 LEFT: 53 ICA distal peak systolic velocity (cm/sec): RIGHT: 64 LEFT: 47 ICA/CC peak systolic ratio: RIGHT: 0.9 LEFT: 0.7 Antegrade flow was shown in the vertebral arteries. The external carotid arteries are patent. IMPRESSION: 1. Atherosclerotic plaque with no sonographic evidence of hemodynamically significant stenosis in the right or left carotid arterial system. 2. Antegrade flow is shown in the vertebral arteries. 3. Cardiac pulsations appear irregular on several of the tracings. Correlate with EKG for evidence of arrhythmia. Electronically signed by: Julio Jiménez M.D. 02/22/2019 9:02 PM
[2019-02-23] MEDS: PEPTAMEN INTENSE VHP 1.0 CAL 1,000 ML BAG NJ PRN (01:29)
[2019-02-23] MEDS: LEVOTHYROXINE SODIUM 75 MCG TABLET PO SCH (05:23)
[2019-02-23] MEDS: SERTRALINE HCL 50 MG TABLET PO SCH (08:17)
[2019-02-23] MEDS: METOPROLOL SUCC 25MG EXT REL TAB PO SCH ×2 (08:17→21:15)
[2019-02-23] MEDS: ASPIRIN 81 MG CHEW NG SCH (08:18)
[2019-02-23] MEDS: SCOPOLAMINE 1.5 MG TDSY TD SCH (09:02)
--- NOTE | 2019-02-23 12:36 | CT Scan Report ---
CT head/brain wo con CLINICAL HISTORY: Stroke. Follow-up examination. COMPARISON STUDY: 02/21/2019. TECHNIQUE: Axial CT of the brain is performed from the vertex to the skull base. IV contrast was not administered for this examination. A dose lowering technique was utilized adhering to the principles of ALARA. CT DOSE: 1277.12 mGycm FINDINGS: There are evolutionary changes of a large infarct in the distribution the right middle cerebral arter y involving the right basal ganglia, right temporal lobe, and portions of the right parietal lobe. Th ere is persistent mass effect with slight effacement of the right lateral ventricle. There is 4 mm of right to left midline shift. There is a probable minimal focus of hemorrhage within the right basal ganglia. There is no evidence of pathologic ventricular dilatation. There is no evidence of acute sinusitis IMPRESSION: 1. Large right MCA distribution infarct. 2. Mass effect with an element of right hemispheric cortical effacement and 4 mm of right to left mid line shift. 3. Suspected minimal focus of hemorrhage within the right basal ganglia Electronically signed by: Luis Miguel Bermudez M.D. 02/23/2019 12:35 PM
--- NOTE | 2019-02-23 14:03 | Neurology Progress Note ---
Date of Service February 23, 2019 Assessment & Plan (1) Stroke: 1. right MCA including right basal ganglia 2. MRI brain when medically stable- evaluation of stroke- will not change direction of care not needed at this time 3. CT head- recommend repeating in 24 hours due to possible hemorrhage vs brain parenchyma- repeat with R to L shift 4. hold Coumadin once M RI is done if large stroke concerns for hemorrhagic conversion- may not restart in future 5. medical management for primary team 6. optimize HTN, HLD LDL <70 - consider patient age 7. PT/OT speech for discharge needs- palliative to discuss comfort care with family POA 8. secretions - speech therapy for recommendations- currently has NGt 9. carotid doppler for evaluation of vessels in neck- no hemodynamically significant stenosis 10. discussion regarding feeding tube and issues of poor prognosis- POA to be contacted today Supervising Physician Co-Signing Physician Notes I have seen and discussed above patient with Dr Belle Lopez, neurology PT more sleepy today, no gaze preference. Increasing somnolence related to increased ICP. P continue supportive care. Discussed with family. TODD Lopez MD Nathaly Whitehead is an 84 year old female PMH AF (on coumadin), HTN, chronic anemia, CKD III, chronic diastolic HF. She presented from [facility] with stroke symptoms. At 4:30 she woke from a nap and was noted to have facial droop and was unable to swallow her pills. She was unable to follow commands and was weak. When she arrived at [facility] she had left facial droop, left arm and leg weakness and a right gaze preference. A Stroke alert was called and the decision was made to administer tPa. Patient is able to speak but it is difficult to understand. She was made DNR and was taken to the ICU for further monitoring. She was seen on 02/08/2019 after a complex work up for chronic aspiration, pulmonary infiltrates and generalized weakness. At that time she presented with hypothermia and what looked like sepsis 2/2 pneumonia but was determined that patient was chronically aspirating with CT chest showed findings consistent with extensive aspiration with barium filling the left mainstem bronchus and extending into the segmental bronchi for the upper and lower lobes of the left lung. Video swallow showed aspiration with the thin liquid barium. Was planning to have repeat CT scan in a few weeks, per pulmonary. Weakness was extensively worked up and thought to be due to a combination of failure to thrive, depression and natural progression of aging possible MG which the AC receptor was negative. Her INR was sub therapeutic on admission. She is sitting up in bed but very drowsy. Currently she has an NG tube due to difficulties with swallowing. denies CP, SOB, abdominal pain, N, V, +left sided weakness UE/LE. slurred speech. Physical Exam Physical Exam: Gen: lethargic open eyes to verbal command lungs course breath sounds CV irregular irregular squeezes with R>L Results & Data Vital Signs (Past 12 Hours) Vital Signs Temp Pulse Pulse Resp BP BP Pulse Ox 02/23/19 11:25 37.0 C 68 24 146/65 H 95 02/23/19 07:06 36.9 C 86 20 112/72 91 02/23/19 04:00 36.9 C 66 18 123/73 92 Laboratory Results Abnormal lab results 02/22/19 02/23/19 02/23/19 Range/Units 16:53 07:36 11:43 POC Glucose 126 H 150 H 162 H (70-99) Diagnostic Findings CT head repeated 02/23/2019- Large right MCA distribution infarct. Mass effect with an element of right hemispheric cortical effacement and 4 mm of right to left midline shift. Suspected minimal focus of hemorrhage within the right basal ganglia (1) Stroke CVA mechanism: unspecified Qualified Code(s): I63.9 - Cerebral infarction, unspecified
--- NOTE | 2019-02-23 15:44 | Palliative Care Progress Note ---
Date of Service February 23, 2019 Assessment & Plan (1) Goals of care, counseling/discussion: -84 year old female with PMH CKD stage III, dysphagia, htn, chronic diastolic dysfunction, anemia, hypothyroidism, afib, and others, presented to the hospital two days ago with large acute right sided MCA stroke. -Repeat CT head today with right to left midline shift and small focus of hemorrhage. -Patient's functional status worse today. Increased oral secretions-- unable to manage herself and requiring frequent suctioning. -Sat and talked with patient's niece Shruthi for quite a while today. She does not want her aunt to suffer, wants her to be comfortable. -Tube feedings continue via NGT. Patient has no gag reflex or swallowing ability. Increased lethargy. -Prognosis is extremely poor at this time. -Family meeting with etelvinatent's niece Shruthi and Prema Montgomery tomorrow morning at 0900. Will discuss goals of care. (2) Stroke: (3) Received intravenous tissue plasminogen activator (tPA) in emergency department: (4) CKD (chronic kidney disease), stage III: (5) Weakness: (6) Dysphagia: Subjective Patient more drowsy today. CT head looks worse now with midline shift and small hemorrhage. Review of Systems Review of Systems: Unobtainable due to cognitive status Physical Exam Constitutional: + ill appearing and + frail appearing Eyes: + EOM movement deficit Neck: normal visual inspection Respiratory: normal respiratory effort, lungs clear to auscultation Auscultation: + diminished lung sounds and + rhonchi (coarse) massive amount of oral secretions Cardiovascular: Rate/Rhythm: regular rate and regular rhythm Vessels: no JVD Gastrointestinal (Abdomen): Inspection/Auscultation: abdomen normal to inspection and normal bowel sounds; abdomen not distended Percussion/Palpation: abdomen soft Neurologic: awake (but much more drowsy today) Speech / Cognition: + abno rmal speech Motor/Sensory: + abnormal movement (left sided weakness) Psychiatric: Orientation: oriented to person; + not alert (more drowsy today) Results & Data Vital Signs (Past 12 Hours) Vital Signs Temp Pulse Pulse Resp BP BP Pulse Ox 02/23/19 15:03 36.4 C L 117 H 20 162/96 H 02/23/19 11:25 37.0 C 68 24 146/65 H 95 02/23/19 07:06 36.9 C 86 20 112/72 91 02/23/19 04:00 36.9 C 66 18 123/73 92 Time Spent Midlevel 65 minutes with >50% of time spent at bedside with patient and family discussing condition and GOC. (1) Stroke CVA mechanism: unspecified Qualified Code(s): I63.9 - Cerebral infarction, unspecified
[2019-02-23] MEDS: CHECK SCOPOLAMINE PATCH PLACEMENT SCH (16:17)
--- NOTE | 2019-02-23 18:00 | Hospitalist Progress Note ---
Date of Service February 23, 2019 Assessment & Plan (1) Stroke: Appreciate palliative care input and recommendation Repeat CT scan showed deterioration of her condition including midline shift Clinically were stable Likely to have comfort care only from tomorrow We will continue current treatment for now (2) Received intravenous tissue plasminogen activator (tPA) in emergency department: This is a 84yo F with a PMH of atrial fibrillation (on coumadin), HTN, chronic anemia, CKD III, chronic diastolic HF and other medical problems listed below who presents from [facility] and was found to have a stroke with tpa administration. -Facial droop, dysarthria, left sided weakness. TPA received with an extended window in ED -CT head without acute abnormalities. Per management tech for further stroke work-up with MRI brain, echo w/ bubble study -Has history of A Fib, with subtherapeutic INR of 1.1 today -Keep NPO for now. Dr. Santiago planning to place NG tube for feedings post 24 hours of TPA due to known swallowing difficulties prior to stroke -Appreciate management tech input and recommendation -Neuro checks, PT, OT, speech therapy evaluations -Consult neurology-appreciate input and recommendation -Clinically a little better today -Repeat CT of the head was nonconclusive and will have repeat CT in 24 hours before starting any aspirin and/or anticoagulation -Speech evaluation tomorrow and for now continue NGT feeding -Condition has not deteriorated - (3) Chronic pulmonary aspiration: CXR with unchanged consolidative infiltrate left base -Chronic aspiration confirmed during previous admission in January-February 2019, with CT chest showed findings consistent with extensive aspiration with barium filling the left mainstem bronchus and extending into the segmental bronchi for the upper and lower lobes of the left lung. Video swallow showed aspiration with the thin liquid barium -Seen by pulmonology on previous admission. Antibiotics were not felt to be indicated. -Has follow-up appointment with pulmonary for CT and possible bronchoscopy -Continue suction for now and scopolamine patch for excessive secretions (4) HTN (hypertension): Allow for permissive HTN in the setting of ischemic stroke after tpa -Per guidelines, consider antihypertensives if BP >180/105 -BP remains stable (5) CKD (chronic kidney disease), stage III: Kidney function at baseline with Cr of 1.26, GFR 38.5 -Continue to monitor -Renal function is normalized (6) Anemia: Hgb of 8.4 today (baseline 8-9) -Chronic, in setting of CKD, no acute bleeding -Continue to monitor, transfuse if hgb <8 -Hemoglobin remains stable at 8.4 (7) DVT prophylaxis: SCDs. Chemical prophylaxis contraindicated in the setting of TPA administration Code status: DNR per discussion with Dr. Jack Lloyd PCP: Dr. Horn Dispo: Admitted to ICU Discussed with family members and the palliative team Likely to be comfort care from tomorrow Subjective 02/21 The patient was seen and examined in the ICU This is a 84yo F with a PMH of atrial fibrillation (on coumadin), HTN, chronic anemia, CKD III, chronic diastolic HF and other medical problems listed below who presents from [facility] and was found to have a stroke and status post TPA administration. No apparent distress at rest Tries to communicate with limited dysphasia Has left-sided weakness and left facial droop 02/22 The patient was seen and examined in medical telemetry unit She has been feeling a little bit better Still has left-sided weakness and not been able to eat or drink Denies any other symptoms 02/23 The patient was seen and examined in medical telemetry unit in presence of daughter Her condition has been deteriorating She does not have any gag reflex and needs secretions to be suctioned out for comfort Repeat CT of the head showing worsening of the stroke with midline shift Review of Systems Neurologic: + paralysis, + loss of sensation, + abnormal speech, + confusion and + memory loss Physical Exam Physical Exam: Moderate shortness of breath and distress at rest Constitutional: WD/WN, vitals as above + ill appearing Eyes: PERRL, conjunctivae normal, anicteric sclerae ENMT: external ear and nose normal, oropharynx normal Neck: trachea midline, no thyromegaly Respiratory: normal respiratory effort; no respiratory distress and no labored breathing Auscultation: + diminished lung sounds Cardiovascular: Rate/Rhythm: + irregularly irregular Heart Sounds: normal S1 and normal S2 Gastrointestinal (Abdomen): normal bowel sounds, soft, nontender, no hepatosplenomegaly Neurologic: Left facial droop with left hemiplegia. No gag reflex, minimal cough reflex, mentally pleasantly confused Results & Data Vital Signs (Past 12 Hours) Vital Signs Temp Pulse Pulse Pulse Resp BP BP 02/23/19 16:29 115 H 02/23/19 15:03 36.4 C L 117 H 20 162/96 H 02/23/19 11:25 37.0 C 68 24 146/65 H 02/23/19 07:06 36.9 C 86 20 112/72 Pulse Ox 02/23/19 16:29 02/23/19 15:03 02/23/19 11:25 95 02/23/19 07:06 91 Medications Administered Current Inpatient Medications Aspirin (Aspirin Chew) 81 mg NG QAM [facility] Stop: 03/24/19 08:59 Last Admin: 02/23/19 08:18 Dose: 81 mg Documented by: Levothyroxine Sodium (Synthroid) 75 mcg PO DAILYBB [facility] Stop: 03/24/19 08:59 Last Admin: 02/23/19 05:23 Dose: 75 mcg Documented by: Metoprolol Succinate (Toprol Xl) 12.5 mg PO QPM [facility] Stop: 03/24/19 20:59 Last Admin: 02/22/19 21:37 Dose: 12.5 mg Documented by: Metoprolol Succinate (Toprol Xl) 25 mg PO QAM [facility] Stop: 03/24/19 08:59 Last Admin: 02/23/19 08:17 Dose: 25 mg Documented by: Miscellaneous (Check Scopolamine Patch Placement) 1 ea N/A QS [facility] Stop: 03/25/19 15:59 Last Admin: 02/23/19 16:17 Dose: 1 ea Documented by: Miscellaneous (Remove Transderm-Scop Patch) 1 ea N/A Q72H [facility] Stop: 03/28/19 08:58 Miscellaneous Information (Pharmacist Discharge Med Rec Consult) 1 ea N/A UD PRN PRN Reason: Consult Stop: 03/22/19 19:35 Nutritional Formula (Peptamen Intense Vhp) 0 ml NJ UD PRN; Protocol PRN Reason: NUTRITION Stop: 03/23/19 18:41 Last Admin: 02/23/19 01:29 Dose: 1,000 ml Documented by: Scopolamine (Transderm-Scop) 1.5 mg TD Q72H [facility] Stop: 03/25/19 08:59 Last Admin: 02/23/19 09:02 Dose: 1.5 mg Documented by: Sertraline HCl (Zoloft) 25 mg PO DAILY [facility] Stop: 03/24/19 08:59 Last Admin: 02/23/19 08:17 Dose: 25 mg Documented by: (1) Stroke CVA mechanism: unspecified Qualified Code(s): I63.9 - Cerebral infarction, unspecified (2) Anemia Anemia type: unspecified type Qualified Code(s): D64.9 - Anemia, unspecified
[2019-02-23] MEDS ORDERED: ACETAMINOPHEN 650 MG SUPP PR PRN (19:17)
--- NOTE | 2019-02-23 19:20 | XRay Report ---
XR KUB/Abdomen 1 view CLINICAL HISTORY: NG tube placement confirmation tube position COMPARISON STUDY: 02/21/2019 FINDINGS: Feeding tube is not appreciated. There is no evidence for an enteric tube on this exam. Non obstructive bowel pattern] moderate fecal impaction. IMPRESSION: No evidence for an enteric tube on this exam. The above report was generated using voice recognition software. It may contain grammatical, syntax or spelling errors. Electronically signed by: Hayes Meza M.D. 02/23/2019 7:19 PM
[2019-02-24] MEDS: CHECK SCOPOLAMINE PATCH PLACEMENT SCH ×4 (00:26→23:42)
[2019-02-24] MEDS: LEVOTHYROXINE SODIUM 75 MCG TABLET PO SCH (06:07)
[2019-02-24] MEDS: METOPROLOL SUCC 25MG EXT REL TAB PO SCH (07:04)
[2019-02-24] MEDS: ASPIRIN 81 MG CHEW NG SCH (07:04)
[2019-02-24] MEDS: SERTRALINE HCL 50 MG TABLET PO SCH (07:04)
[2019-02-24] MEDS ORDERED: MoRPHine SULFATE 2 MG/ML CARP IV PRN (10:19)
[2019-02-24] MEDS ORDERED: LORazepam 0.5 MG/1 ML VIAL IV PRN (10:19)
--- NOTE | 2019-02-24 11:02 | Palliative Care Progress Note ---
Date of Service February 24, 2019 Assessment & Plan (1) Goals of care, counseling/discussion: -84 year old female with PMH CKD stage III, dysphagia, htn, chronic diastolic dysfunction, anemia, hypothyroidism, afib, and others, presented to the hospital two days ago with large acute right sided MCA stroke. -Repeat CT head yesterday showed new midline shift and focus of hemorrhage. -Patient's symptoms evolving. Increased lethargy and weakness, inability to swallow or manage secretions. Patient is able to wake and answer some questions appropriately. She does have difficulty understanding complex medical conditions and sometimes talks non-sensibly. Speech is weak, strained and garbled. -Patient's NGT was pulled out yesterday and she refused for it to be replaced. She developed a fever over night. -Met with patient's Prema De La Cruz and Emili Ross, and patient's niece, Shruthi Trujillo, today. They stated that they know patient is not going to get better from this and are supportive of NOT restarting tube feedings. We talked about transitioning to comfort measures only, and all are in agreement with this. -Stop all PO medications. Allow moist sponges for comfort. -Discontinue all labs or further diagnostic testing. -Morphine 1mg IV Q2h PRN pain or SOB. -Atropine 1% oph soln 4 drops SL Q1h PRN secretions. -Lorazepam 0.5mg IV Q4h PRN anxiety/agitation. -Discussed with the family that I do anticipate patient stabilizing and being able to transfer back to [facility] on hospice once she is comfortable. Will ask case management to follow up. (2) Stroke: (3) Received intravenous tissue plasminogen activator (tPA) in emergency department: (4) CKD (chronic kidney disease), stage III: (5) Weakness: (6) Dysphagia: Results & Data Vital Signs (Past 12 Hours) Vital Signs Temp Pulse Pulse Resp BP Pulse Ox 02/24/19 07:26 37.6 C H 104 H 20 119/71 96 02/24/19 04:22 37.0 C 97 H 18 129/76 94 02/24/19 01:03 95 H 02/23/19 22:57 36.5 C 89 18 128/70 88 L Time Spent Midlevel 120 minutes with >50% of time spent at bedside with patient and family discussing condition, GOC, and EOL issues. (1) Stroke CVA mechanism: unspecified Qualified Code(s): I63.9 - Cerebral infarction, unspecified
--- NOTE | 2019-02-24 11:48 | Hospitalist Progress Note ---
Date of Service February 24, 2019 Assessment & Plan (1) Stroke: Appreciate palliative care input and recommendation Repeat CT scan showed deterioration of her condition including midline shift Clinically were stable Likely to have comfort care only from tomorrow We will continue current treatment for now The patient deteriorated and the imaging studies showed worsening of stroke and midline shift She is under comfort care only and the family members are in agreement with that She will be transferred to fourth floor (2) Received intravenous tissue plasminogen activator (tPA) in emergency department: This is a 84yo F with a PMH of atrial fibrillation (on coumadin), HTN, chronic anemia, CKD III, chronic diastolic HF and other medical problems listed below who presents from [facility] and was found to have a stroke with tpa administration. -Facial droop, dysarthria, left sided weakness. TPA received with an extended window in ED -CT head without acute abnormalities. Per tar heater for further stroke work-up with MRI brain, echo w/ bubble study -Has history of A Fib, with subtherapeutic INR of 1.1 today -Keep NPO for now. Dr. Santiago planning to place NG tube for feedings post 24 hours of TPA due to known swallowing difficulties prior to stroke -Appreciate tar heater input and recommendation -Neuro checks, PT, OT, speech therapy evaluations -Consult neurology-appreciate input and recommendation -Clinically a little better today -Repeat CT of the head was nonconclusive and will have repeat CT in 24 hours before starting any aspirin and/or anticoagulation -Speech evaluation tomorrow and for now continue NGT feeding -Condition has not deteriorated - (3) Chronic pulmonary aspiration: CXR with unchanged consolidative infiltrate left base -Chronic aspiration confirmed during previous admission in January-February 2019, with CT chest showed findings consistent with extensive aspiration with barium filling the left mainstem bronchus and extending into the segmental bronchi for the upper and lower lobes of the left lung. Video swallow showed aspiration with the thin liquid barium -Seen by pulmonology on previous admission. Antibiotics were not felt to be indicated. -Has follow-up appointment with pulmonary for CT and possible bronchoscopy -Continue suction for now and scopolamine patch for excessive secretions (4) HTN (hypertension): Allow for permissive HTN in the setting of ischemic stroke after tpa -Per guidelines, consider antihypertensives if BP >180/105 -BP remains stable (5) CKD (chronic kidney disease), stage III: Kidney function at baseline with Cr of 1.26, GFR 38.5 -Continue to monitor -Renal function is normalized (6) Anemia: Hgb of 8.4 today (baseline 8-9) -Chronic, in setting of CKD, no acute bleeding -Continue to monitor, transfuse if hgb <8 -Hemoglobin remains stable at 8.4 (7) DVT prophylaxis: SCDs. Chemical prophylaxis contraindicated in the setting of TPA administration Code status: DNR per discussion with Dr. Jack Lloyd PCP: Dr. Horn Dispo: Admitted to ICU Discussed with family members and the palliative team Likely to be comfort care from tomorrow Subjective 02/21 The patient was seen and examined in the ICU This is a 84yo F with a PMH of atrial fibrillation (on coumadin), HTN, chronic anemia, CKD III, chronic diastolic HF and other medical problems listed below who presents from [facility] and was found to have a stroke and status post TPA administration. No apparent distress at rest Tries to communicate with limited dysphasia Has left-sided weakness and left facial droop 02/22 The patient was seen and examined in medical telemetry unit She has been feeling a little bit better Still has left-sided weakness and not been able to eat or drink Denies any other symptoms 02/23 The patient was seen and examined in medical telemetry unit in presence of daughter Her condition has been deteriorating She does not have any gag reflex and needs secretions to be suctioned out for comfort Repeat CT of the head showing worsening of the stroke with midline shift 02/24 The patient was seen and examined in presence of her daughter Her condition has deteriorated She was evaluated by palliative and had a long discussion with family members by the palliative team She is on the comfort care only and should be transferred to fourth floor Patient more drowsy today. CT head looks worse now with midline shift and small hemorrhage. Review of Systems Review of Systems: Unresponsive but comfortable Physical Exam Physical Exam: Remains unresponsive Constitutional: WD/WN, vitals as above + ill appearing ENMT: external ear and nose normal, oropharynx normal Neck: trachea midline, no thyromegaly Respiratory: + respiratory distress (Minimal) Cardiovascular: Rate/Rhythm: + irregularly irregular Heart Sounds: normal S1 and normal S2 Gastrointestinal (Abdomen): normal bowel sounds, soft, nontender, no hepatosplenomegaly Neurologic: Remains unresponsive Results & Data Vital Signs (Past 12 Hours) Vital Signs Temp Pulse Pulse Resp BP Pulse Ox 02/24/19 07:26 37.6 C H 104 H 20 119/71 96 02/24/19 04:22 37.0 C 97 H 18 129/76 94 02/24/19 01:03 95 H (1) Stroke CVA mechanism: unspecified Qualified Code(s): I63.9 - Cerebral infarction, unspecified (2) Anemia Anemia type: unspecified type Qualified Code(s): D64.9 - Anemia, unspecified
[2019-02-24] MEDS: ATROPINE SULFATE 1% OP SOLN 5 ML BTL SL PRN (21:41)
[2019-02-25] MEDS: CHECK SCOPOLAMINE PATCH PLACEMENT SCH ×2 (07:39→16:16)
--- NOTE | 2019-02-25 10:08 | Palliative Care Progress Note ---
Date of Service February 25, 2019 Assessment & Plan (1) Goals of care, counseling/discussion: -84 year old female with PMH CKD stage III, dysphagia, htn, chronic diastolic dysfunction, anemia, hypothyroidism, afib, and others, presented to the hospital two days ago with large acute right sided MCA stroke. -Repeat CT head 02/23 showed new midline shift and focus of hemorrhage. -Patient was placed on comfort measures only 02/24. -Today, did move right extremities, but did not follow commands. No s/s discomfort. -Stable for transfer out of hospital at this time. Could transfer back to [facility] on comfort/hospice care. Case management following. -Continue morphine and lorazepam as needed for comfort. (2) Stroke: (3) Received intravenous tissue plasminogen activator (tPA) in emergency department: (4) CKD (chronic kidney disease), stage III: (5) Weakness: (6) Dysphagia: Subjective Patient is resting comfortably today. Does still occasionally wake and speak. Speech is garbled. Review of Systems Review of Systems: Unobtainable due to cognitive status Physical Exam Constitutional: + ill appearing and + frail appearing Neck: normal visual inspection Respiratory: normal respiratory effort, lungs clear to auscultation Auscultation: + diminished lung sounds and + rhonchi (coarse) Cardiovascular: Rate/Rhythm: regular rate and regular rhythm Vessels: no JVD Gastrointestinal (Abdomen): Inspection/Auscultation: abdomen normal to inspection and normal bowel sounds; abdomen not distended Percussion/Palpation: abdomen soft Neurologic: Speech / Cognition: + abnormal speech Motor/Sensory: + abnormal movement (left sided weakness) Psychiatric: Orientation: oriented to person; + not alert (more drowsy today) Results & Data Vital Signs (Past 12 Hours) Vital Signs Temp Pulse Resp BP Pulse Ox 02/24/19 23:37 37.4 C 59 L 20 105/72 94 Time Spent Midlevel 25 minutes with >50% of time spent at bedside with patient and nursing discussing comfort care. (1) Stroke CVA mechanism: unspecified Qualified Code(s): I63.9 - Cerebral infarction, unspecified
[2019-02-25] MEDS: ATROPINE SULFATE 1% OP SOLN 5 ML BTL SL PRN (12:57)
--- NOTE | 2019-02-25 15:33 | Hospitalist Progress Note ---
Date of Service February 25, 2019 Assessment & Plan (1) Stroke: Appreciate palliative care input and recommendation Repeat CT scan showed deterioration of her condition including midline shift Clinically were stable Likely to have comfort care only from tomorrow We will continue current treatment for now The patient deteriorated and the imaging studies showed worsening of stroke and midline shift She is under comfort care only and the family members are in agreement with that She will be transferred to fourth floor Continue current management plan as per palliative care Too unstable to be this discharged from the hospital Other medical condition as mentioned below (2) Received intravenous tissue plasminogen activator (tPA) in emergency department: This is a 84yo F with a PMH of atrial fibrillation (on coumadin), HTN, chronic anemia, CKD III, chronic diastolic HF and other medical problems listed below who presents from [facility] and was found to have a stroke with tpa administration. -Facial droop, dysarthria, left sided weakness. TPA received with an extended window in ED -CT head without acute abnormalities. Per fruit picker for further stroke work-up with MRI brain, echo w/ bubble study -Has history of A Fib, with subtherapeutic INR of 1.1 today -Keep NPO for now. Dr. Santiago planning to place NG tube for feedings post 24 hours of TPA due to known swallowing difficulties prior to stroke -Appreciate fruit picker input and recommendation -Neuro checks, PT, OT, speech therapy evaluations -Consult neurology-appreciate input and recommendation -Clinically a little better today -Repeat CT of the head was nonconclusive and will have repeat CT in 24 hours before starting any aspirin and/or anticoagulation -Speech evaluation tomorrow and for now continue NGT feeding -Condition has not deteriorated - (3) Chronic pulmonary aspiration: CXR with unchanged consolidative infiltrate left base -Chronic aspiration confirmed during previous admission in January-February 2019, with CT chest showed findings consistent with extensive aspiration with barium filling the left mainstem bronchus and extending into the segmental bronchi for the upper and lower lobes of the left lung. Video swallow showed aspiration with the thin liquid barium -Seen by pulmonology on previous admission. Antibiotics were not felt to be indicated. -Has follow-up appointment with pulmonary for CT and possible bronchoscopy -Continue suction for now and scopolamine patch for excessive secretions (4) HTN (hypertension): Allow for permissive HTN in the setting of ischemic stroke after tpa -Per guidelines, consider antihypertensives if BP >180/105 -BP remains stable (5) CKD (chronic kidney disease), stage III: Kidney function at baseline with Cr of 1.26, GFR 38.5 -Continue to monitor -Renal function is normalized (6) Anemia: Hgb of 8.4 today (baseline 8-9) -Chronic, in setting of CKD, no acute bleeding -Continue to monitor, transfuse if hgb <8 -Hemoglobin remains stable at 8.4 (7) DVT prophylaxis: SCDs. Chemical prophylaxis contraindicated in the setting of TPA administration Code status: DNR per discussion with Dr. Jack Lloyd PCP: Dr. Horn Dispo: Admitted to ICU Discussed with family members and the palliative team Likely to be comfort care from tomorrow Subjective 02/21 The patient was seen and examined in the ICU This is a 84yo F with a PMH of atrial fibrillation (on coumadin), HTN, chronic anemia, CKD III, chronic diastolic HF and other medical problems listed below who presents from [facility] and was found to have a stroke and status post TPA administration. No apparent distress at rest Tries to communicate with limited dysphasia Has left-sided weakness and left facial droop 02/22 The patient was seen and examined in medical telemetry unit She has been feeling a little bit better Still has left-sided weakness and not been able to eat or drink Denies any other symptoms 02/23 The patient was seen and examined in medical telemetry unit in presence of daughter Her condition has been deteriorating She does not have any gag reflex and needs secretions to be suctioned out for comfort Repeat CT of the head showing worsening of the stroke with midline shift 02/24 The patient was seen and examined in presence of her daughter Her condition has deteriorated She was evaluated by palliative and had a long discussion with family members by the palliative team She is on the comfort care only and should be transferred to fourth floor Patient more drowsy today. CT head looks worse now with midline shift and small hemorrhage. 02/25 The patient was seen and examined in the medical floor in presence of the sister She remains stable but critical She has been under comfort care only Review of Systems Neurologic: + paralysis, + loss of sensation, + abnormal speech, + confusion and + memory loss Physical Exam Physical Exam: Resting comfortably in bed Constitutional: WD/WN, vitals as above + ill appearing Eyes: PERRL, conjunctivae normal, anicteric sclerae ENMT: external ear and nose normal, oropharynx normal Neck: trachea midline, no thyromegaly Respiratory: + respiratory distress (Minimal) Auscultation: + diminished lung sounds Cardiovascular: Rate/Rhythm: + irregularly irregular Heart Sounds: normal S1 and normal S2 Gastrointestinal (Abdomen): normal bowel sounds, soft, nontender, no hepatosplenomegaly Neurologic: Alert, awake but confused. Generally extremely weak (1) Stroke CVA mechanism: unspecified Qualified Code(s): I63.9 - Cerebral infarction, unspecified (2) Anemia Anemia type: unspecified type Qualified Code(s): D64.9 - Anemia, unspecified
[2019-02-26] MEDS: CHECK SCOPOLAMINE PATCH PLACEMENT SCH ×3 (01:38→15:31)
[2019-02-26] MEDS: SCOPOLAMINE 1.5 MG TDSY TD SCH (09:27)
--- NOTE | 2019-02-26 18:16 | Hospitalist Progress Note ---
Date of Service delayed entry date of service noted below February 26, 2019 Assessment & Plan (1) Stroke: Appreciate palliative care input and recommendation Repeat CT scan showed deterioration of her condition including midline shift Now under comfort measures status Episodes of restlessness and hallucinations PRN Ativan Family inquiring regarding possible p.o. intake Will order speech therapy evaluation For now patient may have sponge with water/juice Overall the patient is comfortable (2) Received intravenous tissue plasminogen activator (tPA) in emergency department: Given for acute CVA (3) Chronic pulmonary aspiration: CXR with unchanged consolidative infiltrate left base -Chronic aspiration confirmed during previous admission in January-February 2019, with CT chest showed findings consistent with extensive aspiration with barium filling the left mainstem bronchus and extending into the segmental bronchi for the upper and lower lobes of the left lung. Video swallow showed aspiration with the thin liquid barium (4) HTN (hypertension): Stable (5) CKD (chronic kidney disease), stage III: Kidney function at baseline with Cr of 1.26, GFR 38.5 (6) Anemia: Hgb of 8.4 (7) DVT prophylaxis: SCDs. Chemical prophylaxis contraindicated in the setting of TPA administration Code status: DNR per discussion with Dr. Jack Lloyd PCP: Dr. Horn Dispo: Admitted to ICU Discussed with niece at the bedside Subjective Follow-up for acute CVA, comfort measures status Seen with her niece at the bedside She is sitting up in bed, awake and alert, noted to be confused, has some hallucinations Calm and cooperative Denies shortness of breath, pain No other symptoms Review of Systems Review of Systems: All systems reviewed & are unremarkable except as noted in HPI & below Physical Exam Physical Exam: General- oriented x 2, not in distress, speaks in sentences with no effort or accessory muscle use Eyes- anicteric Neck- no JVD Lungs- clear breath sounds bilaterally, no crackles or wheezing Heart- normal rate, regular rhythm; no murmurs Abdomen- normal bowel sounds, nondistended, soft, nontender Extremities- no pretibial edema, no calf tenderness Neuro- alert, oriented x 3; no gross focal neurologic deficits Skin- warm & dry (1) Stroke CVA mechanism: unspecified Qualified Code(s): I63.9 - Cerebral infarction, unspecified (2) Anemia Anemia type: unspecified type Qualified Code(s): D64.9 - Anemia, unspecified
[2019-02-27] MEDS: CHECK SCOPOLAMINE PATCH PLACEMENT SCH ×4 (00:43→23:25)
--- NOTE | 2019-02-27 18:30 | Hospitalist Progress Note ---
Date of Service delayed entry date of service noted below February 27, 2019 Assessment & Plan (1) Stroke: Appreciate palliative care input and recommendation Repeat CT scan showed deterioration of her condition including midline shift Now under comfort measures status Episodes of restlessness and hallucinations PRN Ativan Family inquiring regarding possible p.o. intake Speech therapy attempted, patient mostly sleeping For now patient may have sponge with water/juice Overall the patient is comfortable family agrees (2) Received intravenous tissue plasminogen activator (tPA) in emergency department: Given for acute CVA (3) Chronic pulmonary aspiration: CXR with unchanged consolidative infiltrate left base -Chronic aspiration confirmed during previous admission in January-February 2019, with CT chest showed findings consistent with extensive aspiration with barium filling the left mainstem bronchus and extending into the segmental bronchi for the upper and lower lobes of the left lung. Video swallow showed aspiration with the thin liquid barium (4) HTN (hypertension): Stable (5) CKD (chronic kidney disease), stage III: Kidney function at baseline with Cr of 1.26, GFR 38.5 (6) Anemia: Hgb of 8.4 (7) DVT prophylaxis: SCDs. Chemical prophylaxis contraindicated in the setting of TPA administration Code status: DNR per discussion with Dr. Jack Lloyd PCP: Dr. Horn Dispo: Admitted to ICU Discussed with mag at the bedside Subjective ff up for acute CVA seen resting in bed, sleeping comfortable patient mostly sleeping as per family no signs of distress/pain Review of Systems Review of Systems: All systems reviewed & are unremarkable except as noted in HPI & below Physical Exam Physical Exam: General- sleeping, not in distress Neck- no JVD Lungs- clear breath sounds bilaterally Heart- normal rate, regular rhythm Extremities- no pretibial edema (1) Anemia Anemia type: unspecified type Qualified Code(s): D64.9 - Anemia, unspecified (2) Stroke CVA mechanism: unspecified Qualified Code(s): I63.9 - Cerebral infarction, unspecified
[2019-02-28] MEDS: CHECK SCOPOLAMINE PATCH PLACEMENT SCH (07:55)
[2019-02-28] MEDS: ATROPINE SULFATE 1% OP SOLN 5 ML BTL SL PRN (08:35)
--- NOTE | 2019-02-28 11:09 | Palliative Care Progress Note ---
Date of Service February 28, 2019 Assessment & Plan (1) Goals of care, counseling/discussion: -84 year old female with PMH CKD stage III, dysphagia, htn, chronic diastolic dysfunction, anemia, hypothyroidism, afib, and others, presented to the hospital two days ago with large acute right sided MCA stroke. -Repeat CT head 02/23 showed new midline shift and focus of hemorrhage. -Patient was placed on comfort measures only 02/24. -Today, left sided is still weak but does have improvement. -Patient much more awake and alert. Oriented to person, place and somewhat event. Knows she had a stroke. Recalls being at [facility] and undergoing speech therapy. She remembers some of the exercises she was taught was saying "[place]! Ed! Either!" as the HEADLIGHT ASSEMBLER taught her. Patient does still have periods of confusion and hallucinations. -Discussed allowing permission aspiration in order to comfort feed with ice chips, sips as tolerated and maybe even very small bites of soft foods as long as patient did not go into distress. HEADLIGHT ASSEMBLER revisiting today. Anca Hathaway, and patient both okay with permissive aspiration. -I encouraged use of moistened sponges-- can dip in anything the patient likes. -Plan is for [facility]. Skilled initially then transition to comfort/hospice. Patient was clear today in the fact that she does NOT want to return to the hospital. (2) Stroke: (3) Received intravenous tissue plasminogen activator (tPA) in emergency department: (4) CKD (chronic kidney disease), stage III: (5) Weakness: (6) Dysphagia: Subjective Patient more awake today. Anca Hathaway, at bedside. Left side is improving. More oriented but still having hallucinations. Review of Systems Constitutional: + weakness Ear, Nose, Mouth, Throat: + dry mouth Respiratory: + cough; no dyspnea Cardiovascular: no chest pain Gastrointestinal: no abdominal pain and no nausea Neurologic: left sided weakness Psychiatric: + hallucinations (reported by anca hathaway) Physical Exam Constitutional: + ill appearing and + frail appearing Neck: normal visual inspection Respiratory: normal respiratory effort, lungs clear to auscultation Auscultation: + diminished lung sounds cough is much dryer; less secretions noted Cardiovascular: Rate/Rhythm: regular rate and + irregularly irregular Vessels: no JVD Gastrointestinal (Abdomen): Inspection/Auscultation: abdomen normal to inspection and normal bowel sounds; abdomen not distended Percussion/Palpation: abdomen soft Neurologic: awake and + confused Speech / Cognition: + abnormal speech Motor/Sensory: + abnormal movement (left sided weakness) Psychiatric: Orientation: oriented to person and oriented to place Time Spent Midlevel 40 minutes with >50% of time spent at bedside with patient and family discussing condition, GOC, and POC. (1) Stroke CVA mechanism: unspecified Qualified Code(s): I63.9 - Cerebral infarction, unspecified
[2019-02-28] MEDS ORDERED: CYCLOBENZAPRINE HCL 5 MG TAB PO SCH (12:30)
--- NOTE | 2019-02-28 14:36 | Hospitalist Progress Note ---
Date of Service February 28, 2019 Assessment & Plan (1) Stroke: Repeat CT scan showed deterioration of her condition including midline shift Now under comfort measures status Episodes of restlessness and hallucinations PRN Ativan given Family inquiring regarding possible p.o. intake repeat Speech therapy performed, recommendations as follows: Patient is a known aspirator. Aspiration precautions as listed. Oral hygiene prior to oral intake the morning, after meals and before bed please. If not eating meals then oral hygiene every 2 hours. Patient is currently considered comfort measures. We are not restricting much about her oral intake. She should never be left alone to eat or drink-direct supervision with all oral intake. Advance diet if patient requests. Also can consider maintaining pured diet and allowing minced and moist snacks. Alternate solids and liquids Question medications Supervised meals Fully alert and upright Oral hygiene Single bites/small sips/slow rate No straws Overall the patient is comfortable family agrees --Plan to transition to hospice care services at [facility] Continue scopolamine patch, as needed Ativan, morphine (2) Received intravenous tissue plasminogen activator (tPA) in emergency department: Given for acute CVA (3) Chronic pulmonary aspiration: CXR with unchanged consolidative infiltrate left base -Chronic aspiration confirmed during previous admission in January-February 2019, with CT chest showed findings consistent with extensive aspiration with barium filling the left mainstem bronchus and extending into the segmental bronchi for the upper and lower lobes of the left lung. Video swallow showed aspiration with the thin liquid barium (4) HTN (hypertension): Stable (5) CKD (chronic kidney disease), stage III: Kidney function at baseline with Cr of 1.26, GFR 38.5 (6) Anemia: Hgb of 8.4 (7) DVT prophylaxis: SCDs. Chemical prophylaxis contraindicated in the setting of TPA administration Code status: DNR per discussion with POAs PCP: Dr. Horn Dispo: Discharged to [facility], transition to hospice services Subjective ff up for acute cva awake today, appears tired speaks a few words confused speech therapy evaluated the patient, after a spoon of pudding, patient began started to have a coughing spell states she feels fine overall Review of Systems Review of Systems: All systems reviewed & are unremarkable except as noted in HPI & below Physical Exam Physical Exam: General- alert, confused, not in distress Eyes- anicteric Neck- no JVD Lungs- clear BS BL Heart- normal rate, regular rhythm; no murmurs Abdomen- normal bowel sounds, nondistended, soft, nontender Extremities- no pretibial edema, no calf tenderness Neuro- alert, confused mild left facial droop left upper ext: 4/5 strength Skin- warm & dry Results & Data Vital Signs (Past 12 Hours) Vital Signs Temp Pulse Pulse Resp BP BP Pulse Ox 02/28/19 11:38 37.4 C 59 L 86 20 105/72 130/67 94 (1) Anemia Anemia type: unspecified type Qualified Code(s): D64.9 - Anemia, unspecified (2) Stroke CVA mechanism: unspecified Qualified Code(s): I63.9 - Cerebral infarction, unspecified
--- NOTE | 2019-02-28 15:01 | Discharge Summary ---
Date of Service February 28, 2019 Admission HPI Per Admitting Provider This is a 84yo F with a PMH of atrial fibrillation (on coumadin), HTN, chronic anemia, CKD III, chronic diastolic HF and other medical problems listed below who presents from [facility] with stroke symptoms. Was last seen in normal state of health at 2 PM this afternoon and when she awoke from nap at 430, patient had a facial droop and was unable to swallow pills or open eyes. Had difficulty following commands and seemed weak. Mag Hawkins was present then and alerted medical staff, who called EMS for transport to [facility]. Upon arrival, patient had left facial droop, left arm and leg weakness and a right gaze preference. Stroke alert was called and the decision was made to administer TPA. Patient is able to speak but it is difficult to understand. Having a dull headache but no chest pain, SOB, nausea, or abdominal pain. Goals of care were discussed with POA's (Valentina) and mag Hawkins and eventually decision was made for DNR. Patient will be monitored in ICU for 24-48 hrs. Of note, patient was recently discharged to [facility] from our service 4 days ago after a complex work up for chronic aspiration, pulmonary infiltrates and generalized weakness. Initially presented with hypothermia and what looked like sepsis 2/2 pneumonia but was determined that patient was chronically aspirating with CT chest showed findings consistent with extensive aspiration with barium filling the left mainstem bronchus and extending into the segmental bronchi for the upper and lower lobes of the left lung. Video swallow showed aspiration with the thin liquid barium. Was planning to have repeat CT scan in a few weeks, per pulm, and eat a slippery soft diet with aspiration precautions, per speech. Weakness was extensively worked up and thought to be due to a combination of failure to thrive, depression and natural progression of aging. Also considered occult malignancy that has not yet been identified. Principal Diagnosis ACUTE CEREBROVASCULAR ACCIDENT, LARGE LEFT MCA DISTRIBUTION Discharge Data Allergies Allergy/AdvReac Type Severity Reaction Status Date / Time Bactrim AdvReac Severe RENAL Verified 05/24/12 09:38 PROBLEMS sulfamethoxazole AdvReac Severe RENAL Verified 02/20/19 19:13 PROBLEMS trimethoprim AdvReac Severe RENAL Verified 02/20/19 19:13 PROBLEMS vancomycin AdvReac Severe RENAL Verified 02/20/19 19:13 PROBLEMS Consultations 02/20/19 18:32 ED Decision to Admit Stat 02/20/19 19:15 Consult Case Management - Discharge Planning Routine Consult Neurology Routine 02/20/19 19:18 Consult Ex Chef Routine 02/20/19 19:19 Consult Palliative Care Stat Ordered Studies 02/20/19 17:17 CT head/brain wo con Stat 02/21/19 19:00 CT head/brain wo con Routine 02/22/19 14:45 US carotid doppler BI Routine 02/23/19 10:51 CT head/brain wo con Urgent Hospital Course (1) Stroke: This is a 84yo F with a PMH of atrial fibrillation (on coumadin), HTN, chronic anemia, CKD III, chronic diastolic HF and other medical problems listed below who presents from [facility] and was found to have a stroke and status post TPA administration. Has left-sided weakness and left facial droop, limited dysphasia 02/23 condition has been deteriorating ACUTE CVA, Large MCA Distribution She does not have any gag reflex and needs secretions to be suctioned out for comfort Repeat CT of the head showing worsening of the stroke with midline shift 02/24 Her condition has deteriorated She was evaluated by palliative and had a long discussion with family members , by the palliative team transitioned to comfort care only a CT head looks worse with midline shift and small hemorrhage. Remained under comfort measures status Episodes of restlessness and hallucinations PRN Ativan given Family inquiring regarding possible p.o. intake for pleasure feeding repeat Speech therapy performed 02/28/19, recommendations as follows: Patient is a known aspirator. Aspiration precautions as listed. Oral hygiene prior to oral intake the morning, after meals and before bed please. If not eating meals then oral hygiene every 2 hours. Patient is currently considered comfort measures. We are not restricting much about her oral intake. She should never be left alone to eat or drink-direct supervision with all oral intake. Advance diet if patient requests. Also can consider maintaining pured diet and allowing minced and moist snacks. Alternate solids and liquids Question medications Supervised meals Fully alert and upright Oral hygiene Single bites/small sips/slow rate No straws Overall the patient is comfortable --Plan to transition to hospice care services at [facility] Continue scopolamine patch, as needed Ativan, morphine discussed with patient's niece Shruthi, she is agreeable and comfortable with plan of care (2) Received intravenous tissue plasminogen activator (tPA) in emergency department: Given for acute CVA (3) Chronic pulmonary aspiration: CXR with unchanged consolidative infiltrate left base -Chronic aspiration confirmed during previous admission in January-February 2019, with CT chest showed findings consistent with extensive aspiration with barium filling the left mainstem bronchus and extending into the segmental bronchi for the upper and lower lobes of the left lung. Video swallow showed aspiration with the thin liquid barium - Speech Therapy recommendations as noted in #1 (4) HTN (hypertension): Stable (5) CKD (chronic kidney disease), stage III: Kidney function at baseline with Cr of 1.26, GFR 38.5 (6) Anemia: Hgb of 8.4 (7) DVT prophylaxis: SCDs. Chemical prophylaxis contraindicated in the setting of TPA administration Code status: DNR per discussion with POAs PCP: Dr. Horn Dispo: Discharged to [facility], transition to hospice services Total Time Total Time Spent Total Time Spent (In Minutes): 55 minutes Discharge Plan Discharge Items Patient Disposition: Transfer Group Home Fac Reason For Visit: ACUTE STROKE Discharge Diagnosis: Acute cerebrovascular accident Discharge Goals: Decrease discomfort, Diagnostic testing and Therapeutic intervention Activity: As commented below Activity Comment: Always with maximal assistance, high fall risk Non-emergency contact: Primary Care Provider Call non-emergency contact if: you have any medication questions Follow-up/Referrals: Gurpreet Horn MD [Primary Care Provider] - Diet: See below Addtl Provider Instructions: SPEECH THERAPY RECOMMENDATIONS Patient is a known aspirator. Aspiration precautions as listed. Oral hygiene prior to oral intake the morning, after meals and before bed please. If not eating meals then oral hygiene every 2 hours. Patient is currently considered comfort measures. We are not restricting much about her oral intake. She should never be left alone to eat or drink-direct supervision with all oral intake. Advance diet if patient requests. Also can consider maintaining pured diet and allowing minced and moist snacks. Alternate solids and liquids Question medications Supervised meals Fully alert and upright Oral hygiene Single bites/small sips/slow rate No straws Please refer to accompanying discharge summary for further details. Prescriptions: New atropine 1 % Drops 4 drp sublingual Q1H PRN (Reason: secretions) 15 Days Qty: 15 RF: 0 scopolamine base [Transderm-Scop] 1 mg over 3 days Patch 3 Day 1.5 mg transdermal Q72H 15 Days Qty: 5 RF: 0 morphine 10 mg/5 mL solution 5 mg PO Q4H PRN (Reason: pain) 7 Days Qty: 15 RF: 0 lorazepam [Ativan] 0.5 mg tablet 0.5 mg PO Q4H PRN (Reason: anxiety) Qty: 10 RF: 0 Discontinued levothyroxine [Synthroid] 75 mcg tablet 75 mg PO QAM RF: 0 potassium chloride [Klor-Con M20] 20 mEq tablet,ER particles/crystals 20 meq PO BIDM RF: 0 ferrous gluconate 240 mg (27 mg iron) Tablet 240 mg PO BID RF: 0 metoprolol succinate [Toprol XL] 25 mg tablet extended release 24 hr 12.5 mg PO QPM RF: 0 metoprolol succinate [Toprol XL] 25 mg tablet extended release 24 hr 25 mg PO QAM RF: 0 cholecalciferol (vitamin D3) [Vitamin D3] 2,000 unit Capsule 2,000 units PO DAILY RF: 0 PreserVision AREDS-2 [id number] Capsule 1 tab PO BID RF: 0 sennosides-docusate sodium [Senna with Docusate Sodium] 8.6-50 mg Tablet 1 tab PO DAILY PRN (Reason: Constipation) RF: 0 warfarin 2 mg Tablet 2 mg PO HS RF: 0 sertraline 25 mg Tablet 25 mg PO DAILY RF: 0 furosemide [Lasix] 20 mg Tablet 20 mg PO DAILY RF: 0 Stand-Alone Forms: [facility] Discharge Orders: Discharge Order (Routine); Ordered 02/28/19 Ordered By: Ambrocio Lemus Skilled Items Patient informed of condition?: Yes DNR: Yes Discharge Level of Care: Skilled Communicable Disease: No Discharge Prognosis: Deteriorating Admission Data Admit Date/Time: 02/20/19 19:18 Attending Provider: Ambrocio Lemus Admit Provider: Nguyen Knowles Primary Care Provider: Gurpreet Horn Other Providers: Nguyen Knowles ; Belle Lopez ; Gonzalo Santiago ; Maribel Davila ; Esperanza Mejia Service: Telemetry Medical Other Interventions: Discharge Summary Assessment (RN) Last Done: 02/28/19 11:38
--- NOTE | 2019-02-28 15:38 | Discharge Summary ---
Date of Service February 28, 2019 Admission HPI Per Admitting Provider This is a 84yo F with a PMH of atrial fibrillation (on coumadin), HTN, chronic anemia, CKD III, chronic diastolic HF and other medical problems listed below who presents from [facility] with stroke symptoms. Was last seen in normal state of health at 2 PM this afternoon and when she awoke from nap at 430, patient had a facial droop and was unable to swallow pills or open eyes. Had difficulty following commands and seemed weak. Mag Hawkins was present then and alerted medical staff, who called EMS for transport to [facility]. Upon arrival, patient had left facial droop, left arm and leg weakness and a right gaze preference. Stroke alert was called and the decision was made to administer TPA. Patient is able to speak but it is difficult to understand. Having a dull headache but no chest pain, SOB, nausea, or abdominal pain. Goals of care were discussed with POA's (Valentina) and mag Hawkins and eventually decision was made for DNR. Patient will be monitored in ICU for 24-48 hrs. Of note, patient was recently discharged to [facility] from our service 4 days ago after a complex work up for chronic aspiration, pulmonary infiltrates and generalized weakness. Initially presented with hypothermia and what looked like sepsis 2/2 pneumonia but was determined that patient was chronically aspirating with CT chest showed findings consistent with extensive aspiration with barium filling the left mainstem bronchus and extending into the segmental bronchi for the upper and lower lobes of the left lung. Video swallow showed aspiration with the thin liquid barium. Was planning to have repeat CT scan in a few weeks, per pulm, and eat a slippery soft diet with aspiration precautions, per speech. Weakness was extensively worked up and thought to be due to a combination of failure to thrive, depression and natural progression of aging. Also considered occult malignancy that has not yet been identified. Discharge Data Allergies Allergy/AdvReac Type Severity Reaction Status Date / Time Bactrim AdvReac Severe RENAL Verified 05/24/12 09:38 PROBLEMS sulfamethoxazole AdvReac Severe RENAL Verified 02/20/19 19:13 PROBLEMS trimethoprim AdvReac Severe RENAL Verified 02/20/19 19:13 PROBLEMS vancomycin AdvReac Severe RENAL Verified 02/20/19 19:13 PROBLEMS Consultations 02/20/19 18:32 ED Decision to Admit Stat 02/20/19 19:15 Consult Case Management - Discharge Planning Routine Consult Neurology Routine 02/20/19 19:18 Consult Benzol Still Operator Routine 02/20/19 19:19 Consult Palliative Care Stat Ordered Studies 02/20/19 17:17 CT head/brain wo con Stat 02/21/19 19:00 CT head/brain wo con Routine 02/22/19 14:45 US carotid doppler BI Routine 02/23/19 10:51 CT head/brain wo con Urgent Discharge Plan Discharge Items Patient Disposition: Transfer [facility] Fac Reason For Visit: ACUTE STROKE Discharge Diagnosis: Acute cerebrovascular accident Discharge Goals: Decrease discomfort, Diagnostic testing and Therapeutic intervention Activity: As commented below Activity Comment: Always with maximal assistance, high fall risk Non-emergency contact: Primary Care Provider Call non-emergency contact if: you have any medication questions Follow-up/Referrals: Gurpreet Horn MD [Primary Care Provider] - Diet: See below Addtl Provider Instructions: SPEECH THERAPY RECOMMENDATIONS Patient is a known aspirator. Aspiration precautions as listed. Oral hygiene prior to oral intake the morning, after meals and before bed please. If not eating meals then oral hygiene every 2 hours. Patient is currently considered comfort measures. We are not restricting much about her oral intake. She should never be left alone to eat or drink-direct supervision with all oral intake. Advance diet if patient requests. Also can consider maintaining pured diet and allowing minced and moist snacks. Alternate solids and liquids Question medications Supervised meals Fully alert and upright Oral hygiene Single bites/small sips/slow rate No straws Please refer to accompanying discharge summary for further details. Prescriptions: New atropine 1 % Drops 4 drp sublingual Q1H PRN (Reason: secretions) 15 Days Qty: 15 RF: 0 scopolamine base [Transderm-Scop] 1 mg over 3 days Patch 3 Day 1.5 mg transdermal Q72H 15 Days Qty: 5 RF: 0 morphine 10 mg/5 mL solution 5 mg PO Q4H PRN (Reason: pain) 7 Days Qty: 15 RF: 0 lorazepam [Ativan] 0.5 mg tablet 0.5 mg PO Q4H PRN (Reason: anxiety) Qty: 10 RF: 0 Discontinued levothyroxine [Synthroid] 75 mcg tablet 75 mg PO QAM RF: 0 potassium chloride [Klor-Con M20] 20 mEq tablet,ER particles/crystals 20 meq PO BIDM RF: 0 ferrous gluconate 240 mg (27 mg iron) Tablet 240 mg PO BID RF: 0 metoprolol succinate [Toprol XL] 25 mg tablet extended release 24 hr 12.5 mg PO QPM RF: 0 metoprolol succinate [Toprol XL] 25 mg tablet extended release 24 hr 25 mg PO QAM RF: 0 cholecalciferol (vitamin D3) [Vitamin D3] 2,000 unit Capsule 2,000 units PO DAILY RF: 0 PreserVision AREDS-2 [id number]-mg Capsule 1 tab PO BID RF: 0 sennosides-docusate sodium [Senna with Docusate Sodium] 8.6-50 mg Tablet 1 tab PO DAILY PRN (Reason: Constipation) RF: 0 warfarin 2 mg Tablet 2 mg PO HS RF: 0 sertraline 25 mg Tablet 25 mg PO DAILY RF: 0 furosemide [Lasix] 20 mg Tablet 20 mg PO DAILY RF: 0 Stand-Alone Forms: [facility] Discharge Orders: Discharge Order (Routine); Ordered 02/28/19 Ordered By: Ambrocio Lemus Skilled Items Patient informed of condition?: Yes DNR: Yes Discharge Level of Care: Skilled Communicable Disease: No Discharge Prognosis: Deteriorating Admission Data Admit Date/Time: 02/20/19 19:18 Attending Provider: Ambrocio Lemus Admit Provider: Nguyen Knowles Primary Care Provider: Gurpreet Horn Other Providers: Nguyen Knowles ; Belle Lopez ; Gonzalo Santiago ; Maribel Davila ; Esperanza Mejia Service: Telemetry Medical Other Interventions: Discharge Summary Assessment (RN) Last Done: 02/28/19 11:38
--- NOTE | 2019-03-02 11:58 | Coding Query ---
CODING QUERY To promote full compliance with coding requirements relating to patient care, provider participation is requested in all cases of wax machine operator uncertainty. Please assist us with the question(s) below: Coding Question(s): Patient admitted with MCA stroke ; TPA given in ED. 2nd Discharge Summary mentions Left MCA stroke. Progress notes reflect Right MCA stroke. Please check below the stroke side that was treated. Thanks for your help! Jhonatan Colon [employer]PA[employer] [facility] Physician's Response(s): ___X____ Right MCA stroke Left MCA stroke cannot clinically correlate MCA left or right side Other/ Please document: Principal Diagnosis: "that condition established after study, to be chiefly responsible for occasioning the admission of the patient to the hospital for care." Co-Existing Principal Diagnosis: "when two or more diagnoses equally meet the criteria for principal diagnosis as determined by the circumstances of admission, diagnostic work up, and/or therapy provided, and the Alphabetic Index, Tabular List, or another coding guideline does not provide sequencing direction, any one of the diagnoses may be sequenced first." "When the physician has documented what appears to be a current diagnosis in the body of the record, but has not included the diagnosis in the final diagnostic statement, the physician should be asked whether the diagnosis should be added." ([facility] 2 QTR90. p3-4) AMAN
== END 2019-02-28 17:41 | disposition hospice, inpatient (51) | DRG 62 ==
LOC: ED 17:18 → SUATTDRO 19:18 → 1E 19:18 → 2W 02-22 08:30 → 4E 02-25 18:58